=== PATIENT | female | born 1945 | race Caucasian/White ===

== ENCOUNTER 2020-03-09 11:36 | Outpatient (REF) | payer MEDICARE, OTHER, SELFPAY | END 2020-03-09 11:37 | disposition home or self-care (01) | LOC: HO.WFDLDS 11:36 | PROVIDERS: Visit Provider Internal Medicine | DX: Z20.828 Contact with and (suspected) exposure to other viral communicable diseases (principal) | CPT/HCPCS: C9803; U0003 ==

== ENCOUNTER 2020-03-23 11:11 | Outpatient (REF) | payer MEDICARE, OTHER, SELFPAY ==
--- NOTE | 2020-03-23 11:19 | MM_ITS ---
EXAMINATION: MM DIAGNOSTIC DIGITAL BREAST TOMOSYNTHESIS, BILATERAL CLINICAL INFORMATION: Due for yearly exam. Also follow-up small circumscribed nodule mid medial right breast. The lifetime risk of breast cancer based on the Tyrer-Cuzick Model is 5%. COMPARISON: Mammography: 09/19/2019, 08/30/2018, 01/25/2019 (BI-RADS 0), 12/29/2017, 10/13/2016; targeted right breast ultrasound 01/30/2019. TECHNIQUE: Digital breast tomosynthesis is performed in both the craniocaudal and mediolateral oblique views along with computer-aided detection (CAD). Synthesized 2D images are generated from the tomosynthesis. Additional right MLO view is provided. FINDINGS: There are scattered areas of fibroglandular density (ACR BI-RADS breast composition Category b). Parenchymal pattern is similar to prior studies. The left breast shows no interval mass or architectural abnormality. Neither breast shows abnormal calcifications. The bilateral axilla and skin contours are unremarkable. The right AC tomography shows small circumscribed nodular asymmetry mid medial breast similar to prior diagnostic exams. Finding not seen with certainty on MLO view. There is no developing density or interval architectural abnormality. Right breast will be reassessed again at next bilateral annual mammography, due in 12 months. Results are provided to the patient at time of visit by the technologist. MM/MM tomosynthesis diagnostic BI IMPRESSION: There are no significant changes from prior study. Small probable benign nodular asymmetry mid medial right breast, stable. ASSESSMENT: BI-RADS 3: Probably Benign RECOMMENDATION: Diagnostic mammography at time of next annual exam, due in 12 months. This patient's information was entered into a reminder system with a target due date for their next mammogram.
== END 2020-03-23 11:12 | disposition home or self-care (01) ==
LOC: HO.MAMMO 11:11
PROVIDERS: Visit Provider Family Medicine
DX: N63.10 Unspecified lump in the right breast, unspecified quadrant (principal)
CPT/HCPCS: 77062; 77066

== ENCOUNTER 2020-09-14 18:24 | Outpatient (REF) | payer MEDICARE, OTHER, SELFPAY ==
[2020-09-14 18:37] LABS: Glucose Urine UA NEG (NEG); Leukocyte Esterase Urine TRACE (NEG); Nitrite Urine POS (NEG); Specific Gravity - Urine 1.025 (1.005-1.025); Urine Blood NEG (NEG); Urine Ketones NEG (NEG); Urine Protein NEG (NEG-TRACE)
[2020-09-14 18:45] LABS: Appearance Urine HAZY; Color Urine YELLOW
[2020-09-14 18:52] LABS: Bacteria Urine 3+ /LPF; Mucus Urine TRACE /LPF; RBC Urine 0-2 /HPF (0); Squamous Epithelial Cell Urine 1+ /LPF
== END 2020-09-14 18:25 | disposition home or self-care (01) ==
LOC: HO.LNP 18:24
PROVIDERS: Visit Provider Family Medicine
DX: Z00.00 Encounter for general adult medical examination without abnormal findings (principal); R82.90 Unspecified abnormal findings in urine; R25.2 Cramp and spasm; M81.0 Age-related osteoporosis without current pathological fracture; M48.50XA Collapsed vertebra, not elsewhere classified, site unspecified, initial encounter for fracture
CPT/HCPCS: 81001; 87086; 87088; 87186

== ENCOUNTER 2020-09-22 12:54 | Outpatient (REF) | payer MEDICARE, OTHER, SELFPAY ==
[2020-09-22 14:03] LABS: Glucose Urine UA NEG (NEG); Leukocyte Esterase Urine 3+ (NEG); Nitrite Urine POS (NEG); PH 6.5 (5.0-8.0); Urine Blood NEG (NEG); Urine Ketones NEG (NEG); Urine Protein NEG (NEG-TRACE)
[2020-09-22 14:04] LABS: Appearance Urine HAZY; Color Urine YELLOW
[2020-09-22 14:15] LABS: Alanine Aminotransferase 21 U/L (0-31); Albumin Level 4.3 g/dL (3.5-5.0); Alkaline Phosphatase 76 U/L (39-117); Anion Gap 12 (12-20); Aspartate Amino Transferase 32 U/L (5-31); Bilirubin Total 0.5 mg/dL (0.0-1.0); Blood Urea Nitrogen 16 mg/dL (9-16); Calcium 9.6 mg/dL (8.4-10.2); Carbon Dioxide 28 mmol/L (22-29); Chloride 106 mmol/L (96-108); Estimated Glomerular Filt Rate > 60; Glucose Random 131 mg/dL (60-115); Magnesium 1.8 mg/dL (1.6-2.6); Potassium 3.6 mmol/L (3.3-5.1); Sodium 142 mmol/L (135-145); Total Protein 7.9 g/dL (6.5-8.0)
[2020-09-22 14:30] LABS: Bacteria Urine 3+ /LPF; RBC Urine 0-2 /HPF (0); Squamous Epithelial Cell Urine TRACE /LPF
== END 2020-09-22 12:55 | disposition home or self-care (01) ==
LOC: HO.WFDLDS 12:54
PROVIDERS: Visit Provider Family Medicine
DX: Z00.00 Encounter for general adult medical examination without abnormal findings (principal); R25.2 Cramp and spasm; R82.90 Unspecified abnormal findings in urine
CPT/HCPCS: 36415; 80053; 81001; 81003; 83735

== ENCOUNTER 2021-09-15 14:21 | Outpatient (REF) | payer MEDICARE, OTHER, SELFPAY ==
--- NOTE | ~2021-09-15 | XR_ITS ---
EXAMINATION: XR KNEE, LEFT CLINICAL INFORMATION: Knee pain. COMPARISON: None TECHNIQUE: Four views of the left knee. FINDINGS: There is mild patellofemoral spurring. There is a small bordering moderate effusion present. The patella is fairly well seated on the sunrise image. Medial joint space loss with marginal osteophyte present. Irregularity in the tibial spine regions may well be degenerative. Some possible loose bodies on the lateral film seen posterior. XR/XR knee LT 3V IMPRESSION: Moderate degenerative changes with effusion. Possible loose body formation.
== END 2021-09-15 14:22 | disposition home or self-care (01) ==
LOC: HO.XRAY 14:21
PROVIDERS: PCP Family Medicine; Visit Provider Family Medicine
DX: M25.562 Pain in left knee (principal)
CPT/HCPCS: 73562

== ENCOUNTER 2021-09-29 14:04 | Outpatient (REF) | payer MEDICARE, OTHER, SELFPAY ==
[2021-09-29 14:23] LABS: MANUAL DIFF FLAG NO
[2021-09-29 15:08] LABS: Basophils Percent Auto 0.4 % (0-2); Eosinophils Absolute Auto 0.2 X10*3/uL (0.0-0.4); Eosinophils Percent Auto 2.4 % (0-4); Hematocrit 30.9 % (37.0-47.0); Hemoglobin 10.1 g/dl (12.0-16.0); Imm Gran Abs Auto 0.02 X10*3/uL (0.00-0.03); Imm Gran Pct Auto 0.3 % (0.0-0.4); Lymphocytes Absolute Auto 1.8 X10*3/uL (1.2-4.9); Lymphocytes Percent Auto 26.5 % (20-40); Mean Corpuscular HGB Conc 32.7 g/dl (31.0-35.0); Mean Corpuscular Hemoglobin 32.9 pg (27.0-33.0); Mean Corpuscular Volume 100.7 fL (80.0-98.0); Mean Platelet Volume 11.3 fL (9.4-12.3); Monocytes Absolute Auto 0.5 X10*3/uL (0.1-1.2); Monocytes Percent Auto 7.2 % (2-11); Neutrophils Absolute Auto 4.4 x10*3/uL (2.0-8.3); Neutrophils Percent Auto 63.2 % (45-73); Platelet Count 176 X10*3/uL (160-400); Red Blood Count 3.07 X10*6/uL (4.20-5.50); Red Cell Distribution Width 13.5 % (11.0-16.0)
[2021-09-29 15:30] LABS: Alanine Aminotransferase 21 U/L (0-31); Albumin Level 4.3 g/dL (3.5-5.0); Alkaline Phosphatase 68 U/L (39-117); Anion Gap 13 (12-20); Aspartate Amino Transferase 33 U/L (5-31); Bilirubin Total 0.2 mg/dL (0.0-1.0); Blood Urea Nitrogen 14 mg/dL (9-16); Carbon Dioxide 26 mmol/L (22-29); Chloride 107 mmol/L (96-108); Cholesterol 175 mg/dL; Estimated Glomerular Filt Rate > 60; Glucose Fasting 92 mg/dL (60-99); HDL Cholesterol 43 mg/dL; LDL Cholesterol Calculated 92 mg/dl; Potassium 3.7 mmol/L (3.3-5.1); Sodium 142 mmol/L (135-145); Total Protein 7.9 g/dL (6.5-8.0); Triglycerides 204 mg/dL
[2021-09-29 15:35] LABS: Microalbum/Creatinine Ratio Ur 34.2 ug/mg cr
[2021-09-29 15:51] LABS: TSH reflex Free T4 4.24 uIU/mL (0.32-4.0); Vitamin D 25-OH Total 27.6 ng/mL (>30)
[2021-09-29 15:52] LABS: Ferritin 27 ng/mL (10-250)
[2021-09-29 16:01] LABS: Folate 16.8 ng/mL (> or = 4.0); Vitamin B12 995 pg/mL (200-900)
[2021-09-29 16:25] LABS: Free T4 (Free Thyroxine) 1.25 ng/dL (0.71-1.85)
== END 2021-09-29 14:05 | disposition home or self-care (01) ==
LOC: HO.LAB 14:04
PROVIDERS: PCP Family Medicine; Visit Provider Internal Medicine
DX: Z00.00 Encounter for general adult medical examination without abnormal findings (principal); R06.00 Dyspnea, unspecified; D64.9 Anemia, unspecified; I10 Essential (primary) hypertension; E55.9 Vitamin D deficiency, unspecified
CPT/HCPCS: 36415; 80053; 80061; 82043; 82306; 82607; 82728; 82746; 84439; 84443; 85025; 85027; 99212

== ENCOUNTER 2021-10-07 07:11 | Outpatient (REF) | payer MEDICARE, OTHER, SELFPAY ==
--- NOTE | ~2021-10-07 | XR_ITS ---
EXAMINATION: XR KNEE AP STANDING CLINICAL INFORMATION: Pain right knee COMPARISON: None TECHNIQUE: AP bilateral standing view of the knees was obtained. FINDINGS: AP bilateral knee standing reveal severe loss of medial compartment joint space with periarticular spurring bilaterally. No loose bodies or bony erosive changes seen. There is no soft tissue swelling or fracture seen. XR/XR knee standing BI IMPRESSION: Severe degenerative changes medial compartment both knees. No visible acute fracture or dislocation seen.
== END 2021-10-07 07:12 | disposition home or self-care (01) ==
LOC: HO.HOSX 07:11
PROVIDERS: Visit Provider Physician Assistant
DX: M17.12 Unilateral primary osteoarthritis, left knee (principal); M25.562 Pain in left knee; M25.561 Pain in right knee; I10 Essential (primary) hypertension; E78.00 Pure hypercholesterolemia, unspecified
CPT/HCPCS: 20610; 73565; 99202; J1040

== ENCOUNTER 2021-10-28 11:00 | Outpatient (RCR) | payer MEDICARE, OTHER, SELFPAY ==
--- NOTE | 2021-09-30 15:34 | MHC.PT.EP ---
[facility] [place] Office [place] Office [place] Office [address] [phone] F: [phone] F: [phone] F: [phone] F: [phone] Physical Therapy Plan of Care Date of Evaluation: Date of Surgery: Diagnosis: Pain of L knee. Assessment: Pt is a 76 y/o female referred to PT for eval and treat of L knee pain who presents with signs and Sx consistent with L knee dysfunction resulting in decreased tolerance and ability to perform ambulatory and standing tasks for duration as well as negotiating stairs, performing squatting activities and heavy HH chores secondary to decreased B hip and L knee strength, decreased L knee ROM as well as mild genuvarus LE posture, increased posterior L leg tissue tension, and pain. Pt is deemed an appropriate candidate to receive skilled PT in order to address her physical limitations to improve her functional ability. Frequency and Duration: The patient will be seen 2x / wk x 4 wks. Short Term Goals: initiate HEP with evidence of compliance. Full L knee extension achieved; initial 5 degrees flexion (R 5 deg hyper extension). Research And Development Scientist Goals: I with HEP. Pt will be able to negotiate 1fl of stairs with at most a little bit of difficulty; initial: quite a bit of difficulty (LEFI). improve L knee extension MMT by at least 1 MMT grade: initial 4/5 and painful. Pt will be able to walk 2 blocks without difficulty; initial: moderate difficulty (LEFI). Treatment Plan: Modalities to reduce pain, spasms and effusion. Manual therapy to restore motion and function. Therapeutic exercise to improve strength and flexibility. Neuromuscular re-education for posture and balance. Therapeutic activities to return to functional activities of daily living. Electronically signed by: Garett Ng PT. Please sign and return to therapist. Thank you for your referral.
== END 2021-11-11 15:19 | disposition home or self-care (01) ==
LOC: HO.PTWFD 11:00
PROVIDERS: PCP Family Medicine; Visit Provider Family Medicine
DX: M25.562 Pain in left knee (principal)
CPT/HCPCS: 97110; 97140; 97161; 97530

== ENCOUNTER 2021-11-09 13:06 | Outpatient (REF) | payer MEDICARE, OTHER, SELFPAY ==
--- NOTE | 2021-11-09 14:10 | PFT_ITS ---
INDICATION: Dyspnea. SPIROMETRY: The FEV1 to FVC of 92% with an FEV1 of 2.28 L with 112% predicted, an FVC of 2.49 L with 91% predicted. No significant response to bronchodilators noted. Maximum voluntary ventilation 91% predicted. LUNG VOLUMES: Total lung capacity 77% predicted. DIFFUSION CAPACITY: DLCO 47% predicted. COMPARISONS: None. INTERPRETATION: No obstructive ventilatory defect. No significant response to bronchodilators noted. Normal maximum voluntary ventilation. The patient does have a restrictive ventilatory defect consistent with mild restrictive lung disease. The expiratory reserve volume is within normal limits. The patient also has a moderate to severe diffusion impairment, out of proportion to the above findings. Needs to consider underlying interstitial lung conditions and/or pulmonary vascular conditions. Also need to correct for hemoglobin. Clinical correlation warranted. Messi Gilbert MD MR/MODL / [id number]
== END 2021-11-09 13:07 | disposition home or self-care (01) ==
LOC: HO.RESP 13:06
PROVIDERS: PCP Family Medicine; Visit Provider Internal Medicine
DX: R06.00 Dyspnea, unspecified (principal); D64.9 Anemia, unspecified
CPT/HCPCS: 94060; 94727; 94729; 99212

== ENCOUNTER 2021-12-16 12:44 | Outpatient (REF) | payer MEDICARE, OTHER, SELFPAY ==
[2021-12-16 13:35] LABS: MANUAL DIFF FLAG NO
[2021-12-16 13:46] LABS: Basophils Percent Auto 0.6 % (0-2); Eosinophils Absolute Auto 0.2 X10*3/uL (0.0-0.4); Eosinophils Percent Auto 2.6 % (0-4); Hematocrit 31.1 % (37.0-47.0); Hemoglobin 10.2 g/dl (12.0-16.0); Imm Gran Abs Auto 0.01 X10*3/uL (0.00-0.03); Imm Gran Pct Auto 0.1 % (0.0-0.4); Immature Retic Fraction 9.9 % (3.0-15.9); Lymphocytes Absolute Auto 1.7 X10*3/uL (1.2-4.9); Lymphocytes Percent Auto 24.6 % (20-40); Mean Corpuscular HGB Conc 32.8 g/dl (31.0-35.0); Mean Corpuscular Hemoglobin 32.5 pg (27.0-33.0); Mean Platelet Volume 11.7 fL (9.4-12.3); Monocytes Absolute Auto 0.6 X10*3/uL (0.1-1.2); Monocytes Percent Auto 8.7 % (2-11); Neutrophils Absolute Auto 4.4 x10*3/uL (2.0-8.3); Neutrophils Percent Auto 63.4 % (45-73); Platelet Count 175 X10*3/uL (160-400); Red Blood Count 3.14 X10*6/uL (4.20-5.50); Red Cell Distribution Width 14.4 % (11.0-16.0); Retic HGB Equivalent 35.5 pg (30.0-35.0); Reticulocyte Percent 1.6 % (0.5-1.8); Reticulocytes Absolute 0.051 X10*6/uL (0.026-0.095); White Blood Count 6.9 X10*3/uL (4.8-10.8)
[2021-12-16 14:16] LABS: Anion Gap 14 (12-20); Blood Urea Nitrogen 16 mg/dL (9-16); Calcium 9.7 mg/dL (8.4-10.2); Carbon Dioxide 25 mmol/L (22-29); Chloride 105 mmol/L (96-108); Estimated Glomerular Filt Rate > 60; Glucose Random 79 mg/dL (60-115); Iron 103 mcg/dL (30-160); Percent Iron Saturation 20 % (15-50); Sodium 140 mmol/L (135-145); Total Iron Binding Capacity 510 mcg/dL (228-428); Unsaturated Iron Binding 407 ug/dL
[2021-12-16 14:40] LABS: Ferritin 28 ng/mL (10-250); Free T4 (Free Thyroxine) 1.17 ng/dL (0.71-1.85); Thyroid Stimulating Hormone 2.78 uIU/mL (0.32-4.0)
[2021-12-16 14:57] LABS: Folate 9.3 ng/mL (> or = 4.0); Vitamin B12 900 pg/mL (200-900)
[2021-12-17 18:02] LABS: Triiodothyronine T3 Total 85 ng/dL (76-181)
== END 2021-12-16 12:45 | disposition home or self-care (01) ==
LOC: HO.WFDLDS 12:44
PROVIDERS: Visit Provider Family Medicine
DX: Z00.00 Encounter for general adult medical examination without abnormal findings (principal); D64.9 Anemia, unspecified; E03.9 Hypothyroidism, unspecified; E53.8 Deficiency of other specified B group vitamins
CPT/HCPCS: 36415; 80048; 82607; 82728; 82746; 83540; 84439; 84443; 84480; 85025; 85045

== ENCOUNTER 2021-12-28 11:34 | Outpatient (REF) | payer MEDICARE, OTHER, SELFPAY | END 2021-12-28 11:35 | disposition home or self-care (01) | LOC: HO.MAMMO 11:34 | PROVIDERS: PCP Family Medicine; Visit Provider Family Medicine | DX: Z13.89 Encounter for screening for other disorder (principal) ==

== ENCOUNTER → 2021-12-30 11:16 | Outpatient (BNV) | payer MEDICARE, OTHER, SELFPAY | PROVIDERS: PCP Family Medicine; Referring Provider Family Medicine; Visit Provider Internal Medicine Medical Oncology | DX: D64.9 Anemia, unspecified (principal); M81.0 Age-related osteoporosis without current pathological fracture | CPT/HCPCS: 99204; 99212; 99213; 99214 ==

== ENCOUNTER 2022-02-10 08:24 | Day surgery (SDC) | payer MEDICARE, OTHER, SELFPAY ==
--- NOTE | 2022-02-09 09:28 | HO.ANESPROP2 ---
Documented by User: Kia Pretty NP 02/09/22 09:31 HPI - Anesthesia Eval Consult details Narrative: 76yo F for Bone Marrow Biopsy PMFSH Active Problems Active Problems: All Active Problems (Updated 12/30/21 @ 12:25 by Edu Vila MD) Essential hypertension (Acute) Hypothyroidism (Acute) Hyperlipidemia (Acute) ALS (amyotrophic lateral sclerosis) (Acute) Osteoporosis (Acute) Compression fracture of spine (Acute) Foul smelling urine (Acute) Calf cramp (Acute) Encounter for general adult medical examination without abnormal findings (Acute) Difficulty with speech (Acute) Regularly irregular pulse rhythym (Acute) Dysarthria (Acute) Screening for colon cancer (Acute) Screening for osteoporosis (Acute) Breast cancer screening by mammogram (Acute) Shortness of breath (Acute) Left knee pain (Acute) Osteoarthritis of left knee (Acute) Adult general medical examination (Acute) Paresthesia (Acute) Anemia (Acute) Dyspnea on exertion (Acute) Past Medical History Medical History Anemia Aphagia Aphasia Dyspnea on exertion GERD (gastroesophageal reflux disease) High blood pressure High cholesterol Hypothyroidism Osteoporosis T11 vertebral fracture Family History Family History Father Esophageal cancer Mother Breast cancer Paternal Aunt Breast cancer Surgical History Surgical History History of cholecystectomy History of excision of mass History of kyphoplasty History of tonsillectomy History of vertebroplasty Social History Social History Household Members: Spouse Housing: Condominium Are you a primary direct care professional to a significant other at home: No Do you presently have visiting nurse or other home services: No Alcohol intake: current Alcohol intake frequency: holidays/special occasions only Patient Tobacco Use Status: Never used Tobacco e-Cigarette/Vaping Use: Never Used Use of substances other than those prescribed or required for medical reasons: No Are you DNR?: Yes Advance Directives: No Advance Directives Information Provided: Yes service: No Current occupational status: 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 Cognitive needs: Yes Hearing needs: No Vision needs: No Meds Allergies Allergy/AdvReac Type Severity Reaction Status Date / Time Cephalosporins Allergy Mild JAUNDICE Verified 02/10/22 09:08 KETOLIDES Allergy Unknown ITCHING Uncoded 02/03/22 14:00 MACORLIDES Allergy Unknown ITCHING Uncoded 02/03/22 14:00 Home Medications Medication Instructions Recorded Confirmed Last Taken Type aspirin 81 mg tablet,delayed 81 mg PO DAILY 03/09/20 02/10/22 02/08/22 History release (Adult Aspirin Regimen) cholecalciferol (vitamin D3) 50 50 mcg PO DAILY 09/13/21 02/10/22 Unknown History mcg (2,000 unit) capsule denosumab 60 mg/mL subcutaneous 60 mg subcut [id number] 09/13/21 02/10/22 Unknown History syringe (Prolia) mecobalamin (vitamin B12) 1,000 1,000 mcg PO DAILY 09/13/21 02/10/22 Unknown History mcg chewable tablet Exam Exam Date and Time: February 09, 2022 0928 Pertinent Lab Results Pertinent Lab Results: Laboratory Tests 02/03/22 02/03/22 13:50 13:50 WBC 7.7 Hgb 10.2 L Hct 31.4 L Plt Count 190 Sodium 141 Potassium 4.3 Chloride 106 Carbon Dioxide 25 BUN 14 Creatinine 0.89 Narrative Narrative: PFT 10/2021 INTERPRETATION:? No obstructive ventilatory defect.? No significant response to bronchodilators noted.? Normal maximum voluntary ventilation.? The patient does have a restrictive ventilatory defect consistent with mild restrictive lung disease. The expiratory reserve volume is within normal limits.? The patient also has a moderate to severe diffusion impairment, out of proportion to the above findings.? Needs to consider underlying interstitial lung conditions and/or pulmonary vascular conditions.? Also need to correct for hemoglobin.? Clinical correlation warranted. Assessment and Plan Assessment Anesthesia Assessment: Chart Reviewed Documented by User: Ney Nash MD 02/10/22 09:57 PMFSH Past Medical History Medical History Anemia Aphagia Aphasia Dyspnea on exertion GERD (gastroesophageal reflux disease) High blood pressure High cholesterol Hypothyroidism Osteoporosis T11 vertebral fracture Family History Family History Father Esophageal cancer Mother Breast cancer Paternal Aunt Breast cancer Family history of problems with anesthesia: No Surgical History Surgical History History of cholecystectomy History of excision of mass History of kyphoplasty History of tonsillectomy History of vertebroplasty History of Problems with Anesthesia: No Social History Social History Household Members: Spouse Housing: [facility] Are you a primary direct care professional to a significant other at home: No Do you presently have visiting nurse or other home services: No Alcohol intake: current Alcohol intake frequency: holidays/special occasions only Patient Tobacco Use Status: Never used Tobacco e-Cigarette/Vaping Use: Never Used Use of substances other than those prescribed or required for medical reasons: No Are you DNR?: Yes Advance Directives: No Advance Directives Information Provided: Yes service: No Current occupational status: 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 Cognitive needs: Yes Hearing needs: No Vision needs: No Meds Allergies Allergy/AdvReac Type Severity Reaction Status Date / Time Cephalosporins Allergy Mild JAUNDICE Verified 02/10/22 09:08 KETOLIDES Allergy Unknown ITCHING Uncoded 02/03/22 14:00 MACORLIDES Allergy Unknown ITCHING Uncoded 02/03/22 14:00 Home Medications Medication Instructions Recorded Confirmed Last Taken Type aspirin 81 mg tablet,delayed 81 mg PO DAILY 03/09/20 02/10/22 02/08/22 History release (Adult Aspirin Regimen) cholecalciferol (vitamin D3) 50 50 mcg PO DAILY 09/13/21 02/10/22 Unknown History mcg (2,000 unit) capsule denosumab 60 mg/mL subcutaneous 60 mg subcut [id number] 09/13/21 02/10/22 Unknown History syringe (Prolia) mecobalamin (vitamin B12) 1,000 1,000 mcg PO DAILY 09/13/21 02/10/22 Unknown History mcg chewable tablet Exam Airway Mallampati Class: II TM Dist: >3cm Neck ROM: Full Loose/Missing/Broken Teeth: Yes Assessment and Plan Final Anesthetic Review Family History of Problems with Anesthesia: No History of Problems with Anesthesia: No NPO: Yes ASA Class: III Final Preanesthetic Review: No Changes in Pt Med Stat, Meds/Allgs Chart Reviewed, Consent Obtained/Reviewed and Anes Risks/Benef Reviewed Patient Risk: Intermediate Procedure Risk: Low Anesthetic Plan Anesthetic Plan: MAC: Disposition: Standard PACU
[2022-02-10 08:47] VITALS: BMI 26.0
[2022-02-10 08:54] VITALS: BP 141/62; PULSE 60; RESP 16; TEMP 36.8; O2SAT 97
[2022-02-10] MEDS: Lactated Ringers 1,000 ML 100 ML IVCONT (09:12)
[2022-02-10 10:56] VITALS: BP 118/55; PULSE 64; RESP 16; TEMP 36.1; O2SAT 95
[2022-02-10 11:10] VITALS: BP 126/58; PULSE 65; RESP 16; O2SAT 96
[2022-02-10 11:25] VITALS: BP 125/53; RESP 16; TEMP 36.7; O2SAT 95
--- NOTE | 2022-02-10 11:28 | PM.HEMONCBM ---
Bone Marrow Aspiration - Bone Marrow Aspiration Procedure:: *Service Date: [02/10/22] Pre Op Diagnosis:: Anemia. Post Op Diagnosis:: Same. Surgeon:: Edu Vila. Anesthesia:: MAC. Consent:: Informed consent obtained from the patient for the procedure. Pros and cons of biopsy explained. The patient was willing to proceed with the procedure under local anesthesia. Procedure in Detail:: *Service Date: 02/10/22. *Procedure: Bone marrow aspirate and biopsy. *Pre Op Dx: Anemia. *Post Op Dx: Same. *Surgeon: Edu Vila. CBC: WBC 7.7, HGB 10.2,HCT 31.4, PLT 190. The patient was positioned prone. The left posterior superior iliac spine prepped and draped. Patient was anesthetized under MAC. Under aseptic precautions, 4 ml of 1% lidocaine used for local anesthesia. Bone marrow aspirate was taken. With the Jamshidi needle, a core biopsy was obtained without any complications. Specimens were sent for Lincoln stain, flow cytometry and cytogenetics. The patient tolerated the procedure well. Bandage was applied and patient was positioned on her back for 10 to 15 minutes after the procedure. The patient was advised to call us if she develops any pain or swelling at the surgical site. Follow up in 2 weeks.
[2022-02-10 11:31] LABS: Bone Marrow SEE SEPARATE REPORT
== END 2022-02-10 11:58 | disposition home or self-care (01) ==
PROVIDERS: Pathology Anatomic Pathology & Clinical Pathology; PCP Family Medicine; Visit Provider Internal Medicine Medical Oncology
PROC: (CPT 38221; principal; 2022-02-10 10:00)
DX: D53.9 Nutritional anemia, unspecified (principal); R53.83 Other fatigue; R47.01 Aphasia; R13.0 Aphagia; I10 Essential (primary) hypertension; E78.00 Pure hypercholesterolemia, unspecified; R06.09 Other forms of dyspnea; Z79.82 Long term (current) use of aspirin; Z79.899 Other long term (current) drug therapy; Z88.8 Allergy status to other drugs, medicaments and biological substances; Z66 Do not resuscitate; Z90.49 Acquired absence of other specified parts of digestive tract
CPT/HCPCS: 38222; 36415; 88184; 88185; 88237; 88264; 88305; 88311; 88313; 88374; J1642; J3010

== ENCOUNTER 2022-02-18 12:21 | Outpatient (REF) | payer MEDICARE, OTHER, SELFPAY | END 2022-02-18 12:22 | disposition home or self-care (01) | LOC: HO.WFDLDS 12:21 | PROVIDERS: Visit Provider Nurse Practitioner Family | DX: E03.9 Hypothyroidism, unspecified (principal) | CPT/HCPCS: 36415; 84443 ==

== ENCOUNTER → 2022-09-02 12:58 | Outpatient (BNVA) | payer MEDICARE, OTHER, SELFPAY | PROVIDERS: PCP Family Medicine; Visit Provider Physician Assistant | DX: M17.12 Unilateral primary osteoarthritis, left knee (principal) | CPT/HCPCS: 20610; 99212; J1040 ==

== ENCOUNTER 2022-12-15 10:30 | Outpatient (REF) | payer MEDICARE, OTHER, SELFPAY ==
[2022-12-15 14:35] LABS: MANUAL DIFF FLAG NO
[2022-12-15 14:41] LABS: Basophils Percent Auto 0.5 % (0-2); Eosinophils Absolute Auto 0.1 X10*3/uL (0.0-0.4); Eosinophils Percent Auto 2.3 % (0-4); Hematocrit 32.9 % (37.0-47.0); Imm Gran Abs Auto 0.01 X10*3/uL (0.00-0.03); Imm Gran Pct Auto 0.2 % (0.0-0.4); Lymphocytes Absolute Auto 1.5 X10*3/uL (1.2-4.9); Lymphocytes Percent Auto 24.4 % (20-40); Mean Corpuscular HGB Conc 33.4 g/dl (31.0-35.0); Mean Corpuscular Hemoglobin 34.4 pg (27.0-33.0); Mean Corpuscular Volume 102.8 fL (80.0-98.0); Mean Platelet Volume 11.5 fL (9.4-12.3); Monocytes Absolute Auto 0.4 X10*3/uL (0.1-1.2); Monocytes Percent Auto 6.9 % (2-11); Neutrophils Absolute Auto 3.9 x10*3/uL (2.0-8.3); Neutrophils Percent Auto 65.7 % (45-73); Platelet Count 128 X10*3/uL (160-400); Red Cell Distribution Width 13.2 % (11.0-16.0)
[2022-12-15 14:57] LABS: Appearance Urine Hazy; Color Urine Yellow; Glucose Urine UA Negative (Negative); Leukocyte Esterase Urine Large (3+) (Negative); Nitrite Urine Positive (Negative); PH 6.5 (5.0-9.0); UMIC TRIGGER UA YES; Urine Blood Trace (Negative); Urine Ketones Negative (Negative); Urine Protein Trace mg/dL (Neg-Trace)
[2022-12-15 15:27] LABS: Bacteria Urine 4+ (None Seen); Calcium Oxalate Crystals Urine Present; Hyaline Casts Urine 0-2 /LPF (0-2); RBC Urine >20 /HPF (0-2); WBC Urine >50 /HPF (0-5)
[2022-12-15 15:34] LABS: Alanine Aminotransferase 17 U/L (0-31); Albumin Level 4.1 g/dL (3.5-5.0); Alkaline Phosphatase 56 U/L (39-117); Anion Gap 11 (12-20); Aspartate Amino Transferase 27 U/L (5-31); Bilirubin Total 0.3 mg/dL (0.0-1.0); Blood Urea Nitrogen 17 mg/dL (9-16); Calcium 9.7 mg/dL (8.4-10.2); Carbon Dioxide 26 mmol/L (22-29); Chloride 107 mmol/L (96-108); Cholesterol 176 mg/dL (<200); Estimated Glomerular Filt Rate > 60; Glucose Fasting 127 mg/dL (60-99); Glucose Random 126 mg/dL (60-115); HDL Cholesterol 40 mg/dL (>40); Iron 72 mcg/dL (30-160); LDL Cholesterol Calculated 96 mg/dL (<100); Percent Iron Saturation 23 % (15-50); Sodium 140 mmol/L (135-145); Total Iron Binding Capacity 318 mcg/dL (228-428); Total Protein 7.8 g/dL (6.5-8.0); Triglycerides 201 mg/dL (<150); Unsaturated Iron Binding 246 ug/dL
[2022-12-15 16:00] LABS: TSH reflex Free T4 3.67 uIU/mL (0.32-4.0)
[2022-12-15 16:20] LABS: Creatinine Urine 217.82 mg/dL; Microalbum/Creatinine Ratio Ur 16.9 ug/mg cr (<30)
[2022-12-15 17:22] LABS: Ferritin 280 ng/mL (10-250)
[2022-12-15 17:23] LABS: Vitamin B12 1297 pg/mL (200-900)
== END 2022-12-15 10:31 | disposition home or self-care (01) ==
LOC: HO.WFDLDS 10:30
PROVIDERS: Internal Medicine Medical Oncology; Visit Provider Family Medicine
DX: Z00.00 Encounter for general adult medical examination without abnormal findings (principal); D64.9 Anemia, unspecified; E53.8 Deficiency of other specified B group vitamins; I10 Essential (primary) hypertension
CPT/HCPCS: 36415; 80053; 80061; 81001; 82043; 82607; 82728; 82746; 83540; 84443; 85025

== ENCOUNTER 2022-12-28 11:04 | Outpatient (AMB) | payer MEDICARE, OTHER, SELFPAY ==
--- NOTE | 2022-12-28 11:10 | MHC.PC.OV ---
Vital Signs 12/28/22 11:11 Height 5 ft 3 in Weight 151 lb BMI 26.7 BP 132/76 Blood Pressure Location Lt brachial Position Sitting Pulse 62 Pulse Source Pulse Oximeter Pulse Oximetry (%) 96 Oxygen Delivery Method Room Air Intake Visit Reasons: Extended exam with f/u labs and health maintenance Intake Note: Patient is here for extended exam and lab results. Patient is complaining of neck pain for 2 weeks. Allergies Cephalosporins Allergy (Mild, Verified 12/28/22 11:14) JAUNDICE KETOLIDES Allergy (Unknown, Uncoded 12/28/22 11:14) ITCHING MACORLIDES Allergy (Unknown, Uncoded 12/28/22 11:14) ITCHING Tobacco use date assessed: 12/28/22 Fall risk assessment: No Falls in past year Last assessed Fall Risk: 12/28/22 Dental Screening Dental Screen Date: 12/28/22 Did you have a dental visit in the last 12 months?: Yes Did you have a dental problem in the last 6 months where you did not have access to dental care?: No Was dental information given to patient?: Patient has dentist HPI Extended exam with f/u labs and health maintenance HPI Details 77 y/o female presents for an extended exam with f/u labs and health maintenance. Labs were drawn 12/15/22. Reviewed labs with pt. Ongoing, stable anemia. Elevated fasting glucose of 127. A1c today 12/28/22 is Triglycerides 201. TC 176. LDL 96. HDL 40. Urine in bacteria She denies any urinary symptoms. She reports she had a mammogram this year and everything was okay per pt. [facility] Medical History Anemia Aphagia Aphasia Dyspnea on exertion GERD (gastroesophageal reflux disease) High blood pressure High cholesterol Hypothyroidism Osteoporosis T11 vertebral fracture Surgical History History of bone marrow biopsy History of cholecystectomy History of excision of mass History of kyphoplasty History of tonsillectomy History of vertebroplasty Family History Father Esophageal cancer Mother Breast cancer Paternal Aunt Breast cancer Social History Household Members: Spouse Housing: Condominium Are you a primary veterinarian laboratory animal care to a significant other at home: No Do you presently have visiting nurse or other home services: No Alcohol intake: current Alcohol intake frequency: holidays/special occasions only Patient Tobacco Use Status: Never used Tobacco e-Cigarette/Vaping Use: Never Used Second Hand Smoke Exposure: No service: No Current occupational status: 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 Zach Mccarthy, Chayito Barnhart, Bal Díaz and colleagues, with an educational anne from [employer] Review of Systems Const Denies chills, Denies fatigue, Denies fever(s), Denies headache(s) and Denies weakness Eyes Denies change in vision ENT Denies dizziness, Denies headache(s), Denies hearing loss, Denies nasal congestion, Denies sinus pain, Denies sinus pressure and Denies sore throat Card Denies chest pain, Denies lightheadedness, Denies dyspnea and Denies other (palpitations) Resp Denies cough, Denies dyspnea and Denies wheezing GI Denies abdominal pain, Denies melena, Denies hematochezia, Denies change in bowel habits, Denies dyspepsia and Denies nausea Denies hematuria and Denies dysuria Musc Denies abnormal gait, Denies myalgias, Denies arthralgias, Denies numbness and Denies tingling Skin/Breast Denies rash, Denies unusual bruising and Denies wounds Neuro Denies abnormal gait, Denies dizziness, Denies headache(s), Denies memory loss, Denies numbness, Denies Sensory deficit (Neuro), Denies tingling and Denies weakness Psych Denies anxiety, Denies depression and Denies memory loss Endo Denies cold intolerance, Denies fatigue, Denies heat intolerance, Denies polydipsia and Denies polyuria Duane/Lymph Denies easy bleeding and Denies easy bruising Aller/Immun Denies wheezing Physical exam (Primary Care) Vital Signs: Last Vital Signs Pulse 62 12/28/22 11:11 BP 132/76 12/28/22 11:11 Pulse Ox 96 12/28/22 11:11 Oxygen Delivery Method Room Air 12/28/22 11:11 BMI result Body Mass Index 26.7 Tobacco/Smoking Status: Tobacco use Status Tobacco use date assessed 12/28/22 12/28/22 11:19 Patient Tobacco Use Status Never used Tobacco 12/28/22 11:19 e-Cigarette/Vaping Use Never Used 12/28/22 11:19 Thrive Assessment: Date of Thrive Assessment Date Thrive assessed 12/16/21 12/28/22 11:19 Const General: no acute distress, well developed, alert and awake Nutritional Appearance: well nourished Orientation/consciousness: patient oriented x3 HENMT Head: Yes normocephalic and Yes atraumatic Ears: hearing grossly normal bilaterally and TM's normal bilaterally General nose exam: Normal external nose present and Normal nares present Mouth: Normal oral and palatal mucosa present and moist mucous membranes Teeth and gingiva: dentition normal Throat: Yes posterior oropharynx normal Eyes General: appearance normal, both eyes and all related structures Pupils: Equal, round and reactive pupils present and Pupil accommodation reflex normal EOM: EOMs intact bilaterally Neck Neck: Yes normal visual inspection, Yes no lymphadenopathy and Yes trachea midline Thyroid: Thyroid normal Carotids: no bruits Lymphatic: no lymphadenopathy noted Chest Chest palpation & inspection: normal inspection of the chest Resp Effort & Inspection: normal respiratory effort Auscultation: clear to auscultation bilaterally Cardio Rate: regular rate Rhythm: regular rhythm Heart sounds: S1 normal heart sound present, S2 normal heart sound present, no gallops, no murmurs and no rubs Bruits: no abdominal aortic bruits and no carotid bruits GI Palpation (GI): No Abdominal aortic bruit present, Soft to palpation, nontender, No hepatosplenomegaly present and No Rebound tenderness present Auscultation: normal bowel sounds General: Yes no CVA tenderness Back/Spine/Pelvis Back: no CVA tenderness Cervical Spine: cervical ROM normal and No Cervical spine tenderness Thoracic/Lumbar Spine: thoraco-lumbar ROM normal, No pain with thoraco-lumbar ROM, No thoracic spinal tenderness and No lumbar spinal tenderness Skin Lesions: no lesions Rashes: no rashes Trauma: no lacerations or abrasions Wounds: no wounds Nails: normal Neuro General: patient oriented x3 Cranial nerves: Yes Equal, round and reactive pupils present Cognition (Neuro): normal cognition Gait exam (Neuro): Normal gait present Motor exam (neuro): 5/5 motor strength present throughout Sensory Exam: No Sensory deficit (Neuro) Deep tendon reflexes (DTR's): Right patellar reflex intensity grade: 2+ and Left patellar reflex intensity grade: 2+ Extrem General: Yes normal to inspection and No edema Psych Appearance: grossly normal Affect: normal affect Attitude: cooperative Thought process: Normal thought process present Results AMB Hemoglobin A1c AMB Hemoglobin A1c 5.8 % Last Edit by Portia Hanna CMA on 12/28/22 11:49 Results Reviewed Results Reviewed: Laboratory Last Values Hgb A1c (Clinic) 5.8 % (4.0-6.0) 12/28/22 11:46 Assessment and Plan Assessment & Plan (1) Dysphagia: Code(s): R13.10 - Dysphagia, unspecified Plan: History of progressive dysarthria. She now notes some worsening dysphagia Will have speech language pathologist evaluate; referred back to [facility] speech and hearing (2) Essential hypertension: Code(s): I10 - Essential (primary) hypertension Plan: Blood pressure is controlled. Goal is less than 140/90 Continue current medication regimen (3) Hyperlipidemia: Code(s): E78.5 - Hyperlipidemia, unspecified Plan: Triglycerides are elevated Encouraged diet lower in saturated fats and cholesterol Encouraged improved blood sugar control - see pre diabetes below (4) Anemia: Code(s): D64.9 - Anemia, unspecified Plan: Stable and managed by Hematology-Oncology (5) Pre-diabetes: Code(s): R73.03 - Prediabetes Plan: Encouraged a diet lower in sugars and starches Encouraged weight control and exercise (6) Screening for colon cancer: Code(s): Z12.11 - Encounter for screening for malignant neoplasm of colon Plan: She has an appointment with Dr. Hewitt (7) Screening for osteoporosis: Code(s): Z13.820 - Encounter for screening for osteoporosis Plan: She is on Prolia for osteoporosis (8) Breast cancer screening by mammogram: Code(s): Z12.31 - Encounter for screening mammogram for malignant neoplasm of breast Plan: She gets her mammograms in [place] as she is there half of the year Stable (9) Bacteria in urine: Code(s): R82.71 - Bacteriuria Plan: Check urine dip and urinalysis (10) Immunization counseling: Code(s): Z71.85 - Encounter for immunization safety counseling Plan: Recommended new COVID shot this month She is up-to-date with pneumonia shots. She is up-to-date with flu shot (11) Adult general medical examination: Code(s): Z00.00 - Encounter for general adult medical examination without abnormal findings Plan: 77-year-old woman presents for extended exam Orders: Orders AMB Hemoglobin A1c Today Z13.9 - Encounter for screening, unspecified Urine Dipstick Today R82.71 - Bacteriuria Referrals Speech and Hearing Referral R13.10 - Dysphagia, unspecified, R47.1 - Dysarthria and anarthria Coding Level of Care Code Est Pt Level 4 (04817) Diagnoses Dysphagia R13.10 Essential hypertension I10 Hyperlipidemia E78.5 Anemia D64.9 Pre-diabetes R73.03 Screening for colon cancer Z12.11 Screening for osteoporosis Z13.820 Breast cancer screening by mammogram Z12.31 Bacteria in urine R82.71 Immunization counseling Z71.85 Adult general medical examination Z00.00
[2022-12-28 11:11] VITALS: BP 132/76; PULSE 62; O2SAT 96; BMI 26.7
== END 2022-12-28 12:10 | disposition home or self-care (01) ==
PROVIDERS: PCP Family Medicine; Visit Provider Family Medicine
DX: R13.10 Dysphagia, unspecified (principal); I10 Essential (primary) hypertension; E78.5 Hyperlipidemia, unspecified; R73.03 Prediabetes; D64.9 Anemia, unspecified; R82.71 Bacteriuria; Z71.85 Encounter for immunization safety counseling
CPT/HCPCS: 81002; 83036; 99214

== ENCOUNTER 2023-01-23 12:55 | Day surgery (SDC) | payer MEDICARE, OTHER, SELFPAY ==
--- NOTE | 2023-01-20 09:24 | HO.ANESPROP2 ---
Documented by User: Kia Pretty NP 01/20/23 09:25 HPI - Anesthesia Eval Consult details Narrative: 77yo F for Colonoscopy Procrit for anemia. Last dose 08/2022 [facility] Active Problems Active Problems: All Active Problems (Updated 01/19/23 @ 08:25 by Edu Vila MD) Dysphagia (Acute) Pre-diabetes (Acute) Immunization counseling (Acute) Difficulty swallowing (Acute) Bacteria in urine (Acute) Elevated fasting glucose (Acute) Hypoxia (Acute) Cough (Acute) Myelodysplastic syndrome (Acute) Osteoporosis (Acute) Hypothyroidism (Acute) Essential hypertension (Acute) Hyperlipidemia (Acute) Osteoporosis (Acute) Compression fracture of spine (Acute) Foul smelling urine (Acute) Calf cramp (Acute) Encounter for general adult medical examination without abnormal findings (Acute) Difficulty with speech (Acute) Regularly irregular pulse rhythym (Acute) Dysarthria (Acute) Screening for colon cancer (Acute) Screening for osteoporosis (Acute) Breast cancer screening by mammogram (Acute) Shortness of breath (Acute) Left knee pain (Acute) Osteoarthritis of left knee (Acute) Adult general medical examination (Acute) Paresthesia (Acute) Anemia (Acute) Dyspnea on exertion (Acute) Past Medical History Medical History (Updated 01/23/23 @ 14:14 by Mary Morales MD) Osteoporosis GERD (gastroesophageal reflux disease) Aphasia High cholesterol High blood pressure Anemia Dyspnea on exertion T11 vertebral fracture Hypothyroidism Family History Family History Father Esophageal cancer Mother Breast cancer Paternal Aunt Breast cancer Family history of problems with anesthesia: No Surgical History Surgical History History of bone marrow biopsy History of excision of mass History of cholecystectomy History of tonsillectomy History of vertebroplasty History of kyphoplasty History of Problems with Anesthesia: No Social History Social History Household Members: Spouse Housing: Condominium Are you a primary health care marketing specialist to a significant other at home: No Do you presently have visiting nurse or other home services: No Alcohol intake: current Alcohol intake frequency: holidays/special occasions only Patient Tobacco Use Status: Never used Tobacco e-Cigarette/Vaping Use: Never Used Second Hand Smoke Exposure: No Use of substances other than those prescribed or required for medical reasons: No Are you DNR?: No Advance Directives: No Advance Directives Information Provided: Yes service: No Current occupational status: 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 Cognitive needs: Yes Hearing needs: No Vision needs: No Meds Allergies Allergy/AdvReac Type Severity Reaction Status Date / Time Cephalosporins Allergy Mild JAUNDICE Verified 01/19/23 08:24 KETOLIDES Allergy Unknown ITCHING Uncoded 01/19/23 08:24 MACORLIDES Allergy Unknown ITCHING Uncoded 01/19/23 08:24 Home Medications Medication Instructions Recorded Confirmed Last Taken Type aspirin 81 mg tablet,delayed 81 mg PO DAILY 03/09/20 01/19/23 02/08/22 History release (Adult Aspirin Regimen) cholecalciferol (vitamin D3) 50 50 mcg PO DAILY 09/13/21 01/19/23 Unknown History mcg (2,000 unit) capsule mecobalamin (vitamin B12) 1,000 1,000 mcg PO DAILY 09/13/21 01/19/23 Unknown History mcg chewable tablet furosemide 20 mg tablet 60 mg PO DAILY 01/23/23 01/23/23 Unknown History furosemide 40 mg tablet 40 mg PO BEDTIME 01/23/23 01/23/23 Unknown History Exam Exam Date and Time: January 20, [id number] Pertinent Lab Results Pertinent Lab Results: Laboratory Tests 01/19/23 08:21 WBC 6.7 Hgb 11.6 L Hct 35.1 L Plt Count 139 L Sodium 144 Potassium 3.9 Chloride 108 Carbon Dioxide 27 BUN 17 H Creatinine 0.89 Assessment and Plan Assessment Anesthesia Assessment: Chart Reviewed Final Anesthetic Review Family History of Problems with Anesthesia: No History of Problems with Anesthesia: No Documented by User: Mary Morales MD 01/23/23 14:17 PMFSH Active Problems Active Problems: All Active Problems (Updated 01/23/23 @ 14:00 by Mary Morales MD) Dysphagia (Acute)- patient denies swallowing difficulty Pre-diabetes (Acute) Immunization counseling (Acute) Difficulty swallowing (Acute) Bacteria in urine (Acute) Elevated fasting glucose (Acute) Hypoxia (Acute) Cough (Acute) Myelodysplastic syndrome (Acute) Osteoporosis (Acute) Hypothyroidism (Acute) Essential hypertension (Acute) Hyperlipidemia (Acute) Osteoporosis (Acute) Compression fracture of spine (Acute) Foul smelling urine (Acute) Calf cramp (Acute) Encounter for general adult medical examination without abnormal findings (Acute) Difficulty with speech (Acute) Regularly irregular pulse rhythm (Acute) Dysarthria (Acute) Screening for colon cancer (Acute) Screening for osteoporosis (Acute) Breast cancer screening by mammogram (Acute) Shortness of breath (Acute) Left knee pain (Acute) Osteoarthritis of left knee (Acute) Paresthesia (Acute) Anemia (Acute) H/H 01/19/23 11.6/35.1 Dyspnea on exertion (Acute) H/o MULU. Not using CPAP anymore Past Medical History Medical History (Updated 01/23/23 @ 14:14 by Mary Morales MD) Osteoporosis GERD (gastroesophageal reflux disease) Aphasia High cholesterol High blood pressure Anemia Dyspnea on exertion T11 vertebral fracture Hypothyroidism Family History Family History Father Esophageal cancer Mother Breast cancer Paternal Aunt Breast cancer Surgical History Surgical History History of bone marrow biopsy History of excision of mass History of cholecystectomy History of tonsillectomy History of vertebroplasty History of kyphoplasty Social History Social History Household Members: Sp[facility] Are you a primary health care marketing specialist to a significant other at home: No Do you presently have visiting nurse or other home services: No Alcohol intake: current Alcohol intake frequency: holidays/special occasions only Patient Tobacco Use Status: Never used Tobacco e-Cigarette/Vaping Use: Never Used Second Hand Smoke Exposure: No Use of substances other than those prescribed or required for medical reasons: No Are you DNR?: No Advance Directives: No Advance Directives Information Provided: Yes service: No Current occupational status: 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 Cognitive needs: Yes Hearing needs: No Vision needs: No Meds Allergies Allergy/AdvReac Type Severity Reaction Status Date / Time Cephalosporins Allergy Mild JAUNDICE Verified 01/19/23 08:24 KETOLIDES Allergy Unknown ITCHING Uncoded 01/19/23 08:24 MACORLIDES Allergy Unknown ITCHING Uncoded 01/19/23 08:24 Home Medications Medication Instructions Recorded Confirmed Last Taken Type aspirin 81 mg tablet,delayed 81 mg PO DAILY 03/09/20 01/19/23 02/08/22 History release (Adult Aspirin Regimen) cholecalciferol (vitamin D3) 50 50 mcg PO DAILY 09/13/21 01/19/23 Unknown History mcg (2,000 unit) capsule mecobalamin (vitamin B12) 1,000 1,000 mcg PO DAILY 09/13/21 01/19/23 Unknown History mcg chewable tablet furosemide 20 mg tablet 60 mg PO DAILY 01/23/23 01/23/23 Unknown History furosemide 40 mg tablet 40 mg PO BEDTIME 01/23/23 01/23/23 Unknown History Exam Height,Weight and Vital Signs: Height 5 ft 3 in Weight 68.039 kg Vital Signs Temp Pulse Resp BP Pulse Ox O2 Del Method 01/23/23 13:43 98.3 F 61 16 149/72 H 98 Room Air Airway Mallampati Class: II TM Dist: >3cm Neck ROM: Full Loose/Missing/Broken Teeth: No (Denies broken, loose, missing teeth) Heart: RRR ?extra beats Lungs: CTAB Assessment and Plan Assessment Anesthesia Assessment: Anesthesia Plan Discussed Final Anesthetic Review NPO: Yes ASA Class: III Final Preanesthetic Review: No Changes in Pt Med Stat, Meds/Allgs Chart Reviewed, Consent Obtained/Reviewed and Anes Risks/Benef Reviewed Patient Risk: Intermediate Procedure Risk: Low Assessment/Block/Sedation in SS: Assess/Block/Sedation-SS Anesthetic Plan Anesthetic Plan: MAC: Disposition: Standard PACU
[2023-01-23 13:35] VITALS: BMI 26.6
[2023-01-23 13:43] VITALS: BP 149/72; PULSE 61; RESP 16; TEMP 36.8; O2SAT 98
[2023-01-23] MEDS: Lactated Ringers 1,000 ML 100 ML IVCONT (14:18)
[2023-01-23 16:10] VITALS: BP 118/60; PULSE 67; RESP 23; TEMP 36.8; O2SAT 97
--- NOTE | 2023-01-23 16:10 | P.BOP_ITS ---
Brief Operative Note Date of Service: 01/23/23 Pre-op diagnosis: Screening, diarrhea Post-op diagnosis: other (Polyps, R/O microscopic colitis) Procedure: Colonoscopy to the cecum and TI with biopsies, and bx/removal of polyps Surgeon: Zach Hewitt Anesthesia: MAC Was an Manager Mining used for this Procedure?: No Estimated blood loss (mL): 2.0 Pathology: other (A. Terminal ileum B. Ascending colon C. Transverse colon polyp D. Descending colon E. Polyp at 30cm) Condition: stable Disposition: PACU
[2023-01-23 16:26] VITALS: BP 135/72; PULSE 60; RESP 20; TEMP 36.2; O2SAT 95
--- NOTE | 2023-01-23 21:38 | OP_ITS ---
DATE OF SERVICE: 01/23/2023 SURGEON: Zach Hewitt MD INDICATIONS: The patient presents for evaluation of personal history of tubular adenoma of the colon, colorectal cancer screening and intermittent diarrhea. Full consent has been obtained from her for this, including risks of bleeding and perforation. PREOPERATIVE DIAGNOSIS: POSTOPERATIVE DIAGNOSIS: PROCEDURE PERFORMED: Colonoscopy to cecum and terminal ileum with biopsy and removal of polyps, and biopsies. ESTIMATED BLOOD LOSS: COMPLICATIONS: ANESTHESIA: Monitored anesthesia care. ASSISTANTS: SPECIMENS: PREOPERATIVE DIAGNOSES: Colorectal cancer screening, personal history of tubular adenoma of the colon, change in bowel habits. POSTOPERATIVE DIAGNOSES: Colorectal cancer screening, personal history of tubular adenoma of the colon, change in bowel habits, colon polyps, rule out microscopic colitis, diverticulosis, and internal hemorrhoids. DESCRIPTION OF PROCEDURE: The patient was placed in the left lateral decubitus position. The digital rectal exam revealed no abnormalities. The Table8 video pediatric colonoscope was entered into the rectum and advanced easily to the cecum. Once in the cecum, I did identify normal-appearing cecal pouch with appendiceal orifice and a normal-appearing ileocecal valve. The terminal ileum was cannulated and appeared normal. Biopsies were obtained. The scope was withdrawn back in the colon. The entire cecum and ileocecal valve appeared normal. The scope was slowly withdrawn assessing all mucosal surfaces carefully. Preparation was excellent. I obtained random biopsies in the ascending and descending colon to rule out microscopic colitis. I did not visualize any sign of inflammatory bowel disease, nor angiodysplasia. I also visualized a less than 5 mm polyp in the transverse colon and at 30 cm. These were both biopsied and completely removed with a cold biopsy forceps. There was a mild amount of sigmoid diverticulosis. In the rectum, scope was retroflexed visualizing internal hemorrhoids, but no other pathology. The rectal mucosa appeared normal. The scope was straightened and withdrawn from the patient. She tolerated the procedure well and was returned to the recovery area in stable condition. IMPRESSION: 1. Colon polyps. 2. Rule out microscopic colitis. 3. Diverticulosis. 4. Internal hemorrhoids. PLAN: The results of the biopsies will be checked. Given her age and these minimal findings, I do not think she would need any further screening colonoscopies. If the colon biopsies were nonrevealing, then she will continue her current treatment with p.r.n. Imodium for intermittent loose stools. She was advised not to use any aspirin and NSAIDs for 1 week. She will otherwise see me on a p.r.n. basis. MD STEWART Iglesias/VIVI / [phone]
== END 2023-01-23 16:51 | disposition home or self-care (01) ==
PROVIDERS: PCP Family Medicine; Visit Provider Internal Medicine
PROC: 0DJD8ZZ Inspection of Lower Intestinal Tract, Via Natural or Artificial Opening Endoscopic (ICD-10-PCS; CPT 45378; principal; 2023-01-23 14:00)
DX: Z12.11 Encounter for screening for malignant neoplasm of colon (principal); Z86.010 Personal history of colon polyps; D12.3 Benign neoplasm of transverse colon; D12.5 Benign neoplasm of sigmoid colon; K57.30 Diverticulosis of large intestine without perforation or abscess without bleeding; K64.8 Other hemorrhoids; R15.2 Fecal urgency; R19.7 Diarrhea, unspecified; R47.01 Aphasia; K21.9 Gastro-esophageal reflux disease without esophagitis; I10 Essential (primary) hypertension; E78.5 Hyperlipidemia, unspecified; G47.33 Obstructive sleep apnea (adult) (pediatric); Z79.82 Long term (current) use of aspirin; Z79.899 Other long term (current) drug therapy; Z66 Do not resuscitate; Z99.89 Dependence on other enabling machines and devices
CPT/HCPCS: 45380; 88305

== ENCOUNTER 2023-02-03 11:08 | Outpatient (AMB) | payer MEDICARE, OTHER, SELFPAY ==
[2023-02-03 11:13] VITALS: BP 134/78; PULSE 76; RESP 13; TEMP 36.4; O2SAT 97; BMI 27.0
--- NOTE | 2023-02-03 11:13 | A.OFFPC_ITS ---
Vital Signs 02/03/23 11:13 Height 5 ft 3 in Weight 152 lb 4 oz BMI 27.0 BP 134/78 Blood Pressure Location Rt brachial Position Sitting Respiration 13 Pulse 76 Pulse Source Pulse Oximeter Temp 97.5 F Temp Source Temporal Artery Scan Pulse Oximetry (%) 97 Oxygen Delivery Method Room Air Intake Visit Reasons: f/u after colonoscopy Sap [employer] Architect Required: No Accompanied by: Self / Same As Patient Allergies Cephalosporins Allergy (Mild, Verified 02/03/23 11:42) JAUNDICE KETOLIDES Allergy (Unknown, Uncoded 02/03/23 11:42) ITCHING MACORLIDES Allergy (Unknown, Uncoded 02/03/23 11:42) ITCHING Medication List - Last Reconciled 02/03/23 by Reza Griffin CNP aspirin (Adult Aspirin Regimen) 81 mg PO DAILY atenolol 50 mg PO DAILY chlorthalidone 12.5 mg (1/2 x 25 mg) PO QAM cholecalciferol (vitamin D3) 50 mcg PO DAILY denosumab (Prolia) 60 mg subcut [id number] 1 day furosemide 60 mg PO DAILY furosemide 40 mg PO BEDTIME levothyroxine 150 mcg PO DAILY 90 days losartan 50 mg PO DAILY 90 days mecobalamin (vitamin B12) 1,000 mcg PO DAILY omeprazole 20 mg PO DAILY 90 days potassium chloride ER (Klor-Con) 10 mEq PO DAILY 90 days sertraline 100 mg PO DAILY simvastatin 20 mg PO DAILY Tobacco use date assessed: 12/28/22 Fall risk assessment: No Falls in past year Last assessed Fall Risk: 02/03/23 Dental Screening Dental Screen Date: 02/03/23 Did you have a dental visit in the last 12 months?: Yes Did you have a dental problem in the last 6 months where you did not have access to dental care?: No Was dental information given to patient?: Patient has dentist HPI HPI Comments History of Present Illness Details 77-year-old female presents for colonosc opy results. She had colonoscopy done on 01/23/2023 at [facility] [place]. She has personal history of tubular adenoma of the colon and intermittent diarrhea. She states she has had normal bowel movement for the past 1 week. She denies acute symptoms at this time. She notes that the GI doctor informed her that being on aspirin or NSAID for long-term will put her at risk for GI issues. She notes that furosemide was added to her med list when she had colonoscopy done. However, she has not been prescribed or taking furosemide. Review of [facility] notes: Colonoscopy to cecum and terminal ileum with biopsy and removal of polyps, and biopsies. PLAN: The results of the biopsies will be checked. Given her age and these minimal findings, I do not think she would need any further screening colonoscopies. If the colon biopsies were nonrevealing, then she will continue her current treatment with p.r.n. Imodium for intermittent loose stools. She was advised not to use any aspirin and NSAIDs for 1 week. She will otherwise see me on a p.r.n. basis. [facility] Medical History Osteoporosis GERD (gastroesophageal reflux disease) Aphasia High cholesterol High blood pressure Anemia Dyspnea on exertion T11 vertebral fracture Hypothyroidism Surgical History History of bone marrow biopsy History of excision of mass History of cholecystectomy History of tonsillectomy History of vertebroplasty History of kyphoplasty Family History Father Esophageal cancer Mother Breast cancer Paternal Aunt Breast cancer Social History Household Members: Spouse Housing: [facility] Are you a primary child caregiver private home to a significant other at home: No Do you presently have visiting nurse or other home services: No Alcohol intake: current Alcohol intake frequency: holidays/special occasions only Patient Tobacco Use Status: Never used Tobacco e-Cigarette/Vaping Use: Never Used Second Hand Smoke Exposure: No service: No Current occupational status: 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 Zach Mccarthy, Chayito Barnhart, Bal Díaz and colleagues, with an educational anne from [employer]. Review of Systems Const Details: Const Denies chills, Denies fatigue, Denies fever(s), Denies headache(s) and Denies weakness ENT Denies dizziness and Denies headache(s) Card Denies chest pain, Denies lightheadedness, Denies dyspnea and Denies other (Palpitations) Resp Denies cough, Denies dyspnea, Denies wheezing and Denies other ( shortness of breath) GI Denies abdominal pain, Denies melena, Denies hematochezia, Denies change in bowel habits, Denies dyspepsia and Denies nausea Denies hematuria and Denies dysuria Musc Denies abnormal gait, Denies myalgias, Denies arthralgias, Denies numbness and Denies tingling Skin/Breast Denies rash, Denies unusual bruising and Denies wounds Neuro Denies abnormal gait, Denies dizziness, Denies headache(s), Denies memory loss, Denies numbness, Denies Sensory deficit (Neuro), Denies tingling and Denies weakness Psych Denies anxiety, Denies depression, Denies memory loss Endo Denies cold intolerance, Denies fatigue, Denies heat intolerance, Denies polydipsia and Denies polyuria Aller/Immun Denies wheezing Physical exam (Primary Care) Vital Signs: Last Vital Signs Temp 97.5 F 02/03/23 11:13 Pulse 76 02/03/23 11:13 Resp 13 02/03/23 11:13 BP 134/78 02/03/23 11:13 Pulse Ox 97 02/03/23 11:13 Oxygen Delivery Method Room Air 02/03/23 11:13 BMI result Body Mass Index 27.0 Tobacco/Smoking Status: Tobacco use Status Tobacco use date assessed 12/28/22 02/03/23 11:22 Patient Tobacco Use Status Never used Tobacco 02/03/23 11:22 e-Cigarette/Vaping Use Never Used 02/03/23 11:22 Thrive Assessment: Date of Thrive Assessment Date Thrive assessed 12/16/21 02/03/23 11:22 Const Other: General: no acute distress and well developed Nutritional Appearance: well nourished Orientation/consciousness: patient oriented x3 HENMT Head: Yes normocephalic and Yes atraumatic Eyes General: appearance normal, both eyes and all related structures Pupils: Equal, round and reactive pupils present EOM: EOMs intact bilaterally Resp Effort & Inspection: normal respiratory effort Auscultation: clear to auscultation bilaterally Cardio Rate: regular rate Rhythm: regular rhythm Heart sounds: S1 normal heart sound present, S2 normal heart sound present, no gallops, no murmurs and no rubs GI Palpation (GI): No Abdominal aortic bruit present, Soft to palpation, nontender, No hepatosplenomegaly present and No Rebound tenderness present Auscultation: normal bowel sounds General: Yes no CVA tenderness Back/Spine/Pelvis Back: no CVA tenderness Cervical Spine: cervical ROM normal and No Cervical spine tenderness Thoracic/Lumbar Spine: thoraco-lumbar ROM normal, No pain with thoraco-lumbar ROM, No thoracic spinal tenderness and No lumbar spinal tenderness Extrem General: Yes normal to inspection, No edema and No calf tenderness Skin General: warm and dry. Normal skin color. Normal skin turgor Lesions: no lesions Rashes: no rashes Trauma: no lacerations or abrasions Wounds: no wounds Nails: normal Neuro General: patient oriented x3, gait normal and no focal neuro deficit Cranial nerves: Yes Equal, round and reactive pupils present Cognition (Neuro): normal cognition Gait exam (Neuro): Normal gait present Sensory Exam: No Sensory deficit (Neuro) Psych Appearance: grossly normal Affect: normal affect Attitude: cooperative Thought process: Normal thought process present Assessment and Plan Assessment & Plan (1) Abnormal colonoscopy: Code(s): R93.3 - Abnormal findings on diagnostic imaging of other parts of digestive tract Plan: Patient presents for colonoscopy results. She recently had a colonoscopy done with removal of polyps and biopsies. Colonoscopy results and plan reviewed with the patient. Patient's PCP, Dr. Hernandez, consulted regarding current aspirin prescription and GI recommendation to stop the medication. Patient's PCP advised to discontinue aspirin at this time. Aspirin discontinued. Patient advised to stop taking the medication. Advised to continue with current treatment regimen follow-up with PCP as planned. Return with symptoms or concerns. Verbalized understanding and agreed with treatment plan. Coding Level of Care Code Est Pt Level 4 (22940) Diagnoses Abnormal colonoscopy R93.3
== END 2023-02-03 12:37 | disposition home or self-care (01) ==
PROVIDERS: PCP Family Medicine; Visit Provider Nurse Practitioner Family
DX: R93.3 Abnormal findings on diagnostic imaging of other parts of digestive tract (principal)
CPT/HCPCS: 99213

== ENCOUNTER 2023-02-06 14:51 | Outpatient (REF) | payer MEDICARE, OTHER, SELFPAY ==
--- NOTE | ~2023-02-06 | FL_ITS ---
EXAMINATION: XR BARIUM SWALLOW CLINICAL INFORMATION: Dysphagia. COMPARISON: None available. TECHNIQUE: Fluoroscopy guidance was provided for modified barium swallow performed by the speech and hearing department. Patient was administered liquid barium in varying consistencies and various food media mixed with barium. FINDINGS: There is minimal laryngeal penetration seen with thin liquid barium. No aspiration is seen. There is mild retention seen with solid media mixed with barium. FLUOROSCOPY TIME: 1 minute 20 seconds. DOSE AREA PRODUCT: 764 uGy-m2 (microgray-meter squared), total dose 36 mGy. FL/FL barium swallow modified IMPRESSION: Minimal laryngeal penetration seen with liquid barium. Mild retention with solid media. No aspiration. See speech and hearing report for detailed findings.
--- NOTE | 2023-02-09 09:20 | MHC.SL.IMP ---
Date of Plan of Treatment: 02/06/23 Onset of Symptoms/Illness: 02/06/22 Date Treatment Started: 02/06/23 Admitting Diagnosis: Dysphagia Primary Speech & Language Diagnosis: R13.12 Oropharyngeal Phase Dysphagia Secondary Speech & Language Diagnosis: R47.1 Dysarthria Reason for Today's Visit: 29539 Modified Barium Swallow Study Pre-evaluation Dietary Consistencies: Regular Pre-evaluation Liquid Consistency: Thin Pre-evaluation Medication Administration: Whole with Liquid Medical History: Modified Barium Swallow Study Fluoroscopic Evaluation of Swallowing Function CPT Code 82612 Evaluation Year: 2022 Reason for Study: Pt reporting difficulty swallowing. Referring Physician: Beck Hernandez MD Evaluating Clinician: Tata Andrade MA, CCC-WIRE WHEELER Study Number: 1 Patient Name: Kinza Blair Status: Outpatient, Ambulatory Age: 77 Gender: Female Medical History Medical History Osteoporosis GERD (gastroesophageal reflux disease) Aphasia High cholesterol High blood pressure Anemia Dyspnea on exertion T11 vertebral fracture Hypothyroidism Surgical History History of bone marrow biopsy History of excision of mass History of cholecystectomy History of tonsillectomy History of vertebroplasty History of kyphoplasty Current (pre-evaluation) Intake/Diet: Route: PO Diet Grade: Regular Liquid Consistencies: Thin Pre-Study Functional Oral Intake Scale (FOIS): 7- Total oral intake with no restrictions Pain: None reported at time of study SUBJECTIVE: Pt is a 77 year old female referred for a modified barium swallow study by Beck Hernandez MD. Pt?s history includes osteoporosis, GERD, aphasia, anemia, dyspnea on exertion, among other diagnoses. Pt recently had colonoscopy with removal of polyps and biopsies. Pt?s colonoscopy on 01/23/23 showed mild amount of sigmoid diverticulosis and internal hemorrhoids. Pt reports change to her speech and swallow approximately 1 year ago. Pt complains of choking, especially in the morning and on foods such as cereal. She states she ?coughs all day long.? Pt denied odynophagia as well as globus sensation. She reports she was previously diagnosed with aphasia and that a physician had ?mentioned a possible diagnosis of ALS,? but that no testing had been done. Pt states she had participated in speech therapy in the past in [place] and then in [place] when she moved to [place]. Pt followed commands and appropriately answered open ended questions when interviewed by the speech pathologist. She did present with minimal word retrieval difficulty throughout our conversation. Also noted pt?s speech to be moderately dysarthric with a mildly weak voice. Oral Motor Exam Facial Symmetry: Symmetrical Mouth Occlusion: Normal Oral-Facial Teeth Characteristics: Intact/Normal Oral-Facial Lip Pucker Description: Normal Oral-Facial Smile (Lips) Description: Normal Oral-Facial Puff Cheeks Description: Normal Tongue Size: Normal Tongue Excursion Description: Normal Tongue Range of Movement Description: Normal Tongue Speed of Movement Description: Reduced Tongue Strength of Movement (against opposing pressure): Reduced Is patient able to manage secretions?: Yes Is patient able to produce volitional cough?: Yes Food and Liquid Trials: Oral Impairment: Lip Closure: 1=Interlabial escape; no progression to anterior tip Oral Impairment: Tongue Control During Bolus Hold: 1=Escape to lateral buccal cavity/floor of mouth (FOM) Oral Impairment: Bolus Preparation/Mastication: 2=Disorganized chewing/mashing with solid pieces of bolus Oral Impairment: Bolus Transport/Lingual Motion: 1= Delayed initiation of tongue motion Oral Impairment: Oral Residue: 2=Residue collection on oral structures Oral Impairment:Initiation of Pharyngeal Swallow: 1=Bolus head in valleculae Pharyngeal Impairment: Soft Palate Elevation: 0=No bolus between soft palate (SP)/pharyngeal wall (PW) Pharyngeal Impairment: Laryngeal Elevation: 1=Partial thyroid cartilage/arytenoids to epiglottic petiole movement Pharyngeal Impairment: Anterior Hyoid Excursion: 1=Partial anterior movement Pharyngeal Impairment: Epiglottic Movement: 1=Partial inversion Pharyngeal Impairment: Laryngeal Vestibular Closure:: 1=Incomplete: narrow column air/contrast in laryngeal vestibule Pharyngeal Impairment: Pharyngeal Stripping Wave: 0=Present: complete Pharyngeal Impairment: Pharyngeal Contraction: Did not test Pharyngeal Impairment: Pharyngoesophageal Segment Openin=Partial distention/partial duration: partial obstruction of flow Pharyngeal Impairment: Tongue Base (TB) Retraction: 2=Narrow column of contrast/air between TB and posterior PW Pharyngeal Impairment: Pharyngeal Residue: 2=Collection of residue within or on pharyngeal structures Pharyngeal Impairment: Esophageal Clearance Upright Position: Did not test Impressions and Recommendations Clinical Observations: OBJECTIVE: Time-out: performed at 15:30 Evaluation Start: 15:00; Stop: 15:05 Patient Positioning: Standing Viewing Planes: LATERAL ONLY Contrast: MBSImP? Standardized Protocol using commercially prepared, standardized Barium viscosities, including: Varibar? THIN LIQUID (40% w/v, <15 cps) , 1/2 Shortbread Cookie (1 x1 x.25 ) MBSImP ID: [id number] MBSImP Results: Lip closure for intraoral bolus containment resulted in interlabial escape, without progression to the anterior lip. Tongue control during bolus hold allowed bolus escape to the lateral buccal cavity/floor of mouth. Bolus preparation and mastication demonstrated disorganized chewing/mashing with solid pieces of the bolus unchewed. Bolus transport/lingual motion demonstrated delayed initiation of tongue motion. Oral residue was a collection on oral structures. Initiation of the pharyngeal swallow occurred when the bolus head was in the valleculae. Soft palate elevation resulted in no bolus between the soft palate and the pharyngeal wall. Laryngeal elevation was decreased, with partial superior movement of the thyroid cartilage/partial approximation of the arytenoids to the epiglottic petiole. Anterior hyoid excursion demonstrated partial anterior movement. Epiglottic movement resulted in partial inversion. Laryngeal vestibular closure was incomplete, with a narrow column of air/contrast noted within the laryngeal vestibule at the height of the swallow. Pharyngeal stripping wave was present and complete. Pharyngeal contraction could not be determined due to logistical reasons not related to physiologic impairment. Pharyngoesophageal segment opening demonstrated partial distension/partial duration, with partial obstruction of bolus flow. Tongue base retraction allowed a narrow column of contrast or air between the retracted tongue base and the posterior pharyngeal wall. Pharyngeal residue was a collection of residue within or on pharyngeal structures. Esophageal clearance in the upright position could not be assessed due to logistical reasons not related to physiologic impairment. Oral Impairment Score: 7 Pharyngeal Impairment Score: 9 (absence of score, component 13) Esophageal Impairment Score: --- (absence of score, component 17) Laryngeal Penetration and Aspiration: Penetration was observed in today's study. Thin Contrast entered the airway, remained above the vocal folds, and was ejected from the airway. ASSESSMENT: Clinician Assessment: This exam was conducted by a multidisciplinary team, which included a speech pathologist, radiologist, and auto body technician. Pt was standing for lateral view. Pt trialed the following liquid and solid consistencies: thin liquid barium (5 mL, individual cup sip with bolus hold, sequential cup sips), pureed solid (applesauce mixed with barium paste), regular solid (Mena Doone cookie coated with barium paste), whole barium pill tablet with sips of water. There was some interlabial escape, but no progression to the anterior lip. Posterior lingual motion was mildly delayed. Mastication was mildly prolonged and disorganized, with solid, unchewed pieces of bolus visualized. There was mild residue coating the tongue and palate, which was reduced with subsequent swallows. Pharyngeal swallow trigger initiated as the bolus head reached the valleculae. There was no nasopharyngeal reflux. Incomplete laryngeal elevation. Incomplete epiglottic inversion. Incomplete laryngeal vestibular closure. Note flash penetration with sips of thin liquid. Trace amount of contrast entered the airway above the vocal folds and immediately ejected from the airway spontaneously. No evidence of subsequent aspiration. No evidence of penetration or aspiration with trials of solid textures. There was mild retention on the tongue base, in the valleculae, and on the posterior pharyngeal wall. Pharyngeal residue was reduced with dry swallow followed by a sip of liquid. Barium pill tablet passed through the oral cavity and pharynx with no hang up. Liquid Intake Recommendation: Thin Liquid Intake Strategies: Small Sips, No Straws Dietary Recommendations: Chopped/Advanced (NDD3) Medication Administration: Whole with Liquid Please contact the pharmacy regarding appropriate crushable or liquid drug formulations that are available whenever modified delivery is recommended. Compensatory Strategies Recommended: Sitting Upright (90 deg) Double Swallow No Straw Small Bites and Sips Alternate Liquids/Solids Rate of Ingestion Change Avoid Specific Foods Supervision during eating and or drinking: None Needed Recommendation for Speech Therapy: NA:Typical Evaluation Text Comment: PLAN: Intake Recommendations: Route: PO Diet Grade: Soft and bite sized solids (IDDSI 6) or CHOPPED/ADVANCED (NDD3) Liquid Consistencies: Thin Post-Study Functional Oral Intake Scale (FOIS): 5- Total oral intake of multiple consistencies requiring special preparation This exam revealed flash penetration with thin liquid. No evidence of aspiration. Mild oral and pharyngeal residue cleared with dry swallows followed by liquid wash. Although pt did not evidence aspiration during this exam, presence of penetration does put pt at risk for subsequent aspiration. For that reason, pt is recommended the following aspiration precautions: -Cut food into small, bite size pieces -Ensure food is soft and easy to chew -Moisten food with sauces/gravies, which are thick and blended in well with food -Take small bites and chew food well -Clear oral cavity before taking more bites -Follow each bite with dry swallow and then a sip of liquid to promote pharyngeal clearance -Avoid mixed consistencies (i.e. cereal with milk, soup with solid ingredients) -Maintain upright 90 degree position while eating and drinking and for at least 30 minutes afterwards -Ensure daily oral care routine -Liquid by teaspoon or cup -Avoid the use of straws -Take small, individual sips of liquid -Avoid taking consecutive sips Recommend pt to continue monitoring her dysphagia. If there are any changes or worsening of symptoms, consult with pt?s primary care provider, at which point a re-evaluation may be indicated. Recommended Referrals: Neurology Other- see comment Comment: Pt presented with moderate dysarthria as well as some word finding difficulty. She may benefit from a speech-language evaluation to further investigate concerns related to her communication. Furthermore, pt is recommended a consultation with a neurologist to rule in/out any neurological conditions which may be underlying the changes pt reports in her speech, language, and swallowing. Clinician - Supplemental, Miscellaneous Communication: It is important to note MBSS objective studies are snapshots in time and Patient function might vary with factors such as time of day or concomitant medical conditions. For this reason, the final treatment plan for this patient should rest with their medical care team. Additional recommendations should be considered with the totality of the Patient in mind. Thank for the opportunity to participate in the care of this patient. If you have any questions about the content of this report, please contact the [facility] at [facility]. Education: Education regarding findings from today's study and plans for therapy were provided to Patient only through Verbal Instruction. Understanding was expressed by the Patient only. [employer] Clinician/Clinical Fellow: No Supervisory Statement: N/A Speech Language Pathologist: Tata Andrade M.A., CCC-WIRE WHEELER
== END 2023-02-06 14:52 | disposition home or self-care (01) ==
LOC: HO.XRAY 14:51
PROVIDERS: PCP Family Medicine; Visit Provider Family Medicine
DX: R13.10 Dysphagia, unspecified (principal)
CPT/HCPCS: 74230; 92611

== ENCOUNTER → 2023-02-06 15:14 | Outpatient (BNV) | payer MEDICARE, OTHER, SELFPAY | PROVIDERS: PCP Family Medicine; Visit Provider Radiology Diagnostic Radiology | DX: R13.10 Dysphagia, unspecified (principal) | CPT/HCPCS: 74230 ==

== ENCOUNTER 2023-08-29 11:26 | Outpatient (AMB) | payer MEDICARE, OTHER, SELFPAY ==
--- NOTE | 2023-08-29 11:35 | A.OFFPC_ITS ---
Vital Signs 08/29/23 11:38 Height 5 ft 3 in Weight 157 lb 8 oz BMI 27.9 BP 118/60 Blood Pressure Location Lt brachial Position Sitting Pulse 62 Pulse Source Pulse Oximeter Pulse Oximetry (%) 95 Oxygen Delivery Method Room Air Intake Visit Reasons: Follow-up hypertension and chronic conditions Intake Note: Patient is here to follow up on hypertension and chronic conditions. Patient would like to talk about Prolia shots. Allergies Cephalosporins Allergy (Mild, Verified 08/29/23 11:39) JAUNDICE KETOLIDES Allergy (Unknown, Uncoded 08/29/23 11:39) ITCHING MACORLIDES Allergy (Unknown, Uncoded 08/29/23 11:39) ITCHING Medication List - Last Reconciled 08/29/23 by Beck Hernandez MD atenolol 50 mg PO DAILY chlorthalidone 12.5 mg (1/2 x 25 mg) PO QAM cholecalciferol (vitamin D3) 50 mcg PO DAILY denosumab (Prolia) 60 mg subcut [id number] 1 day levothyroxine 150 mcg PO DAILY 90 days losartan 50 mg PO DAILY 90 days mecobalamin (vitamin B12) 1,000 mcg PO DAILY omeprazole 20 mg PO DAILY 90 days potassium chloride ER (Klor-Con) 10 mEq PO DAILY 90 days sertraline 100 mg PO DAILY simvastatin 20 mg PO DAILY Tobacco use date assessed: 08/29/23 Fall risk assessment: 2 + Falls in past year Last assessed Fall Risk: 08/29/23 Dental Screening Dental Screen Date: 08/29/23 Did you have a dental visit in the last 12 months?: No Did you have a dental problem in the last 6 months where you did not have access to dental care?: No Was dental information given to patient?: Patient has dentist HPI Follow-up hypertension and chronic conditions HPI Details 78 y/o female presents to f/u hypertensi on and chronic conditions. Blood pressure today 118/60. Pt reports difficulty hearing on the R side. Pt reports significant unsteadiness. Pt notes she does use a cane but did not bring it to the office today. Pt has complaints of a 4th metacarpal shaft fracture. She continues seeing orthopedics for this. Had prescribed prolia shots for her osteoporosis and pt states she has not picked this up. [facility] Medical History Osteoporosis GERD (gastroesophageal reflux disease) Aphasia High cholesterol High blood pressure Anemia Dyspnea on exertion T11 vertebral fracture Hypothyroidism Surgical History History of bone marrow biopsy History of excision of mass History of cholecystectomy History of tonsillectomy History of vertebroplasty History of kyphoplasty Family History Father Esophageal cancer Mother Breast cancer Paternal Aunt Breast cancer Social History Household Members: Sp[facility] Are you a primary childcare center administrator to a significant other at home: No Do you presently have visiting nurse or other home services: No Alcohol intake: current Alcohol intake frequency: holidays/special occasions only Patient Tobacco Use Status: Never used Tobacco e-Cigarette/Vaping Use: Never Used Second Hand Smoke Exposure: No service: No Current occupational status: 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 1. Little interest or pleasure in doing things: not at all 2. Feeling down, depressed, or hopeless: not at all 3. Trouble falling or staying asleep, or sleeping too much: not at all 4. Feeling tired or having little energy: not at all 5. Poor appetite or overeating: not at all 6. Feeling bad about yourself - or that you are a failure or have let yourself or your family down: not at all 7. Trouble concentrating on things, such as reading the newspaper or watching television: not at all 8. Moving or speaking so slowly that other people could have noticed. Or the opposite - being so fidgety or restless that you have been moving around a lot more than usual: not at all 9. Thoughts that you would be better off or of hurting yourself in some way: not at all Total score: 0 Depression Screening Interpretation: Negative Depression Screening Done: Yes Source: Developed by Drs. Zach Mccarthy, Chayito Barnhart, Bal Díaz and colleagues, with an educational anne from [employer]. Thrive Questionnaire Date Thrive assessed: 08/29/23 I am a: Patient What is your living situation today?: I have a steady place to live Within the past 12 months, did the food you bought not last and you didn't have the money to get more?: Never true Within the past 12 months, did you worry whether your food would run out before you got money to buy more?: Never true Do you have trouble paying for medicines?: No Do you have trouble getting transportation to medical appointments?: No Do you have trouble paying your heating and electricity bill?: No Do you have trouble taking care of your child, family member or friend?: No Do you have trouble with day-to-day activities such as bathing, preparing meals, shopping, managing finances, etc.?: No Are you currently unemployed and looking for a job?: No Are you interested in more education?: No THRIVE Score: 0 AUDIT C Alcohol Use Questionnaire (AUDIT-C) 1. How often do you have a drink containing alcohol?: Monthly or less 2. How many drinks containing alcohol do you have on a typical day when you are drinking?: 1 or 2 3. How often do you have six or more drinks on one occasion?: Never Total Score: 1 SUSAN-7 AMB Questionnaire SUSAN-7 Date SUSAN - 7 assessed: 08/29/23 Feeling nervous, anxious, or on edge: 0 = Not at all Not being able to stop or control worryin = Not at all Worrying too much about different things: 0 = Not at all Trouble relaxin = Not at all Being so restless that it is hard to sit still: 0 = Not at all Becoming easily annoyed or irritable: 0 = Not at all Feeling afraid as if something awful might happen: 0 = Not at all Total SUSAN-7 score (0-4 normal; 5-9 mild; 10-14 moderate; 15-21 severe): 0 Source: Developed by Drs. Zach Mccarthy, Chayito Barnhart, Bal Díaz and colleagues, with an educational anne from [employer]. Review of Systems Const Denies chills, Denies fatigue, Denies fever(s), Denies headache(s) and Denies weakness ENT Denies dizziness and Denies headache(s) Card Denies dyspnea Resp Denies cough, Denies dyspnea, Denies wheezing and Denies other (shortness of breath) Musc Denies numbness and Denies tingling Neuro Denies dizziness, Denies headache(s), Denies numbness, Denies tingling and Denies weakness Psych Denies anxiety and Denies depression Endo Denies fatigue Aller/Immun Denies wheezing Physical exam (Primary Care) Vital Signs: Last Vital Signs Pulse 62 08/29/23 11:38 BP 118/60 08/29/23 11:38 Pulse Ox 95 08/29/23 11:38 Oxygen Delivery Method Room Air 08/29/23 11:38 BMI result Body Mass Index 27.9 Tobacco/Smoking Status: Tobacco use Status Tobacco use date assessed 08/29/23 08/29/23 11:45 Patient Tobacco Use Status Never used Tobacco 08/29/23 11:37 e-Cigarette/Vaping Use Never Used 08/29/23 11:37 PHQ-9: PHQ-9 Score PHQ-9: Total score 0 08/29/23 11:47 Depression Screening Interpretation: Negative Thrive Assessment: Date of Thrive Assessment Date Thrive assessed 08/29/23 08/29/23 11:47 Const General: well developed; No acute distress Nutritional Appearance: well nourished Orientation/consciousness: patient oriented x3 HENMT Head: Yes normocephalic and Yes atraumatic Eyes General: appearance normal, both eyes and all related structures Pupils: Equal, round and reactive pupils present EOM: EOMs intact bilaterally Resp Effort & Inspection: normal respiratory effort Neuro General: patient oriented x3 and No gait normal Cranial nerves: Yes Equal, round and reactive pupils present Psych Affect: normal affect Assessment and Plan Assessment & Plan (1) Essential hypertension: Code(s): I10 - Essential (primary) hypertension Plan: Blood?pressure?is?controlled.??Goal?is?less?than?140/90 Continue?current?medication (2) Fracture of fourth metacarpal bone: Code(s): S62.308A - Unspecified fracture of other metacarpal bone, initial encounter for closed fracture Plan: Fracture?of?4th?metacarpal?shaft?of?left?hand Has?appointment?with?Ortho Continue?using?wrist?brace/hand?splint (3) Osteoporosis: Code(s): M81.0 - Age-related osteoporosis without current pathological fracture Plan: Had?prescribed?Prolia?shots.??Patient?has?not?picked?this?up She?gets?a?little?confused?between?Prolia?and?her?Procrit Will?recent?Prolia?and?she?can?pick?this?up.??We?can?administer?this?in?the?offi ce (4) Difficulty swallowing: Code(s): R13.10 - Dysphagia, unspecified Plan: Patient?had?modified?barium?swallow?and?recommendations?were?made-see?02/06/2023 ?report?from?speech?language?pathology?at?[facility] Will?print?out?recommendations?for?patient?to?follow?as?she?was?not?aware?of?the m (5) Screening for colon cancer: Code(s): Z12.11 - Encounter for screening for malignant neoplasm of colon Plan: Polyps?on?recent?colonoscopy. Will?request?report (6) Lower extremity weakness: Code(s): R29.898 - Other symptoms and signs involving the musculoskeletal system Plan: Pa tient?has?significant?lower?extremity?weakness?and?unsteady?gait.??Has?had?a?few ?small?falls?and?more?recently?fell?and?fractured?left?4th?metacarpal?shaft She?is?not?using?a?cane?though?she?has?1?at? home.??Strongly?encouraged?her?to?use?her?cane?when?walking. Start?physical?therapy If?worsens,?she?may?need?a?walker (7) Hearing loss, right: Code(s): H91.91 - Unspecified hearing loss, right ear Plan: Patient?notes?decreased?hearing?right?ear Referred?to?speech?and?hearing?for?audiology?testing (8) Unsteady gait: Code(s): R26.81 - Unsteadiness on feet Plan: As?above Orders: Orders PT Evaluation and Treatment Today R26.81 - Unsteadiness on feet, R29.898 - Other symptoms and signs involving the musculoskeletal system Referrals Audiology Referral H91.91 - Unspecified hearing loss, right ear Medications: Refilled losartan 50 mg PO DAILY 90 days 90 tabs 4RF levothyroxine 150 mcg PO DAILY 90 days 90 tabs 4RF denosumab (Prolia) 60 mg subcut [id number] 1 day 1 mL 0RF R26.81 - Unsteadiness on feet Coding Level of Care Code Est Pt Level 4 (56412) Diagnoses Essential hypertension I10 Fracture of fourth metacarpal bone S62.308A Osteoporosis M81.0 Difficulty swallowing R13.10 Screening for colon cancer Z12.11 Lower extremity weakness R29.898 Hearing loss, right H91.91 Unsteady gait R26.81
[2023-08-29 11:38] VITALS: BP 118/60; PULSE 62; O2SAT 95; BMI 27.9
== END 2023-08-29 12:27 | disposition home or self-care (01) ==
PROVIDERS: PCP Family Medicine; Visit Provider Family Medicine
DX: I10 Essential (primary) hypertension (principal); S62.308A Unspecified fracture of other metacarpal bone, initial encounter for closed fracture; M81.0 Age-related osteoporosis without current pathological fracture; R13.10 Dysphagia, unspecified; Z12.11 Encounter for screening for malignant neoplasm of colon; R29.898 Other symptoms and signs involving the musculoskeletal system; H91.91 Unspecified hearing loss, right ear; R26.81 Unsteadiness on feet
CPT/HCPCS: 99214

== ENCOUNTER 2023-08-31 09:24 | Outpatient (REF) | payer MEDICARE, OTHER, SELFPAY ==
--- NOTE | ~2023-08-31 | XR_ITS ---
EXAMINATION: XR KNEE, RIGHT CLINICAL INFORMATION: Unilateral primary osteoarthritis right knee. COMPARISON: October 07, 2021. TECHNIQUE: AP standing view of bilateral knees as well as lateral and sunrise views of the right knee. FINDINGS: LEFT KNEE: AP standing view of the left knee demonstrates diffuse demineralization. Severe narrowing of the medial compartment with moderate marginal osteophytes and subchondral sclerosis. Small lateral marginal osteophytes. RIGHT KNEE: The bones are diffusely demineralized. Small joint effusion. Severe loss of the medial joint space with marginal osteophytes. Moderate degenerative changes with small osteophytes in the patellofemoral compartment. XR/XR knee RT 3V IMPRESSION: Severe narrowing of bilateral medial compartments.
--- NOTE | ~2023-08-31 | XR_ITS ---
EXAMINATION: XR HAND, LEFT CLINICAL INFORMATION: Pain in left hand. COMPARISON: None available. TECHNIQUE: PA, lateral, and oblique views of the left hand. FINDINGS: The bones are diffusely demineralized. Advanced degenerative changes in the first carpometacarpal joint with joint space narrowing and hypertrophic change. Severe degenerative changes in scattered IP joints of the hand with joint space narrowing and hypertrophic change most notable in the IP joint of the thumb as well as in the second and fourth DIP joints, and fourth PIP joint. There is associated soft tissue swelling along the adjacent joints. XR/XR hand LT min 3V IMPRESSION: 1. Severe degenerative changes in the first carpometacarpal joint and scattered IP joints of the hand. 2. The bones are diffusely demineralized. Recommend follow-up imaging in 10-14 days if fracture is suspected.
== END 2023-08-31 09:25 | disposition home or self-care (01) ==
LOC: HO.HOSX 09:24
PROVIDERS: Visit Provider Physician Assistant
DX: M79.642 Pain in left hand (principal); M17.0 Bilateral primary osteoarthritis of knee
CPT/HCPCS: 20610; 73130; 73562; 99212; J1010

== ENCOUNTER 2023-08-31 14:41 | Outpatient (AMB) | payer MEDICARE, OTHER, SELFPAY ==
--- NOTE | 2023-08-31 14:59 | A.OFFVIS_ITS ---
Vital Signs 08/31/23 15:05 Height 5 ft 3 in Weight 157 lb BMI 27.8 Intake Visit Reasons: newprob- RT knee pain Intake Note: Kinza a 78 year old female who presents today for an evaluation of right knee pain. Patient reports bilateral knee pain, due to a recent fall in July her right knee has been causing her the most pain. Last left knee injection on 09/02/22. States that she was told by her PCP to use a cane. Allergies Cephalosporins Allergy (Mild, Verified 08/31/23 15:53) JAUNDICE KETOLIDES Allergy (Unknown, Uncoded 08/31/23 15:53) ITCHING MACORLIDES Allergy (Unknown, Uncoded 08/31/23 15:53) ITCHING Medication List - Last Reconciled 08/31/23 by Isac Park PA-C atenolol 50 mg PO DAILY chlorthalidone 12.5 mg (1/2 x 25 mg) PO QAM cholecalciferol (vitamin D3) 50 mcg PO DAILY denosumab (Prolia) 60 mg subcut [id number] 1 day levothyroxine 150 mcg PO DAILY 90 days losartan 50 mg PO DAILY 90 days mecobalamin (vitamin B12) 1,000 mcg PO DAILY omeprazole 20 mg PO DAILY 90 days potassium chloride ER (Klor-Con) 10 mEq PO DAILY 90 days sertraline 100 mg PO DAILY simvastatin 20 mg PO DAILY HPI HPI newprob- RT knee pain: Details: 78-year-old female who presents to the office today for evaluation of right knee pain after her knee gave out causing her to fall injuring her bilateral knees and left hand in July 2023. She was seen by her PCP who gave her a cane. She currently states she has pain in her bilateral knee which is worse on her right knee. She also c/o pain in her left ring finger. She does not have a history of diabetes. [facility] Medical History Osteoporosis GERD (gastroesophageal reflux disease) Aphasia High cholesterol High blood pressure Anemia Dyspnea on exertion T11 vertebral fracture Hypothyroidism Surgical History History of bone marrow biopsy History of excision of mass History of cholecystectomy History of tonsillectomy History of vertebroplasty History of kyphoplasty Family History Father Esophageal cancer Mother Breast cancer Paternal Aunt Breast cancer Social History Household Members: Spouse Housing: [facility] Are you a primary hospice care consultant to a significant other at home: No Do you presently have visiting nurse or other home services: No Alcohol intake: current Alcohol intake frequency: holidays/special occasions only Patient Tobacco Use Status: Never used Tobacco e-Cigarette/Vaping Use: Never Used Second Hand Smoke Exposure: No service: No Current occupational status: 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 Tenderness along the medial and lateral joint line. Full ROM with crepitus. Negative Efrem?s. No ligamentous laxity. NVI. Left hand: Normal to inspection. She does have mild tenderness along the base of ring finger. No scissoring or angulation of ring finger. NVI. Office Procedures Joint Injection/Drain Joint Injection/Drain Primary Site: right knee Secondary Site: left knee Prep: site was prepped using aseptic technique, ethochloride spray was applied and injection warnings given Injected: 40 mg of, DepoMedrol, with 8 mL of, 1% plain lidocaine and in the joint Approach Used: anterolateral Procedure: The patient tolerated the procedure well and there was some relief with the local anesthesia Coding 09363 - Glenohumeral/Tronchanteric Bursa/Intraarticular Procedure code (CPT) selection complete Results Reviewed Results Reviewed: Xrays were obtained in the office today and personally reviewed by me of the left knee show mild medial compartment oa Xrays were obtained in the office today and personally reviewed by me of the left hand show non displaced fracture at the base of the ring finger Assessment & Plan Assessment & Plan (1) Fracture of fourth metacarpal bone: Code(s): S62.308A - Unspecified fracture of other metacarpal bone, initial encounter for closed fracture Category: Medical (2) Osteoarthritis of knees, bilateral: Code(s): M17.0 - Bilateral primary osteoarthritis of knee Category: Medical Plan We discussed options today which include steroid injection. They did consent to move forward with the bilateral knee injection, which was tolerated well. I recommended rest, ice and elevation and OTC anti-inflammatories PRN for disc omfort. If symptoms persist or worsens over the next 6-8 weeks, patient will contact the office, otherwise follow-up as needed. For her left hand, she was placed in a comfort wrist splint which she will wear with any type of activities. She can remove the splint for hygiene and exercises. I would like to see her back in 3 weeks with new x-rays, sooner if needed. Orders: Orders XR hand LT min 3V Today M79.642 - Pain in left hand XR knee RT 3V Today M17.11 - Unilateral primary osteoarthritis, right knee Patient Instructions: Scribed for Isac Park PA-C, by Cuate Macario electromedical service engineer, on 08/31/2023 at 2:30 PM EST. Isac Dumont PA-C, have personally reviewed and agree with the information entered by the scribe. Coding Level of Care Code Est Pt Level 3 (96779) Diagnoses Fracture of fourth metacarpal bone S62.308A Osteoarthritis of knees, bilateral M17.0 CPT Codes Coding - Joint 7: 74087 - Glenohumeral/Tronchanteric Bursa/Intraarticular ([id number])
[2023-08-31 15:05] VITALS: BMI 27.8
== END 2023-08-31 16:16 | disposition home or self-care (01) ==
PROVIDERS: PCP Family Medicine; Visit Provider Physician Assistant
DX: S62.308A Unspecified fracture of other metacarpal bone, initial encounter for closed fracture (principal); M17.0 Bilateral primary osteoarthritis of knee
CPT/HCPCS: 20610; 99214

== ENCOUNTER 2023-09-25 12:36 | Outpatient (REF) | payer MEDICARE, OTHER, SELFPAY ==
--- NOTE | ~2023-09-25 | XR_ITS ---
EXAMINATION: XR HAND, LEFT CLINICAL INFORMATION: Pain in left hand COMPARISON: 08/31/2023 TECHNIQUE: PA, lateral, and oblique views of the left hand. FINDINGS: The bones are diffusely demineralized. Advanced degenerative changes in the first carpometacarpal joint with joint space narrowing and hypertrophic change. Severe degenerative changes and scattered IP joints of the fingers with joint space narrowing and hypertrophic change most notable in the IP joint of the thumb as well as the second and fourth DIP joints and fourth PIP joints of the fingers. There is associated soft tissue swelling along the adjacent joints. There is a fracture of the proximal fourth metacarpal with small butterfly fragment seen on the lateral view. XR/XR hand LT min 3V IMPRESSION: Fracture of the proximal fourth metacarpal with small butterfly fragment seen on the lateral view.
== END 2023-09-25 12:37 | disposition home or self-care (01) ==
LOC: HO.HOSX 12:36
PROVIDERS: Visit Provider Physician Assistant
DX: M18.12 Unilateral primary osteoarthritis of first carpometacarpal joint, left hand (principal)
CPT/HCPCS: 73130; 99212

== ENCOUNTER 2023-09-25 13:30 | Outpatient (AMB) | payer MEDICARE, OTHER, SELFPAY ==
--- NOTE | 2023-09-25 13:56 | A.OFFVIS_ITS ---
Vital Signs 09/25/23 14:03 Height 5 ft 3 in Weight 156 lb BMI 27.6 Intake Visit Reasons: OV-f/u left hand with xrays Intake Note: Kinza a 78 year old female who presents today for a follow up of left 4th digit MC fracture. Patient reports having soreness in her CMC, stating difficulty with pulling her pants up. She continues to do at home finger exercises as well as using wrist brace as instructed. Allergies Cephalosporins Allergy (Mild, Verified 09/25/23 14:03) JAUNDICE KETOLIDES Allergy (Unknown, Uncoded 09/25/23 14:03) ITCHING MACORLIDES Allergy (Unknown, Uncoded 09/25/23 14:03) ITCHING HPI HPI OV-f/u left hand with xrays: Details: 78-year-old female who returns to the office today for a follow-up of left 4th metacarpal fracture. She states she has difficulty with pulling her pants up. She continues to do finger exercises at home as well as using wrist brace as instructed. [facility] Medical History Osteoporosis GERD (gastroesophageal reflux disease) Aphasia High cholesterol High blood pressure Anemia Dyspnea on exertion T11 vertebral fracture Hypothyroidism Surgical History History of bone marrow biopsy History of excision of mass History of cholecystectomy History of tonsillectomy History of vertebroplasty History of kyphoplasty Family History Father Esophageal cancer Mother Breast cancer Paternal Aunt Breast cancer Social History Household Members: Spouse Housing: [facility] Are you a primary acute care nurse to a significant other at home: No Do you presently have visiting nurse or other home services: No Alcohol intake: current Alcohol intake frequency: holidays/special occasions only Patient Tobacco Use Status: Never used Tobacco e-Cigarette/Vaping Use: Never Used Second Hand Smoke Exposure: No service: No Current occupational status: 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 Pain with CMC grind, they are able to make a full fist and fully extend. NVI. Results Reviewed Results Reviewed: Xrays were obtained in the office today and personally reviewed by me of the left hand show cmc oa Assessment & Plan Assessment & Plan (1) Osteoarthritis of carpometacarpal joint of left thumb: Code(s): M18.12 - Unilateral primary osteoarthritis of first carpometacarpal joint, left hand Category: Medical Qualifiers: Osteoarthritis type: primary Qualified Code(s): M18.12 - Unilateral primary osteoarthritis of first carpometacarpal joint, left hand Plan She was given a comfort cool brace for her left thumb. A prescription of Celebrex was also sent to her pharmacy. I did offer her injection for the left thumb which she declined. If symptoms persist or worsens, patient will contact the office for an injection, otherwise follow-up as needed. Orders: Orders XR hand LT min 3V Today M79.642 - Pain in left hand Medications: New celecoxib (Celebrex) 200 mg PO BID 60 caps 3RF 30 days Patient Instructions: Scribed for Isac Park PA-C, by Cuate Macario medical record assistant, on 09/25/2023 at 1:30 PM EST.? I, Isac Park PA-C, have personally reviewed and agree with the information entered by the scribe. Coding Level of Care Code Est Pt Level 3 (19649) Diagnoses Primary osteoarthritis of first carpometacarpal joint of left hand M18.12 Osteoarthritis type: primary
[2023-09-25 14:03] VITALS: BMI 27.6
== END 2023-09-25 14:57 | disposition home or self-care (01) ==
PROVIDERS: PCP Family Medicine; Visit Provider Physician Assistant
DX: M18.12 Unilateral primary osteoarthritis of first carpometacarpal joint, left hand (principal)
CPT/HCPCS: 99214

== ENCOUNTER 2023-10-05 08:11 | Outpatient (REF) | payer MEDICARE, OTHER, SELFPAY | END 2023-10-05 08:12 | disposition home or self-care (01) | LOC: HO.SH 08:11 | PROVIDERS: Visit Provider Family Medicine | DX: Z01.118 Encounter for examination of ears and hearing with other abnormal findings (principal); H91.91 Unspecified hearing loss, right ear | CPT/HCPCS: 92557; 92567 ==

== ENCOUNTER 2023-10-12 12:54 | Outpatient (AMB) | payer MEDICARE, OTHER, SELFPAY ==
--- NOTE | 2023-10-12 13:01 | A.OFFVIS_ITS ---
Vital Signs 10/12/23 14:01 Height 5 ft 3 in Weight 156 lb BMI 27.6 Intake Visit Reasons: OV- f/u left hand Intake Note: Kinza a 78 year old female who presents today for a follow up of left 4th digit MC fracture. Patient reports she continues to do at home finger exercises as well as using a wrist brace at night. She continues to have soreness at her 4th MCP. Allergies Cephalosporins Allergy (Mild, Verified 10/12/23 14:01) JAUNDICE KETOLIDES Allergy (Unknown, Uncoded 10/12/23 14:01) ITCHING MACORLIDES Allergy (Unknown, Uncoded 10/12/23 14:01) ITCHING Medication List - Last Reconciled 10/12/23 by Isac Park PA-C atenolol 50 mg PO DAILY celecoxib (Celebrex) 200 mg PO BID 30 days chlorthalidone 12.5 mg (1/2 x 25 mg) PO QAM cholecalciferol (vitamin D3) 50 mcg PO DAILY denosumab (Prolia) 60 mg subcut [id number] 1 day levothyroxine 150 mcg PO DAILY 90 days losartan 50 mg PO DAILY 90 days mecobalamin (vitamin B12) 1,000 mcg PO DAILY omeprazole 20 mg PO DAILY 90 days potassium chloride ER (Klor-Con) 10 mEq PO DAILY 90 days sertraline 100 mg PO DAILY simvastatin 20 mg PO DAILY HPI HPI OV- f/u left hand: Details: 78-year-old female who returns to the office today for a follow-up of left 4th metacarpal fracture. She reports she has soreness in her CMC joint and at her 4 th MCP. She also experiences difficulty with pulling her pants up. She continues to do home finger exercises as well as uses a wrist brace at night with benefits. [facility] Medical History Osteoporosis GERD (gastroesophageal reflux disease) Aphasia High cholesterol High blood pressure Anemia Dyspnea on exertion T11 vertebral fracture Hypothyroidism Surgical History History of bone marrow biopsy History of excision of mass History of cholecystectomy History of tonsillectomy History of vertebroplasty History of kyphoplasty Family History Father Esophageal cancer Mother Breast cancer Paternal Aunt Breast cancer Social History Household Members: Spouse Housing: Condominium Are you a primary lead care manager to a significant other at home: No Do you presently have visiting nurse or other home services: No Alcohol intake: current Alcohol intake frequency: holidays/special occasions only Patient Tobacco Use Status: Never used Tobacco e-Cigarette/Vaping Use: Never Used Second Hand Smoke Exposure: No service: No Current occupational status: 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 Pain with CMC grind, they are able to make a full fist and fully extend. NVI. Left ring finger no tenderness to palpation. She can fully extend and flex. NVI. Assessment & Plan Assessment & Plan (1) Osteoarthritis of carpometacarpal joint of left thumb: Code(s): M18.12 - Unilateral primary osteoarthritis of first carpometacarpal joint, left hand Category: Medical Qualifiers: Osteoarthritis type: primary Qualified Code(s): M18.12 - Unilateral primary osteoarthritis of first carpometacarpal joint, left hand Plan She will continue with daily activities and work on ROM. As per her knee pain goes, she had an injection which provided her minimal relief. I did offer her a course of physical therapy declined that she declined. She will see me back as needed. Patient Instructions: Scribed for Isac Park PA-C, by Cuate Macario certified medical assistant, on 10/12/2023 at 12:45 PM EST.? I, Isac Park PA-C, have personally reviewed and agree with the information entered by the scribe. Coding Level of Care Code Global (20556) Diagnoses Primary osteoarthritis of first carpometacarpal joint of left hand M18.12 Osteoarthritis type: primary
[2023-10-12 14:01] VITALS: BMI 27.6
== END 2023-10-12 14:30 | disposition home or self-care (01) ==
PROVIDERS: PCP Family Medicine; Visit Provider Physician Assistant
DX: M18.12 Unilateral primary osteoarthritis of first carpometacarpal joint, left hand (principal)
CPT/HCPCS: 99212

== ENCOUNTER → 2023-10-12 12:54 | Outpatient (BNVA) | payer MEDICARE, OTHER, SELFPAY | PROVIDERS: PCP Family Medicine; Visit Provider Physician Assistant | DX: M18.12 Unilateral primary osteoarthritis of first carpometacarpal joint, left hand (principal) | CPT/HCPCS: 99212 ==

== ENCOUNTER 2023-11-10 11:34 | Outpatient (AMB) | payer MEDICARE, OTHER, SELFPAY ==
[2023-11-10 11:44] VITALS: BP 138/72; PULSE 72; RESP 15; TEMP 36.6; O2SAT 96; BMI 27.7
--- NOTE | 2023-11-10 11:44 | A.OFFPC_ITS ---
Vital Signs 11/10/23 11:44 Height 5 ft 3 in Weight 156 lb 6 oz BMI 27.7 BP 138/72 Blood Pressure Location Rt brachial Position Sitting Respiration 15 Pulse 72 Pulse Source Pulse Oximeter Temp 98 F Temp Source Temporal Artery Scan Pulse Oximetry (%) 96 Oxygen Delivery Method Room Air Intake Visit Reasons: f/u imbalance, chronic conditions Director Security Risk Management Required: No Accompanied by: Self / Same As Patient Allergies Cephalosporins Allergy (Mild, Verified 11/10/23 11:51) JAUNDICE KETOLIDES Allergy (Unknown, Uncoded 10/12/23 14:01) ITCHING MACORLIDES Allergy (Unknown, Uncoded 10/12/23 14:01) ITCHING Tobacco use date assessed: 08/29/23 Fall risk assessment: 2 + Falls in past year Last assessed Fall Risk: 11/10/23 Dental Screening Dental Screen Date: 08/29/23 HPI f/u imbalance, chronic conditions HPI Details 78 y/o female presents to f/u lower extr emity weakness, unsteady gait. Frequent falls and had started her on physical therapy. Pt reports physical therapy has not contacted her yet. She reports ongoing weakness. Last A1c climbed from 5.8 to 6.0%. A1c today 11/10/23 is 6.0% - stable. [facility] Medical History Osteoporosis GERD (gastroesophageal reflux disease) Aphasia High cholesterol High blood pressure Anemia Dyspnea on exertion T11 vertebral fracture Hypothyroidism Surgical History History of bone marrow biopsy History of excision of mass History of cholecystectomy History of tonsillectomy History of vertebroplasty History of kyphoplasty Family History Father Esophageal cancer Mother Breast cancer Paternal Aunt Breast cancer Social History (Reviewed 10/12/23 @ 14:01 by Renu Sands [facility]) Household Members: Spouse Housing: Condominium Are you a primary child care coordinator to a significant other at home: No Do you presently have visiting nurse or other home services: No Alcohol intake: current Alcohol intake frequency: holidays/special occasions only Patient Tobacco Use Status: Never used Tobacco e-Cigarette/Vaping Use: Never Used Second Hand Smoke Exposure: No service: No Current occupational status: 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 Zach Mccarthy, Chayito Barnhart, Bal Díaz and colleagues, with an educational anne from [employer]. Physical exam (Primary Care) Vital Signs: Last Vital Signs Temp 98 F 11/10/23 11:44 Pulse 72 11/10/23 11:44 Resp 15 11/10/23 11:44 BP 138/72 11/10/23 11:44 Pulse Ox 96 11/10/23 11:44 Oxygen Delivery Method Room Air 11/10/23 11:44 BMI result Body Mass Index 27.7 Tobacco/Smoking Status: Tobacco use Status Tobacco use date assessed 08/29/23 11/10/23 11:44 Patient Tobacco Use Status Never used Tobacco 11/10/23 11:44 e-Cigarette/Vaping Use Never Used 11/10/23 11:44 Thrive Assessment: Date of Thrive Assessment Date Thrive assessed 08/29/23 11/10/23 11:44 Assessment and Plan Assessment & Plan (1) Lower extremity weakness: Code(s): R29.898 - Other symptoms and signs involving the musculoskeletal system Plan: Lower?extremity?weakness?with?unsteady?gait?and?falls Had?referred?her?for?physical?therapy?at?last?visit?but?she?has?not?had?this?set ?up?yet Asking?the?office?to?help?get?her?scheduled?with?core?physical?therapy?at[facility]as?this?will?be?closer?to?home. (2) Unsteady gait: Code(s): R26.81 - Unsteadiness on feet Plan: As?above Also?advised?she?use?her?cane?which?she?has?in?the?car (3) Dysarthria: Code(s): R47.1 - Dysarthria and anarthria Plan: Had amyloid PET scan this week. Dr [facility] in [place] will review with her (4) Pre-diabetes: Code(s): R73.03 - Prediabetes Plan: A1c?stable?at?6.0%;?pre?diabetes. Continue?diet?low?in?sugars?and?starches Encouraged?weight?control?and?exercise. (5) Anemia: Code(s): D64.9 - Anemia, unspecified Plan: Patient?now?followed?by?Hematology- Oncology?and?receiving?Procrit?shots.??Last?hemoglobin?level?was?12 Patient?says?she?is?feeling?better Orders: Orders AMB Hemoglobin A1c Today R73.03 - Prediabetes Coding Level of Care Code Est Pt Level 3 (68142) Diagnoses Lower extremity weakness R29.898 Unsteady gait R26.81 Dysarthria R47.1 Pre-diabetes R73.03 Anemia D64.9
== END 2023-11-10 13:07 | disposition home or self-care (01) ==
PROVIDERS: PCP Family Medicine; Visit Provider Family Medicine
DX: R29.898 Other symptoms and signs involving the musculoskeletal system (principal); R26.81 Unsteadiness on feet; D64.9 Anemia, unspecified; R47.1 Dysarthria and anarthria; R73.03 Prediabetes
CPT/HCPCS: 83036; 99213

== ENCOUNTER 2023-12-14 13:00 | Outpatient (RCR) | payer MEDICARE, OTHER, SELFPAY ==
--- NOTE | 2023-11-29 12:56 | MHC.PT.EP ---
[facility] [place] Office [place] Office [place] Office [address] Lavelle Cuevas [address] [phone] F: [phone] F: [phone] F: [phone] F: [phone] Physical Therapy Plan of Care Date of Evaluation: 11/29/23 Date of Surgery: Diagnosis: LE WEAKNESS, UNSTEADY GAIT Assessment: 78 YO FEMALE REF TO PT FOR LEs WEAKNESS AND UNSTEADY GAIT, PROGRESSIVE x 4 YRS- SHE NOTES MOST RECENT FALL WAS ON [place] IN [facility] IN 07/2023. SHE STATED A BOUT OF Rt [employer] 4 YRS AGO WELL KNEE OA INFLUENCING HER OVERALL MOBILITY. SHE RECENTLY PURCHASED A CANE. THE Pt HAS DECR STRENGTH IN HER LEs AND LUMBOPELVIC REGION, DECR POSTURAL AWARENESS, SOME DECR HIP ROM/ FLEXIBILITY, AND ALTERED GAIT MECHANICS. SHE IS UNABLE TO TRANSFER SIT <-> STAND W/O INCREASED UEs COMPENSATION. THE Pt WOULD BENEFIT FROM PT AND AGREES WITH THE PT POC TO ADDRESS THE ABOVE FINDINGS, DEV A HEP, AND ULTIMATELY MORE EFFICIENT GAIT AND TRANSFERS. Frequency and Duration: The patient will be seen 2 x WK x 5 WKS Short Term Goals: *Pt INCR LE STRENGTH ->MORE EFFICIENT SIT <-> STAND TRANSFERS *IMPROVE LE PROPRIOCEPTION/ LUMBOPELVIC STABILITY *Pt'S Rt KNEE PAIN DECR TO 2-3/10 *INCR FLEXIB IN PSOAS/HIP IR/ CALF MM TO IMPROVE EFFICIENCY OF GAIT ON LEVEL AND STAIRS *IMPROVE FUNCTIONAL SQUAT MECH INCR ANKLE FLEXIB Assisted Goals: *Pt WILL IMPROVE LUMBOPELVIC/ LEs STRENGTH BY 1 GRADE *IMPROVED 30 SEC SIT <-> STAND TEST( 4R W UEs ASSIST AT EVAL) AND TUG (16 SEC AT EVAL) *Pt REPORT INCREASED ADL/ ACTIVITY SARAH EVIDENT W IMPROVED LEFI ( 28/80 AT EVAL) *Pt INDEP W PROGR HEP AND SELF-SX MGMT TECHN Treatment Plan: Modalities to reduce pain, spasms and effusion. Manual therapy to restore motion and function. Therapeutic exercise to improve strength and flexibility. Neuromuscular re-education for posture and balance. Therapeutic activities to return to functional activities of daily living. Electronically signed by: STEPHANIE JACINTO PT Please sign and return to therapist. Thank you for your referral.
--- NOTE | 2023-12-26 12:24 | MHC.PT.DC ---
[facility] [place] Office [place] Office [place] Office [address] Lavelle Cuevas [address] [phone] F: [phone] F: [phone] F: [phone] F: [phone] Physical Therapy Discharge Report Diagnosis: LE WEAKNESS, UNSTEADY GAIT Date of Surgery: Date of Evaluation: 11/29/23 Date of Discharge: 12/26/23 Treatments to Date: 3 Cancellations to Date: 4 No Shows to Date: 0 Discharge Status: Patient Elected to Stop Discharge Summary: THE Pt IS DISCHARGED FROM OUT-Pt PT ATNTHIS TIME DUE TO OTHER MEDICAL CONCERNS WARRANTING ATTENTION AT THIS TIME. SHE DID NOT MEET HER OUT-Pt PT GOALS; SHE PHONED OUR DEPT AND CANC APPTS DUE TO S/P FALL AND RESIDUAL LEs PAINS. Electronically signed by: STEPHANIE JACINTO,PT Please sign and return to therapist. Thank you for your referral.
== END 2023-12-26 12:29 | disposition home or self-care (01) ==
LOC: HO.PT 13:00
PROVIDERS: PCP Family Medicine; Visit Provider Family Medicine
DX: R29.898 Other symptoms and signs involving the musculoskeletal system (principal); R26.81 Unsteadiness on feet
CPT/HCPCS: 97110; 97162; 97530; 97535

== ENCOUNTER 2023-12-16 12:48 | Emergency (ER) | payer MEDICARE, OTHER, SELFPAY ==
--- NOTE | ~2023-12-16 | CT_ITS ---
EXAMINATION: CT HEAD WITHOUT CONTRAST CT CERVICAL SPINE WITHOUT CONTRAST CLINICAL INFORMATION: Head strike. COMPARISON: Brain MRI from 02/18/2019. TECHNIQUE: Contiguous axial imaging was performed from the skull base to vertex without intravenous administration of contrast. Contiguous axial imaging was performed from the upper chest through the skull base without intravenous administration of contrast. Coronal and sagittal reformats were obtained at the acquisition workstation. This CT examination was performed using dose optimization techniques as appropriate, variously including the following: *Automated exposure control. *Adjustment of mA and/or kV according to patient size (this includes techniques or standardized protocols for targeted exams where dose is matched to indication/reason for exam; i.e. extremities or head). *Use of iterative reconstruction technique. DLP: 944 mGy-cm FINDINGS: Head: There is no evidence of acute intracranial hemorrhage or edematous territorial infarction. Maldonado-white matter differentiation is preserved. A few foci of hypoattenuation in the periventricular and deep white matter are consistent with mild microangiopathy. Proportional prominence of the ventricles and sulcal spaces without evidence of obstructive hydrocephalus. No abnormal mass effect or midline shift. No extra-axial fluid collections. Calcific atherosclerotic disease of the intracranial internal carotid and vertebral arteries. No hyperdense vessel sign. No acute soft tissue or osseous abnormalities. Mild mucosal thickening of the paranasal sinuses. The mastoid air cells and middle ear cavities are clear. Bilateral lens extractions. Cervical Spine: The atlantooccipital and atlantoaxial articulations remain well aligned. Moderate degenerative arthropathy at the atlantodental articulation. Straightening of the normal cervical lordosis. Otherwise, there is anatomic alignment of the vertebral bodies and posterior elements. No evidence of acute fracture or subluxation. The vertebral body heights are maintained. Advanced degenerative disc disease from C3-T1. Facet and uncovertebral joint arthropathy leads to osseous encroachment on the neural foramina from C2-T2. There is no prevertebral soft tissue swelling. The thyroid gland and remaining cervical soft tissues are within normal limits. The lung apices demonstrate no abnormalities. CT/CT cervical spine wo IV con IMPRESSION: 1. No evidence of acute intracranial hemorrhage or edematous territorial infarction. Mild underlying microangiopathy and generalized cerebral volume loss. 2. No evidence of acute fracture or traumatic subluxation of the cervical spine. Moderate multilevel degenerative spondyloarthropathy of the cervical spine. Electronically signed by: Jason Richards DO 12/16/2023 03:19 PM EDT RP
--- NOTE | ~2023-12-16 | XR_ITS ---
EXAMINATION: XR HIP, RIGHT CLINICAL INFORMATION: Fall, pain. COMPARISON: None available. TECHNIQUE: Two views of the right hip. FINDINGS: No acute fracture or dislocation. Mild degenerative osteoarthritis in both hips with joint space narrowing and subcortical sclerosis. SI joints are symmetric. Pubic symphysis and pelvic ring are maintained. A few pelvic phleboliths are seen. No significant soft tissue abnormality. XR/XR hip RT w PEL1V IMPRESSION: No acute fracture or dislocation. Mild degenerative osteoarthritis. Electronically signed by: Brooklyn Mccartney MD 12/16/2023 02:54 PM EDT
--- NOTE | 2023-12-16 13:06 | ED.GENADULT ---
HPI - General Adult General Chief complaint: Extremity Injury, Lower Stated complaint: R Hip Pain S/P Fall 12/16/23 Time Seen by Provider: 12/16/23 13:26 Source: patient and family Mode of arrival: wheelchair Limitations: no limitations History of Present Illness ED Provider: Benedicto Eden PA-C HPI narrative: 78-year-old female with history of osteoporosis, compression fracture of the spine, HLD, HTN, myelodysplastic syndrome, hypothyroidism, frequent falls who presents to the ER after she fell while trying on a pair of pants today. She was at home when she slipped on the pant leg, trying to try it on and she fell onto her right side. She hit her right hip and hit her head. She did not lose consciousness and she is not on a blood thinner. She reports pain in the right lateral hip that is worse with ambulation and palpation. She is able to bend the leg and put weight on it but it is painful. She denies a headache or neck pain. No chest pain, shortness of breath, abdominal pain, nausea, vomiting, diarrhea. MD complaint: Right hip pain status post fall Onset (ago): minute(s) Location: head Radiation: non-radiation Severity: moderate Severity scale (1-10): 7 Quality: aching Pain Consistency: constant Relieving factors: rest Exacerbating factors: movement Associated symptoms: denies other symptoms Treatments prior to arrival: other (Tylenol) Related Data Home Medications ?Medication ?Instructions ?Recorded ?Confirmed cholecalciferol (vitamin D3) 50 50 mcg PO DAILY 09/13/21 10/12/23 mcg (2,000 unit) capsule mecobalamin (vitamin B12) 1,000 1,000 mcg PO DAILY 09/13/21 10/12/23 mcg chewable tablet Previous Rx's ?Medication ?Instructions ?Recorded potassium chloride 10 mEq 10 meq PO DAILY 90 days #90 tabs 09/26/22 tablet,extended release (Klor-Con) omeprazole 20 mg capsule,delayed 20 mg PO DAILY 90 days #90 caps 01/30/23 release simvastatin 20 mg tablet 20 mg PO DAILY #90 tabs 08/23/23 denosumab 60 mg/mL subcutaneous 60 mg subcut [id number] 1 day #1 mL 08/29/23 syringe (Prolia) levothyroxine 150 mcg tablet 150 mcg PO DAILY 90 days #90 tabs 08/29/23 sertraline 100 mg tablet 100 mg PO DAILY #90 tabs 09/13/23 celecoxib 200 mg capsule (Celebrex) 200 mg PO BID 30 days #60 caps 09/25/23 losartan 50 mg tablet 50 mg PO DAILY 90 days #90 tabs 11/02/23 atenolol 50 mg tablet 50 mg PO DAILY #80 tabs 11/21/23 oxybutynin chloride 10 mg 10 mg PO .3 times a week 30 days 12/06/23 tablet,extended release 24 hr #12 tabs chlorthalidone 25 mg tablet 12.5 mg (1/2 x 25 mg) PO QAM #45 12/15/23 tabs Allergies Allergy/AdvReac Type Severity Reaction Status Date / Time Cephalosporins Allergy Mild JAUNDICE Verified 12/16/23 13:09 KETOLIDES Allergy Unknown ITCHING Uncoded 12/16/23 13:09 MACORLIDES Allergy Unknown ITCHING Uncoded 12/16/23 13:09 PMFSH Past Medical History Medical History Osteoporosis GERD (gastroesophageal reflux disease) Aphasia High cholesterol High blood pressure Anemia Dyspnea on exertion T11 vertebral fracture Hypothyroidism Surgical History History of bone marrow biopsy History of excision of mass History of cholecystectomy History of tonsillectomy History of vertebroplasty History of kyphoplasty Family History Family History Father Esophageal cancer Mother Breast cancer Paternal Aunt Breast cancer Social History Social History Household Members: Sp[facility] Are you a primary grounds caretaker to a significant other at home: No Do you presently have visiting nurse or other home services: No Alcohol intake: current Alcohol intake frequency: holidays/special occasions only Patient Tobacco Use Status: Never used Tobacco e-Cigarette/Vaping Use: Never Used Second Hand Smoke Exposure: No Advance Directives: No Advance Directives Information Provided: No Do you have a plan to hurt others: No Plan service: No Current occupational status: 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 Oriented X3. No acute distress. Head: normocephalic, small approximately 2 cm area of swelling in the right parietal area without any overlying lacerations, skin changes, mildly tender Eyes: Pupils equal, round and reactive to light. ENT: Pharynx normal. No tonsillar swelling or exudate. Neck: Normal inspection. Neck supple. No midline tenderness. CVS: Normal heart rate and rhythm. Pulses normal. Respiratory: No respiratory distress. Breath sounds normal. Abdomen: Soft and nontender. +BS x4 Skin: Skin warm and dry. Normal skin color. Normal skin turgor. No rashes. Extremities: No lower extremity edema. Right lateral hip with diffuse tenderness, there is an approximately 3 cm area of early ecchymosis with associated tenderness. Normal flexion of the hip, pain with passive flexion. Neuro/psych: Oriented X 3. No motor deficit. No sensory deficit. CN II-XII intact. Slurred speech Course Course Course Narrative: This is a rapid medical exam. Deferred additional HPI, ROS, PE to primary provider. 78 yo female with history of OA, HTN, hypothyroidism, HLD here with complaints of a fall landing on her right hip and hitting her head. NO LOC. NO AC therapy use. Has some baseline aphasia-not new per patient will obtain x-rays, Ct head Arrives in wheelchair, normally ambulatory. Jneny Greenberg APRN Medical Decision Making Medical Decision Making [facility] Narrative: 78-year-old female with history of osteoporosis, compression fracture of the spine, HLD, HTN, myelodysplastic syndrome, hypothyroidism, frequent falls who presents to the ER after she fell at home while trying on a pair of pants, resulting in right hip pain. Pain with ambulation. On examination she has an ecchymotic area to the right lateral hip. No deformity of the lower extremity. She has some pain with passive range of motion. X-ray reviewed, no evidence of hip fracture. CT of her head was unremarkable. She was able to ambulate in the ER with a steady gait. Comfortable discharge home. Differential Diagnosis Differential Diagnoses: The differential diagnosis associated with the presentation includes Hip fracture, hip contusion, hip strain/sprain, closed head injury, concussion, head bleed Admission/Observation Consideration of admission/observation: Escalation of care including admission/observation considered Elderly female with recurrent falls, considered observation/admission Independent Interpretation I performed an independent interpretation of an: Plain X-Ray and CT Scan Interpretation: No evidence of fracture of the right hip CT head without acute edema or bleed Radiology Impression Discussion of test interpretation with radiology: I have reviewed the radiologist's reading. Radiologist Impression: EXAMINATION: XR HIP, RIGHT CLINICAL INFORMATION: Fall, pain. COMPARISON: None available. TECHNIQUE: Two views of the right hip. FINDINGS: No acute fracture or dislocation. Mild degenerative osteoarthritis in both hips with joint space narrowing and subcortical sclerosis. SI joints are symmetric. Pubic symphysis and pelvic ring are maintained. A few pelvic phleboliths are seen. No significant soft tissue abnormality. XR/XR hip RT w PEL1V IMPRESSION: No acute fracture or dislocation. Mild degenerative osteoarthritis. CT/CT head/brain wo IV con IMPRESSION: 1. No evidence of acute intracranial hemorrhage or edematous territorial infarction. Mild underlying microangiopathy and generalized cerebral volume loss. 2. No evidence of acute fracture or traumatic subluxation of the cervical spine. Moderate multilevel degenerative spondyloarthropathy of the cervical spine. Independent Historian Clinical information obtained from an independent historian. History obtained from or confirmed by: Spouse External Record Review External record reviewed: Office record, Outpatient record, Prior outpatient labs and Prior outpatient radiology Prescription Management I considered prescription management with: Pain Medication Chronic Conditions Patient?s care impacted by: Other (Osteoarthritis, unsteady gait, frequent falls) Critical Care Time Critical Care Time Critical Care Time: No Discharge Plan Discharge Clinical Impression: Contusion of hip, right Qualifiers: Encounter type: initial encounter Qualified Code(s): S70.01XA - Contusion of right hip, initial encounter Patient Disposition: Home, Self-Care Instructions: Hip Contusion (ED) Additional Instructions: Your x-ray today did not show any broken bones, there is mild osteoarthritis in your right hip. You have a bruise developing in the area. Recommend applying ice for 20 minutes at a time, multiple times per day. Do not put ice directly on the skin. Recommend Tylenol 1000 mg every 6-8 hours around the clock for pain. Follow up with your doctor as needed. If you develop new or worsening symptoms call 911 or come back to the ER for further evaluation. Prescriptions: No Action potassium chloride [Klor-Con 10] 10 mEq tablet extended release 10 meq PO DAILY 90 Days Qty: 90 3RF omeprazole 20 mg capsule,delayed release(DR/EC) 20 mg PO DAILY 90 Days Qty: 90 3RF simvastatin 20 mg tablet 20 mg PO DAILY Qty: 90 3RF sertraline 100 mg tablet 100 mg PO DAILY Qty: 90 3RF losartan 50 mg tablet 50 mg PO DAILY 90 Days Qty: 90 4RF atenolol 50 mg tablet 50 mg PO DAILY Qty: 80 1RF oxybutynin chloride 10 mg tablet extended release 24hr 10 mg PO .3 times a week 30 Days Qty: 12 2RF chlorthalidone 25 mg tablet 12.5 mg PO QAM Qty: 45 2RF levothyroxine 150 mcg tablet 150 mcg PO DAILY 90 Days Qty: 90 4RF Prolia 60 mg/mL syringe 60 mg subcut [id number] 1 Days Qty: 1 0RF cholecalciferol (vitamin D3) 50 mcg (2,000 unit) capsule 50 mcg PO DAILY mecobalamin (vitamin B12) 1,000 mcg tablet,chewable 1,000 mcg PO DAILY celecoxib [Celebrex] 200 mg capsule 200 mg PO BID 30 Days Qty: 60 3RF Print Language: Indonesian
[2023-12-16 13:08] VITALS: BP 121/63; PULSE 59; RESP 18; TEMP 36.4; O2SAT 96; BMI 27.1
[2023-12-16 16:06] VITALS: BP 121/63; PULSE 59; RESP 18; TEMP 36.4; O2SAT 96
== END 2023-12-16 16:06 | disposition home or self-care (01) ==
PROVIDERS: Emergency Provider Emergency Medicine; PCP Family Medicine
DX: S70.01XA Contusion of right hip, initial encounter (principal); W18.39XA Other fall on same level, initial encounter; Z91.81 History of falling; Y93.89 Activity, other specified; Y92.003 Bedroom of unspecified non-institutional (private) residence as the place of occurrence of the external cause; Y99.9 Unspecified external cause status; Z79.899 Other long term (current) drug therapy
CPT/HCPCS: 70450; 72125; 73502; 99283; 99284

== ENCOUNTER 2023-12-22 22:49 | Inpatient (IN) | payer MEDICARE, OTHER, SELFPAY ==
--- NOTE | ~2023-12-22 | FL_ITS ---
EXAMINATION: FLUOROSCOPY GUIDANCE FOR NEEDLE PLACEMENT CLINICAL INFORMATION: Fluoroscopy for intramedullary lauren COMPARISON: Right hip x-ray on 12/23/2023 TECHNIQUE: 4 images during right hip fluoroscopy FINDINGS: Fixation of the right proximal femoral fracture FLUOROSCOPY TIME: 0.6 minutes DOSE AREA PRODUCT: 0.263 mGy-m2 (milligray-meter squared) FL/FL guidance in OR IMPRESSION: Fluoroscopy performed orthopedics department. Please see the operative report for additional information. Electronically signed by: Adriane Zuñiga MD 12/24/2023 07:29 AM EDT
--- NOTE | ~2023-12-22 | XR_ITS ---
EXAMINATION: XR CHEST CLINICAL INFORMATION: Cough. COMPARISON: June 29, 2015. TECHNIQUE: Frontal view of the chest was obtained. FINDINGS: The cardiomediastinal silhouette is stable. There is mild pulmonary vascular congestion and mild diffuse increased interstitial markings. There is no focal lung consolidation or pleural effusion. The bony structures and soft tissues are unremarkable. XR/XR chest 1V IMPRESSION: Mild pulmonary vascular congestion and mild diffuse increased interstitial markings. Consider mild edema. No focal lung consolidation or evidence for significant pleural effusion. Electronically signed by: Sarmad Persaud MD 12/23/2023 03:11 AM EDT
--- NOTE | ~2023-12-22 | CT_ITS ---
EXAMINATION: CT HEAD WITHOUT CONTRAST CT CERVICAL SPINE WITHOUT CONTRAST CLINICAL INFORMATION: Fall. Injury. Pain. COMPARISON: None available. TECHNIQUE: Contiguous axial imaging was performed through the head and cervical spine without intravenous administration of contrast. Sagittal and coronal reformatted images also obtained. This CT examination was performed using dose optimization techniques as appropriate, variously including the following: *Automated exposure control *Adjustment of mA and/or kV according to patient size (this includes techniques or standardized protocols for targeted exams where dose is matched to indication/reason for exam; i.e. extremities or head) *Use of iterative reconstruction technique DLP: 921 mGy-cm FINDINGS: There is mild cerebral volume loss with prominence of the lateral and third ventricles. The cortical sulci widened appropriately. The fourth ventricle and basal cisterns are normally outlined. There is mild bilateral periventricular and central white matter diminished attenuation. There is no acute territorial defect, hemorrhage or midline shift. The extra-axial spaces are unremarkable. Calvarium/scalp: Intact. Maxillofacial sinuses and mastoids: Clear as visualized. Cervical spine: There is straightening of the cervical spine. There is moderate diffuse cervical disc degenerative change with loss of disc space, endplate change and posterior osteophytes associated with mild to moderate diffuse facet osteoarthritic hypertrophic change with multilevel mild to moderate spinal canal and neuroforaminal narrowing. No fractures seen. The soft tissues are unremarkable. The visualized upper lung monge are clear. CT/CT head/brain wo IV con IMPRESSION: 1. No acute intracranial process seen. 2. There is no acute fracture, dislocation or subluxation cervical spine. There is moderate diffuse cervical spondylosis with multilevel mild to moderate spinal canal and neuroforaminal narrowing. Electronically signed by: Sarmad Persaud MD 12/23/2023 01:57 AM EDT
--- NOTE | ~2023-12-22 | XR_ITS ---
EXAMINATION: XR KNEE RT 2V CLINICAL INFORMATION: Fall. Pain. COMPARISON: None available. TECHNIQUE: 2 views of the right knee obtained. FINDINGS: The bone mineralization is within normal limits. There is [id number] medial and mild lateral and patellofemoral degenerative changes with loss of joint space, subchondral sclerosis and osteophyte formation. There is no fracture. There is no significant joint effusion. The soft tissues are grossly unremarkable. XR/XR knee RT 2V IMPRESSION: Degenerative changes of the right knee without evidence of acute fracture or dislocation. Electronically signed by: Sarmad Persaud MD 12/23/2023 04:20 AM EDT
--- NOTE | ~2023-12-22 | CT_ITS ---
EXAMINATION: CT HEAD WITHOUT CONTRAST CT CERVICAL SPINE WITHOUT CONTRAST CLINICAL INFORMATION: Fall. Injury. Pain. COMPARISON: None available. TECHNIQUE: Contiguous axial imaging was performed through the head and cervical spine without intravenous administration of contrast. Sagittal and coronal reformatted images also obtained. This CT examination was performed using dose optimization techniques as appropriate, variously including the following: *Automated exposure control *Adjustment of mA and/or kV according to patient size (this includes techniques or standardized protocols for targeted exams where dose is matched to indication/reason for exam; i.e. extremities or head) *Use of iterative reconstruction technique DLP: 921 mGy-cm FINDINGS: There is mild cerebral volume loss with prominence of the lateral and third ventricles. The cortical sulci widened appropriately. The fourth ventricle and basal cisterns are normally outlined. There is mild bilateral periventricular and central white matter diminished attenuation. There is no acute territorial defect, hemorrhage or midline shift. The extra-axial spaces are unremarkable. Calvarium/scalp: Intact. Maxillofacial sinuses and mastoids: Clear as visualized. Cervical spine: There is straightening of the cervical spine. There is moderate diffuse cervical disc degenerative change with loss of disc space, endplate change and posterior osteophytes associated with mild to moderate diffuse facet osteoarthritic hypertrophic change with multilevel mild to moderate spinal canal and neuroforaminal narrowing. No fractures seen. The soft tissues are unremarkable. The visualized upper lung monge are clear. CT/CT cervical spine wo IV con IMPRESSION: 1. No acute intracranial process seen. 2. There is no acute fracture, dislocation or subluxation cervical spine. There is moderate diffuse cervical spondylosis with multilevel mild to moderate spinal canal and neuroforaminal narrowing. Electronically signed by: Sarmad Persaud MD 12/23/2023 01:57 AM EDT
--- NOTE | ~2023-12-22 | CT_ITS ---
EXAMINATION: CT HIP WITHOUT CONTRAST, RIGHT CLINICAL INFORMATION: Falls. Pain. COMPARISON: None available. TECHNIQUE: Multidetector volumetric imaging was obtained through the right hip without contrast material. Multiplanar reformatted images were submitted in coronal and sagittal planes. This CT examination was performed using dose optimization techniques as appropriate, variously including the following: *Automated exposure control *Adjustment of mA and/or kV according to patient size (this includes techniques or standardized protocols for targeted exams where dose is matched to indication/reason for exam; i.e. extremities or head) *Use of iterative reconstruction technique DLP: 206 mGy-cm FINDINGS: The bony structures are osteopenic. There is a mildly displaced comminuted fracture right basicervical hip extending into the intertrochanteric right hip. No other fracture is seen. The soft tissues are grossly unremarkable. The visualized intrapelvic structures are unremarkable. CT/CT hip RT wo IV con IMPRESSION: Mildly displaced comminuted fracture right basicervical hip extending into the intertrochanteric right hip. Electronically signed by: Sarmad Persaud MD 12/23/2023 01:39 AM EDT
--- NOTE | ~2023-12-22 | XR_ITS ---
EXAMINATION: XR HIP, RIGHT CLINICAL INFORMATION: Trauma/pain. COMPARISON: December 16, 2023 TECHNIQUE: Two views of the right hip. FINDINGS: This the bone mineralization is within normal limits. Right-sided joint space is maintained. There is a mildly displaced right basicervical hip fracture which appears to extend into the intertrochanteric region. Soft tissues are unremarkable. XR/XR hip RT min 2V IMPRESSION: Mildly displaced right basicervical hip fracture which appears to extend into the intertrochanteric region. Electronically signed by: Sarmad Persaud MD 12/23/2023 03:09 AM EDT
[2023-12-22 23:00] VITALS: BP 156/79; BP 171/89; PULSE 70; PULSE 80; RESP 16; TEMP 36.6; O2SAT 95; O2SAT 96; BMI 29.5
[2023-12-22 23:01] VITALS: BP 156/79; PULSE 68; RESP 18; TEMP 36.6; O2SAT 95
--- NOTE | 2023-12-22 23:22 | ED.FALL ---
HPI - Fall General Chief Complaint: Fall Stated Complaint: fall Time Seen by Provider: 12/22/23 23:05 Source: patient and EMS Mode of arrival: EMS Limitations: no limitations History of Present Illness ED Provider: Dr. Lisa Ball HPI Narrative: Patient comes to the emergency room complaining of right-sided hip pain after a fall. Patient states she had a mechanical fall at home, landed on her right hip. Patient states that 1 week ago, she had another fall, landed on her right hip, no she has an ecchymosis in the right hip but this was from the 1st fall. Patient states that the last time x-rays were normal, she was discharged home, she was able to walk. However, patient states that the pain is very severe. EMS gave her 75 mcg of fentanyl. Patient states that she did hit her head, did not lose consciousness, denies being on blood thinners. Related Data Home Medications ?Medication ?Instructions ?Recorded ?Confirmed cholecalciferol (vitamin D3) 50 50 mcg PO DAILY 09/13/21 12/22/23 mcg (2,000 unit) capsule mecobalamin (vitamin B12) 1,000 1,000 mcg PO DAILY 09/13/21 12/22/23 mcg chewable tablet Previous Rx's ?Medication ?Instructions ?Recorded potassium chloride 10 mEq 10 meq PO DAILY 90 days #90 tabs 09/26/22 tablet,extended release (Klor-Con) omeprazole 20 mg capsule,delayed 20 mg PO DAILY 90 days #90 caps 01/30/23 release simvastatin 20 mg tablet 20 mg PO DAILY #90 tabs 08/23/23 denosumab 60 mg/mL subcutaneous 60 mg subcut [id number] 1 day #1 mL 08/29/23 syringe (Prolia) sertraline 100 mg tablet 100 mg PO DAILY #90 tabs 09/13/23 celecoxib 200 mg capsule (Celebrex) 200 mg PO BID 30 days #60 caps 09/25/23 losartan 50 mg tablet 50 mg PO DAILY 90 days #90 tabs 11/02/23 atenolol 50 mg tablet 50 mg PO DAILY #80 tabs 11/21/23 oxybutynin chloride 10 mg 10 mg PO .3 times a week 30 days 12/06/23 tablet,extended release 24 hr #12 tabs chlorthalidone 25 mg tablet 12.5 mg (1/2 x 25 mg) PO QAM #45 12/15/23 tabs levothyroxine 150 mcg tablet 150 mcg PO DAILY 90 days #90 tabs 12/18/23 tramadol 25 mg tablet 25 mg PO Q6H PRN Breakthrough 12/22/23 Pain, Moderate #30 tabs Allergies Allergy/AdvReac Type Severity Reaction Status Date / Time Cephalosporins Allergy Mild JAUNDICE Verified 12/22/23 23:03 KETOLIDES Allergy Unknown ITCHING Uncoded 12/22/23 09:12 MACORLIDES Allergy Unknown ITCHING Uncoded 12/22/23 09:12 Review of Systems Review of Systems: Constitutional : No Weight loss, No Fever, No Chills, No Night Sweats, No Fatigue, No Malaise ENT/Mouth : No Hearing loss, No Ear Pain, No Nasal Congestion, No Sinus Pain, No Hoarseness, No sore throat, No Rhinorrhea, No Swallowing Difficulty Eyes: No Eye Pain, No Swelling, No Redness, No Foreign Body, No Discharge, No Vision Changes Cardiovascular : No Chest Pain, No SOB, No Dyspnea on Exertion, No Orthopnea, No Edema, No Palpitations Respiratory : No Cough, No Sputum, No Wheezing, No Smoke Exposure, No Dyspnea Gastrointestinal : No Nausea, No Vomiting, No Diarrhea, No Constipation, No abdominal Pain, No Hematochezia, No Melena Genitourinary : no irregular bleeding, No Dysuria, No Urinary Frequency, No Hematuria, No Urinary Incontinence, No Urgency, No Flank Pain, No Urinary Flow Changes, No Hesitancy Musculoskeletal : Complaining of severe right-sided hip pain, No Myalgias, No Joint Swelling Skin : No Skin Lesions, No rash Neuro : No Weakness, No Numbness, No Paresthesias, No Loss of Consciousness, No Dizziness, No Headache Psych : No Anxiety/Panic, No Depression, No SI/HI/AH/VH, No Social Issues, Heme/Lymph: No Bruising, No Bleeding,No Lymphadenopathy Endocrine : No Polyuria, No Polydipsia, No Temperature Intolerance [facility] Past Medical History Medical History Osteoporosis GERD (gastroesophageal reflux disease) Aphasia High cholesterol High blood pressure Anemia Dyspnea on exertion T11 vertebral fracture Hypothyroidism Surgical History History of bone marrow biopsy History of excision of mass History of cholecystectomy History of tonsillectomy History of vertebroplasty History of kyphoplasty Family History Family History Father Esophageal cancer Mother Breast cancer Paternal Aunt Breast cancer Social History Social History Household Members: Spouse Housing: [facility] Are you a primary foster care therapist to a significant other at home: No Do you presently have visiting nurse or other home services: No Alcohol intake: current Alcohol intake frequency: holidays/special occasions only Patient Tobacco Use Status: Never used Tobacco Smoked in Last 30 Days: No e-Cigarette/Vaping Use: Never Used Second Hand Smoke Exposure: No Use of substances other than those prescribed or required for medical reasons: No Advance Directives: No Advance Directives Information Provided: Yes Do you have a plan to hurt others: No Plan service: No Current occupational status: 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 Oriented X3. Patient's seems very uncomfortable Eyes: Pupils equal, round and reactive to light. ENT: Pharynx normal. Neck: Normal inspection. Neck supple. No lymph nodes noted. No crepitus CVS: Normal heart rate and rhythm. Pulses normal. Normal S1 and S2 Respiratory: No respiratory distress. Breath sounds normal. No Wheezing. No rales Abdomen: Soft and nontender. No rigidity. No distention. Skin: Skin warm and dry. Normal skin color. Normal skin turgor. Extremities: No lower extremity edema. No Lacerations. No Rash. Patient unable to extend the right hip due to pain, keeps it bent. Patient unable to find a comfortable position Neuro: Oriented X 3. No motor deficit. No sensory deficit. Moving all extremities. No slurred speech. CN 2 through 12 grossly intact Psych: calm, cooperative, normal affect Course Course Course Narrative: -patient receiving IV morphine, all of patient's labs pending. -I suspect that the patient may have a hip fracture. -CT scan of the head, cervical spine and hip pending. Medications Administered Discontinued Medications Generic Name Dose Route Start Last Admin Trade Name Kelsea PRN Reason Stop Dose Admin Lidocaine 1 patch 12/23/23 01:15 12/23/23 01:21 Lidocaine 4 % Patch Adh..Patch TRANSDERMA 12/23/23 01:16 1 patch ONCE ONE Administration Protocol Morphine Sulfate 2 mg 12/22/23 23:20 12/22/23 23:26 Morphine Sulfate 4 Mg/Ml Cartridge IVPUSH 12/22/23 23:21 2 mg ONCE ONE Administration Protocol Morphine Sulfate 2 mg 12/23/23 01:15 12/23/23 01:21 Morphine Sulfate 2 Mg/Ml Cartridge IVPUSH 12/23/23 01:16 2 mg ONCE ONE Administration Protocol Medical Decision Making Medical Decision Making [facility] Narrative: -my interpretation of x-ray of the hip: Right hip fracture. My interpretation of head CT: No obvious intracranial bleed -I discussed the patient with orthopedics SUARAV [place], patient to be kept NPO, x-ray of the hip requested -I discussed the patient with Dr. Pryor from the Medicine team, patient being admitted Differential Diagnosis Differential Diagnoses: The differential diagnosis associated with the presentation includes (Hip fracture, contusion, dislocation) Admission/Observation Consideration of admission/observation: Escalation of care including admission/observation considered Consult Healthcare Provider Management of the patient was discussed with: Hospitalist and Manager Respiratory Care Lab Data [facility] Lab Attestation statement: I reviewed the patient's lab results. 12/22/23 23:46 12/22/23 23:46 Labs: Lab Results 12/22/23 Range/Units 23:46 WBC 7.9 (4.8-10.8) X10*3/uL RBC 3.13 L (4.20-5.50) X10*6/uL Hgb 10.9 L (12.0-16.0) g/dl Hct 32.4 L (37.0-47.0) % MCV 103.5 H (80.0-98.0) fL MCH 34.8 H (27.0-33.0) pg MCHC 33.6 (31.0-35.0) g/dl RDW 13.4 (11.0-16.0) % Plt Count 132 L (160-400) X10*3/uL MPV 10.6 (9.4-12.3) fL Immature Gran % (Auto) 0.4 (0.0-0.4) % Neut % (Auto) 71.7 (45-73) % Lymph % (Auto) 16.5 L (20-40) % Hancock % (Auto) 7.7 (2-11) % Eos % (Auto) 3.2 (0-4) % Baso % (Auto) 0.5 (0-2) % Lymph # (Auto) 1.3 (1.2-4.9) X10*3/uL Hancock # (Auto) 0.6 (0.1-1.2) X10*3/uL Eos # (Auto) 0.3 (0.0-0.4) X10*3/uL Baso # (Auto) 0.0 (0.0-0.2) X10*3/uL Abs Immat Gran (auto) 0.03 (0.00-0.03) X10*3/uL Absolute Neuts (auto) 5.7 (2.0-8.3) x10*3/uL Absolute Nucleated RBC 0.000 (0.0-0.012) X10*3/uL Nucleated RBC % (auto) 0.0 (0.0-0.2) /100WBC PT 13.3 (11.1-13.3) SEC INR 1.1 (0.9-1.1) Sodium 141 (135-145) mmol/L Potassium 4.0 (3.3-5.1) mmol/L Chloride 109 H (96-108) mmol/L Carbon Dioxide 24 (22-29) mmol/L Anion Gap 12 (12-20) BUN 14 (9-16) mg/dL Creatinine 0.97 (0.5-1.4) mg/dL Estim Creat Clear Calc 48.0 Estimated GFR 56 Random Glucose 131 H (60-115) mg/dL Calcium 9.4 (8.4-10.2) mg/dL Total Bilirubin 0.8 (0.0-1.0) mg/dL Direct Bilirubin 0.3 (0.0-0.5) mg/dL AST 39 H (5-31) U/L ALT 21 (0-31) U/L Alkaline Phosphatase 73 (39-117) U/L Total Protein 7.6 (6.5-8.0) g/dL Albumin 3.9 (3.5-5.0) g/dL Blood Type B Positive Antibody Screen NEGATIVE Independent Interpretation I performed an independent interpretation of an: Plain X-Ray and CT Scan Radiology Impression Discussion of test interpretation with radiology: I have reviewed the radiologist's reading. Radiologist Impression: IMPRESSION: 1. No acute intracranial process seen. 2. There is no acute fracture, dislocation or subluxation cervical spine. There is moderate diffuse cervical spondylosis with multilevel mild to moderate spinal canal and neuroforaminal narrowing. The bony structures are osteopenic. There is a mildly displaced comminuted fracture right basicervical hip extending into the intertrochanteric right hip. No other fracture is seen. The soft tissues are grossly unremarkable. The visualized intrapelvic structures are unremarkable. CT/CT hip RT wo IV con IMPRESSION: Mildly displaced comminuted fracture right basicervical hip extending into the intertrochanteric right hip. Critical Care Time Critical Care Time Critical Care Time: Yes Total Critical Care Time: 60 Attestation: I have personally provided critical care time. Time includes review of lab data, radiology results, discussion with consultants, and monitoring for potential decompensation. Intervention performed as documented. Discharge Plan Discharge Clinical Impression: Closed hip fracture Patient Disposition: Admitted As Inpatient Prescriptions: No Action potassium chloride [Klor-Con 10] 10 mEq tablet extended release 10 meq PO DAILY 90 Days Qty: 90 3RF omeprazole 20 mg capsule,delayed release(DR/EC) 20 mg PO DAILY 90 Days Qty: 90 3RF simvastatin 20 mg tablet 20 mg PO DAILY Qty: 90 3RF sertraline 100 mg tablet 100 mg PO DAILY Qty: 90 3RF losartan 50 mg tablet 50 mg PO DAILY 90 Days Qty: 90 4RF atenolol 50 mg tablet 50 mg PO DAILY Qty: 80 1RF oxybutynin chloride 10 mg tablet extended release 24hr 10 mg PO .3 times a week 30 Days Qty: 12 2RF chlorthalidone 25 mg tablet 12.5 mg PO QAM Qty: 45 2RF levothyroxine 150 mcg tablet 150 mcg PO DAILY 90 Days Qty: 90 4RF tramadol 25 mg Tablet 25 mg PO Q6H PRN (Reason: Breakthrough Pain, Moderate) Qty: 30 0RF Prolia 60 mg/mL syringe 60 mg subcut [id number] 1 Days Qty: 1 0RF cholecalciferol (vitamin D3) 50 mcg (2,000 unit) capsule 50 mcg PO DAILY mecobalamin (vitamin B12) 1,000 mcg tablet,chewable 1,000 mcg PO DAILY celecoxib [Celebrex] 200 mg capsule 200 mg PO BID 30 Days Qty: 60 3RF Print Language: Syrian
[2023-12-22] MEDS: Morphine Sulfate 4 MG/ML CARTRIDGE 2 MG IVPUSH (23:26)
--- NOTE | 2023-12-22 23:26 | ECG_ITS ---
Test Reason : fall Blood Pressure : / mmHG Vent. Rate : 066 BPM Atrial Rate : 066 BPM P-R Int : 156 ms QRS Dur : 090 ms QT Int : 486 ms P-R-T Axes : 072 -05 069 degrees QTc Int : 509 ms Poor data quality, interpretation may be adversely affected Normal sinus rhythm Inferior infarct (cited on or before 01-OCT-2007) Cannot rule out Anterior infarct , age undetermined Abnormal ECG When compared with ECG of 04-AUG-2009 09:39, Minimal criteria for Anterior infarct are now Present Questionable change in initial forces of Inferior leads T wave inversion now evident in Anterior leads QT has lengthened Referred By: iLsa Ball Electronically Signed By:JIM WALTERS
[2023-12-22 23:53] LABS: Basophils Percent Auto 0.5 % (0-2); Eosinophils Absolute Auto 0.3 X10*3/uL (0.0-0.4); Eosinophils Percent Auto 3.2 % (0-4); Hematocrit 32.4 % (37.0-47.0); Hemoglobin 10.9 g/dl (12.0-16.0); Imm Gran Abs Auto 0.03 X10*3/uL (0.00-0.03); Imm Gran Pct Auto 0.4 % (0.0-0.4); Lymphocytes Absolute Auto 1.3 X10*3/uL (1.2-4.9); Lymphocytes Percent Auto 16.5 % (20-40); MANUAL DIFF FLAG NO; Mean Corpuscular HGB Conc 33.6 g/dl (31.0-35.0); Mean Corpuscular Hemoglobin 34.8 pg (27.0-33.0); Mean Corpuscular Volume 103.5 fL (80.0-98.0); Mean Platelet Volume 10.6 fL (9.4-12.3); Monocytes Absolute Auto 0.6 X10*3/uL (0.1-1.2); Monocytes Percent Auto 7.7 % (2-11); Neutrophils Absolute Auto 5.7 x10*3/uL (2.0-8.3); Neutrophils Percent Auto 71.7 % (45-73); Platelet Count 132 X10*3/uL (160-400); Red Blood Count 3.13 X10*6/uL (4.20-5.50); Red Cell Distribution Width 13.4 % (11.0-16.0); White Blood Count 7.9 X10*3/uL (4.8-10.8)
[2023-12-22 23:59] LABS: INTERNATIONAL NORM RATIO 1.1 (0.9-1.1); Prothrombin Time 13.3 SEC (11.1-13.3)
[2023-12-23] VITALS (14 sets, daily range): BP systolic 108–172; BP diastolic 54–89; PULSE 65–98; RESP 16–20; TEMP 36–37; O2SAT 87–96; BMI 28.6
[2023-12-23 00:07] LABS: Alanine Aminotransferase 21 U/L (0-31); Albumin Level 3.9 g/dL (3.5-5.0); Alkaline Phosphatase 73 U/L (39-117); Anion Gap 12 (12-20); Aspartate Amino Transferase 39 U/L (5-31); Bilirubin Direct 0.3 mg/dL (0.0-0.5); Bilirubin Total 0.8 mg/dL (0.0-1.0); Blood Urea Nitrogen 14 mg/dL (9-16); Calcium 9.4 mg/dL (8.4-10.2); Carbon Dioxide 24 mmol/L (22-29); Chloride 109 mmol/L (96-108); Estimated Glomerular Filt Rate 56; Glucose Random 131 mg/dL (60-115); Sodium 141 mmol/L (135-145); Total Protein 7.6 g/dL (6.5-8.0)
[2023-12-23] MEDS: Lidocaine 4 % Patch ADH..PATCH 1 PATCH TRANSDERMA (01:21)
[2023-12-23] MEDS: Morphine Sulfate 2 MG/ML CARTRIDGE IVPUSH (01:21)
--- NOTE | 2023-12-23 02:13 | MHC.EDTECH ---
patient belongings list printed and in chart
--- NOTE | 2023-12-23 02:59 | PM.IMHP ---
History of Present Illness Date of Service: 12/23/23 Chief Complaint: Fall This is a 78-year-old female with pertinent history of myelodysplastic syndrome, hypothyroidism, hypertension, mixed hyperlipidemia, osteoporosis, compression fracture, mood disorder, expressive aphasia who presents to the emergency department for evaluation after a fall. Patient states she fell about a week ago when she was trying to change her pads. She landed on her right hip and also hit her head. Patient had been having right hip pain and difficulty with ambulation since the fall. X-ray of the hip was obtained on 12/15 which was without any fracture or dislocation. Patient states she had a 2nd fall on the day of presentation when she missed her step and fell. Did not lose consciousness. No chest pain or palpitations prior to the fall. No rhythmic jerking movement of extremities. She denies fever, chills, chest discomfort, palpitations, shortness of breath, abdominal pain, changes in urinary or bowel habits. In the emergency department, imaging with right hip fracture and Orthopedic surgery was consulted who requested admission Review of Systems Constitutional: Constitutional: Reports no additional constitutional complaints Cardiovascular: Cardiovascular: Reports no additional cardiovascular complaints Respiratory: Respiratory: Reports no additional respiratory complaints Gastrointestinal: Gastrointestinal: Reports no additional gastrointestinal complaints Genitourinary: Genitourinary: Reports no additional female genitourinary complaints Musculoskeletal: Musculoskeletal: Reports arthralgias and Reports joint swelling [facility] Medical History Osteoporosis GERD (gastroesophageal reflux disease) Aphasia High cholesterol High blood pressure Anemia Dyspnea on exertion T11 vertebral fracture Hypothyroidism Family History Father Esophageal cancer Mother Breast cancer Paternal Aunt Breast cancer Surgical History History of bone marrow biopsy History of excision of mass History of cholecystectomy History of tonsillectomy History of vertebroplasty History of kyphoplasty Social History Household Members: [facility] Are you a primary career law clerk to a significant other at home: No Do you presently have visiting nurse or other home services: No Alcohol intake: current Alcohol intake frequency: holidays/special occasions only Patient Tobacco Use Status: Never used Tobacco Smoked in Last 30 Days: No e-Cigarette/Vaping Use: Never Used Second Hand Smoke Exposure: No Use of substances other than those prescribed or required for medical reasons: No Advance Directives: No Advance Directives Information Provided: Yes Do you have a plan to hurt others: No Plan service: No Current occupational status: 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 Cognitive needs: Yes Hearing needs: No Vision needs: Yes Meds Allergies Allergy/AdvReac Type Severity Reaction Status Date / Time Cephalosporins Allergy Mild JAUNDICE Verified 12/22/23 23:03 KETOLIDES Allergy Unknown ITCHING Uncoded 12/22/23 09:12 MACORLIDES Allergy Unknown ITCHING Uncoded 12/22/23 09:12 Home Medications ?Medication ?Instructions ?Recorded ?Confirmed ?Last Taken ?Type cholecalciferol (vitamin D3) 50 50 mcg PO DAILY 09/13/21 12/22/23 Unknown History mcg (2,000 unit) capsule mecobalamin (vitamin B12) 1,000 1,000 mcg PO DAILY 09/13/21 12/22/23 Unknown History mcg chewable tablet Physical Exam Vital Signs and Narrative: Vital Signs: Last Vital Signs Temp 97.8 F 12/22/23 23:01 Pulse 72 12/23/23 02:01 Resp 18 12/23/23 02:01 BP 142/72 H 12/23/23 02:01 Pulse Ox 95 12/23/23 02:01 O2 Del Method Nasal Cannula 12/23/23 02:01 O2 Flow Rate 2 12/23/23 02:01 BMI result Body Mass Index 29.5 Middle-aged female lying in bed in no distress Neck supple, no JVD Regular rate and rhythm, S1-S2 heard Regular breath sounds bilaterally, no wheezing or crackles appreciated Abdomen soft nontender, no guarding, no rigidity Patient is awake, alert and oriented to self, place, time and person ; expressive aphasia present Psych: Normal mood Limited range of motion of right lower extremity due to pain Results Labs 12/22/23 23:46 12/22/23 23:46 Labs: Laboratory Results - last 24 hr 12/22/23 23:46 MCV 103.5 H MCH 34.8 H MCHC 33.6 RDW 13.4 Plt Count 132 L MPV 10.6 Immature Gran % (Auto) 0.4 Neut % (Auto) 71.7 Lymph % (Auto) 16.5 L [place] % (Auto) 7.7 Eos % (Auto) 3.2 Baso % (Auto) 0.5 Lymph # (Auto) 1.3 [place] # (Auto) 0.6 Eos # (Auto) 0.3 Baso # (Auto) 0.0 Abs Immat Gran (auto) 0.03 Absolute Neuts (auto) 5.7 Absolute Nucleated RBC 0.000 Nucleated RBC % (auto) 0.0 PT 13.3 INR 1.1 Anion Gap 12 Estim Creat Clear Calc 48.0 Estimated GFR 56 Random Glucose 131 H Calcium 9.4 Total Bilirubin 0.8 Direct Bilirubin 0.3 AST 39 H ALT 21 Alkaline Phosphatase 73 Total Protein 7.6 Albumin 3.9 Blood Type B Positive Antibody Screen NEGATIVE Imaging Radiologist's Impressions: Impressions Cervical Spine CT 12/23/23 00:00 IMPRESSION: 1. No acute intracranial process seen. 2. There is no acute fracture, dislocation or subluxation cervical spine. There is moderate diffuse cervical spondylosis with multilevel mild to moderate spinal canal and neuroforaminal narrowing. Electronically signed by: Sarmad Persaud MD 12/23/2023 01:57 AM EDT RP Head CT 12/23/23 00:00 IMPRESSION: 1. No acute intracranial process seen. 2. There is no acute fracture, dislocation or subluxation cervical spine. There is moderate diffuse cervical spondylosis with multilevel mild to moderate spinal canal and neuroforaminal narrowing. Electronically signed by: Sarmad Persaud MD 12/23/2023 01:57 AM EDT RP Hip CT 12/23/23 00:05 IMPRESSION: Mildly displaced comminuted fracture right basicervical hip extending into the intertrochanteric right hip. Electronically signed by: Sarmad Persaud MD 12/23/2023 01:39 AM EDT RP Assessment and Plan (1) Closed hip fracture: Status: Acute Plan This is a 78-year-old female with pertinent history of myelodysplastic syndrome, hypothyroidism, hypertension, mixed hyperlipidemia, osteoporosis, compression fracture, mood disorder, expressive aphasia who presents to the emergency department for evaluation after a fall. #. Closed right hip fracture due to mechanical fall: Will admit patient with IV opioids p.r.n. for analgesia. Will keep patient NPO. Consulted Orthopedic surgery, appreciate assistance #. Preoperative risk: RCRI score 0 #. Hypothyroidism: On Synthroid #. Hypertension: Hold losartan before surgery prevent postop hypotension #. Mixed hyperlipidemia: On statin #. Mood disorder: Continue home mood stabilizers #. Macrocytic anemia with thrombocytopenia: Does have myelodysplastic syndrome. Outpatient follow-up with Dr. Vila [facility] pending DVT prophylaxis: Mechanical Full code Admit as inpatient and will require two night minimum hospital stay for possible surgical management of hip fracture (as above), which is not possible in a lesser acute setting. Specialist consult pending Quality Stroke Does the patient have a stroke diagnosis?: No VTE Prior VTE?: No VTE Risk Level:: Medical - moderate - high VTE Device Contraindication: N/A - Device Ordered VTE Drug Contraindication: Treatment Not Indicated
[2023-12-23] MEDS: Morphine Sulfate 4 MG/ML CARTRIDGE IVPUSH ×3 (03:05→22:27)
[2023-12-23] MEDS: ondansetron HCL 4 MG/2 ML VIAL IVPUSH (03:05)
[2023-12-23 03:29] LABS: Appearance Urine Clear; Color Urine Yellow; Glucose Urine UA Negative (Negative); Leukocyte Esterase Urine Small (1+) (Negative); Nitrite Urine Negative (Negative); Specific Gravity - Urine 1.015 (1.005-1.025); UMIC TRIGGER UACC YES; Urine Blood Negative (Negative); Urine Ketones Negative (Negative); Urine Protein Negative (Neg-Trace)
[2023-12-23 03:31] LABS: Bacteria Urine 4+ (None Seen); Hyaline Casts Urine 0-2 /LPF (0-2); RBC Urine 0-2 /HPF (0-2); Squamous Epithelial Cell Urine 0-2 /HPF (0-2); UACC Culture Trigger YES
--- NOTE | 2023-12-23 03:37 | PC.NURSE ---
pt to be admitted to hospital for further evaluation/ orthopedic surgery consult for right hip fracture. pt being medicated with morphine per mar for pain. pt also reporting 9/10 pain to right knee, xray done. lidocaine patch placed to posterior knee. 16fr hagen catheter inserted, 400cc urine put out. pt tolerated well. linens removed from underneath pt, changed into hospital gown. #20g ems iv in LAC. call solano within reach,. plan of care ongoing.
[2023-12-23 04:59] LABS: Basophils Absolute Auto 0.1 X10*3/uL (0.0-0.2); Basophils Percent Auto 0.5 % (0-2); Eosinophils Absolute Auto 0.2 X10*3/uL (0.0-0.4); Eosinophils Percent Auto 1.6 % (0-4); Hematocrit 31.5 % (37.0-47.0); Hemoglobin 10.6 g/dl (12.0-16.0); Imm Gran Abs Auto 0.04 X10*3/uL (0.00-0.03); Imm Gran Pct Auto 0.4 % (0.0-0.4); Lymphocytes Absolute Auto 1.3 X10*3/uL (1.2-4.9); Lymphocytes Percent Auto 13.5 % (20-40); MANUAL DIFF FLAG NO; Mean Corpuscular HGB Conc 33.7 g/dl (31.0-35.0); Mean Corpuscular Hemoglobin 34.8 pg (27.0-33.0); Mean Corpuscular Volume 103.3 fL (80.0-98.0); Mean Platelet Volume 10.5 fL (9.4-12.3); Monocytes Absolute Auto 0.7 X10*3/uL (0.1-1.2); Monocytes Percent Auto 7.6 % (2-11); Neutrophils Absolute Auto 7.2 x10*3/uL (2.0-8.3); Neutrophils Percent Auto 76.4 % (45-73); Platelet Count 148 X10*3/uL (160-400); Red Blood Count 3.05 X10*6/uL (4.20-5.50); Red Cell Distribution Width 13.4 % (11.0-16.0); White Blood Count 9.4 X10*3/uL (4.8-10.8)
[2023-12-23 05:19] LABS: Anion Gap 10 (12-20); Blood Urea Nitrogen 14 mg/dL (9-16); Calcium 9.1 mg/dL (8.4-10.2); Carbon Dioxide 26 mmol/L (22-29); Chloride 109 mmol/L (96-108); Creatinine Clr Calc Pharmacy 52.4; Estimated Glomerular Filt Rate > 60; Glucose Random 130 mg/dL (60-115); Sodium 141 mmol/L (135-145)
--- NOTE | 2023-12-23 08:20 | PM.CNOR ---
History of Present Illness HPI Consult date: 12/23/23 Chief complaint: right hip pain Narrative: Ms. Blair is a 78-year-old female who presents with complaints of right hip pain. The patient states that proximally 1 week ago she fell directly onto her right hip. She states that since that time her pain has gotten worse. [facility] Past Medical History Medical History Osteoporosis GERD (gastroesophageal reflux disease) Aphasia High cholesterol High blood pressure Anemia Dyspnea on exertion T11 vertebral fracture Hypothyroidism Patient : No Family History Family History Father Esophageal cancer Mother Breast cancer Paternal Aunt Breast cancer Surgical History Surgical History History of bone marrow biopsy History of excision of mass History of cholecystectomy History of tonsillectomy History of vertebroplasty History of kyphoplasty Social History Social History Household Members: Spouse Housing: [facility] Are you a primary home child care provider to a significant other at home: No Do you presently have visiting nurse or other home services: No Alcohol intake: current Alcohol intake frequency: holidays/special occasions only Patient Tobacco Use Status: Never used Tobacco Smoked in Last 30 Days: No e-Cigarette/Vaping Use: Never Used Second Hand Smoke Exposure: No Use of substances other than those prescribed or required for medical reasons: No Advance Directives: No Advance Directives Information Provided: Yes Do you have a plan to hurt others: No Plan Nutrition Risks: No Nutritional Risk service: No Current occupational status: 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 Cognitive needs: Yes Hearing needs: No Vision needs: Yes Meds Allergies Allergy/AdvReac Type Severity Reaction Status Date / Time Cephalosporins Allergy Mild JAUNDICE Verified 12/22/23 23:03 KETOLIDES Allergy Unknown ITCHING Uncoded 12/22/23 09:12 MACORLIDES Allergy Unknown ITCHING Uncoded 12/22/23 09:12 Active Medications: Current Medications Acetaminophen (Acetaminophen 325 Mg Tablet) 650 mg PO Q6H PRN PRN Reason: Pain, Mild (Pain Scale 1-3), fever or headache Calcium Carbonate (Calcium Carbonate 750 Mg Tab.Chew) 750 mg PO Q4H PRN PRN Reason: Heartburn Magnesium Hydroxide (Milk Of Magnesia 30 Ml Oral.Susp) 30 ml PO DAILY PRN PRN Reason: Constipation Melatonin (Melatonin 3 Mg Tablet) 6 mg PO BEDTIME PRN PRN Reason: Insomnia Morphine Sulfate (Morphine Sulfate 4 Mg/Ml Cartridge) 4 mg IVPUSH Q4H PRN; Protocol PRN Reason: Pain, Severe (Pain Scale 7-10) Last Admin: 12/23/23 03:05 Dose: 4 mg Ondansetron HCl (Ondansetron Hcl 4 Mg/2 Ml Vial) 4 mg IVPUSH Q8H PRN PRN Reason: Nausea and Vomiting Last Admin: 12/23/23 03:05 Dose: 4 mg Sodium Chloride (0.9 % Sodium Chloride Flush 3 Ml Syringe) 3 ml IVFLUSH QSHIFT [facility] Last Admin: 12/23/23 07:06 Dose: Not Given Home Medications ?Medication ?Instructions ?Recorded ?Confirmed ?Last Taken ?Type cholecalciferol (vitamin D3) 50 50 mcg PO DAILY 09/13/21 12/23/23 Unknown History mcg (2,000 unit) capsule mecobalamin (vitamin B12) 1,000 1,000 mcg PO DAILY 09/13/21 12/23/23 Unknown History mcg chewable tablet Physical Exam Vital Signs: Vital Signs: Last Vital Signs Temp 97.6 F 12/23/23 08:07 Pulse 68 12/23/23 08:07 Resp 16 12/23/23 08:07 BP 128/67 12/23/23 08:07 Pulse Ox 96 12/23/23 08:07 O2 Del Method Nasal Cannula 12/23/23 08:07 O2 Flow Rate 2 12/23/23 08:07 BMI result Body Mass Index 29.5 Extrem: Other: Right hip examination shows pain with range of motion, tenderness over her proximal femur, no overlying skin lesions Results Labs 12/23/23 04:23 12/23/23 04:23 Labs: Abnormal lab results 12/22/23 12/23/23 12/23/23 Range/Units 23:46 03:20 04:23 RBC 3.13 L 3.05 L (4.20-5.50) X10*6/uL Hgb 10.9 L 10.6 L (12.0-16.0) g/dl Hct 32.4 L 31.5 L (37.0-47.0) % MCV 103.5 H 103.3 H (80.0-98.0) fL MCH 34.8 H 34.8 H (27.0-33.0) pg Plt Count 132 L 148 L (160-400) X10*3/uL Neut % (Auto) 76.4 H (45-73) % Lymph % (Auto) 16.5 L 13.5 L (20-40) % Abs Immat Gran (auto) 0.04 H (0.00-0.03) X10*3/uL Chloride 109 H 109 H (96-108) mmol/L Anion Gap 10 L (12-20) Random Glucose 131 H 130 H (60-115) mg/dL AST 39 H (5-31) U/L Ur Leukocyte Esterase Small (1+) H (Negative) Urine WBC 11-20 H (0-5) /HPF H & H 12/22/23 12/23/23 Range/Units 23:46 04:23 Hgb 10.9 L 10.6 L (12.0-16.0) g/dl Hct 32.4 L 31.5 L (37.0-47.0) % Coagulation 12/22/23 Range/Units 23:46 INR 1.1 (0.9-1.1) All other labs normal. Diagnostic results Hip x-ray: other (X-rays of the patient's right hip show an intertrochanteric fracture) Assessment and Plan (1) Intertrochanteric fracture of right hip: Status: Acute Plan Ms. Blair is a 78-year-old female who presents with right hip pain due to an intertrochanteric fracture. I had a lengthy discussion with the patient regarding the treatment options. The risks and benefits of right hip gamma nail placement surgery were discussed at length with the patient. The patient wishes to proceed with surgery. Surgery is scheduled for later this morning. The patient is stable at present. Thank you very much for asking me to see this very friendly patient. Procedures Date of Service Date of Service: 12/23/23
--- NOTE | 2023-12-23 08:34 | PM.EVENT ---
Event Note Date of Service: 12/23/23 Event Note: seen and examined this morning follow up for right hip fracture pain controlled if not moving. no sob, chest pain awake, alert, NAD lungs CTA b/l, no accessory muscle use CV: RRR expressive aphasia Right hip with overlying ecchymosis This is a 78-year-old female with pertinent history of myelodysplastic syndrome, hypothyroidism, hypertension, mixed hyperlipidemia, osteoporosis, compression fracture, mood disorder, expressive aphasia who presents to the emergency department for evaluation after a fall. #. Closed right hip fracture due to mechanical fall: NPO with plan for surgery today management as per orthopedic team Preoperative risk: RCRI score 0 cxr showing ?edema - does not appear to be in heart failure, denies history of underlying heart disease monitor fluid status closely #. aphasia pt currently undergoing outpatient workup with Dr. 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 Hypothyroidism: Continue Synthroid #. Hypertension: Hold losartan, HCTZ before surgery prevent postop hypotension continue atenolol #. Mixed hyperlipidemia: Continue statin #. Mood disorder: Continue sertraline #. Macrocytic anemia with thrombocytopenia: h/o myelodysplastic syndrome continue b12 supplementation Outpatient follow-up with Dr. Vila DVT prophylaxis: Mechanical due to planned surgical procedure Full code Time Spent With Patient Time: Total time managing care of this patient today ____ minutes.
--- NOTE | 2023-12-23 08:37 | PHA.MEDREC ---
Pharmacy Consult ? Medication Reconciliation Pharmacy has completed the medication reconciliation. Reviewed med rec done by nursing. Also went to room to talk to patient. She was very drowsy, was only able to get info that she takes oxybutynin on monday, monday and monday, and that she hasn't started taking the tramadol yet.
--- NOTE | 2023-12-23 10:24 | HO.ANESPROP2 ---
HPI - Anesthesia Eval Consult details Narrative: Right femur fracture PMFSH Active Problems Active Problems: All Active Problems Intertrochanteric fracture of right hip (Acute) Closed hip fracture (Acute) Osteoarthritis of carpometacarpal joint of left thumb (Acute) Osteoarthritis of knees, bilateral (Acute) Other bilateral secondary osteoarthritis of knee (Acute) Lower extremity weakness (Acute) Unsteady gait (Acute) Hearing loss, right (Acute) Fracture of fourth metacarpal bone (Acute) Abnormal colonoscopy (Acute) Dysphagia (Acute) Pre-diabetes (Acute) Immunization counseling (Acute) Difficulty swallowing (Acute) Bacteria in urine (Acute) Elevated fasting glucose (Acute) Hypoxia (Acute) Cough (Acute) Myelodysplastic syndrome (Acute) Osteoporosis (Acute) Hypothyroidism (Acute) Essential hypertension (Acute) Hyperlipidemia (Acute) Osteoporosis (Acute) Compression fracture of spine (Acute) Foul smelling urine (Acute) Calf cramp (Acute) Encounter for general adult medical examination without abnormal findings (Acute) Difficulty with speech (Acute) Regularly irregular pulse rhythym (Acute) Dysarthria (Acute) Screening for colon cancer (Acute) Screening for osteoporosis (Acute) Breast cancer screening by mammogram (Acute) Shortness of breath (Acute) Left knee pain (Acute) Osteoarthritis of left knee (Acute) Adult general medical examination (Acute) Paresthesia (Acute) Anemia (Acute) Dyspnea on exertion (Acute) Past Medical History Medical History Osteoporosis GERD (gastroesophageal reflux disease) Aphasia High cholesterol High blood pressure Anemia Dyspnea on exertion T11 vertebral fracture Hypothyroidism Family History Family History Father Esophageal cancer Mother Breast cancer Paternal Aunt Breast cancer Family history of problems with anesthesia: No Surgical History Surgical History History of bone marrow biopsy History of excision of mass History of cholecystectomy History of tonsillectomy History of vertebroplasty History of kyphoplasty History of Problems with Anesthesia: No Social History Social History Household Members: Spouse Housing: Condominium Are you a primary healthcare account manager to a significant other at home: No Do you presently have visiting nurse or other home services: No Alcohol intake: current Alcohol intake frequency: holidays/special occasions only Patient Tobacco Use Status: Never used Tobacco e-Cigarette/Vaping Use: Never Used Second Hand Smoke Exposure: No service: No Current occupational status: 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 Cognitive needs: Yes Hearing needs: No Vision needs: Yes Meds Allergies Allergy/AdvReac Type Severity Reaction Status Date / Time Cephalosporins Allergy Mild JAUNDICE Verified 12/22/23 23:03 KETOLIDES Allergy Unknown ITCHING Uncoded 12/22/23 09:12 MACORLIDES Allergy Unknown ITCHING Uncoded 12/22/23 09:12 Active Medications: Current Medications Acetaminophen (Acetaminophen 325 Mg Tablet) 650 mg PO Q6H PRN PRN Reason: Pain, Mild (Pain Scale 1-3), fever or headache Atenolol (Atenolol 50 Mg Tablet) 50 mg PO DAILY [facility]; Protocol Atorvastatin Calcium (Atorvastatin Calcium 10 Mg Tablet) 10 mg PO DAILY [facility] Calcium Carbonate (Calcium Carbonate 750 Mg Tab.Chew) 750 mg PO Q4H PRN PRN Reason: Heartburn Cyanocobalamin (Cyanocobalamin (Vitamin B-12) 1,000 Mcg Tablet) 1,000 mcg PO DAILY [facility] Levothyroxine Sodium (Levothyroxine Sodium 150 Mcg Tablet) 150 mcg PO DAILY@0600 [facility] Magnesium Hydroxide (Milk Of Magnesia 30 Ml Oral.Susp) 30 ml PO DAILY PRN PRN Reason: Constipation Melatonin (Melatonin 3 Mg Tablet) 6 mg PO BEDTIME PRN PRN Reason: Insomnia Morphine Sulfate (Morphine Sulfate 4 Mg/Ml Cartridge) 4 mg IVPUSH Q4H PRN; Protocol PRN Reason: Pain, Severe (Pain Scale 7-10) Last Admin: 12/23/23 10:07 Dose: 4 mg Omeprazole (Omeprazole 20 Mg Capsule.Dr) 20 mg PO DAILY@0630 [facility] Ondansetron HCl (Ondansetron Hcl 4 Mg/2 Ml Vial) 4 mg IVPUSH Q8H PRN PRN Reason: Nausea and Vomiting Last Admin: 12/23/23 03:05 Dose: 4 mg Oxybutynin Chloride (Oxybutynin Chloride Er 5 Mg Tab.Er.24) 10 mg PO MOWEFR [facility] Sertraline HCl (Sertraline Hcl 100 Mg Tablet) 100 mg PO DAILY [facility] Sodium Chloride (0.9 % Sodium Chloride Flush 3 Ml Syringe) 3 ml IVFLUSH QSHIFT [facility] Last Admin: 12/23/23 07:06 Dose: Not Given Home Medications ?Medication ?Instructions ?Recorded ?Confirmed ?Last Taken ?Type cholecalciferol (vitamin D3) 50 50 mcg PO DAILY 09/13/21 12/23/23 Unknown History mcg (2,000 unit) capsule mecobalamin (vitamin B12) 1,000 1,000 mcg PO DAILY 09/13/21 12/23/23 Unknown History mcg chewable tablet oxybutynin chloride 10 mg 10 mg PO MOWEFR 12/23/23 12/23/23 Unknown History tablet,extended release 24 hr Exam Height,Weight and Vital Signs: Height 5 ft 3 in Weight 75.6 kg Last Vital Signs Temp 98 F 12/23/23 08:45 Pulse 68 12/23/23 08:45 Resp 17 12/23/23 08:45 BP 158/72 H 12/23/23 08:45 Pulse Ox 96 12/23/23 08:45 O2 Del Method Room Air 12/23/23 08:45 O2 Flow Rate 2 12/23/23 08:07 Pertinent Lab Results Pertinent Lab Results: Laboratory Tests 12/22/23 12/23/23 12/23/23 23:46 03:20 04:23 WBC 7.9 9.4 RBC 3.13 L 3.05 L Hgb 10.9 L 10.6 L Hct 32.4 L 31.5 L MCV 103.5 H 103.3 H MCH 34.8 H 34.8 H MCHC 33.6 33.7 RDW 13.4 13.4 Plt Count 132 L 148 L MPV 10.6 10.5 Immature Gran % (Auto) 0.4 0.4 Neut % (Auto) 71.7 76.4 H Lymph % (Auto) 16.5 L 13.5 L Davis % (Auto) 7.7 7.6 Eos % (Auto) 3.2 1.6 Baso % (Auto) 0.5 0.5 Lymph # (Auto) 1.3 1.3 Davis # (Auto) 0.6 0.7 Eos # (Auto) 0.3 0.2 Baso # (Auto) 0.0 0.1 Abs Immat Gran (auto) 0.03 0.04 H Absolute Neuts (auto) 5.7 7.2 Absolute Nucleated RBC 0.000 0.000 Nucleated RBC % (auto) 0.0 0.0 PT 13.3 INR 1.1 Sodium 141 141 Potassium 4.0 4.0 Chloride 109 H 109 H Carbon Dioxide 24 26 Anion Gap 12 10 L BUN 14 14 Creatinine 0.97 0.89 Estim Creat Clear Calc 48.0 52.4 Estimated GFR 56 > 60 Random Glucose 131 H 130 H Calcium 9.4 9.1 Total Bilirubin 0.8 Direct Bilirubin 0.3 AST 39 H ALT 21 Alkaline Phosphatase 73 Total Protein 7.6 Albumin 3.9 Urine Color Yellow Urine Appearance Clear Urine pH 6.0 Ur Specific [place] 1.015 Urine Protein Negative Urine Glucose (UA) Negative Urine Ketones Negative Urine Blood Negative Urine Nitrite Negative Ur Leukocyte Esterase Small (1+) H Urine RBC 0-2 Urine WBC 11-20 H Ur Squamous Epith Cells 0-2 Urine Bacteria 4+ Hyaline Casts 0-2 Blood Type B Positive Antibody Screen NEGATIVE Airway Mallampati Class: II TM Dist: >3cm Neck ROM: Full Loose/Missing/Broken Teeth: No Heart: RRR Lungs: CTA Assessment and Plan Assessment Anesthesia Assessment: Anesthesia Plan Discussed and Chart Reviewed Final Anesthetic Review Family History of Problems with Anesthesia: No History of Problems with Anesthesia: No NPO: Yes ASA Class: III Final Preanesthetic Review: No Changes in Pt Med Stat, Meds/Allgs Chart Reviewed, Consent Obtained/Reviewed and Anes Risks/Benef Reviewed Patient Risk: High Procedure Risk: Intermediate Anesthetic Plan Anesthetic Plan: GA Disposition: Standard PACU
[2023-12-23] MEDS: vancomycin HCL 1,000 MG in 0.9 % Sodium Chloride 250 ML 270 MG IV ×2 (11:26→23:41)
--- NOTE | 2023-12-23 11:32 | PC.NURSE ---
per surgeon held po meds prior to surgery.
--- NOTE | 2023-12-23 13:54 | PM.OP ---
Brief Operative Note Date of Service: 12/23/23 Pre-op diagnosis: Right hip intertrochanteric fracture Post-op diagnosis: same Procedure: Open reduction and internal fixation of right hip intertrochanteric fracture with placement of a short gamma nail Implants: [place] short gamma nail measuring 11 mm in diameter by 180 mm in length with a 125 degree neck-shaft angle, a 90 mm lag screw, a standard set screw, distal locking bolt measuring 32.5 mm in length Surgeon: Bryce Garvin MD Anesthesia: GLMA Was an Director Of Consumer Affairs used for this Procedure?: No Estimated blood loss (mL): 75 Pathology: none sent Condition: stable Disposition: PACU
--- NOTE | 2023-12-23 13:55 | W.PM.OPN ---
Operative Note Operative Note Date of Service: 12/23/23 Narrative: After the patient was identified as Kinza Blair and her right hip was initialed by myself they were brought to the operating room where general anesthesia was induced by the anesthesiologist in routine fashion. The patient was given IV vancomycin for infection prophylaxis. The patient was then gently transferred from the hospital bed onto the fracture table. The patient's left lower extremity was placed into the well leg stewart. The patient's right lower extremity was placed in gentle in-line traction with their patella parallel to the floor. All bony prominences were well padded. C-arm AP and lateral radiographs were taken to confirm good fracture reduction. The patient's right hip region was prepped and draped in sterile fashion. A formal time-out was completed. A #10 scalpel blade was used to make a 5 cm incision just proximal to the tip of the greater trochanter. A curved cannulated awl was introduced into the proximal femur in routine fashion. A ball-tipped guidewire was then placed through the cannula and into the femoral canal. The awl was removed. Reaming was begun with a 9 mm reamer. Reaming was increased incrementally up to a size 13 reamer distally. The proximal canal was reamed with a 15.5 mm reamer. The gamma nail measuring 11 mm in diameter by 180 mm in length was passed over the guidewire. Good fracture reduction and nail positioning were confirmed using C-arm AP and lateral radiographs. A 2 cm incision was then made where the lag screw trocar met the patient's lateral thigh. The subcutaneous tissues and fascia macie were split down to the lateral cortex of the femur using a hemostat. The lag screw trocar was passed down to the lateral cortex of the femur. A threaded guidewire was then placed into the inferior aspect of the femoral head on the AP x-ray and the center of the femoral head on the lateral x-ray. The guidewire measured 90 mm in length. Reaming was then performed over the guidewire to a depth of 90 mm. The lag screw measuring 90 mm in length was then placed over the guidewire. The guidewire was removed. The set screw was then placed into the nail and tightened fully. It was then turned 1/4 of a turn counter-clockwise to allow for fracture compression. A 2 cm incision was then made where the distal locking bolt trocar met the lateral aspect of the patient's thigh. The subcutaneous tissues and the fascia macie were split down to the lateral cortex of the femur. The locking bolt hole was drilled in routine fashion. The drill bit measured 32.5 mm in length. The distal locking bolt measuring 32.5 mm in length was put into place without difficulty. Final AP and lateral radiographs showed good fracture reduction and hardware positioning. All 3 wounds were irrigated with copious amounts of normal saline solution. The distal 2 wounds were closed with 2-0 Vicryl and skin anayeli. The proximal wound was once again irrigated. The fascia macie was closed with 0 Vicryl [id number] interrupted suture. The wound was once again irrigated. The subcutaneous tissues were closed with 2-0 Vicryl interrupted suture. The skin was closed with skin anayeli. Dry sterile dressing was placed over all incisions. The patient was gently transferred from the fracture table onto their hospital bed. The patient was awoken and extubated in the operating room. The patient was transferred to the recovery room in stable condition.
[2023-12-23] MEDS: Acetaminophen 1,000 MG/100 ML PIGGYBACK 400 MG IV (14:04)
--- NOTE | 2023-12-23 16:23 | MHC.CM.PN ---
CM MET WITH PT AND AT BEDSIDE PT WAS LETHARGIC, PROVIDED MOST INFORMATION PT IS INDEPENDENT WITH CARE, SHE HAS A CANE SHE USES PRN HCP ON FILE SHE DOES NOT HAVE A PCP AT THIS TIME, SHE HAS A NEW PT APPT WITH LEI VALENZUELA IN JANUARY, BUT HOPES SHE CAN BE SEEN SOONER IMM DELIVERED DCP: TBD PENDING PT EVAL HOME WITH SERVICES VS STR TRANSPORT TBD
[2023-12-23] MEDS: hydroCHLOROthiazide 12.5 MG TABLET PO (17:15)
[2023-12-23] MEDS: 0.9 % Sodium Chloride Flush 3 ML SYRINGE IVFLUSH (17:16)
--- NOTE | 2023-12-23 20:08 | PC.NURSE ---
upon return from surgery attempted to give meds to pt. meds no longer available due to time lapse from OR. discussed with MD then with patient, plan to restart with regular schedule tomorrow morning.
[2023-12-24] MEDS: Acetaminophen 325 MG TABLET 650 MG PO (01:00)
[2023-12-24] MEDS: 0.9 % Sodium Chloride Flush 3 ML SYRINGE IVFLUSH ×4 (01:01→20:09)
[2023-12-24 04:00] VITALS: BP 129/61; PULSE 73; RESP 18; TEMP 36.3; O2SAT 93
[2023-12-24] MEDS: Levothyroxine Sodium 150 MCG TABLET PO (06:08)
[2023-12-24] MEDS: Omeprazole 20 MG CAPSULE.DR PO (06:09)
--- NOTE | 2023-12-24 07:15 | HO.PM.IMPN ---
Subjective Subjective Date of Service: 12/24/23 Interval History: Seen in follow up for R Hip Fx s/p ORIF Interval history: Reports pain in R hip. Has hagen in place and remains on O2 though satting 99%. Reporting throat irritation with intermittent dry cough. No sob at rest. Reports chronic barclay. No cp, dizziness Review of Systems Review of Systems: Yes all other systems are reviewed and are negative Physical Exam Vital Signs: Vital Signs: Last Vital Signs Temp 97.4 F 12/24/23 04:00 Pulse 73 12/24/23 04:00 Resp 18 12/24/23 04:00 BP 129/61 12/24/23 04:00 Pulse Ox 93 12/24/23 04:00 O2 Del Method Nasal Cannula 12/24/23 04:00 O2 Flow Rate 2 12/24/23 04:00 BMI result Body Mass Index 28.6 Constitutional - Awake and Alert, No apparent distress Eyes - PERRLA, EOMI Cardiovascular - S1S2, RRR, No edema Respiratory - Normal lung expansion, Normal respiratory effort, No respiratory distress, CTA bilaterally Gastrointestinal - NT / ND; +BS; No rebound or guarding Extremities - no calf tenderness bilaterally, no swelling Skin - Warm/Dry Neurological - Alert & oriented x3, sensation in tact Psychological - Appropriate affect Objective Data Active Medications Acetaminophen (Acetaminophen 325 Mg Tablet) 650 mg PO Q6H PRN PRN Reason: Pain, Mild (Pain Scale 1-3), fever or headache Last Admin: 12/24/23 01:00 Dose: 650 mg Documented By: JACKELINE Aspirin (Aspirin Enteric Coated 325 Mg Tablet.) 325 mg PO BID [facility] Last Admin: 12/23/23 21:06 Dose: Not Given Documented By: ADRIÁN Non-Admin Reason: Patient Refused Atenolol (Atenolol 50 Mg Tablet) 50 mg PO DAILY [facility]; Protocol Last Admin: 12/23/23 16:17 Dose: Not Given Documented By: ELSY Non-Admin Reason: per pt and MD ok to start tomorrow. Atorvastatin Calcium (Atorvastatin Calcium 10 Mg Tablet) 10 mg PO DAILY [facility] Last Admin: 12/23/23 16:17 Dose: Not Given Documented By: ELSY Non-Admin Reason: per pt and ok to start tomorrow. Calcium Carbonate (Calcium Carbonate 750 Mg Tab.Chew) 750 mg PO Q4H PRN PRN Reason: Heartburn Cyanocobalamin (Cyanocobalamin (Vitamin B-12) 1,000 Mcg Tablet) 1,000 mcg PO DAILY [facility] Last Admin: 12/23/23 16:17 Dose: Not Given Documented By: ELSY Non-Admin Reason: per pt and MD ok to start tomorrow. Hydrochlorothiazide (Hydrochlorothiazide 12.5 Mg Tablet) 12.5 mg PO DAILY [facility] Last Admin: 12/23/23 17:15 Dose: 12.5 mg Documented By: ELSY Levothyroxine Sodium (Levothyroxine Sodium 150 Mcg Tablet) 150 mcg PO DAILY@0600 [facility] Last Admin: 12/24/23 06:08 Dose: 150 mcg Documented By: BROHolly Losartan Potassium (Losartan Potassium 50 Mg Tablet) 50 mg PO DAILY [facility]; Protocol Magnesium Hydroxide (Milk Of Magnesia 30 Ml Oral.Susp) 30 ml PO DAILY PRN PRN Reason: Constipation Melatonin (Melatonin 3 Mg Tablet) 6 mg PO BEDTIME PRN PRN Reason: Insomnia Morphine Sulfate (Morphine Sulfate 4 Mg/Ml Cartridge) 4 mg IVPUSH Q4H PRN; Protocol PRN Reason: Pain, Severe (Pain Scale 7-10) Last Admin: 12/23/23 22:27 Dose: 4 mg Documented By: ADRIÁN Omeprazole (Omeprazole 20 Mg Capsule.Dr) 20 mg PO DAILY@0630 [facility] Last Admin: 12/24/23 06:09 Dose: 20 mg Documented By: ADRIÁN Ondansetron HCl (Ondansetron Hcl 4 Mg/2 Ml Vial) 4 mg IVPUSH Q8H PRN PRN Reason: Nausea and Vomiting Last Admin: 12/23/23 03:05 Dose: 4 mg Documented By: CHAVEZ-CARLOS Oxybutynin Chloride (Oxybutynin Chloride Er 5 Mg Tab.Er.24) 10 mg PO MOWEFR [facility] Sertraline HCl (Sertraline Hcl 100 Mg Tablet) 100 mg PO DAILY [facility] Last Admin: 12/23/23 16:18 Dose: Not Given Documented By: ELSY Non-Admin Reason: per pt and MD ok to start tomorrow. Sodium Chloride (0.9 % Sodium Chloride Flush 3 Ml Syringe) 3 [facility] Last Admin: 12/24/23 01:01 Dose: 3 ml Documented By: JACKELINE Vitamin D (Cholecalciferol (Vitamin D3) 25 Mcg Tablet) 50 mcg PO DAILY [facility] Labs 12/24/23 11:24 12/24/23 11:24 Assessment and Plan (1) Intertrochanteric fracture of right hip: Status: Acute Plan 78-year-old female with pertinent history of myelodysplastic syndrome, hypothyroidism, hypertension, mixed hyperlipidemia, osteoporosis, compression fracture, mood disorder, expressive aphasia who presents to the emergency department for evaluation after a fall. Closed right hip fracture due to mechanical fall: s/p ORIF 12/22 POD 1 management as per orthopedic team CXR showed possible edema, but lungs cta and no known h/o chf but reports chronic BARCLAY. Outpt echo advised DC O2, DC hagen monitor fluid status closely Chronic BARCLAY as above aphasia pt currently undergoing outpatient workup with Dr. 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 Vila DVT prophylaxis: Mechanical due to planned surgical procedure Full code Pt requires ongoing inpt stay due to hip fracture requiring surgical intervention, PT/OT for disposition and ongoing expert consultation Quality Stroke Does the patient have a stroke diagnosis?: No VTE Prior VTE?: No VTE Risk Level:: Medical - moderate - high VTE Device Contraindication: N/A - Device Ordered VTE Drug Contraindication: Treatment Not Indicated
[2023-12-24 07:37] VITALS: BP 127/60; PULSE 81; RESP 17; TEMP 37.7; O2SAT 95
[2023-12-24] MEDS: Losartan Potassium 50 MG TABLET PO (08:41)
[2023-12-24] MEDS: hydroCHLOROthiazide 12.5 MG TABLET PO (08:41)
[2023-12-24] MEDS: Cholecalciferol (Vitamin D3) 25 MCG TABLET 50 MCG PO (08:42)
[2023-12-24] MEDS: Aspirin Enteric Coated 325 MG TABLET.DR PO ×2 (08:42→20:09)
[2023-12-24] MEDS: Atorvastatin Calcium 10 MG TABLET PO (08:42)
[2023-12-24] MEDS: atenoloL 50 MG TABLET PO (08:42)
[2023-12-24] MEDS: Cyanocobalamin (Vitamin B-12) 1,000 MCG TABLET 1000 MCG PO (08:42)
[2023-12-24] MEDS: Sertraline HCL 100 MG TABLET PO (08:42)
[2023-12-24] MEDS: Morphine Sulfate 4 MG/ML CARTRIDGE IVPUSH (08:52)
[2023-12-24 11:28] LABS: MANUAL DIFF FLAG NO
[2023-12-24 11:30] LABS: Basophils Percent Auto 0.5 % (0-2); Eosinophils Absolute Auto 0.3 X10*3/uL (0.0-0.4); Eosinophils Percent Auto 3.9 % (0-4); Hematocrit 28.1 % (37.0-47.0); Hemoglobin 9.3 g/dl (12.0-16.0); Imm Gran Abs Auto 0.03 X10*3/uL (0.00-0.03); Imm Gran Pct Auto 0.4 % (0.0-0.4); Lymphocytes Percent Auto 12.8 % (20-40); Mean Corpuscular HGB Conc 33.1 g/dl (31.0-35.0); Mean Corpuscular Hemoglobin 35.2 pg (27.0-33.0); Mean Corpuscular Volume 106.4 fL (80.0-98.0); Mean Platelet Volume 10.6 fL (9.4-12.3); Monocytes Absolute Auto 0.7 X10*3/uL (0.1-1.2); Monocytes Percent Auto 8.2 % (2-11); Neutrophils Percent Auto 74.2 % (45-73); Platelet Count 111 X10*3/uL (160-400); Red Blood Count 2.64 X10*6/uL (4.20-5.50); Red Cell Distribution Width 13.6 % (11.0-16.0)
[2023-12-24 11:44] LABS: Anion Gap 9 (12-20); Blood Urea Nitrogen 13 mg/dL (9-16); Calcium 8.8 mg/dL (8.4-10.2); Carbon Dioxide 26 mmol/L (22-29); Chloride 106 mmol/L (96-108); Creatinine Clr Calc Pharmacy 49.3; Estimated Glomerular Filt Rate 59; Glucose Random 130 mg/dL (60-115); Potassium 3.4 mmol/L (3.3-5.1); Sodium 138 mmol/L (135-145)
--- NOTE | 2023-12-24 13:13 | P.PNOP_ITS ---
Subjective Subjective Date of Service: 12/24/23 Interval history: POD 1 s/p Rt hip IMN 12/23/23 no overnight events pain is more tolerable denies cp, sob, palpitations Physical Exam Vital Signs: Vital Signs: Last Vital Signs Temp 99.8 F 12/24/23 07:37 Pulse 81 12/24/23 07:37 Resp 17 12/24/23 07:37 BP 127/60 12/24/23 07:37 Pulse Ox 95 12/24/23 07:37 O2 Del Method Nasal Cannula 12/24/23 07:37 O2 Flow Rate 2.0 12/24/23 07:37 BMI result Body Mass Index 28.6 Const: General: cooperative, healthy appearing and no acute distress Resp: Effort & Inspection: normal respiratory effort and able to speak in complete sentences Cardio: Rate: regular rate Peripheral pulses: Peripheral pulses 2+ throughout GI: Palpation (GI): Soft to palpation Skin: General skin exam: no rashes or lesions noted Extrem: Other: bandage clean dry and intact. Theron intact. No erythema or effusion. Calf supple nontender. Neurovascularly intact. Procedures Date of Service Date of Service: 12/24/23 Progress Note: A&P Assessment and plan (1) Intertrochanteric fracture of right hip: Status: Acute Assessment and Plan: * Continue pain mgmnt * Aspirin for dvt ppx * begin PT /Ot Rt hip IMN wbat * Dispo planning-Pending PT eval, pain mgmnt Time Spent With Patient Time: Total time managing care of this patient today ____ minutes. Quality Stroke Does the patient have a stroke diagnosis?: No VTE Prior VTE?: No VTE Risk Level:: Medical - moderate - high VTE Device Contraindication: N/A - Device Ordered VTE Drug Contraindication: Treatment Not Indicated
[2023-12-24] MEDS: cefTRIAXone sodium 1 GM in 0.9 % Sodium Chloride 50 ML IV (15:07)
[2023-12-24] MEDS: oxyCODONE HCl Immed Release 5 MG TABLET PO (15:08)
[2023-12-24 15:18] VITALS: BP 118/58; PULSE 94; RESP 18; TEMP 37.1; O2SAT 91
--- NOTE | 2023-12-24 17:52 | HO.POSTANES ---
Post Anesthesia Evaluation Post Anesthesia Evaluation Date of Service: 12/24/23 Vital Signs: Vital Signs Temp Pulse Resp BP Pulse Ox O2 Del Method O2 Flow Rate 12/24/23 15:18 98.8 F 94 18 118/58 L 91 L Nasal Cannula 1 12/24/23 07:37 99.8 F 81 17 127/60 95 Nasal Cannula 2.0 Anesthesia: General LMA Mental Status: Awake Pain Control: Satisfactory Nausea/Vomiting: None Hydration: Adequate Anesthesia-Related Issues: No Anes. Related Issues
[2023-12-24 20:00] VITALS: BP 104/51; PULSE 91; RESP 19; TEMP 37.2; O2SAT 93
[2023-12-24] MEDS: Milk of Magnesia 30 ML ORAL.SUSP PO (20:30)
[2023-12-24 23:21] VITALS: RESP 17
[2023-12-25] VITALS (7 sets, daily range): BP systolic 96–121; BP diastolic 52–58; PULSE 76–94; RESP 17–18; TEMP 36.6–36.9; O2SAT 92–97
[2023-12-25] MEDS: Omeprazole 20 MG CAPSULE.DR PO (06:07)
[2023-12-25] MEDS: Levothyroxine Sodium 150 MCG TABLET PO (06:07)
--- NOTE | 2023-12-25 08:19 | PM.PNORT ---
Subjective Subjective Date of Service: 12/25/23 Principal diagnosis: right hip pain Interval history: Ms. Blair he is seen resting comfortably in bed this morning after undergoing right hip gamma nail placement on 12/23/2023. She reports mild intermittent discomfort along the lateral aspect of her right hip. She denies any fevers or chills. She has been weight-bearing as tolerated on her right lower extremity. Physical Exam Vital Signs: Vital Signs: Last Vital Signs Temp 98.5 F 12/25/23 03:53 Pulse 94 12/25/23 03:53 Resp 17 12/25/23 03:53 BP 115/57 L 12/25/23 03:53 Pulse Ox 94 12/25/23 03:53 O2 Del Method Nasal Cannula 12/25/23 03:53 O2 Flow Rate 1 12/25/23 03:53 BMI result Body Mass Index 28.6 Extrem: Other: Right hip examination shows that the surgical dressing is clean, dry and intact, mild discomfort with gentle internal and external rotation, normal sensation to light touch, good capillary refill Procedures Date of Service Date of Service: 12/25/23 Progress Note: A&P Assessment and plan (1) Intertrochanteric fracture of right hip: Status: Acute Assessment and Plan: Ms. Blair continues to do well after undergoing right hip gamma nail placement on 12/23/2023. She can continue weight-bearing as tolerated using a walker and assistance. Continue aspirin for deep vein thrombosis prophylaxis. visitor services specialist for possible inpatient rehabilitation versus home physical therapy and nursing. The patient is stable at present. Time Spent With Patient Time: Total time managing care of this patient today 10 minutes. Quality Stroke Does the patient have a stroke diagnosis?: No VTE Prior VTE?: No VTE Risk Level:: Medical - moderate - high VTE Device Contraindication: N/A - Device Ordered VTE Drug Contraindication: Treatment Not Indicated
[2023-12-25] MEDS: Cholecalciferol (Vitamin D3) 25 MCG TABLET 50 MCG PO (09:43)
[2023-12-25] MEDS: Sertraline HCL 100 MG TABLET PO (09:43)
[2023-12-25] MEDS: Cyanocobalamin (Vitamin B-12) 1,000 MCG TABLET 1000 MCG PO (09:43)
[2023-12-25] MEDS: Aspirin Enteric Coated 325 MG TABLET.DR PO ×2 (09:45→20:42)
[2023-12-25] MEDS: 0.9 % Sodium Chloride Flush 3 ML SYRINGE IVFLUSH ×3 (09:45→20:43)
[2023-12-25] MEDS: Atorvastatin Calcium 10 MG TABLET PO (09:50)
--- NOTE | 2023-12-25 09:53 | P.PNIM_ITS ---
Subjective Subjective Date of Service: 12/25/23 Interval History: No acute issues overnight. Pain control adequate Review of Systems Denies chest pain Denies shortness of breath Denies nausea vomiting diarrhea Denies fever chills Physical Exam 2 Vital Signs: Vital Signs: Last Vital Signs Temp 97.8 F 12/25/23 08:00 Pulse 76 12/25/23 08:00 Resp 18 12/25/23 08:00 BP 121/58 L 12/25/23 08:00 Pulse Ox 94 12/25/23 08:00 O2 Del Method Nasal Cannula 12/25/23 08:00 O2 Flow Rate 1.0 12/25/23 08:00 BMI result Body Mass Index 28.6 Const: Other: Awake alert no acute distress Resp: Other: Clear to auscultation bilaterally no rales rhonchi or wheezes Cardio: Other: No S4; positive S1-S2; no S3 murmurs rubs or gallops GI: Other: Soft nontender nondistended normoactive bowel sounds Neuro: Other: Cranial nerves 2-12 grossly intact as tested save some minor left facial asymmetry. Mildly aphasic. Left-sided weakness noted. Extrem: Other: No edema bilaterally Objective Data Active Medications Acetaminophen (Acetaminophen 325 Mg Tablet) 650 mg PO Q6H PRN PRN Reason: Pain, Mild (Pain Scale 1-3), fever or headache Last Admin: 12/24/23 01:00 Dose: 650 mg Documented By: JACKELINE Aspirin (Aspirin Enteric Coated 325 Mg Tablet.) 325 mg PO BID [facility] Last Admin: 12/24/23 20:09 Dose: 325 mg Documented By: ONOFRE Atenolol (Atenolol 50 Mg Tablet) 50 mg PO DAILY [facility]; Protocol Last Admin: 12/24/23 08:42 Dose: 50 mg Documented By: ANTHONY Atorvastatin Calcium (Atorvastatin Calcium 10 Mg Tablet) 10 mg PO DAILY [facility] Last Admin: 12/24/23 08:42 Dose: 10 mg Documented By: ANTHONY Calcium Carbonate (Calcium Carbonate 750 Mg Tab.Chew) 750 mg PO Q4H PRN PRN Reason: Heartburn Cyanocobalamin (Cyanocobalamin (Vitamin B-12) 1,000 Mcg Tablet) 1,000 mcg PO DAILY [facility] Last Admin: 12/24/23 08:42 Dose: 1,000 mcg Documented By: ANTHONY Hydrochlorothiazide (Hydrochlorothiazide 12.5 Mg Tablet) 12.5 mg PO DAILY [facility] Last Admin: 12/24/23 08:41 Dose: 12.5 mg Documented By: ANTHONY Ceftriaxone Sodium 1 gm/ (Sodium Chloride) 50 mls @ 100 mls/hr IV Q24H [facility] Last Infusion: 12/24/23 15:56 Dose: Infused Documented By: ANTHONY Levothyroxine Sodium (Levothyroxine Sodium 150 Mcg Tablet) 150 mcg PO DAILY@0600 [facility] Last Admin: 12/25/23 06:07 Dose: 150 mcg Documented By: ONOFRE Losartan Potassium (Losartan Potassium 50 Mg Tablet) 50 mg PO DAILY [facility]; Protocol Last Admin: 12/24/23 08:41 Dose: 50 mg Documented By: ANTHONY Magnesium Hydroxide (Milk Of Magnesia 30 Ml Oral.Susp) 30 ml PO DAILY PRN PRN Reason: Constipation Last Admin: 12/24/23 20:30 Dose: 30 ml Documented By: ONOFRE Melatonin (Melatonin 3 Mg Tablet) 6 mg PO BEDTIME PRN PRN Reason: Insomnia Morphine Sulfate (Morphine Sulfate 4 Mg/Ml Cartridge) 4 mg IVPUSH Q4H PRN; Protocol PRN Reason: Pain, Severe (Pain Scale 7-10) Last Admin: 12/24/23 08:52 Dose: 4 mg Documented By: ANTHONY Omeprazole (Omeprazole 20 Mg Capsule.Dr) 20 mg PO DAILY@0630 [facility] Last Admin: 12/25/23 06:07 Dose: 20 mg Documented By: ONOFRE Ondansetron HCl (Ondansetron Hcl 4 Mg/2 Ml Vial) 4 mg IVPUSH Q8H PRN PRN Reason: Nausea and Vomiting Last Admin: 12/23/23 03:05 Dose: 4 mg Documented By: CHAVEZ-CARLOS Oxybutynin Chloride (Oxybutynin Chloride Er 5 Mg Tab.Er.24) [facility] Oxycodone HCl (Oxycodone Hcl Immed Release 5 Mg Tablet) 5 mg PO Q4H PRN PRN Reason: Pain, Moderate(Pain Scale 4-6) Last Admin: 12/24/23 15:08 Dose: 5 mg Documented By: ANTHONY Sertraline HCl (Sertraline Hcl 100 Mg Tablet) 100 mg PO DAILY [facility] Last Admin: 12/24/23 08:42 Dose: 100 mg Documented By: ANTHONY Sodium Chloride (0.9 % Sodium Chloride Flush 3 Ml Syringe) 3 ml IVFLUSH QSHIFT [facility] Last Admin: 12/24/23 20:09 Dose: 3 ml Documented By: ONOFRE Vitamin D (Cholecalciferol (Vitamin D3) 25 Mcg Tablet) 50 mcg PO DAILY [facility] Last Admin: 12/24/23 08:42 Dose: 50 mcg Documented By: ANTHONY Labs 12/24/23 11:24 12/24/23 11:24 Labs: Laboratory Results - last 24 hr 12/24/23 11:24 MCV 106.4 H MCH 35.2 H MCHC 33.1 RDW 13.6 Plt Count 111 L MPV 10.6 Immature Gran % (Auto) 0.4 Neut % (Auto) 74.2 H Lymph % (Auto) 12.8 L [place] % (Auto) 8.2 Eos % (Auto) 3.9 Baso % (Auto) 0.5 Lymph # (Auto) 1.0 L [place] # (Auto) 0.7 Eos # (Auto) 0.3 Baso # (Auto) 0.0 Abs Immat Gran (auto) 0.03 Absolute Neuts (auto) 6.0 Absolute Nucleated RBC 0.000 Nucleated RBC % (auto) 0.0 Anion Gap 9 L Estim Creat Clear Calc 49.3 Estimated GFR 59 Random Glucose 130 H Calcium 8.8 Microbiology Microbiology Results: Microbiology 12/23/23 Unknown Urine Culture - Final Urine clean catch - Clean Catch Midstream Klebsiella pneumoniae Assessment and Plan (1) Intertrochanteric fracture of right hip: Status: Acute (2) Essential hypertension: Status: Acute Plan 78-year-old female with pertinent history of myelodysplastic syndrome, hypothyroidism, hypertension, mixed hyperlipidemia, osteoporosis, compression fracture, mood disorder, expressive aphasia who presents to the emergency department for evaluation after a fall. 1.Closed right hip fracture due to mechanical fall: -s/p ORIF 12/22 POD 2 -management as per orthopedic team 2.Aphasia -outpatient workup in progress 3.Hypertension (mild hypotension today) -antihypertensives held today -patient is symptomatic; restart when clinically appropriate 4.Macrocytic anemia with thrombocytopenia: -h/o myelodysplastic syndrome -continue b12 supplementation -outpatient follow-up with Dr. Vila ASA Full code Pt requires ongoing inpt stay due to hip fracture requiring surgical intervention, PT/OT for disposition and ongoing expert consultation Quality Stroke Does the patient have a stroke diagnosis?: No VTE Prior VTE?: No VTE Risk Level:: Medical - moderate - high VTE Device Contraindication: N/A - Device Ordered VTE Drug Contraindication: Treatment Not Indicated
[2023-12-25] MEDS: oxyBUTYnin chloride ER 5 MG TAB.ER.24 10 MG PO (09:54)
[2023-12-25] MEDS: cefTRIAXone sodium 1 GM in 0.9 % Sodium Chloride 50 ML IV (13:19)
[2023-12-25] MEDS: oxyCODONE HCl Immed Release 5 MG TABLET PO (15:27)
[2023-12-25] MEDS: Acetaminophen 325 MG TABLET 650 MG PO (15:27)
[2023-12-26] VITALS (7 sets, daily range): BP systolic 103–146; BP diastolic 56–66; PULSE 67–86; RESP 16–18; TEMP 36.2–37.2; O2SAT 89–97
[2023-12-26] MEDS: Levothyroxine Sodium 150 MCG TABLET PO (05:36)
[2023-12-26] MEDS: Omeprazole 20 MG CAPSULE.DR PO (05:36)
[2023-12-26] MEDS: Atorvastatin Calcium 10 MG TABLET PO (08:28)
[2023-12-26] MEDS: Cyanocobalamin (Vitamin B-12) 1,000 MCG TABLET 1000 MCG PO (08:28)
[2023-12-26] MEDS: Aspirin Enteric Coated 325 MG TABLET.DR PO ×2 (08:28→21:08)
[2023-12-26] MEDS: Sertraline HCL 100 MG TABLET PO (08:28)
[2023-12-26] MEDS: Cholecalciferol (Vitamin D3) 25 MCG TABLET 50 MCG PO (08:28)
[2023-12-26] MEDS: atenoloL 50 MG TABLET PO (08:28)
[2023-12-26] MEDS: hydroCHLOROthiazide 12.5 MG TABLET PO (08:28)
[2023-12-26] MEDS: Losartan Potassium 50 MG TABLET PO (08:28)
[2023-12-26] MEDS: 0.9 % Sodium Chloride Flush 3 ML SYRINGE IVFLUSH ×2 (08:31→21:08)
--- NOTE | 2023-12-26 10:34 | HO.PM.IMPN ---
Subjective Subjective Date of Service: 12/26/23 Interval History: No acute issues overnight. Pain control adequate Review of Systems Denies chest pain Denies shortness of breath Denies nausea vomiting diarrhea Denies fever chills Physical Exam Vital Signs: Vital Signs: Last Vital Signs Temp 97.5 F 12/26/23 07:25 Pulse 77 12/26/23 07:25 Resp 16 12/26/23 07:25 BP 121/60 12/26/23 07:25 Pulse Ox 97 12/26/23 07:25 O2 Del Method Nasal Cannula 12/26/23 07:25 O2 Flow Rate 1 12/26/23 07:25 BMI result Body Mass Index 28.6 Const: Other: Awake alert no acute distress Resp: Other: Clear to auscultation bilaterally no rales rhonchi or wheezes Cardio: Other: No S4; positive S1-S2; no S3 murmurs rubs or gallops GI: Other: Soft nontender nondistended normoactive bowel sounds Neuro: Other: Cranial nerves 2-12 grossly intact as tested save some minor left facial asymmetry. Mildly aphasic. Left-sided weakness noted. Extrem: Other: No edema bilaterally Objective Data Active Medications Acetaminophen (Acetaminophen 325 Mg Tablet) 650 mg PO Q6H PRN PRN Reason: Pain, Mild (Pain Scale 1-3), fever or headache Last Admin: 12/25/23 15:27 Dose: 650 mg Documented By: BERTHA Aspirin (Aspirin Enteric Coated 325 Mg Tablet.) 325 mg PO BID [facility] Last Admin: 12/26/23 08:28 Dose: 325 mg Documented By: KT Atenolol (Atenolol 50 Mg Tablet) 50 mg PO DAILY [facility]; Protocol Last Admin: 12/26/23 08:28 Dose: 50 mg Documented By: KT Atorvastatin Calcium (Atorvastatin Calcium 10 Mg Tablet) 10 mg PO DAILY [facility] Last Admin: 12/26/23 08:28 Dose: 10 mg Documented By: KT Calcium Carbonate (Calcium Carbonate 750 Mg Tab.Chew) 750 mg PO Q4H PRN PRN Reason: Heartburn Cyanocobalamin (Cyanocobalamin (Vitamin B-12) 1,000 Mcg Tablet) 1,000 mcg PO DAILY [facility] Last Admin: 12/26/23 08:28 Dose: 1,000 mcg Documented By: KT Hydrochlorothiazide (Hydrochlorothiazide 12.5 Mg Tablet) 12.5 mg PO DAILY [facility] Last Admin: 12/26/23 08:28 Dose: 12.5 mg Documented By: KT Ceftriaxone Sodium 1 gm/ (Sodium Chloride) 50 mls @ 100 mls/hr IV Q24H [facility] Last Infusion: 12/25/23 14:17 Dose: Infused Documented By: TOMMY Levothyroxine Sodium (Levothyroxine Sodium 150 Mcg Tablet) 150 mcg PO DAILY@0600 [facility] Last Admin: 12/26/23 05:36 Dose: 150 mcg Documented By: LESLEY Losartan Potassium (Losartan Potassium 50 Mg Tablet) 50 mg PO DAILY [facility]; Protocol Last Admin: 12/26/23 08:28 Dose: 50 mg Documented By: KT Magnesium Hydroxide (Milk Of Magnesia 30 Ml Oral.Susp) 30 ml PO DAILY PRN PRN Reason: Constipation Last Admin: 12/24/23 20:30 Dose: 30 ml Documented By: ONOFRE Melatonin (Melatonin 3 Mg Tablet) 6 mg PO BEDTIME PRN PRN Reason: Insomnia Morphine Sulfate (Morphine Sulfate 4 Mg/Ml Cartridge) 4 mg IVPUSH Q4H PRN; Protocol PRN Reason: Pain, Severe (Pain Scale 7-10) Last Admin: 12/24/23 08:52 Dose: 4 mg Documented By: ANTHONY Omeprazole (Omeprazole 20 Mg Capsule.Dr) 20 mg PO DAILY@0630 [facility] Last Admin: 12/26/23 05:36 Dose: 20 mg Documented By: LESLEY Ondansetron HCl (Ondansetron Hcl 4 Mg/2 Ml Vial) 4 mg IVPUSH Q8H PRN PRN Reason: Nausea and Vomiting Last Admin: 12/23/23 03:05 Dose: 4 mg Documented By: CHAVEZ-CARLOS Oxybutynin Chloride (Oxybutynin Chloride Er 5 Mg Tab.Er.24) 10 mg PO MOWEFR [facility] Last Admin: 12/25/23 09:54 Dose: 10 mg Documented By: TOMMY Oxycodone HCl (Oxycodone Hcl Immed Release 5 Mg Tablet) 5 mg PO Q4H PRN PRN Reason: Pain, Moderate(Pain Scale 4-6) Last Admin: 12/25/23 15:27 Dose: 5 mg Documented By: BERTHA Sertraline HCl (Sertraline Hcl 100 Mg Tablet) 100 mg PO DAILY [facility] Last Admin: 12/26/23 08:28 Dose: 100 mg Documented By: KT Sodium Chloride (0.9 % Sodium Chloride Flush 3 Ml Syringe) 3 ml IVFLUSH QSHIFT [facility] Last Admin: 12/26/23 08:31 Dose: 3 ml Documented By: KT Vitamin D (Cholecalciferol (Vitamin D3) 25 Mcg Tablet) 50 mcg PO DAILY [facility] Last Admin: 12/26/23 08:28 Dose: 50 mcg Documented By: KT Labs 12/24/23 11:24 12/24/23 11:24 Microbiology Microbiology Results: Microbiology 12/23/23 Unknown Urine Culture - Final Urine clean catch - Clean Catch Midstream Klebsiella pneumoniae Assessment and Plan (1) Intertrochanteric fracture of right hip: Status: Acute (2) Dysphagia: Status: Acute Plan 78-year-old female with pertinent history of myelodysplastic syndrome, hypothyroidism, hypertension, mixed hyperlipidemia, osteoporosis, compression fracture, mood disorder, expressive aphasia who presents to the emergency department for evaluation after a fall. 1.Closed right hip fracture due to mechanical fall: -s/p ORIF 12/22 POD 3 -management as per orthopedic team -awaiting placement 2.Aphasia -outpatient workup in progress 3.Hypertension (mild hypotension today) -antihypertensives held today -patient is symptomatic; restart when clinically appropriate 4.Macrocytic anemia with thrombocytopenia: -h/o myelodysplastic syndrome -continue b12 supplementation -outpatient follow-up with Dr. Vila ASA Full code Pt requires ongoing inpt stay due to hip fracture requiring surgical intervention, PT/OT for disposition and ongoing expert consultation Quality Stroke Does the patient have a stroke diagnosis?: No VTE Prior VTE?: No VTE Risk Level:: Medical - moderate - high VTE Device Contraindication: N/A - Device Ordered VTE Drug Contraindication: Treatment Not Indicated
[2023-12-26] MEDS: cefTRIAXone sodium 1 GM in 0.9 % Sodium Chloride 50 ML IV (12:52)
[2023-12-27 03:11] VITALS: BP 118/58; PULSE 71; RESP 17; TEMP 36.1; O2SAT 94
[2023-12-27] MEDS: Levothyroxine Sodium 150 MCG TABLET PO (05:49)
[2023-12-27 06:03] LABS: MANUAL DIFF FLAG NO
[2023-12-27 06:21] LABS: Alanine Aminotransferase 29 U/L (0-31); Albumin Level 3.5 g/dL (3.5-5.0); Alkaline Phosphatase 93 U/L (39-117); Anion Gap 13 (12-20); Aspartate Amino Transferase 50 U/L (5-31); Bilirubin Total 1.1 mg/dL (0.0-1.0); Blood Urea Nitrogen 18 mg/dL (9-16); Calcium 9.4 mg/dL (8.4-10.2); Carbon Dioxide 26 mmol/L (22-29); Chloride 105 mmol/L (96-108); Estimated Glomerular Filt Rate > 60; Glucose Fasting 109 mg/dL (60-99); Potassium 3.7 mmol/L (3.3-5.1); Sodium 140 mmol/L (135-145); Total Protein 7.2 g/dL (6.5-8.0)
[2023-12-27 06:23] LABS: Basophils Absolute Auto 0.1 X10*3/uL (0.0-0.2); Basophils Percent Auto 0.8 % (0-2); Eosinophils Absolute Auto 0.8 X10*3/uL (0.0-0.4); Eosinophils Percent Auto 9.4 % (0-4); Hematocrit 29.9 % (37.0-47.0); Imm Gran Abs Auto 0.04 X10*3/uL (0.00-0.03); Imm Gran Pct Auto 0.5 % (0.0-0.4); Lymphocytes Absolute Auto 1.8 X10*3/uL (1.2-4.9); Lymphocytes Percent Auto 20.4 % (20-40); Mean Corpuscular HGB Conc 33.4 g/dl (31.0-35.0); Mean Corpuscular Hemoglobin 34.8 pg (27.0-33.0); Mean Corpuscular Volume 104.2 fL (80.0-98.0); Mean Platelet Volume 11.2 fL (9.4-12.3); Monocytes Absolute Auto 0.7 X10*3/uL (0.1-1.2); Neutrophils Absolute Auto 5.2 x10*3/uL (2.0-8.3); Neutrophils Percent Auto 60.9 % (45-73); Platelet Count 160 X10*3/uL (160-400); Red Blood Count 2.87 X10*6/uL (4.20-5.50); Red Cell Distribution Width 13.4 % (11.0-16.0); White Blood Count 8.6 X10*3/uL (4.8-10.8)
[2023-12-27] MEDS: Omeprazole 20 MG CAPSULE.DR PO (06:35)
[2023-12-27 08:00] VITALS: BP 111/55; PULSE 72; RESP 16; TEMP 36; O2SAT 96
[2023-12-27] MEDS: Aspirin Enteric Coated 325 MG TABLET.DR PO (08:17)
[2023-12-27] MEDS: hydroCHLOROthiazide 12.5 MG TABLET PO (08:17)
[2023-12-27] MEDS: Cyanocobalamin (Vitamin B-12) 1,000 MCG TABLET 1000 MCG PO (08:17)
[2023-12-27] MEDS: Losartan Potassium 50 MG TABLET PO (08:17)
[2023-12-27] MEDS: Cholecalciferol (Vitamin D3) 25 MCG TABLET 50 MCG PO (08:17)
[2023-12-27] MEDS: Sertraline HCL 100 MG TABLET PO (08:18)
[2023-12-27] MEDS: Atorvastatin Calcium 10 MG TABLET PO (08:18)
[2023-12-27] MEDS: atenoloL 50 MG TABLET PO (08:18)
[2023-12-27] MEDS: 0.9 % Sodium Chloride Flush 3 ML SYRINGE IVFLUSH (08:20)
[2023-12-27] MEDS: oxyBUTYnin chloride ER 5 MG TAB.ER.24 10 MG PO (08:36)
--- NOTE | 2023-12-27 11:10 | HO.PM.IMPN ---
Subjective Subjective Date of Service: 12/27/23 Interval History: Doing well overall. No acute medical issues at this time Review of Systems Denies chest pain Denies shortness of breath Denies nausea vomiting diarrhea Denies fever chills Physical Exam Vital Signs: Vital Signs: Last Vital Signs Temp 96.8 F 12/27/23 08:00 Pulse 72 12/27/23 08:00 Resp 16 12/27/23 08:00 BP 111/55 L 12/27/23 08:00 Pulse Ox 96 12/27/23 08:00 O2 Del Method Room Air 12/27/23 08:00 O2 Flow Rate 1 12/26/23 07:25 BMI result Body Mass Index 28.6 Const: Other: Awake alert no acute distress Resp: Other: Clear to auscultation bilaterally no rales rhonchi or wheezes Cardio: Other: No S4; positive S1-S2; no S3 murmurs rubs or gallops GI: Other: Soft nontender nondistended normoactive bowel sounds Neuro: Other: Cranial nerves 2-12 grossly intact as tested save some minor left facial asymmetry. Mildly aphasic. Left-sided weakness noted. Extrem: Other: No edema bilaterally Objective Data Active Medications Acetaminophen (Acetaminophen 325 Mg Tablet) 650 mg PO Q6H PRN PRN Reason: Pain, Mild (Pain Scale 1-3), fever or headache Last Admin: 12/25/23 15:27 Dose: 650 mg Documented By: BERTHA Aspirin (Aspirin Enteric Coated 325 Mg Tablet.) 325 mg PO BID [facility] Last Admin: 12/27/23 08:17 Dose: 325 mg Documented By: KT Atenolol (Atenolol 50 Mg Tablet) 50 mg PO DAILY [facility]; Protocol Last Admin: 12/27/23 08:18 Dose: 50 mg Documented By: KT Atorvastatin Calcium (Atorvastatin Calcium 10 Mg Tablet) 10 mg PO DAILY [facility] Last Admin: 12/27/23 08:18 Dose: 10 mg Documented By: KT Calcium Carbonate (Calcium Carbonate 750 Mg Tab.Chew) 750 mg PO Q4H PRN PRN Reason: Heartburn Cyanocobalamin (Cyanocobalamin (Vitamin B-12) 1,000 Mcg Tablet) 1,000 mcg PO DAILY [facility] Last Admin: 12/27/23 08:17 Dose: 1,000 mcg Documented By: KT Hydrochlorothiazide (Hydrochlorothiazide 12.5 Mg Tablet) 12.5 mg PO DAILY [facility] Last Admin: 12/27/23 08:17 Dose: 12.5 mg Documented By: KT Ceftriaxone Sodium 1 gm/ (Sodium Chloride) 50 mls @ 100 mls/hr IV Q24H [facility] Last Infusion: 12/26/23 13:30 Dose: Infused Documented By: KT Levothyroxine Sodium (Levothyroxine Sodium 150 Mcg Tablet) 150 mcg PO DAILY@0600 [facility] Last Admin: 12/27/23 05:49 Dose: 150 mcg Documented By: CJ Losartan Potassium (Losartan Potassium 50 Mg Tablet) 50 mg PO DAILY [facility]; Protocol Last Admin: 12/27/23 08:17 Dose: 50 mg Documented By: KT Magnesium Hydroxide (Milk Of Magnesia 30 Ml Oral.Susp) 30 ml PO DAILY PRN PRN Reason: Constipation Last Admin: 12/24/23 20:30 Dose: 30 ml Documented By: ONOFRE Melatonin (Melatonin 3 Mg Tablet) 6 mg PO BEDTIME PRN PRN Reason: Insomnia Morphine Sulfate (Morphine Sulfate 4 Mg/Ml Cartridge) 4 mg IVPUSH Q4H PRN; Protocol PRN Reason: Pain, Severe (Pain Scale 7-10) Last Admin: 12/24/23 08:52 Dose: 4 mg Documented By: ANTHONY Omeprazole (Omeprazole 20 Mg Capsule.Dr) 20 mg PO DAILY@0630 [facility] Last Admin: 12/27/23 06:35 Dose: 20 mg Documented By: CJ Ondansetron HCl (Ondansetron Hcl 4 Mg/2 Ml Vial) 4 mg IVPUSH Q8H PRN PRN Reason: Nausea and Vomiting Last Admin: 12/23/23 03:05 Dose: 4 mg Documented By: CHAVEZ-CARLOS Oxybutynin Chloride (Oxybutynin Chloride Er 5 Mg Tab.Er.24) 10 mg PO MOWEFR [facility] Last Admin: 12/27/23 08:36 Dose: 10 mg Documented By: KT Oxycodone HCl (Oxycodone Hcl Immed Release 5 Mg Tablet) 5 mg PO Q4H PRN PRN Reason: Pain, Moderate(Pain Scale 4-6) Last Admin: 12/25/23 15:27 Dose: 5 mg Documented By: BERTHA Sertraline HCl (Sertraline Hcl 100 Mg Tablet) 100 mg PO DAILY [facility] Last Admin: 12/27/23 08:18 Dose: 100 mg Documented By: KT Sodium Chloride (0.9 % Sodium Chloride Flush 3 Ml Syringe) 3 ml IVFLUSH QSHIFT [facility] Last Admin: 12/27/23 08:20 Dose: 3 ml Documented By: KT Vitamin D (Cholecalciferol (Vitamin D3) 25 Mcg Tablet) 50 mcg PO DAILY [facility] Last Admin: 12/27/23 08:17 Dose: 50 mcg Documented By: KT Labs 12/27/23 05:08 12/27/23 05:08 Labs: Laboratory Results - last 24 hr 12/27/23 05:08 MCV 104.2 H MCH 34.8 H MCHC 33.4 RDW 13.4 Plt Count 160 D MPV 11.2 Immature Gran % (Auto) 0.5 H Neut % (Auto) 60.9 Lymph % (Auto) 20.4 Mathews % (Auto) 8.0 Eos % (Auto) 9.4 H Baso % (Auto) 0.8 Lymph # (Auto) 1.8 Mathews # (Auto) 0.7 Eos # (Auto) 0.8 H Baso # (Auto) 0.1 Abs Immat Gran (auto) 0.04 H Absolute Neuts (auto) 5.2 Absolute Nucleated RBC 0.000 Nucleated RBC % (auto) 0.0 Anion Gap 13 Estim Creat Clear Calc 54.0 Estimated GFR > 60 Fasting Glucose 109 H Calcium 9.4 D Total Bilirubin 1.1 H AST 50 H ALT 29 Alkaline Phosphatase 93 Total Protein 7.2 Albumin 3.5 Assessment and Plan (1) Intertrochanteric fracture of right hip: Status: Acute Plan 78-year-old female with pertinent history of myelodysplastic syndrome, hypothyroidism, hypertension, mixed hyperlipidemia, osteoporosis, compression fracture, mood disorder, expressive aphasia who presents to the emergency department for evaluation after a fall. 1.Closed right hip fracture due to mechanical fall: -s/p ORIF 12/22 POD 4 -acceptable for transfer to rehab at this time per Orthopedics -awaiting placement 2.Aphasia -outpatient workup in progress 3.Hypertension (mild hypotension today) -antihypertensives held today -patient is symptomatic; restart when clinically appropriate 4.Macrocytic anemia with thrombocytopenia: -h/o myelodysplastic syndrome -continue b12 supplementation -outpatient follow-up with Dr. Julito MONTIEL Full code Pt requires ongoing inpt stay due to hip fracture requiring surgical intervention, PT/OT for disposition and ongoing expert consultation Quality Stroke Does the patient have a stroke diagnosis?: No VTE Prior VTE?: No VTE Risk Level:: Medical - moderate - high VTE Device Contraindication: N/A - Device Ordered VTE Drug Contraindication: Treatment Not Indicated
--- NOTE | 2023-12-27 11:41 | P.DS_ITS ---
DS: Providers Provider Date of Service: 12/27/23 Date of admission: 12/23/23 02:58 Date of discharge: 12/27/23 Primary care physician: Mary Henderson MD Consults: 12/23/23 02:58 Consult to Orthopedics Routine Consulting Provider: [facility] Orthopedic Surgeons Reason for consultation: right hip fracture DS: Diagnosis Discharge Diagnosis (1) Intertrochanteric fracture of right hip: Status: Acute DS: Summary Hospital Course Hospital Course: 78-year-old female with pertinent history of myelodysplastic syndrome, hypothyroidism, hypertension, mixed hyperlipidemia, osteoporosis, compression fracture, mood disorder, expressive aphasia who presents to the emergency department for evaluation after a fall. Patient states she fell about a week ago when she was trying to change her pads. She landed on her right hip and also hit her head. Patient had been having right hip pain and difficulty with ambulation since the fall. X-ray of the hip was obtained on 12/15 which was without any fracture or dislocation. Patient states she had a 2nd fall on the day of presentation when she missed her step and fell. Did not lose consciousness. No chest pain or palpitations prior to the fall. No rhythmic jerking movement of extremities. She denies fever, chills, chest discomfort, palpitations, shortness of breath, abdominal pain, changes in urinary or bowel habits. In the emergency department, imaging with right hip fracture and Orthopedic surgery was consulted who requested admission [facility] Admitted to general medical floor. Seen in consultation by Orthopedics and on 12/23/2023 underwent open reduction and internal fixation of right hip intertrochanteric fracture with placement of a short gamma nail. Her postop course was unremarkable. Her urine did grow Klebsiella which is sensitive to Ceftin she will be discharged on same. At this time she is medically acceptable for transfer to rehab Time Attestation Discharge Coordination Time (in mins): 35 Quality: Safe Use of Opioids Does Pt have an Active Cancer Diagnosis on the Problem List?: No Quality: Stroke Does the patient have a stroke diagnosis?: No Physical Exam Vital Signs: Vital Signs: Last Vital Signs Temp 96.8 F 12/27/23 08:00 Pulse 72 12/27/23 08:00 Resp 16 12/27/23 08:00 BP 111/55 L 12/27/23 08:00 Pulse Ox 96 12/27/23 08:00 O2 Del Method Room Air 12/27/23 08:00 O2 Flow Rate 1 12/26/23 07:25 BMI result Body Mass Index 28.6 Const: Other: Awake alert no acute distress Resp: Other: Clear to auscultation bilaterally no rales rhonchi or wheezes Cardio: Other: No S4; positive S1-S2; no S3 murmurs rubs or gallops GI: Other: Soft nontender nondistended normoactive bowel sounds Neuro: Other: Cranial nerves 2-12 grossly intact as tested save some minor left facial asymmetry. Mildly aphasic. Left-sided weakness noted. Extrem: Other: No edema bilaterally DS: Data Data Completed and Pending Labs on day of discharge: Laboratory Results - last 24 hr 12/27/23 05:08 WBC 8.6 RBC 2.87 L Hgb 10.0 L Hct 29.9 L MCV 104.2 H MCH 34.8 H MCHC 33.4 RDW 13.4 Plt Count 160 D MPV 11.2 Immature Gran % (Auto) 0.5 H Neut % (Auto) 60.9 Lymph % (Auto) 20.4 Eagle % (Auto) 8.0 Eos % (Auto) 9.4 H Baso % (Auto) 0.8 Lymph # (Auto) 1.8 Eagle # (Auto) 0.7 Eos # (Auto) 0.8 H Baso # (Auto) 0.1 Abs Immat Gran (auto) 0.04 H Absolute Neuts (auto) 5.2 Absolute Nucleated RBC 0.000 Nucleated RBC % (auto) 0.0 Sodium 140 Potassium 3.7 Chloride 105 Carbon Dioxide 26 Anion Gap 13 BUN 18 H Creatinine 0.85 Estim Creat Clear Calc 54.0 Estimated GFR > 60 Fasting Glucose 109 H Calcium 9.4 D Total Bilirubin 1.1 H AST 50 H ALT 29 Alkaline Phosphatase 93 Total Protein 7.2 Albumin 3.5 Discharge Plan Discharge Anticipated Discharge Date/Time: 12/27/23 11:25 Patient Disposition: Xfer SNF Discharge Diagnosis: Right hip fracture Referrals: [facility] [Outside] - 1 Week [place] PA-C [Physician Elevator Erector] - 2 Weeks (01/05/24 08:00 [facility] Orthopedic Surgeons [place] PA-C) Physician,Unknown J [Physician] - 1 Week Discharge Medications: New aspirin 325 mg Tablet,Delayed Release (Dr/Ec) 325 mg PO BID Qty: 30 0RF oxycodone 5 mg Tablet 5 mg PO Q4H PRN (Reason: Pain, Moderate(Pain Scale 4-6)) Qty: 40 0RF Rx Instructions: Partial Fill upon patient request. cefuroxime axetil 500 mg tablet 500 mg PO BID 7 Days Qty: 14 0RF Continued potassium chloride [Klor-Con 10] 10 mEq tablet extended release 10 meq PO DAILY 90 Days Qty: 90 3RF omeprazole 20 mg capsule,delayed release(DR/EC) 20 mg PO DAILY 90 Days Qty: 90 3RF simvastatin 20 mg tablet 20 mg PO DAILY Qty: 90 3RF sertraline 100 mg tablet 100 mg PO DAILY Qty: 90 3RF losartan 50 mg tablet 50 mg PO DAILY 90 Days Qty: 90 4RF atenolol 50 mg tablet 50 mg PO DAILY Qty: 80 1RF chlorthalidone 25 mg tablet 12.5 mg PO QAM Qty: 45 2RF levothyroxine 150 mcg tablet 150 mcg PO DAILY 90 Days Qty: 90 4RF tramadol 50 mg Tablet 50 mg PO Q8H PRN (Reason: Pain, Moderate) Qty: 30 0RF oxybutynin chloride 10 mg tablet extended release 24hr 10 mg PO MOWEFR Prolia 60 mg/mL syringe 60 mg subcut [id number] 1 Days Qty: 1 0RF cholecalciferol (vitamin D3) 50 mcg (2,000 unit) capsule 50 mcg PO DAILY mecobalamin (vitamin B12) 1,000 mcg tablet,chewable 1,000 mcg PO DAILY Discontinued celecoxib [Celebrex] 200 mg capsule 200 mg PO BID 30 Days Qty: 60 3RF Discharge Orders: Discharge Order (Routine); Ordered 12/27/23 Ordered By: Eugene Witt Diet: Advance to usual diet Activity on Discharge: As tolerated Stand Alone Forms: Patient Portal Discharge page Print Language: Nepalese Care Plan Goals: All medicine as outlined and transfer sheet Health Concerns: Further plans as per receiving facility Plan of Treatment: Gait training, strengthening, ADLs dvt ppx x6 weeks (ASA) Keep dressing clean,dry and intact-no showering or tub baths Follow up with Orthopedics in 2 weeks Assessment: See discharge summary
--- NOTE | 2023-12-27 11:53 | MHC.CM.PN ---
IMM 12/27/23 Patient is discharged today. Bed offers were presented to the pt and spouse. The choice is [facility]. The Patient will transport via BLS. 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
[2023-12-27 12:00] VITALS: BP 129/63; PULSE 75; RESP 14; TEMP 36.6; O2SAT 96
[2023-12-27] MEDS: cefTRIAXone sodium 1 GM in 0.9 % Sodium Chloride 50 ML IV (13:02)
== END 2023-12-27 15:31 | disposition skilled nursing facility (03) | DRG 481 ==
LOC: HO.ED 12-23 02:12 → HO.EDOVER 12-23 03:03 → HO.S3 12-23 07:16
PROVIDERS: Orthopaedic Surgery; Physician Assistant; Admitting Provider Student in an Organized Health Care Education/Training Program; Emergency Provider Emergency Medicine; PCP Internal Medicine; Visit Provider Hospitalist
PROC: 0QS606Z Reposition Right Upper Femur with Intramedullary Internal Fixation Device, Open Approach (ICD-10-PCS; principal; 2023-12-23 10:30)
DX: S72.141A Displaced intertrochanteric fracture of right femur, initial encounter for closed fracture (principal); N39.0 Urinary tract infection, site not specified; I10 Essential (primary) hypertension; E78.2 Mixed hyperlipidemia; I95.9 Hypotension, unspecified; B96.1 Klebsiella pneumoniae [K. pneumoniae] as the cause of diseases classified elsewhere; G31.01 Pick's disease; F02.80 Dementia in other diseases classified elsewhere, unspecified severity, without behavioral disturbance, psychotic disturbance, mood disturbance, and anxiety; E03.9 Hypothyroidism, unspecified; M81.0 Age-related osteoporosis without current pathological fracture; D69.6 Thrombocytopenia, unspecified; F39 Unspecified mood [affective] disorder; D53.9 Nutritional anemia, unspecified; W19.XXXA Unspecified fall, initial encounter; Z91.81 History of falling; R29.6 Repeated falls; Z79.890 Hormone replacement therapy; Z79.899 Other long term (current) drug therapy
CPT/HCPCS: 36415; 70450; 71045; 72125; 73502; 73560; 73700; 80048; 80053; 80076; 81001; 85025; 85610; 86850; 86900; 86901; 87086; 87088; 87186; 93005; 97110; 97116; 97162; 97166; 97530; 97535; 99285; C1713; C1758; J0131; J0696; J2270; J2371; J2405; J2704; J3010; J3370

== ENCOUNTER → 2023-12-23 02:58 | Outpatient (BNV) | payer MEDICARE, OTHER, SELFPAY | PROVIDERS: Admitting Provider Student in an Organized Health Care Education/Training Program; Emergency Provider Emergency Medicine; Visit Provider Orthopaedic Surgery | DX: S72.141A Displaced intertrochanteric fracture of right femur, initial encounter for closed fracture (principal) | CPT/HCPCS: 27245; 99024; 99222 ==

== ENCOUNTER → 2023-12-23 02:58 | Outpatient (BNV) | payer MEDICARE, OTHER, SELFPAY | PROVIDERS: Admitting Provider Student in an Organized Health Care Education/Training Program; Emergency Provider Emergency Medicine; Visit Provider Student in an Organized Health Care Education/Training Program | DX: S72.141A Displaced intertrochanteric fracture of right femur, initial encounter for closed fracture (principal) | CPT/HCPCS: 99222; 99232; 99239; 99499 ==

== ENCOUNTER 2024-01-04 15:38 | Outpatient (REF) | payer MEDICARE, OTHER, SELFPAY | END 2024-01-04 15:39 | disposition home or self-care (01) | LOC: HO.HOSX 15:38 | PROVIDERS: Visit Provider Physician Assistant | DX: Z13.89 Encounter for screening for other disorder (principal) ==

== ENCOUNTER 2024-01-05 09:21 | Outpatient (REF) | payer MEDICARE, OTHER, SELFPAY ==
--- NOTE | ~2024-01-05 | XR_ITS ---
EXAMINATION: XR PELVIS XR FEMUR, RIGHT CLINICAL INFORMATION: Pain. Fracture. ORIF. COMPARISON: Right hip radiographs dated 12/23/2023. TECHNIQUE: AP view of the pelvis as well as AP and crosstable lateral views of the right femur. FINDINGS: Interval placement of a right femoral intramedullary lauren with a dynamic hip screw and distal stabilization screw. No hardware complication. The intertrochanteric fracture is redemonstrated and unchanged in anatomic alignment. No new osseous fracture. No concerning lytic or blastic osseous lesion. No joint space narrowing or marginal osteophytes. No osseous erosion. No abnormal soft tissue calcification or radiopaque foreign body. XR/XR femur RT 2V IMPRESSION: 1. Right femoral ORIF without evidence of hardware complication. Intertrochanteric fracture in unchanged anatomic alignment. 2. No new fracture or radiopaque foreign body. Electronically signed by: Jas Daigle MD 01/05/2024 11:41 AM EDT
--- NOTE | ~2024-01-05 | XR_ITS ---
EXAMINATION: XR PELVIS XR FEMUR, RIGHT CLINICAL INFORMATION: Pain. Fracture. ORIF. COMPARISON: Right hip radiographs dated 12/23/2023. TECHNIQUE: AP view of the pelvis as well as AP and crosstable lateral views of the right femur. FINDINGS: Interval placement of a right femoral intramedullary lauren with a dynamic hip screw and distal stabilization screw. No hardware complication. The intertrochanteric fracture is redemonstrated and unchanged in anatomic alignment. No new osseous fracture. No concerning lytic or blastic osseous lesion. No joint space narrowing or marginal osteophytes. No osseous erosion. No abnormal soft tissue calcification or radiopaque foreign body. XR/XR pelvis 1-2V IMPRESSION: 1. Right femoral ORIF without evidence of hardware complication. Intertrochanteric fracture in unchanged anatomic alignment. 2. No new fracture or radiopaque foreign body. Electronically signed by: Jas Daigle MD 01/05/2024 11:41 AM EDT
== END 2024-01-05 09:22 | disposition home or self-care (01) ==
LOC: HO.XRAY 09:21
PROVIDERS: Absent Provider Physician Assistant; PCP Internal Medicine; Visit Provider Physician Assistant
DX: S72.141D Displaced intertrochanteric fracture of right femur, subsequent encounter for closed fracture with routine healing (principal)
CPT/HCPCS: 72170; 73552; 99212

== ENCOUNTER 2024-01-05 10:20 | Outpatient (AMB) | payer MEDICARE, OTHER, SELFPAY ==
--- NOTE | 2024-01-05 10:36 | A.OFFVIS_ITS ---
Intake Visit Reasons: PO - Rt Hip IMN 12/23/23 wDR Intake Note: Kinza is a 78 year old female who presents today for a post op appointment s/p Rt Hip IMN 12/23/23 Patient reports she is doing well, however she tends to have some groin pain. Allergies Cephalosporins Allergy (Mild, Verified 01/05/24 10:48) JAUNDICE KETOLIDES Allergy (Unknown, Uncoded 12/22/23 09:12) ITCHING MACORLIDES Allergy (Unknown, Uncoded 12/22/23 09:12) ITCHING HPI HPI PO - Rt Hip IMN 12/23/23 wDR: Details: 78-year-old female who presents in the office today 13 days status post open reduction and internal fixation of right hip intertrochanteric fracture with placement of a short gamma nail, which was performed on 12/23/[address] Garvin. ? ? [facility] Medical History (Updated 01/05/24 @ 10:38 by Lynnette Beth) Intertrochanteric fracture of right hip Closed hip fracture Dysphagia Essential hypertension Osteoporosis GERD (gastroesophageal reflux disease) Aphasia High cholesterol High blood pressure Anemia Dyspnea on exertion T11 vertebral fracture Hypothyroidism Surgical History History of bone marrow biopsy History of excision of mass History of cholecystectomy History of tonsillectomy History of vertebroplasty History of kyphoplasty Family History Father Esophageal cancer Mother Breast cancer Paternal Aunt Breast cancer Social History Household Members: Spouse Housing: [facility] Are you a primary lawn care technician to a significant other at home: No Do you presently have visiting nurse or other home services: No Alcohol intake: current Alcohol intake frequency: holidays/special occasions only Patient Tobacco Use Status: Never used Tobacco e-Cigarette/Vaping Use: Never Used Second Hand Smoke Exposure: No service: No Current occupational status: 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 Theron are intact. No surrounding erythema or drainage. No signs of infection. Good ROM of the right hip. NVI.? Assessment & Plan Assessment & Plan (1) Intertrochanteric fracture of right hip: Code(s): S72.141A - Displaced intertrochanteric fracture of right femur, initial encounter for closed fracture Category: Medical Plan Ms. Blair is a 78-year-old female who presents in the office today 13 days status post open reduction and internal fixation of right hip intertrochanteric fracture with placement of a short gamma nail, which was performed on 12/23/[address] Garvin. ? ? Theron were removed and steri-stripes were applied. She will be referred to physical therapy to work on glute, core, and quad strengthening as well as gait training. Follow-up will be in four weeks with repeat x-rays, or sooner if needed. ? X-rays of the right hip which were obtained while in the office today and were reviewed by me, Bridget Herrera PA-C, revealed intact orthopedic hardware with routine healing. Patient Instructions: Scribed by Lynnette Beth bilingual medical assistant, for Bridget Herrera PA-C on 01/05/2024 at 10:24 am, EST.? Coding Level of Care Code Global (42069) Diagnoses Intertrochanteric fracture of right hip S72.141A
--- NOTE | 2024-01-05 10:48 | MHC.OFFVIS ---
Intake Visit Reasons: PO - Rt Hip IMN 12/23/23 wDR Intake Note: Kinza is a 78 year old female who presents today for a post op appointment s/p Rt Hip IMN 12/23/23 Patient reports she is doing well, however she tends to have some groin pain. Allergies Cephalosporins Allergy (Mild, Verified 01/05/24 10:48) JAUNDICE KETOLIDES Allergy (Unknown, Uncoded 12/22/23 09:12) ITCHING MACORLIDES Allergy (Unknown, Uncoded 12/22/23 09:12) ITCHING PFSH Medical History (Updated 01/05/24 @ 10:38 by Lynnette Beth) Intertrochanteric fracture of right hip Closed hip fracture Dysphagia Essential hypertension Osteoporosis GERD (gastroesophageal reflux disease) Aphasia High cholesterol High blood pressure Anemia Dyspnea on exertion T11 vertebral fracture Hypothyroidism Surgical History History of bone marrow biopsy History of excision of mass History of cholecystectomy History of tonsillectomy History of vertebroplasty History of kyphoplasty Family History Father Esophageal cancer Mother Breast cancer Paternal Aunt Breast cancer Social History Household Members: Spouse Housing: [facility] Are you a primary primary care provider to a significant other at home: No Do you presently have visiting nurse or other home services: No Alcohol intake: current Alcohol intake frequency: holidays/special occasions only Patient Tobacco Use Status: Never used Tobacco e-Cigarette/Vaping Use: Never Used Second Hand Smoke Exposure: No service: No Current occupational status: 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
== END 2024-01-05 11:02 | disposition home or self-care (01) ==
PROVIDERS: PCP Family Medicine; Visit Provider Physician Assistant
DX: S72.141A Displaced intertrochanteric fracture of right femur, initial encounter for closed fracture (principal)
CPT/HCPCS: 99024

== ENCOUNTER 2024-02-02 10:20 | Outpatient (AMB) | payer MEDICARE, OTHER, SELFPAY ==
--- NOTE | 2024-02-02 10:29 | A.OFFVIS_ITS ---
Intake Visit Reasons: PO - 4 wk Rt Hip IMN 12/23/23 wDR Intake Note: Kinza is a 78 year old female who presents today for a post op appointment s/p Rt Hip IMN 12/23/23 DR. Patient reports she is doing well, however she is having knee pain which is making it difficult to apply full weight on her right hip. She mentions that she has been working with PT for her hip and also her knee. Allergies Cephalosporins Allergy (Mild, Verified 02/02/24 10:36) JAUNDICE KETOLIDES Allergy (Unknown, Uncoded 12/22/23 09:12) ITCHING MACORLIDES Allergy (Unknown, Uncoded 12/22/23 09:12) ITCHING HPI HPI PO - 4 wk Rt Hip IMN 12/23/23 wDR: Details: 78-year-old female who presents in the office today 4 weeks status post open reduction and internal fixation of right hip intertrochanteric fracture with placement of a short gamma nail which was performed on 12/23/[address] Garvin. I last saw the patient in the office on 01/05/24 when she was referred to physical therapy. While in the office today, the patient reports she is doing well with respect to her right hip. She complains of right knee pain. She mentions difficulty applying full weight on her right hip due to her right knee pain. She states that she has been working with physical therapy for her right hip and also for her right knee. The patient has a medical history of pre-diabetes. [facility] Medical History (Updated 02/02/24 @ 11:13 by Sudha Marin) Intertrochanteric fracture of right hip Closed hip fracture Dysphagia Essential hypertension Osteoporosis GERD (gastroesophageal reflux disease) Aphasia High cholesterol High blood pressure Anemia Dyspnea on exertion T11 vertebral fracture Hypothyroidism Surgical History History of bone marrow biopsy History of excision of mass History of cholecystectomy History of tonsillectomy History of vertebroplasty History of kyphoplasty Family History Father Esophageal cancer Mother Breast cancer Paternal Aunt Breast cancer Social History Household Members: Spouse Housing: Condominium Are you a primary physician primary care sports medicine to a significant other at home: No Do you presently have visiting nurse or other home services: No Alcohol intake: current Alcohol intake frequency: holidays/special occasions only Patient Tobacco Use Status: Never used Tobacco e-Cigarette/Vaping Use: Never Used Second Hand Smoke Exposure: No service: No Current occupational status: 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 No signs of infection. Good ROM of the right hip. NVI.? Right knee. Able to flex and extend. Crepitus noted with ROM. NVI. Office Procedures Joint Injection/Aspiration Joint Injection/Aspiration Primary Site: right knee Prep: site was prepped using aseptic technique, ethochloride spray was applied and injection warnings given Injected: 80 mg of, DepoMedrol, with 8 mL of (2% plain lido ) and in the joint Approach Used: anterolateral Procedure: The patient tolerated the procedure well, but had some pain with the injection and there was some relief with the local anesthesia Coding 09257 - Large joint Procedure code (CPT) selection complete Assessment & Plan Assessment & Plan (1) Intertrochanteric fracture of right hip: Code(s): S72.141A - Displaced intertrochanteric fracture of right femur, initial encounter for closed fracture Category: Medical (2) Osteoarthritis of right knee: Code(s): M17.11 - Unilateral primary osteoarthritis, right knee Category: Medical (3) Pre-diabetes: Code(s): R73.03 - Prediabetes Category: Medical Plan Ms. Blair is a 78-year-old female who presents in the office today 4 weeks status post open reduction and internal fixation of right hip intertrochanteric fracture with placement of a short gamma nail which was performed on 12/23/[address] Garvin. I last saw the patient in the office on 01/05/24 when she was referred to physical therapy. While in the office today, the patient reports she is doing well with respect to her right hip. She complains of right knee pain. She mentions difficulty applying full weight on her right hip due to her right knee pain. She states that she has been working with physical therapy for her right hip and also for her right knee. The patient has a medical history of pre-diabetes. The patient will continue with physical therapy to work on glute, core and quad strengthening as well as gait training with the walker. The patient was offered a cortisone injection in the right knee with 80 mg of Depo-Medrol. The patient was explained the risks, benefits, and alternatives to receiving this injection. After receiving consent for the injection, the patient had the procedure done while in the office today. The patient tolerated the procedure well with no complication. Due to the patient?s history of pre-diabetes, they were instructed to monitor her blood glucose level. The patient was informed that they could see a rise in their numbers and if the numbers became too high, they were instructed to call their PCP. The patient was also informed that they could have facial flushing as a side effect of the injection, but this will pass. Follow-up will be in 6 weeks for the right hip, or sooner if needed. X-rays of the right knee which were obtained while in the office today and were reviewed by me, Bridget Herrera PA-C, revealed: Significant osteoarthritis. X-rays of the right hip which were obtained while in the office today and were reviewed by me, Bridget Herrera PA-C, revealed: Intact orthopedic hardware with routine healing. Orders: Orders XR femur RT 2V Today S72.141A - Displaced intertrochanteric fracture of right femur, initial encounter for closed fracture Patient Instructions: Scribed by Sudha Marin medical professionals, for Bridget Herrera PA-C on 02/02/24 at 10:43 am EST. Coding Level of Care Code Global (81551) Diagnoses Intertrochanteric fracture of right hip S72.141A Osteoarthritis of right knee M17.11 Pre-diabetes R73.03 CPT Codes Coding - 39679 Large joint: 95135 - Large joint ([id number])
== END 2024-02-02 10:59 | disposition home or self-care (01) ==
PROVIDERS: PCP Internal Medicine; Visit Provider Physician Assistant
DX: S72.141A Displaced intertrochanteric fracture of right femur, initial encounter for closed fracture (principal); M17.11 Unilateral primary osteoarthritis, right knee; R73.03 Prediabetes
CPT/HCPCS: 20610; 99024

== ENCOUNTER 2024-02-02 12:23 | Outpatient (REF) | payer MEDICARE, OTHER, SELFPAY | END 2024-02-02 12:24 | disposition home or self-care (01) | LOC: HO.HOSX 12:23 | PROVIDERS: Visit Provider Physician Assistant | DX: M17.11 Unilateral primary osteoarthritis, right knee (principal); R73.03 Prediabetes; S72.141A Displaced intertrochanteric fracture of right femur, initial encounter for closed fracture | CPT/HCPCS: 20610; 73552; 99212; J1010; J2003 ==

== ENCOUNTER 2024-02-06 11:34 | Outpatient (AMB) | payer MEDICARE, OTHER, SELFPAY ==
--- NOTE | 2024-02-06 12:35 | MHC.PC.OV ---
Vital Signs 02/06/24 12:37 Height 5 ft 3 in Weight 147 lb BMI 26.0 BP 144/82 H Blood Pressure Location Lt brachial Position Sitting Pulse 52 Pulse Source Pulse Oximeter Pulse Oximetry (%) 95 Oxygen Delivery Method Room Air Intake Visit Reasons: Transfer from [facility]/3 mo followup Intake Note: Pt is here today as a transfer patient from Dr. Hernandez Allergies cortisone Allergy (Intermediate, Verified 02/12/24 02:48) Rash Cephalosporins Allergy (Mild, Verified 02/12/24 02:48) JAUNDICE KETOLIDES Allergy (Unknown, Uncoded 02/12/24 02:48) ITCHING MACORLIDES Allergy (Unknown, Uncoded 02/12/24 02:48) ITCHING Medication List - Last Reconciled 02/06/24 by Mary Henderson MD atenolol 50 mg PO DAILY chlorthalidone 12.5 mg (1/2 x 25 mg) PO QAM cholecalciferol (vitamin D3) 50 mcg PO DAILY commode As directed, 999 days denosumab (Prolia) 60 mg subcut [id number] 1 day diaper,brief,adult,disposable (Depend Easy Fit Undergarments misc) 4 times a day, As directed, 30 days levothyroxine 150 mcg PO DAILY 90 days losartan 50 mg PO DAILY 90 days mecobalamin (vitamin B12) 1,000 mcg PO DAILY miscellaneous medical supply Panty Liners, Twice a day As directed, 90 days omeprazole 20 mg PO DAILY 90 days oxybutynin chloride ER 10 mg PO MOWEFR potassium chloride ER (Klor-Con) 10 mEq PO DAILY 90 days sertraline 100 mg PO DAILY simvastatin 20 mg PO DAILY Tobacco use date assessed: 02/06/24 Fall risk assessment: 2 + Falls in past year Last assessed Fall Risk: 02/06/24 Dental Screening Dental Screen Date: 02/06/24 Did you have a dental visit in the last 12 months?: Yes Did you have a dental problem in the last 6 months where you did not have access to dental care?: Yes Was dental information given to patient?: Patient has dentist HPI Transfer from [facility]/3 mo followup HPI Details 78-year-old lady new to me, here to establish with new PCP. She has hypertension, hypothyroidism, hyperlipidemia, osteoarthritis, prediabetes, history of myelodysplastic syndrome, osteoporosis, with history of compression fracture of spine status post open reduction and internal fixation of right hip intertrochanteric fracture with placement of a short gamma nail which was performed on 12/23/[address] Garvin. She had sudden onset of difficulty with talking, speech comes out garbled sometimes butable express herself without any difficulty. States that she had a negative MRI of her brain, now being seen by Dr. Givens at [facility] urology department in [place] who ordered a PET scan with results still pending. [facility] Medical History (Updated 02/12/24 @ 03:10 by Mary Henderson MD) History of adenomatous polyp of colon Expressive aphasia Essential hypertension Dyslipidemia Acquired hypothyroidism Intertrochanteric fracture of right hip Closed hip fracture Dysphagia Essential hypertension Osteoporosis GERD (gastroesophageal reflux disease) Aphasia High cholesterol High blood pressure Anemia Dyspnea on exertion T11 vertebral fracture Hypothyroidism Surgical History History of bone marrow biopsy History of excision of mass History of cholecystectomy History of tonsillectomy History of vertebroplasty History of kyphoplasty Family History (Updated 02/06/24 @ 12:39 by Sravanthi Mcgregor CMA) Father Esophageal cancer Substance use disorder Mother Breast cancer Paternal Aunt Breast cancer Social History Household Members: [facility] Are you a primary specialist wound care to a significant other at home: No Do you presently have visiting nurse or other home services: No Alcohol intake: current Alcohol intake frequency: holidays/special occasions only Patient Tobacco Use Status: Never used Tobacco e-Cigarette/Vaping Use: Never Used Second Hand Smoke Exposure: No service: No Current occupational status: 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 1. Little interest or pleasure in doing things: not at all 2. Feeling down, depressed, or hopeless: not at all 3. Trouble falling or staying asleep, or sleeping too much: not at all 4. Feeling tired or having little energy: not at all 5. Poor appetite or overeating: not at all 6. Feeling bad about yourself - or that you are a failure or have let yourself or your family down: not at all 7. Trouble concentrating on things, such as reading the newspaper or watching television: not at all 8. Moving or speaking so slowly that other people could have noticed. Or the opposite - being so fidgety or restless that you have been moving around a lot more than usual: not at all 9. Thoughts that you would be better off or of hurting yourself in some way: not at all Total score: 0 Depression Screening Interpretation: Negative Depression Screening Done: Yes 79992 - PHQ-9 Billing: Yes Source: Developed by Drs. Zach Mccarthy, Bal Prakash and colleagues, with an educational anne from [employer]. Thrive Questionnaire Date Thrive assessed: 12/23/23 SUSAN-7 AMB Questionnaire SUSAN-7 Date SUSAN - 7 assessed: 02/06/24 Feeling nervous, anxious, or on edge: 0 = Not at all Not being able to stop or control worryin = Not at all Worrying too much about different things: 0 = Not at all Trouble relaxin = Not at all Being so restless that it is hard to sit still: 0 = Not at all Becoming easily annoyed or irritable: 0 = Not at all Feeling afraid as if something awful might happen: 0 = Not at all Total SUSAN-7 score (0-4 normal; 5-9 mild; 10-14 moderate; 15-21 severe): 0 Source: Developed by Drs. Zach Mccarthy, Chayito Barnhart, Bal Díaz and colleagues, with an educational anne from [employer]. SUSAN-7 Assessment Billing SUSAN-7 Assessment Tool: SUSAN-7 Assessment 56450 Review of Systems Const Denies chills, Denies fatigue, Denies fever(s), Denies frequent falls, Denies headache(s) and Denies weakness Eyes Reports no additional complaints ENT Denies dizziness and Denies headache(s) Card Denies chest pain, Denies rapid heart rate, Denies edema, Denies irregular heart rhythm and Denies dyspnea Resp Denies cough, Denies dyspnea, Denies wheezing and Denies other (shortness of breath) GI Reports no additional complaints Reports no additional complaints Musc Denies numbness and Denies tingling Neuro Reports as per HPI, Denies Neuro-related abnormal movements, Denies behavioral changes, Denies confusion, Denies dizziness, Denies frequent falls, Denies headache(s), Denies numbness, Denies seizure-like activity, Denies tingling, Denies tremor(s) and Denies weakness Psych Denies anxiety, Denies behavioral changes, Denies confusion and Denies depression Endo Denies fatigue Duane/Lymph Denies easy bleeding and Denies easy bruising Aller/Immun Denies wheezing Physical exam (Primary Care) Vital Signs: Last Vital Signs Pulse 52 02/06/24 12:37 BP 144/82 H 02/06/24 12:37 Pulse Ox 95 02/06/24 12:37 Oxygen Delivery Method Room Air 02/06/24 12:37 BMI result Body Mass Index 26.0 Tobacco/Smoking Status: Tobacco use Status Tobacco use date assessed 02/06/24 02/06/24 12:39 Patient Tobacco Use Status Never used Tobacco 02/06/24 12:37 e-Cigarette/Vaping Use Never Used 02/06/24 12:37 Depression Screening Interpretation: Negative Thrive Assessment: Date of Thrive Assessment Date Thrive assessed 12/23/23 02/06/24 12:37 Const General: healthy appearing, comfortable and no acute distress; No confusion Orientation/consciousness: patient oriented x3 and No confusion HENMT Head: Yes normocephalic Ears: external ears normal, TM's normal bilaterally and EAC's normal Face and sinus: Yes face symmetric Mouth: Normal oral and palatal mucosa present, lip normal, tongue normal, oropharynx normal and moist mucous membranes Eyes General: appearance normal, both eyes and all related structures Eyelids: Yes eyelids normal Conjunctivae: conjunctivae normal Pupils: Equal, round and reactive pupils present EOM: EOMs intact bilaterally Neck Neck: Yes full ROM, Yes no lymphadenopathy and Yes supple Resp Effort & Inspection: normal respiratory effort Auscultation: clear to auscultation bilaterally Cardio Rate: regular rate Rhythm: regular rhythm Heart sounds: S1 normal heart sound present GI Palpation (GI): Soft to palpation, nontender, no guarding and no masses General: Yes no CVA tenderness Back/Spine/Pelvis Back: no CVA tenderness and No back tenderness Skin General skin exam: no rashes or lesions noted Neuro Other: Has difficulty forming words, but comprehension and memory intact General: patient oriented x3 and No confusion Cranial nerves: Yes Equal, round and reactive pupils present Cognition (Neuro): normal cognition Motor exam (neuro): 5/5 motor strength present throughout Romberg Test: Negative Extrem General: Yes full ROM, Yes no joint enlargement and Yes no clubbing, cyanosis or edema Psych Appearance: grossly normal and well kempt Mental Status: mental status grossly normal Speech and movement: Slurred speech present Affect: normal affect Attitude: cooperative Thought content: Normal thought content present Results Reviewed Results Reviewed: Name: Kinza Blair Age/Sex: 78/F : 1945 Unit#: [id number] Attend Dr: Eugene iWtt DO Re12/23/23 Status: DIS IN Location: [place] [address] Disch: 12/27/23 SPEC : [id number] FANY: 12/27/23 STATUS: COMP REQ : [id number] RECD: 12/27/[address]: Eugene Witt DO COMP: 12/27/23 ENTERED: 12/27/[address]: Mary Henderson MD ORDERED: CBC Auto Diff Test Result Flag Reference WBC 8.6 4.8-10.8 X10*3/uL RBC 2.87 L 4.20-5.50 X10*6/uL HGB 10.0 L 12.0-16.0 g/dl HCT 29.9 L 37.0-47.0 % MCV 104.2 H 80.0-98.0 fL MCH 34.8 H 27.0-33.0 pg MCHC 33.4 31.0-35.0 g/dl RDW 13.4 11.0-16.0 % PLT 160 # 160-400 X10*3/uL MPV 11.2 9.4-12.3 fL Neut Pct Auto 60.9 45-73 % ImGran Pct Auto 0.5 H 0.0-0.4 % Lymp Pct Auto 20.4 20-40 % [place] Pct Auto 8.0 2-11 % Eos Pct Auto 9.4 H 0-4 % Baso Pct Auto 0.8 0-2 % NRBC Pct Auto 0.0 0.0-0.2 /100WBC ANC Neut Abs # 5.2 2.0-8.3 x10*3/uL ImGran Abs Auto 0.04 H 0.00-0.03 X10*3/uL Lymph Abs Auto 1.8 1.2-4.9 X10*3/uL [place] Abs Auto 0.7 0.1-1.2 X10*3/uL Eos Abs Auto 0.8 H 0.0-0.4 X10*3/uL Baso Abs Auto 0.1 0.0-0.2 X10*3/uL NRBC Abs Auto 0.000 0.0-0.012 X10*3/uL Name: Kinza Blair Age/Sex: 78/F : 1945 Unit#: [id number] Attend Dr: Eugene Witt DO Re12/23/23 Status: DIS IN Location: [place] [address] Disch: 12/27/23 SPEC : [id number] FANY: 12/27/23 STATUS: COMP REQ : [id number] RECD: 12/27/[address]: Eugene Witt DO COMP: 12/27/23 ENTERED: 12/27/[address]: Mary Henderson MD ORDERED: CMP Fast Test Result Flag Reference Sodium 140 135-145 mmol/L Potassium 3.7 3.3-5.1 mmol/L CL 105 96-108 mmol/L CO2 26 22-29 mmol/L Gap 13 12-20 BUN 18 H 9-16 mg/dL Creat 0.85 0.5-1.4 mg/dL Estimated CrCl 54.0 Provided height and weight: 160.02 cm, 73.3 kg. eGFR (calculated from the MDRD study equation) and eCrCl (calculated from the Cockcroft-Gault equation) are based on different parameters and may not yield comparable results. If eCrCl result is absurd, please check patient's height/weight. EGFR > 60 NOTE: For -Citizen Of [place] individuals, multiply the result by 1.210. Chronic Kidney Disease: Estimated GFR < 60 mL/min/1.73m2 Severe Kidney Disease: Estimated GFR < 15 mL/min/1.73m2 FBS 109 H 60-99 mg/dL A fasting glucose from 100-125 mg/dl is considered impaired (pre-diabetes). CA 9.4 # 8.4-10.2 mg/dL Total Bili 1.1 H 0.0-1.0 mg/dL AST (GOT) 50 H 5-31 U/L ALT (GPT) 29 0-31 U/L Protein, Total 7.2 6.5-8.0 g/dL Alb 3.5 3.5-5.0 g/dL Alk Phos 93 39-117 U/L Coding Level of Care Code Est Pt Level 4 (32703) Complex EM visit Add On G2211 Diagnoses Age-related osteoporosis without current pathological fracture M81.0 Osteoporosis type: age-related Presence of current pathological fracture: without current pathological fracture Pre-diabetes R73.03 Acquired hypothyroidism E03.9 Dyslipidemia E78.5 Essential hypertension I10 Expressive aphasia R47.01 Myelodysplastic syndrome D46.9 Additional Codes SUSAN-7 Assessment Billing - SUSAN-7 Assessment Tool: SUSAN-7 Assessment 35028 ([id number]) Assessment & Plan Assessment & Plan (1) Osteoporosis: Code(s): M81.0 - Age-related osteoporosis without current pathological fracture Category: Medical Qualifiers: Osteoporosis type: age-related Presence of current pathological fracture: without current pathological fracture Qualified Code(s): M81.0 - Age-related osteoporosis without current pathological fracture Plan: Patient states that she has been started on Prolia by her previous PCP but she has never picked the prescription., hesitant to take a Prolia. Will refer to endocrine clinic for further evaluation and management (2) Pre-diabetes: Code(s): R73.03 - Prediabetes Category: Medical Plan: Your previous fasting blood sugars were elevated above 100 mg/dL. Impaired glucose metabolism increases the risk for developing diabetes mellitus type 2, as well as heart attack and stroke later on. Lifestyle changes that promotes weight loss, healthy eating habits, and regular exercise are important, and can prevent the progression to diabetes (3) Acquired hypothyroidism: Code(s): E03.9 - Hypothyroidism, unspecified Category: Medical Plan: Ordered a repeat TSH and free T4. Patient currently on levothyroxine 150 mcg once a day in a.m. (4) Dyslipidemia: Code(s): E78.5 - Hyperlipidemia, unspecified Category: Medical Plan: Fasting lipid panel ordered together with liver enzymes, currently on simvastatin 20 mg daily (5) Essential hypertension: Code(s): I10 - Essential (primary) hypertension Category: Medical Plan: Blood pressure today slightly elevated. stopped atenolol, and switched to metoprolol succinate 50 mg taken once a day reinforced importance of following low-salt diet and getting regular exercise. Ordered basic metabolic panel, and fasting lipid panel. Will see her back for follow-up in 2 months (6) Expressive aphasia: Code(s): R47.01 - Aphasia Category: Medical Plan: Currently being seen at [facility] Neurology Department, PET scan ordered still pending (7) Myelodysplastic syndrome: Comment: Dr okeefe Code(s): D46.9 - Myelodysplastic syndrome, unspecified Category: Medical Plan: Currently being followed by [facility] O[facility] Orders: Orders Thyroid Stimulating Hormone 02/06/24 E03.9 - Hypothyroidism, unspecified, E78.5 - Hyperlipidemia, unspecified, I10 - Essential (primary) hypertension, M48.50XA - Collapsed vertebra, not elsewhere classified, site unspecified, initial encounter for fracture, M81.0 - Age-related osteoporosis without current pathological fracture, R73.03 - Prediabetes Free T4 (Free Thyroxine) 02/06/24 E03.9 - Hypothyroidism, unspecified, E78.5 - Hyperlipidemia, unspecified, I10 - Essential (primary) hypertension, M48.50XA - Collapsed vertebra, not elsewhere classified, site unspecified, initial encounter for fracture, M81.0 - Age-related osteoporosis without current pathological fracture, R73.03 - Prediabetes Basic Metabolic Panel Fasting 02/06/24 E03.9 - Hypothyroidism, unspecified, E78.5 - Hyperlipidemia, unspecified, I10 - Essential (primary) hypertension, M48.50XA - Collapsed vertebra, not elsewhere classified, site unspecified, initial encounter for fracture, M81.0 - Age-related osteoporosis without current pathological fracture, R73.03 - Prediabetes Aspartate Amino Transferase 02/06/24 E03.9 - Hypothyroidism, unspecified, E78.5 - Hyperlipidemia, unspecified, I10 - Essential (primary) hypertension, M48.50XA - Collapsed vertebra, not elsewhere classified, site unspecified, initial encounter for fracture, M81.0 - Age-related osteoporosis without current pathological fracture, R73.03 - Prediabetes Alanine Aminotransferase 02/06/24 E03.9 - Hypothyroidism, unspecified, E78.5 - Hyperlipidemia, unspecified, I10 - Essential (primary) hypertension, M48.50XA - Collapsed vertebra, not elsewhere classified, site unspecified, initial encounter for fracture, M81.0 - Age-related osteoporosis without current pathological fracture, R73.03 - Prediabetes Lipid Panel 02/06/24 E03.9 - Hypothyroidism, unspecified, E78.5 - Hyperlipidemia, unspecified, I10 - Essential (primary) hypertension, M48.50XA - Collapsed vertebra, not elsewhere classified, site unspecified, initial encounter for fracture, M81.0 - Age-related osteoporosis without current pathological fracture, R73.03 - Prediabetes Vitamin D 25-OH Total 02/06/24 E03.9 - Hypothyroidism, unspecified, E78.5 - Hyperlipidemia, unspecified, I10 - Essential (primary) hypertension, M48.50XA - Collapsed vertebra, not elsewhere classified, site unspecified, initial encounter for fracture, M81.0 - Age-related osteoporosis without current pathological fracture, R73.03 - Prediabetes Vitamin B12 and Folate 02/06/24 E03.9 - Hypothyroidism, unspecified, E78.5 - Hyperlipidemia, unspecified, I10 - Essential (primary) hypertension, M48.50XA - Collapsed vertebra, not elsewhere classified, site unspecified, initial encounter for fracture, M81.0 - Age-related osteoporosis without current pathological fracture, R73.03 - Prediabetes Referrals Endocrinology Referral M81.0 - Age-related osteoporosis without current pathological fracture Medications: New metoprolol succinate ER 50 mg PO DAILY 90 tabs 0RF Discontinued atenolol Discontinued Reason: Doctor's Order 50 mg PO DAILY 80 tabs 1RF
[2024-02-06 12:37] VITALS: BP 144/82; PULSE 52; O2SAT 95; BMI 26.0
== END 2024-02-06 13:50 | disposition home or self-care (01) ==
PROVIDERS: PCP Internal Medicine; Visit Provider Internal Medicine
DX: M81.0 Age-related osteoporosis without current pathological fracture (principal); D46.9 Myelodysplastic syndrome, unspecified; R73.03 Prediabetes; E03.9 Hypothyroidism, unspecified; E78.5 Hyperlipidemia, unspecified; I10 Essential (primary) hypertension; R47.01 Aphasia

== ENCOUNTER → 2024-02-06 11:34 | Outpatient (BNVA) | payer MEDICARE, OTHER, SELFPAY | PROVIDERS: PCP Internal Medicine; Visit Provider Internal Medicine | DX: M81.0 Age-related osteoporosis without current pathological fracture (principal); R73.03 Prediabetes; E03.9 Hypothyroidism, unspecified; E78.5 Hyperlipidemia, unspecified; I10 Essential (primary) hypertension; R74.01 Elevation of levels of liver transaminase levels; D46.9 Myelodysplastic syndrome, unspecified | CPT/HCPCS: 96127; 99212 ==

== ENCOUNTER 2024-02-13 10:48 | Outpatient (REF) | payer MEDICARE, OTHER, SELFPAY ==
[2024-02-13 13:41] LABS: Alanine Aminotransferase 30 U/L (0-31); Anion Gap 12 (12-20); Aspartate Amino Transferase 46 U/L (5-31); Blood Urea Nitrogen 16 mg/dL (9-16); Carbon Dioxide 27 mmol/L (22-29); Chloride 109 mmol/L (96-108); Cholesterol 174 mg/dL (<200); Estimated Glomerular Filt Rate > 60; Glucose Fasting 119 mg/dL (60-99); HDL Cholesterol 52 mg/dL (>40); LDL Cholesterol Calculated 100 mg/dL (<100); Potassium 3.9 mmol/L (3.3-5.1); Sodium 144 mmol/L (135-145); Triglycerides 112 mg/dL (<150)
[2024-02-13 14:07] LABS: Free T4 (Free Thyroxine) 0.91 ng/dL (0.71-1.85); Thyroid Stimulating Hormone 1.83 uIU/mL (0.32-4.0)
[2024-02-13 20:03] LABS: Folate 7.8 ng/mL (> or = 4.0); Vitamin B12 1314 pg/mL (200-900)
== END 2024-02-13 10:49 | disposition home or self-care (01) ==
LOC: HO.HMGCLDS 10:48
PROVIDERS: PCP Internal Medicine; Visit Provider Internal Medicine
DX: R73.03 Prediabetes (principal); M81.0 Age-related osteoporosis without current pathological fracture; M48.50XA Collapsed vertebra, not elsewhere classified, site unspecified, initial encounter for fracture; E03.9 Hypothyroidism, unspecified; E78.5 Hyperlipidemia, unspecified; I10 Essential (primary) hypertension
CPT/HCPCS: 36415; 80048; 80061; 82306; 82607; 82746; 84439; 84443; 84450; 84460

== ENCOUNTER 2024-02-27 10:25 | Outpatient (AMB) | payer MEDICARE, OTHER, SELFPAY ==
--- NOTE | 2024-02-27 10:27 | A.OFFVIS_ITS ---
Vital Signs 02/27/24 10:31 Height 5 ft 3.46 in Weight 147 lb 7.828 oz BMI 25.7 BP 142/66 H Blood Pressure Location Rt brachial Position Sitting Pulse 62 Pulse Source Pulse Oximeter Intake Visit Reasons: osteoporosis-conf Intake Note: New patient internally referred by PCP for Osteoporosis. Therapy Technician Required: No Accompanied by: Self / Same As Patient Allergies cortisone Allergy (Intermediate, Verified 02/27/24 10:32) Rash Cephalosporins Allergy (Mild, Verified 02/27/24 10:32) JAUNDICE KETOLIDES Allergy (Unknown, Uncoded 02/27/24 10:32) ITCHING MACORLIDES Allergy (Unknown, Uncoded 02/27/24 10:32) ITCHING HPI Comments Details: 78 YO Female with PMHx myelodysplastic syndrome is seen in consultation at the request of PCP for Osteoporosis. According to primary care note, patient was seen in [place] for osteoporosis and was treated with Prolia but did not show up consistently for injections. Pt is poor historian First diagnosed in couple of yrs . Saw endo in [place] Received treatment in the past with Prolia , ? from to . last dose in 05/2023 ? Tolerated treatment well without complication. history of pathologic fracture in hip 12/23/2023 fell from standing and fx T-11 vertebra ? 3 yrs ago but no ONJ. Has several servings of dietary calcium per day in the form of broccoli, symilk . Not Takes Calcium supplement . Takes 95481 IU of Vitamin D daily. Uses PPI, - anticoagulant,- antiepileptic or -glucocorticoid medication. Not Does weight bearing exercise Fracture history: as above Height loss: Yes [employer] history: menarche at age 15 - menopause at age 42 - normal Denies history of Kidney stones: Denies family history of Osteoporosis or hip fracture. UTD on dental cleanings and sees dentist every 6 months. No planned upcoming dental work or extractions. DXA dated []: Labs: [facility] Medical History (Updated 02/12/24 @ 03:10 by Mary Henderson MD) History of adenomatous polyp of colon Expressive aphasia Essential hypertension Dyslipidemia Acquired hypothyroidism Intertrochanteric fracture of right hip Closed hip fracture Dysphagia Essential hypertension Osteoporosis GERD (gastroesophageal reflux disease) Aphasia High cholesterol High blood pressure Anemia Dyspnea on exertion T11 vertebral fracture Hypothyroidism Surgical History History of bone marrow biopsy History of excision of mass History of cholecystectomy History of tonsillectomy History of vertebroplasty History of kyphoplasty Family History (Updated 02/06/24 @ 12:39 by Sravanthi Mcgregor CMA) Father Esophageal cancer Substance use disorder Mother Breast cancer Paternal Aunt Breast cancer Social History Household Members: [facility] Are you a primary animal care service worker to a significant other at home: No Do you presently have visiting nurse or other home services: No Alcohol intake: current Alcohol intake frequency: holidays/special occasions only Patient Tobacco Use Status: Never used Tobacco e-Cigarette/Vaping Use: Never Used Second Hand Smoke Exposure: No service: No Current occupational status: 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 Absence of blue sclera. Absence of kyphosis. Thyroid gland is of nl size and weighs 15 gms. There are no thyroid nodules palpated. Lungs CTA. Heart S1 S2 Reg R/R Abdominal exam benign. Muscle strength 5/5 . Examination of spine reveals absence of tenderness on palpation Assessment & Plan Assessment & Plan (1) Osteoporosis: Code(s): M81.0 - Age-related osteoporosis without current pathological fracture Category: Medical Plan: 78-year-old white female with a history of osteoporosis and recent left hip fracture. Had previous negative secondary workup. Was on Prolia but unclear duration of Prolia treatment as well as consistency of getting the treatment. Will try to obtain previous DEXA obtain more information from either Dr. Vila her oncologist or her primary care provider. My concern is not to interrupt the Prolia therapy. If she is due for another Prolia injection, we will try to arrange as soon as possible. At this point in time, assuming patient has gotten a course of Prolia, would not be prudent to switch should anabolic therapy we will continue with the Prolia. Coding Level of Care Code New Pt Level 4 (79103) Diagnoses Osteoporosis M81.0
[2024-02-27 10:31] VITALS: BP 142/66; PULSE 62; BMI 25.7
== END 2024-02-27 11:11 | disposition home or self-care (01) ==
LOC: HO.ENCR 10:26
PROVIDERS: PCP Internal Medicine; Visit Provider Internal Medicine Endocrinology, Diabetes & Metabolism
DX: M81.0 Age-related osteoporosis without current pathological fracture (principal)
CPT/HCPCS: 99204

== ENCOUNTER → 2024-02-27 10:25 | Outpatient (BNVA) | payer MEDICARE, OTHER, SELFPAY | PROVIDERS: PCP Internal Medicine; Visit Provider Internal Medicine Endocrinology, Diabetes & Metabolism | DX: M81.0 Age-related osteoporosis without current pathological fracture (principal); Z79.620 Long term (current) use of immunosuppressive biologic; Z91.148 Patient's other noncompliance with medication regimen for other reason | CPT/HCPCS: 99202 ==

== ENCOUNTER → 2024-03-04 09:21 | Outpatient (BNVA) | payer MEDICARE, OTHER, SELFPAY | PROVIDERS: PCP Internal Medicine; Visit Provider Internal Medicine | DX: M81.0 Age-related osteoporosis without current pathological fracture (principal) | CPT/HCPCS: 96372; 99212; J0897 ==

== ENCOUNTER 2024-03-04 14:20 | Outpatient (AMB) | payer MEDICARE, OTHER, SELFPAY ==
--- NOTE | 2024-03-04 14:28 | A.OFFVIS_ITS ---
Vital Signs 03/04/24 14:29 Height 5 ft 3.46 in Weight 148 lb 2.41 oz BMI 25.9 BP 148/64 H Blood Pressure Location Rt brachial Position Sitting Pulse 61 Pulse Source Pulse Oximeter Intake Visit Reasons: Osteoporosis/prolia injection Intake Note: Patient present today for Osteoporosis. Patient is present today to discuss more about Prolia Injection. Clerk Of Scales Required: No Accompanied by: Self / Same As Patient Allergies cortisone Allergy (Intermediate, Verified 03/04/24 14:31) Rash Cephalosporins Allergy (Mild, Verified 03/04/24 14:31) JAUNDICE KETOLIDES Allergy (Unknown, Uncoded 03/04/24 14:31) ITCHING MACORLIDES Allergy (Unknown, Uncoded 03/04/24 14:31) ITCHING HPI Comments Details: 78 YO Female with PMHx myelodysplastic syndrome is seen in consultation at the request of PCP for Osteoporosis. According to primary care note, patient was seen in [place] for osteoporosis and was treated with Prolia but did not show up consistently for injections. Pt is poor historian First diagnosed in couple of yrs . Saw endo in [place] Received treatment in the past with Prolia , ? from to . last dose in 05/2023 ? Tolerated treatment well without complication. history of pathologic fracture in hip 12/23/2023 fell from standing and fx T-11 vertebra ? 3 yrs ago but no ONJ. Has several servings of dietary calcium per day in the form of broccoli, symilk . Not Takes Calcium supplement . Takes 34510 IU of Vitamin D daily. Uses PPI, - anticoagulant,- antiepileptic or -glucocorticoid medication. 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 UTD on dental cleanings and sees dentist every 6 months. No planned upcoming dental work or extractions. DXA dated :05/26/2020 TScore of -2.3 L femoral neck Labs: [facility] Medical History (Updated 02/12/24 @ 03:10 by Mary Henderson MD) History of adenomatous polyp of colon Expressive aphasia Essential hypertension Dyslipidemia Acquired hypothyroidism Intertrochanteric fracture of right hip Closed hip fracture Dysphagia Essential hypertension Osteoporosis GERD (gastroesophageal reflux disease) Aphasia High cholesterol High blood pressure Anemia Dyspnea on exertion T11 vertebral fracture Hypothyroidism Surgical History History of bone marrow biopsy History of excision of mass History of cholecystectomy History of tonsillectomy History of vertebroplasty History of kyphoplasty Family History Father Esophageal cancer Substance use disorder Mother Breast cancer Paternal Aunt Breast cancer Social History Household Members: Spouse Housing: [facility] Are you a primary respiratory care assistant to a significant other at home: No Do you presently have visiting nurse or other home services: No Alcohol intake: current Alcohol intake frequency: holidays/special occasions only Patient Tobacco Use Status: Never used Tobacco e-Cigarette/Vaping Use: Never Used Second Hand Smoke Exposure: No service: No Current occupational status: 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 Had previous negative secondary workup. Was on Prolia but unclear duration of Prolia treatment as well as consistency of getting the treatment. Plan is to give a dose of Prolia today. Will continue the Prolia every 6 months. Will try to obtain records from Dr. Polanco in [place] regarding previous therapy for osteoporosis particularly regard to Prolia. Coding Level of Care Code Est Pt Level 3 (73336) Diagnoses Osteoporosis M81.0
[2024-03-04 14:29] VITALS: BP 148/64; PULSE 61; BMI 25.9
== END 2024-03-04 14:57 | disposition home or self-care (01) ==
PROVIDERS: PCP Internal Medicine; Visit Provider Internal Medicine Endocrinology, Diabetes & Metabolism
DX: M81.0 Age-related osteoporosis without current pathological fracture (principal)
CPT/HCPCS: 99213

== ENCOUNTER 2024-03-14 11:52 | Outpatient (AMB) | payer MEDICARE, OTHER, SELFPAY ==
--- NOTE | 2024-03-14 13:24 | MHC.OFFVIS ---
Intake Visit Reasons: PO: Rt Hip IMN 12/23/23 wDR Intake Note: Kinza is a 78 year old female who presents today for a post op appointment s/p Rt Hip IMN 12/23/23 Patient reports she had a fall 3 - 4 days ago she didn't land on her right side but her left hip. She is feeling a bit sore near the buttocks. Allergies cortisone Allergy (Intermediate, Verified 03/14/24 13:29) Rash Cephalosporins Allergy (Mild, Verified 03/14/24 13:29) JAUNDICE KETOLIDES Allergy (Unknown, Uncoded 03/11/24 14:43) ITCHING MACORLIDES Allergy (Unknown, Uncoded 03/11/24 14:43) ITCHING HPI HPI PO: Rt Hip IMN 12/23/23 wDR: Details: 78-year-old male who presents in the office today 11 weeks status post open reduction and internal fixation of right hip intertrochanteric fracture with placement of a short gamma nail which was performed on 12/23/[address] Garvin. I last saw the patient in the office on 02/02/24, when she was recommended to continue with physical therapy. She was given a cortisone injection in her right knee. While in the office today, the patient reports a fall on her left hip, 3-4 weeks ago. She denies landing on her right hip. She mentions experiencing mild soreness near the glutes. The patient complains of bilateral knee pain due to osteoarthritis. The patient has a medical history of pre-diabetes. [facility] Medical History Closed hip fracture History of adenomatous polyp of colon Expressive aphasia Essential hypertension Dyslipidemia Acquired hypothyroidism Intertrochanteric fracture of right hip Dysphagia Essential hypertension Osteoporosis GERD (gastroesophageal reflux disease) Aphasia High cholesterol High blood pressure Anemia Dyspnea on exertion T11 vertebral fracture Hypothyroidism Surgical History History of bone marrow biopsy History of excision of mass History of cholecystectomy History of tonsillectomy History of vertebroplasty History of kyphoplasty Family History Father Esophageal cancer Substance use disorder Mother Breast cancer Paternal Aunt Breast cancer Social History Household Members: Spouse Housing: [facility] Are you a primary multi care technician to a significant other at home: No Do you presently have visiting nurse or other home services: No Alcohol intake: current Alcohol intake frequency: holidays/special occasions only Patient Tobacco Use Status: Never used Tobacco e-Cigarette/Vaping Use: Never Used Second Hand Smoke Exposure: No service: No Current occupational status: 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 Good internal and external rotation. Able to perform straight leg raises. NVI. Assessment & Plan Assessment & Plan (1) Intertrochanteric fracture of right hip: Code(s): S72.141A - Displaced intertrochanteric fracture of right femur, initial encounter for closed fracture Category: Medical (2) Osteoarthritis of right knee: Code(s): M17.11 - Unilateral primary osteoarthritis, right knee Category: Medical (3) Pre-diabetes: Code(s): R73.03 - Prediabetes Category: Medical Plan Ms. Blair is a 78-year-old male who presents in the office today 11 weeks status post open reduction and internal fixation of right hip intertrochanteric fracture with placement of a short gamma nail which was performed on 12/23/[address] Garvin. I last saw the patient in the office on 02/02/24, when she was recommended to continue with physical therapy. She was given a cortisone injection in her right knee. While in the office today, the patient reports a fall on her left hip, 3-4 weeks ago. She denies landing on her right hip. She mentions experiencing mild soreness near the glutes. The patient complains of bilateral knee pain due to osteoarthritis. The patient has a medical history of pre-diabetes. The patient will continue working with physical therapy and ambulate with the use of a walker for safety. The patient complains of bilateral knee which is due to osteoarthritis. She received her cortisone injection in the right knee in her last appointment on 02/02/24. Therefore, it is too early to repeat cortisone injection in her knees. The patient and her are planning a trip to [place] for the winter. I would like to see them when they are back from vacation. Follow-up will be after the vacation, or sooner if needed. Orders: Orders XR femur RT 2V 03/14/24 S72.009A - Fracture of unspecified part of neck of unspecified femur, initial encounter for closed fracture Patient Instructions: Scribed by Sudha Marin, medical practice administrator, for Bridget Herrera PA-C on 03/14/24 at 1:49 pm EST. Coding Level of Care Code Global (97794) Diagnoses Intertrochanteric fracture of right hip S72.141A Osteoarthritis of right knee M17.11 Pre-diabetes R73.03
== END 2024-03-14 13:47 | disposition home or self-care (01) ==
PROVIDERS: PCP Internal Medicine; Visit Provider Physician Assistant
DX: S72.141A Displaced intertrochanteric fracture of right femur, initial encounter for closed fracture (principal); M17.11 Unilateral primary osteoarthritis, right knee; R73.03 Prediabetes
CPT/HCPCS: 99024

== ENCOUNTER 2024-03-14 15:07 | Outpatient (REF) | payer MEDICARE, OTHER, SELFPAY ==
--- NOTE | ~2024-03-14 | XR_ITS ---
EXAMINATION: XR FEMUR, RIGHT CLINICAL INFORMATION: S72.009A - Fracture of unspecified part of neck of unspecified femur, in... COMPARISON: Prior x-ray 02/02/2024 TECHNIQUE: AP and lateral views of the right femur were obtained. FINDINGS: Postoperative changes with lauren and screw fixation noted crossing the previously noted proximal femur fracture. The oval appearance and alignment is unchanged. The fracture remains visible. Possible partial osseous bridging Incidental note made of osteoarthritis of the right knee with joint space narrowing marginal osteophytes about the medial compartment. This is unchanged XR/XR femur RT 2V IMPRESSION: Postoperative changes with orthopedic fixation of previously noted femur fracture. The fracture line remains visible. Possible partial osseous bridging Electronically signed by: Monty Brown MD 03/20/2024 11:43 AM [facility]
== END 2024-03-14 15:08 | disposition home or self-care (01) ==
LOC: HO.HOSX 15:07
PROVIDERS: Visit Provider Physician Assistant
DX: S72.141D Displaced intertrochanteric fracture of right femur, subsequent encounter for closed fracture with routine healing (principal); M17.11 Unilateral primary osteoarthritis, right knee; R73.03 Prediabetes; Z98.890 Other specified postprocedural states
CPT/HCPCS: 73552; 99212

== ENCOUNTER 2024-04-04 11:02 | Outpatient (REF) | payer MEDICARE, OTHER, SELFPAY ==
--- NOTE | ~2024-04-04 | MM_ITS ---
EXAMINATION: BONE DENSITOMETRY CLINICAL INDICATION: Age-related osteoporosis without current pathological fracture. COMPARISON: Previous BD dated 03/02/2012 and baseline BD dated 01/25/2007. TECHNIQUE: Using a [employer] DXA System (software version: 13.1) manufactured by [employer], dual-energy x-ray absorptiometry was performed of the lumbar spine and left hip. The images are of good technical quality. Summary results are attached. FINDINGS: LEFT FEMUR, NECK: Current: BMD 0.806 g/cm2, Z-score 0.3, T-score -1.7, osteopenia. Prior: BMD 0.836 g/cm2. Baseline: BMD 0.838 g/cm2. LEFT FEMUR, TOTAL: Current: BMD 0.829 g/cm2, Z-score 0.4, T-score -1.4, osteopenia, 5.6% decrease from previous, 3.8% decrease from baseline (<5% change is not significant). Prior: BMD 0.878 g/cm2. Baseline: BMD 0.862 g/cm2. AP SPINE L1-L2 (excluding L3 and L4): The data of L1-L4 has been changed to exclude the L3 and L4 vertebral bodies, because significant degenerative change at these levels may cause overestimation of lumbar spine density. Current: BMD 0.921 g/cm2, Z-score -0.3, T-score -2.0, osteopenia, 5.8% decrease from previous, 0.4% decrease from baseline (<5% change is not significant). Prior: BMD 0.978 g/cm2. Baseline: BMD 0.925 g/cm2. IDENTIFIED RISK FACTORS: Menopause, osteoporosis, recurrent falls, low calcium intake, history of fracture (adult), secondary osteoporosis (hyperthyroidism). HISTORY OF FRACTURE: Hip, spine. MEDICATIONS: Calcium, vitamin D, Prolia. MM/XR DEXA axial skeleton IMPRESSION: 1. DIAGNOSIS: Osteopenia based on the lowest T-score value of -2.0 in the lumbar spine applying World Health Organization criteria. 2. 10-YEAR FRACTURE RISK PREDICTION, FRAX: Not performed in this patient on estrogen or bone building treatments. 3. Treatment Recommendations: NOF guidelines recommend consideration for treatment in postmenopausal women and men age 50 and older presenting with the following: -A hip or vertebral (clinical or morphometric) fracture. -T-score less than or equal to -2.5 at the femoral neck or spine after appropriate evaluation to exclude secondary causes. -Low bone mass at the hip or spine and a 10-year fracture probability by FRAX of greater than or equal to 3% for hip fracture or greater than or equal to 20% for major osteoporotic fracture based on the [place] adapted WHO algorithm. 4. Other Recommendations: All treatment decisions require clinical judgment and consideration of individual patient factors, including patient preferences, comorbidities, previous drug use, risk factors not captured in the FRAX model (e.g. frailty, falls, vitamin D deficiency, increased bone turnover, interval significant decline in bone density) and possible under or overestimation of fracture risk by FRAX. Additional medical evaluation for secondary cause of low bone mineral density may be appropriate. FUTURE SCAN RECOMMENDATION: People with diagnosed cases of osteoporosis or at high risk for fracture should have regular bone mineral density tests. For patients eligible for Medicare, routine testing is allowed once every 2 years. The testing frequency can be increased to one year for patients who have rapidly progressing disease, those who are receiving or discontinuing medical therapy to restore bone mass, or have additional risk factors. Electronically signed by: Hermila Wahl MD 04/04/2024 01:19 PM [facility]
--- OUTSIDE RECORDS SUMMARY | 2024-04-04 11:05 | XMS_ITS ---
Author Organization [facility] Address [address] [place] [address] Care Team Providers Care Sports Editor Name Role Phone Beck Hernandez Primary Care Provider Unavailab Zach Mayorga Unavailable [phone] Encounters Encounter Location Date Provider Diagnosis [facility] [address] [place] [address] 01/20/2023 Zach Hewitt PLAN OF TREATMENT No Information
--- OUTSIDE RECORDS SUMMARY | 2024-04-04 11:05 | XMS_ITS ---
Author Organization [facility] Address [address] [place] [address] Care Team Providers Care Insights Strategist Name Role Phone Beck Hernandez Primary Care Provider Unavailab Zach Mayorga Unavailable [phone] REASON FOR VISIT screening,hx polyps PROBLEMS Problem Type ICD Code Onset Dates Problem Status W/U Status Risk SNOMED Code Notes Problem Diverticulosis of large intestine without perforation or abscess without bleeding (K57.30) Active confirmed Diverticul ar disease of colon (293526568) Encounters Encounter Location Date Provider Diagnosis [facility] Outpatient [address] [place] [phone] 01/23/2023 Zach Hewitt Encounter for scre ening colonoscopy for zla-jilg-unct patient Z12.11 ; Colon polyp K63.5 ; Diverticulosis of large intestine without perforation or abscess without bleeding K57.30 and Other hemorrhoids K64.8 ASSESSMENTS Encounter Date Diagnosis Assessment Notes Treatment Notes Treatment Clinical Notes 01/23/2023 Encounter for screening colonoscopy for [id number]-fhpr patient (ICD-10 - Z12.11) 01/23/2023 Colon polyp (ICD-10 - K63.5) 01/23/2023 Diverticulosis of large intestine without perforation or abscess without bleeding (ICD-10 - K57.30) 01/23/2023 Other hemorrhoids (ICD-10 - K64.8) PLAN OF TREATMENT No Information
--- OUTSIDE RECORDS SUMMARY | 2024-04-04 11:06 | XMS_ITS ---
Author Organization [facility] Address [address] [place] [address] Care Team Providers Care Rn Lpn Cna Name Role Phone Beck Hernandez Primary Care Provider Zach Ho Unavailable [phone] ALLERGIES Allergen (clinical drug ingredient) Drug/Non Drug Allergy documented on EMR Reaction Allergy Type Onset Date Status Medicinal cephalosporin and acting as antibacterial agent (FN) cephalosporins (uncoded) Unknown Allergy Active REASON FOR VISIT Patient presents today for a recall colonoscopy MEDICATIONS Medication SIG (Take, Route, Frequency, Duration) Notes Start Date End Date Status oxyBUTYnin Chloride ER 10 MG 1 tablet Orally Once a day Active Chlorthalidone 25 MG 1 tablet in the mor chelle Orally Once a day Active Simvastatin 20 MG 1 tablet in the even ing Orally Once a day Active Sertraline HCl 100 MG 1 tablet Orally On ce a day Active Omeprazole 20 MG 1 tablet Orally Once a day Active Aspir-81 81 MG 1 tablet Orally Once a day Active Losartan Potassium-HCTZ 50-12.5 MG 1 tablet Orally Once a day for 30 day(s) Active Levothyroxine Sodium 150 MCG 1 tablet in the morning on an empty stomach Orally Once a day Active Atenolol 50 MG 1 tablet Orally Once a day Active Lisinopril 10 MG 1 tablet Orally Once a day Active Prolia 60 MG/ML as directed Subcutaneous Active Vitamin D-3 25 MCG (1000 UT) 1 capsule Orally Once a day for 30 day(s) Active Vitamin B 12 100 MCG as directed Orally Active PROBLEMS Problem Type ICD Code Onset Dates Problem Status W/U Status Risk SNOMED Code Notes Problem Change in bowel habits (R19.4) Active confirmed 34430712 Problem Loose bowel movements (R19.5) Active confirmed 885225948 Problem Rectal urgency (R15.2) Active confirmed 62594084 VITAL SIGNS BMI 26.15 kg/m2 01/17/2023 Blood pressure systolic 000 mm Hg 01/18/20 23 Blood pressure diastolic 00 mm Hg 023 Height 63.50 in 01/17/2023 Temperature 96.0 degrees Fahrenheit 01/18/20 23 Weight 150 lbs 01/17/2023 Encounters Encounter Location Date Provider Diagnosis [facility] [address] [place] [address] 01/17/2023 Zach Hewitt Gastroesophageal ref lux disease without esophagitis K21.9 ; Loose bowel movements R19.5 ; History of adenomatous polyp of colon Z86.010 ; Encounter for screening for malignant neoplasm of colon Z12.11 ; Long-term use of aspirin therapy Z79.82 ; Change in bowel habits R19.4 and Rectal urgency R15.2 ASSESSMENTS Encounter Date Diagnosis Assessment Notes Treatment Notes Treatment Clinical Notes 01/17/2023 Gastroesophageal reflux disease without esophagitis (ICD-10 - K21.9) 01/17/2023 Loose bowel movement s (ICD-10 - R19.5) 01/17/2023 History of adenomato us polyp of colon (ICD-10 - Z86.010) 01/17/2023 Encounter for screening for malignant neoplasm of colon (ICD-10 - Z12.11) Stop aspirin for 1 week before the colonoscopy Do not take the Chlorthalidone the day before nor on the day of the colonoscopy 01/17/2023 Long-term use of aspirin therapy (ICD-10 - Z79.82) 01/17/2023 Change in bowel habi ts (ICD-10 - R19.4) 01/17/2023 Rectal urgency (ICD- 10 - R15.2) 01/17/2023 Other You can try an over the counter Imodium as needed for loose BM's/diarrhea PLAN OF TREATMENT Treatment Notes Assessment Notes Encounter for screening for malignant neoplasm of colon Stop aspirin for 1 week before the colonoscopy Do not take the Chlorthalidone the day before nor on the day of the colonoscopy Other You can try an over the counter Imodium as needed for loose BM's/diarrhea Future Test Test Name Order Date COLONOSCOPY 01/17/2023 Next Appt Details Follow Up: prn, Reason: Progress Notes * Examination Category Sub-Category Detail Notes General Examination GENERAL APPEARANCE: pleasant , well nourished, well developed, in no acute distress HEAD: EYES: sclera non-icteric EARS: NOSE: THROAT: NECK/THYROID: no cervical lymphade nopathy, neck supple HEART: S1, S2 normal CHEST: LUNGS: clear to auscultatio n bilaterally ABDOMEN: normal bowel sounds, no guarding or rigidity, no guarding or rigidity, no masses palpable, soft, nontender, nondistended NEUROLOGIC: alert and oriented SKIN: nonjaundiced, no spi ysabel angiomata EXTREMITIES: no edema PERIPHERAL PULSES: BACK: BREASTS: MUSCULOSKELETAL: MALE GENITOURINARY: LYMPH NODES: RECTAL EXAM: FEMALE GENITOURINARY: ORAL CAVITY: mucosa moist
--- OUTSIDE RECORDS SUMMARY | 2024-04-04 11:06 | XMS_ITS | Patient Health Record ---
Author Organization [facility] Address [address] [place] [address] Care Team Providers Care Loss Prevention Coordinator Name Role Phone Beck Hernandez Primary Care Provider Zach Ho Unavailable [phone] ALLERGIES Allergen (clinical drug ingredient) Drug/Non Drug Allergy documented on EMR Reaction Allergy Type Onset Date Status Medicinal cephalosporin and acting as antibacterial agent (FN) cephalosporins (uncoded) Unknown Allergy Active REASON FOR REFERRAL No Information MEDICATIONS Medication SIG (Take, Route, Frequency, Duration) Notes Start Date End Date Status oxyBUTYnin Chloride ER 10 MG 1 tablet Orally Once a day Active Chlorthalidone 25 MG 1 tablet in the mor chelle Orally Once a day Active Aspir-81 81 MG 1 tablet Orally Once a day Active Simvastatin 20 [...] 12 100 MCG as directed Orally Active IMMUNIZATIONS Vaccine Route Administration Date Status Comme nts Flu vaccine no Preserv 3 and > Unknown 02/03/2015 Admin istered Influenza Unknown 01/11/2022 Administered SOCIAL HISTORY Sex Assigned At : Social History Observation Description Sex Assigned At Unknown PROBLEMS Problem Type ICD Code Onset Dates Problem Status W/U Status Risk SNOMED Code Notes Problem Encounter for screening for malignant neoplasm of colon (Z12.11) Active confirmed 608697423 Problem History of adenomatous polyp of colon (Z86.010) Active confirmed 032733366 Problem Change in bowel habits (R19.4) Active confirmed 48829121 Problem Hypertension (I10) Active confirmed 383 29377 Problem Diverticulosis of large intestine without perforation or abscess without bleeding (K57.30) Active confirmed Diverticul ar disease of colon (402303181) Problem Blood in stool (K92.1) Active confirmed 810978744 Problem Gastroesophageal reflux disease without esophagitis (K21.9) Active confirmed 910914685 Problem Rectal urgency (R15.2) Active confirmed 71673563 Problem Long-term use of aspirin therapy (Z79.82) Active confirmed 483533019 Problem Loose bowel movements (R19.5) Active confirmed 712633202 PLAN OF TREATMENT Future Test Test Name Order Date COLONOSCOPY 09/06/2011 COLONOSCOPY 01/19/2017 COLONOSCOPY 01/17/2023 Insurance Providers Payer Name Payer Address Payer Phone Subscriber Number Group Number Insured Name Patient Relationship to Insured Coverage Start Date Coverage End Date MEDICARE OF [place] [address] [place] [address] [phone] [id number] NEELIMA CLAU Self - patient is the insured [employer] CLAIMS [address] [place] [address] [id number] NEELIMA CLAU Self - patient is the insured [employer] [address] [place] [address] [id number] YANCLAU Solares Self - patient is the insured MEDICAL (GENERAL) HISTORY Medical History History ICD Code Tubular adenoma was removed in 2005 during colonoscopy--a colonoscopy in 2001 was negative Colonoscopy 09/22/2011--nega tive except for some diverticulosis and internal hemorrhoids GERD-upper endoscopy in 2001 was negative for any esophagitis or Pollock's esophagus Hypertension Depression Hyperlipidemia Denies CA,DM,CVA,Lung disease,renal dise ase Sleep apnea-uses a CPAP machine Urinary incontinence Osteoarthritis, wing. hands Aphasia since 2019, but not from a strok e. She has no cognitive deficits Screening colonoscopy in Dec with removal of 2 small tubular adenomas Surgical History Surgery Date(Month/Year) Cholecystectomy Lump on right side of neck removed by Dr Rolando Bolaños-benign Tonsils 1971 Tubal ligation 1974 Cataracts 2007 Hernia repair---at the [facility] incision [address] Mike--right 4th finger 09/2014
== END 2024-04-04 11:03 | disposition home or self-care (01) ==
LOC: HO.MAMMO 11:02
PROVIDERS: Visit Provider Internal Medicine Endocrinology, Diabetes & Metabolism
DX: M81.0 Age-related osteoporosis without current pathological fracture (principal)
CPT/HCPCS: 77080

== ENCOUNTER 2024-04-11 12:53 | Outpatient (AMB) | payer MEDICARE, OTHER, SELFPAY ==
--- OUTSIDE RECORDS SUMMARY | 2024-04-11 12:55 | XMS_ITS ---
Author Organization [facility] Address [address] [place] [address] Care Team Providers Care Resource Teacher Name Role Phone Beck Hernandez Primary Care Provider Unavailab Zach Mayorga Unavailable [phone] REASON FOR VISIT screening,hx polyps PROBLEMS Problem Type ICD Code Onset Dates Problem Status W/U Status Risk SNOMED Code Notes Problem Diverticulosis of large intestine without perforation or abscess without bleeding (K57.30) Active confirmed Diverticul ar disease of colon (782178504) Encounters Encounter Location Date Provider Diagnosis [facility] Outpatient [address] [place] [phone] 01/23/2023 Zach Hewitt Encounter for scre ening colonoscopy for [id number] patient Z12.11 ; Colon polyp K63.5 ; Diverticulosis of large intestine without perforation or abscess without bleeding K57.30 and Other hemorrhoids K64.8 ASSESSMENTS Encounter Date Diagnosis Assessment Notes Treatment Notes Treatment Clinical Notes 01/23/2023 Encounter for screening colonoscopy for [id number] patient (ICD-10 - Z12.11) 01/23/2023 Colon polyp (ICD-10 - K63.5) 01/23/2023 Diverticulosis of large intestine without perforation or abscess without bleeding (ICD-10 - K57.30) 01/23/2023 Other hemorrhoids (ICD-10 - K64.8) PLAN OF TREATMENT No Information
--- OUTSIDE RECORDS SUMMARY | 2024-04-11 12:56 | XMS_ITS ---
Author Organization [facility] Address [address] [place] [address] Care Team Providers Care Project Inspector Name Role Phone Beck Hernandez Primary Care Provider Unavailab Zach Mayorga Unavailable [phone] Encounters Encounter Location Date Provider Diagnosis [facility] [address] [place] [address] 01/20/2023 Zach Hewitt PLAN OF TREATMENT No Information
--- OUTSIDE RECORDS SUMMARY | 2024-04-11 12:56 | XMS_ITS ---
Author Organization [facility] Address [address] [place] [address] Care Team Providers Care Police Stenographer Name Role Phone Beck Hernandez Primary Care Provider Zach Ho Unavailable [phone] ALLERGIES Allergen (clinical drug ingredient) Drug/Non Drug [...] Change in bowel habits (R19.4) Active confirmed 03900455 Problem Loose bowel movements (R19.5) Active confirmed 526598056 Problem Rectal urgency (R15.2) Active confirmed 24583199 VITAL SIGNS BMI 26.15 kg/m2 01/17/2023 Blood pressure systolic 000 mm Hg 01/18/20 23 Blood pressure diastolic 00 mm Hg 023 Height 63.50 in 01/17/2023 Temperature 96.0 degrees Fahrenheit 01/18/20 23 Weight 150 lbs 01/17/2023 Encounters Encounter Location Date Provider Diagnosis [facility] [address] [place] [address] 01/17/2023 Zach Hewitt Gastroesophageal ref lux disease [...]
--- OUTSIDE RECORDS SUMMARY | 2024-04-11 12:56 | XMS_ITS | Patient Health Record ---
Author Organization [facility] Address [address] [place] [address] Care Team Providers Care Manager Technical Services Name Role Phone Beck Hernandez Primary Care Provider Zach Ho Unavailable [phone] ALLERGIES Allergen (clinical drug ingredient) Drug/Non Drug [...] malignant neoplasm of colon (Z12.11) Active confirmed 970462137 Problem History of adenomatous polyp of colon (Z86.010) Active confirmed 185234655 Problem Change in bowel habits (R19.4) Active confirmed 91222596 Problem Hypertension (I10) Active confirmed 383 30252 Problem Diverticulosis of large intestine without perforation or abscess without bleeding (K57.30) Active confirmed Diverticul ar disease of colon (525041589) Problem Blood in stool (K92.1) Active confirmed 443887267 Problem Gastroesophageal reflux disease without esophagitis (K21.9) Active confirmed 453997270 Problem Rectal urgency (R15.2) Active confirmed 66155774 Problem Long-term use of aspirin therapy (Z79.82) Active confirmed 189687535 Problem Loose bowel movements (R19.5) Active confirmed 773241314 PLAN OF TREATMENT Future Test Test Name Order Date COLONOSCOPY 09/06/2011 COLONOSCOPY 01/19/2017 COLONOSCOPY 01/17/2023 Insurance Providers Payer Name Payer Address Payer Phone Subscriber Number Group Number Insured Name Patient Relationship to Insured Coverage Start Date Coverage End Date MEDICARE OF [place] [address] [place] [address] [id number] NEELIMA CLAU Self - patient is the insured [employer] CLAIMS [address] [place] [address] [id number] NEELIMA CLAU Self - patient is the insured [employer] [address] [place] [address] [id number] YANCLAU Solares Self - patient is the insured MEDICAL (GENERAL) HISTORY Medical History History ICD Code Tubular adenoma was removed in 2005 during colonoscopy--a colonoscopy in 2001 was negative Colonoscopy 09/22/2011--nega tive except for some diverticulosis and internal hemorrhoids GERD-upper endoscopy in 2001 was negative for any esophagitis or Pollock's esophagus Hypertension Depression Hyperlipidemia Denies OH,DM,CVA,Lung disease,renal dise ase Sleep apnea-uses a CPAP [...]
--- NOTE | 2024-04-11 13:10 | A.OFFPC_ITS ---
Vital Signs 04/11/24 13:12 Height 5 ft 3 in Weight 148 lb BMI 26.2 BP 140/72 H Blood Pressure Location Rt brachial Position Sitting Pulse 70 Pulse Source Pulse Oximeter Pulse Oximetry (%) 97 Oxygen Delivery Method Room Air Intake Visit Reasons: 2m follow up Allergies cortisone Allergy (Intermediate, Verified 04/11/24 13:22) Rash Cephalosporins Allergy (Mild, Verified 04/11/24 13:22) JAUNDICE KETOLIDES Allergy (Unknown, Uncoded 04/11/24 13:22) ITCHING MACORLIDES Allergy (Unknown, Uncoded 04/11/24 13:22) ITCHING Medication List - Last Reconciled 04/11/24 by Mary Henderson MD celecoxib (Celebrex) 200 mg PO BID 30 days chlorthalidone 12.5 mg (1/2 x 25 mg) PO QAM cholecalciferol (vitamin D3) 1,250 mcg PO QWEEK 3 months commode As directed, 999 days denosumab (Prolia) 60 mg subcut [id number] 1 day diaper,brief,adult,disposable (Depend Easy Fit Undergarments misc) 4 times a day, As directed, 30 days levothyroxine 150 mcg PO DAILY 90 days losartan 50 mg PO DAILY 90 days mecobalamin (vitamin B12) 1,000 mcg PO DAILY metoprolol succinate ER 50 mg PO DAILY miscellaneous medical supply Panty Liners, Twice a day As directed, 90 days omeprazole 20 mg PO DAILY 90 days oxybutynin chloride ER 10 mg PO MOWEFR 3 months potassium chloride ER (Klor-Con) 10 mEq PO DAILY 90 days sertraline 100 mg PO DAILY simvastatin 20 mg PO DAILY Tobacco use date assessed: 04/11/24 Fall risk assessment: 2 + Falls in past year Last assessed Fall Risk: 04/11/24 Dental Screening Dental Screen Date: 04/11/24 Did you have a dental visit in the last 12 months?: No Did you have a dental problem in the last 6 months where you did not have access to dental care?: No Was dental information given to patient?: Patient has dentist HPI 2m follow up HPI Details The patient is a 78-year-old female presenting with speech difficulties of uncertain etiology. Symptoms have been present for several years and initially presented when she was at her daughter's house. The onset was gradual, with a progressive inability to articulate words properly. Despite various investigations, including MRI, no definitive stroke has been diagnosed. - Hypertension has been long-standing. M anages with medications, yet upper systolic blood pressure readings remain elevated periodically. - Recorded history of elevated cholester ol levels. Ccurrently on Simvastatin 20 mg nightly. - Vitamin D deficiency addressed with hi gh-dose supplementation; however, levels continue to be suboptimal. - Reports osteopenia; currently on Proli a infusion every six months and maintains a schedule for it. Had a recent bone density scan revealing bone thinning, more so in the left hip and spine. - Manages hypothyroidism with Levothyrox ine, current dose at 150 mcg. Thyroid levels are within normal ranges. - History of GERD persistently managed w ith Omeprazole, which controls symptoms effectively. - Up to date with Pneumonia and RSV vacc inations, Flu shot received February 21, Needs COVID booster and shingles vaccination [facility] Medical History (Updated 04/14/24 @ 16:50 by Mary Henderson MD) Closed hip fracture History of adenomatous polyp of colon Expressive aphasia Essential hypertension Dyslipidemia Acquired hypothyroidism Intertrochanteric fracture of right hip Dysphagia Essential hypertension Osteoporosis GERD (gastroesophageal reflux disease) Aphasia High cholesterol High blood pressure Anemia Dyspnea on exertion T11 vertebral fracture Hypothyroidism Surgical History History of bone marrow biopsy History of excision of mass History of cholecystectomy History of tonsillectomy History of vertebroplasty History of kyphoplasty Family History Father Esophageal cancer Substance use disorder Mother Breast cancer Paternal Aunt Breast cancer Social History Household Members: [facility] Are you a primary career development manager to a significant other at home: No Do you presently have visiting nurse or other home services: No Alcohol intake: current Alcohol intake frequency: holidays/special occasions only Patient Tobacco Use Status: Never used Tobacco e-Cigarette/Vaping Use: Never Used Second Hand Smoke Exposure: No service: No Current occupational status: 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 1. Little interest or pleasure in doing things: more than half the days 2. Feeling down, depressed, or hopeless: not at all 3. Trouble falling or staying asleep, or sleeping too much: not at all 4. Feeling tired or having little energy: more than half the days 5. Poor appetite or overeating: not at all 6. Feeling bad about yourself - or that you are a failure or have let yourself or your family down: not at all 7. Trouble concentrating on things, such as reading the newspaper or watching television: not at all 8. Moving or speaking so slowly that other people could have noticed. Or the opposite - being so fidgety or restless that you have been moving around a lot more than usual: more than half the days 9. Thoughts that you would be better off or of hurting yourself in some way: not at all Total score: 6 Depression Screening Interpretation: Negative Depression Screening Done: Yes Source: Developed by Drs. Zach Mccarthy, Chayito Barnhart, Bal Díaz and colleagues, with an educational anne from [employer]. Thrive Questionnaire Date Thrive assessed: 12/23/23 I am a: Patient What is your living situation today?: I have a steady place to live Within the past 12 months, did the food you bought not last and you didn't have the money to get more?: Never true Within the past 12 months, did you worry whether your food would run out before you got money to buy more?: Never true Do you have trouble paying for medicines?: No Do you have trouble getting transportation to medical appointments?: No Do you have trouble paying your heating and electricity bill?: No Do you have trouble taking care of your child, family member or friend?: No Do you have trouble with day-to-day activities such as bathing, preparing meals, shopping, managing finances, etc.?: No Are you currently unemployed and looking for a job?: No Are you interested in more education?: No Please select the resources that you would like help with: None Currently or been in a relationship where the following occur: I choose not to answer THRIVE Score: 0 AUDIT C Alcohol Use Questionnaire (AUDIT-C) 1. How often do you have a drink containing alcohol?: 2-4 times a month 2. How many drinks containing alcohol do you have on a typical day when you are drinking?: 1 or 2 3. How often do you have six or more drinks on one occasion?: Never Total Score: 2 SUSAN-7 AMB Questionnaire SUSAN-7 Date SUSAN - 7 assessed: 02/06/24 Feeling nervous, anxious, or on edge: 0 = Not at all Not being able to stop or control worryin = Not at all Worrying too much about different things: 0 = Not at all Trouble relaxin = Not at all Being so restless that it is hard to sit still: 0 = Not at all Becoming easily annoyed or irritable: 1 = Several days Feeling afraid as if something awful might happen: 0 = Not at all Total SUSAN-7 score (0-4 normal; 5-9 mild; 10-14 moderate; 15-21 severe): 1 Source: Developed by Drs. Zach Mccarthy, Chayito Barnhart, Bal Díaz and colleagues, with an educational anne from [employer]. Review of Systems Const Denies fever(s), Denies frequent falls and Denies headache(s) Eyes Reports no additional complaints ENT Denies dysphagia, Denies dizziness and Denies headache(s) Card Denies chest pain, Denies rapid heart rate, Denies edema, Denies irregular heart rhythm and Denies dyspnea Resp Denies cough, Denies dyspnea, Denies wheezing and Denies other (shortness of breath) GI Reports no additional complaints and Denies dysphagia Reports no additional complaints Musc Denies numbness and Denies tingling Skin/Breast Denies breast swelling and Denies breast pain Neuro Denies Neuro-related abnormal movements, Denies behavioral changes, Denies confusion, Denies dizziness, Denies frequent falls, Denies headache(s), Denies numbness, Denies seizure-like activity, Denies tingling and Denies tremor(s) Psych Denies anxiety, Denies behavioral changes, Denies confusion and Denies depression Endo Reports no additional complaints Duane/Lymph Denies easy bleeding and Denies easy bruising Aller/Immun Denies wheezing Physical exam (Primary Care) Vital Signs: Last Vital Signs Pulse 70 04/11/24 13:12 BP 140/72 H 04/11/24 13:12 Pulse Ox 97 12/19/24 13:12 Oxygen Delivery Method Room Air 04/11/24 13:12 BMI result Body Mass Index 26.2 Tobacco/Smoking Status: Tobacco use Status Tobacco use date assessed 04/11/24 04/11/24 13:16 Patient Tobacco Use Status Never used Tobacco 04/11/24 13:12 e-Cigarette/Vaping Use Never Used 04/11/24 13:12 PHQ-9: PHQ-9 Score PHQ-9: Total score 6 04/11/24 13:24 Depression Screening Interpretation: Negative Thrive Assessment: Date of Thrive Assessment Date Thrive assessed 12/23/23 04/11/24 13:12 Currently or been in a relationship where the following occur: I choose not to answer Const General: No confusion Orientation/consciousness: No confusion HENMT Head: Yes normocephalic Ears: external ears normal, TM's normal bilaterally and EAC's normal Face and sinus: Yes face symmetric Mouth: Normal oral and palatal mucosa present, lip normal, tongue normal, oropharynx normal and moist mucous membranes Eyes General: appearance normal, both eyes and all related structures Pupils: Equal, round and reactive pupils present Neck Neck: Yes full ROM, Yes no lymphadenopathy and Yes supple Resp Effort & Inspection: normal respiratory effort Auscultation: clear to auscultation bilaterally Cardio Rate: regular rate Rhythm: regular rhythm Heart sounds: S1 normal heart sound present GI Palpation (GI): Soft to palpation, nontender, no guarding and no masses General: Yes no CVA tenderness Back/Spine/Pelvis Back: no CVA tenderness and No back tenderness Skin General skin exam: no rashes or lesions noted Neuro Other: Has difficulty forming words, but comprehension and memory intact General: No confusion Cranial nerves: Yes Equal, round and reactive pupils present Cognition (Neuro): normal cognition Motor exam (neuro): 5/5 motor strength present throughout Romberg Test: Negative Extrem General: Yes full ROM, Yes no joint enlargement and Yes no clubbing, cyanosis or edema Psych Appearance: grossly normal and well kempt Mental Status: mental status grossly normal Speech and movement: Slurred speech present Affect: normal affect Attitude: cooperative Thought content: Normal thought content present Results Reviewed Results Reviewed: Name: Kinza Blair Age/Sex: 78/F : 1945 Unit#: [id number] Attend Dr: Edu Vila MD Re04/08/24 Status: REG RCR Location: HO.ONC Disch: SPEC : [id number] FANY: 04/08/24 STATUS: COMP REQ : [id number] RECD: 04/08/24-[address]: Edu Vila MD COMP: 04/08/24 ENTERED: 04/08/[address]: Mary Henderson MD ORDERED: CMP, Ferritin/R Test Result Flag Reference Sodium 140 135-145 mmol/L Potassium 3.6 3.3-5.1 mmol/L CL 107 96-108 mmol/L CO2 28 22-29 mmol/L Gap 9 L 12-20 BUN 13 9-16 mg/dL Creat 0.72 0.5-1.4 mg/dL Estimated CrCl 60.9 Provided height and weight: 160.02 cm, 66.6 kg. eGFR (calculated from the MDRD study equation) and eCrCl (calculated from the Cockcroft-Gault equation) are based on different parameters and may not yield comparable results. If eCrCl result is absurd, please check patient's height/weight. eGFR > 60 Chronic Kidney Disease: Estimated GFR < 60 mL/min/1.73m2 Severe Kidney Disease: Estimated GFR < 15 mL/min/1.7 3m2 Glucose, Random 94 60-115 mg/dL CA 9.2 8.4-10.2 mg/dL Ferritin 86 10-250 ng/mL Total Bili 1.0 0.0-1.0 mg/dL AST (GOT) 35 H 5-31 U/L ALT (GPT) 23 0-31 U/L Protein, Total 7.8 6.5-8.0 g/dL Alb 4.1 3.5-5.0 g/dL Alk Phos 80 39-117 U/L Name: Kinza Blair Age/Sex: 78/F : 1945 Unit#: [id number] Attend Dr: Mary Henderson MD Re02/13/24 Status: DEP REF Location: HO.HMGCLDS Disch: SPEC : [id number] FANY: 02/13/24 STATUS: COMP REQ : [id number] RECD: 02/13/[address]: Mary Henderson MD COMP: 02/13/24 ENTERED: 02/13/24 [facility] DR: ORDERED: Met Prof Fast, AST, ALT, Lipid Panel, Vitamin D 25-OH, Free T4, TSH Test Result Flag Reference Sodium 144 135-145 mmol/L Potassium 3.9 3.3-5.1 mmol/L CL 109 H 96-108 mmol/L CO2 27 22-29 mmol/L Gap 12 12-20 BUN 16 9-16 mg/dL Creat 0.80 0.5-1.4 mg/dL EGFR > 60 NOTE: For -[place] individuals, multiply the result by 1.210. Chronic Kidney Disease: Estimated GFR < 60 mL/min/1.73m2 Severe Kidney Disease: Estimated GFR < 15 mL/min/1.73m2 FBS 119 H 60-99 mg/dL A fasting glucose from 100-125 mg/dl is considered impaired (pre-diabetes). CA 10.0 # 8.4-10.2 mg/dL AST (GOT) 46 H 5-31 U/L ALT (GPT) 30 0-31 U/L Triglyceride 112 <150 mg/dL Desirable Triglyceride: less than 150 mg/dL Borderline High Triglyceride 150-199 mg/dL High Triglyceride: 200-499 mg/dL Very High Triglyceride: greater than or equal to 5OO mg/dL Cholesterol 174 <200 mg/dL Desirable Cholesterol: less than 200 mg/dL Borderline High Cholesterol: 200-239 mg/dL High Cholesterol: greater than 239 mg/dL LDL Calculated 100 H <100 mg/dL Desirable LDL: less than 100 mg/dL Near Optimal/Above Optimal LDL: 110-129 mg/dL Borderline High LDL: 130-159 mg/dL High LDL: 160-189 mg/dL Very High LDL: greater than or equal to 190 mg/dL HDL 52 >40 mg/dL Desirable HDL: greater than 40 mg/dL Note: This HDL assay may give artificially low results in patients with liver disease. Vit D 25-OH Tot 27.0 L >30 ng/mL Health Based Reference Values* < 20 ng/mL Deficient 20-30 ng/mL Insufficient > 30 ng/mL Sufficient *Janie GARDUNO. N Engl J Med. 2007;357:266-280 Care must be taken in interpreting Vitamin D results from different laboratories and methodologies. Published data demonstrated that results from patients undergoing hemodialysis may show a negative bias when tested with various automated 25-OH vitamin D assays when compared to LC-MS/MS. When testing samples from patients whose predominant form of Vitamin D is Vitamin D2, such as patients receiving Vitamin D2 supplementation, results that are subtherapeutic should be confirmed with another method such as LC-MS/MS. Free T4 0.91 0.71-1.85 ng/dL TSH 3rd Gen. 1.83 0.32-4.0 uIU/mL TSH 3rd Generation ([facility]) Coding Level of Care Code Est Pt Level 4 (16046) Complex EM visit Add On G2211 Diagnoses Essential hypertension I10 Dyslipidemia E78.5 Acquired hypothyroidism E03.9 Primary osteoarthritis of right knee M17.11 Osteoarthritis type: primary Stress incontinence N39.3 Unsteady gait R26.81 Assessment & Plan Assessment & Plan (1) Essential hypertension: Code(s): I10 - Essential (primary) hypertension Category: Medical (2) Dyslipidemia: Code(s): E78.5 - Hyperlipidemia, unspecified Category: Medical (3) Acquired hypothyroidism: Code(s): E03.9 - Hypothyroidism, unspecified Category: Medical (4) Osteoarthritis of right knee: Code(s): M17.11 - Unilateral primary osteoarthritis, right knee Category: Medical Qualifiers: Osteoarthritis type: primary Qualified Code(s): M17.11 - Unilateral primary osteoarthritis, right knee (5) Stress incontinence: Comment: On Oxybutynin Code(s): N39.3 - Stress incontinence (female) (male) Category: Medical (6) Unsteady gait: Code(s): R26.81 - Unsteadiness on feet Category: Medical Plan - Continue all current medications as prescribed. - Maintain your hydration, aiming to drink more water throughout the day. - Consider lozenges or lemon wedges to help with dry mouth. - Ensure to receive the COVID booster and shingles vaccinations. - Continue current Prolia infusions; ensure follow-ups for bone density. - Engage regularly in exercises recommended by your speech therapist. - Use topical patches like Salonpas for arthritis pain as needed. - Monitor blood pressure regularly and report any significant changes. - Follow up any new concerns or symptoms with your healthcare provider. - Ensure regular communication of outside medical visits and test results to me for continuity of care. Orders: Orders Lipid Panel 08/22/24 E03.9 - Hypothyroidism, unspecified, E78.5 - Hyperlipidemia, unspecified, I10 - Essential (primary) hypertension, M17.11 - Unilateral primary osteoarthritis, right knee, N39.3 - Stress incontinence (female) (male) Basic Metabolic Panel Fasting 08/22/24 E03.9 - Hypothyroidism, unspecified, E78.5 - Hyperlipidemia, unspecified, I10 - Essential (primary) hypertension, M17.11 - Unilateral primary osteoarthritis, right knee, N39.3 - Stress incontinence (female) (male) Aspartate Amino Transferase 08/22/24 E03.9 - Hypothyroidism, unspecified, E78.5 - Hyperlipidemia, unspecified, I10 - Essential (primary) hypertension, M17.11 - Unilateral primary osteoarthritis, right knee, N39.3 - Stress incontinence (female) (male) Thyroid Stimulating Hormone 08/22/24 E03.9 - Hypothyroidism, unspecified, E78.5 - Hyperlipidemia, unspecified, I10 - Essential (primary) hypertension, M17.11 - Unilateral primary osteoarthritis, right knee, N39.3 - Stress incontinence (female) (male) Free T4 (Free Thyroxine) 08/22/24 E03.9 - Hypothyroidism, unspecified, E78.5 - Hyperlipidemia, unspecified, I10 - Essential (primary) hypertension, M17.11 - Unilateral primary osteoarthritis, right knee, N39.3 - Stress incontinence (female) (male) Alanine Aminotransferase 08/22/24 E03.9 - Hypothyroidism, unspecified, E78.5 - Hyperlipidemia, unspecified, I10 - Essential (primary) hypertension, M17.11 - Unilateral primary osteoarthritis, right knee, N39.3 - Stress incontinence (female) (male)
[2024-04-11 13:12] VITALS: BP 140/72; PULSE 70; O2SAT 97; BMI 26.2
== END 2024-04-11 13:59 | disposition home or self-care (01) ==
PROVIDERS: PCP Internal Medicine; Visit Provider Internal Medicine
DX: I10 Essential (primary) hypertension (principal); E78.5 Hyperlipidemia, unspecified; E03.9 Hypothyroidism, unspecified; M17.11 Unilateral primary osteoarthritis, right knee; N39.3 Stress incontinence (female) (male); R26.81 Unsteadiness on feet

== ENCOUNTER → 2024-04-11 12:53 | Outpatient (BNVA) | payer MEDICARE, OTHER, SELFPAY | PROVIDERS: PCP Internal Medicine; Visit Provider Internal Medicine | DX: I10 Essential (primary) hypertension (principal); E78.5 Hyperlipidemia, unspecified; E03.9 Hypothyroidism, unspecified; M17.11 Unilateral primary osteoarthritis, right knee; N39.3 Stress incontinence (female) (male); R26.81 Unsteadiness on feet | CPT/HCPCS: 96127; 99212 ==

== ENCOUNTER 2024-05-21 08:51 | Outpatient (REF) | payer MEDICARE, OTHER, SELFPAY ==
--- NOTE | ~2024-05-21 | XR_ITS ---
CLINICAL HISTORY: S72.009A - Fracture of unspecified part of neck of unspecified femur, in... 1 view pelvis Comparison: None Findings: ORIF of the right hip. No acute fracture or dislocation. No significant arthritic changes. Soft tissues are unremarkable. IMPRESSION: 1. No acute findings. This document has been electronically signed by: Joyce Weir MD on 05/22/2024 16:47:01
--- NOTE | ~2024-05-21 | XR_ITS ---
CLINICAL HISTORY: S72.009A - Fracture of unspecified part of neck of unspecified femur, in... 2 view right femur Comparison: DX - XR PELVIS 1-2V - 05/21/24 13:19 EST Findings: No fractures or dislocations. ORIF of the right hip. No knee effusion. No significant arthritic change. No radiopaque foreign body. IMPRESSION: 1. Normal right femur This document has been electronically signed by: Joyce Weir MD on 05/22/2024 16:33:05
== END 2024-05-21 08:52 | disposition home or self-care (01) ==
LOC: HO.HOSX 08:51
PROVIDERS: Visit Provider Physician Assistant
DX: S72.001A Fracture of unspecified part of neck of right femur, initial encounter for closed fracture (principal)
CPT/HCPCS: 72170; 73552; 99212

== ENCOUNTER 2024-05-21 13:07 | Outpatient (AMB) | payer MEDICARE, OTHER, SELFPAY ==
--- NOTE | 2024-05-21 13:25 | MHC.OFFVIS ---
Vital Signs 05/21/24 13:33 Height 5 ft 3 in Weight 148 lb BMI 26.2 Intake Visit Reasons: OV - right hip pain, S/P Rt Hip IMN 12/23/23 Intake Note: Kinza is a 79 year old female who presents today for a follow up of her right hip pain, S/P Right Hip IMN 12/23/23 Patient reports she is unable to apply full weight on her right side. Patient is still going to PT at [facility] which is giving her mild relief. Allergies cortisone Allergy (Intermediate, Verified 05/21/24 13:26) Rash Cephalosporins Allergy (Mild, Verified 05/21/24 13:26) JAUNDICE KETOLIDES Allergy (Unknown, Uncoded 04/11/24 13:22) ITCHING MACORLIDES Allergy (Unknown, Uncoded 04/11/24 13:22) ITCHING HPI HPI OV - right hip pain, S/P Rt Hip IMN 12/23/23 DR: Details: Ms. Blair is a 79-year-old female who presents to the office today for routine follow-up status post right hip IM nail on 12/23/[address] Garvin. She reports she has continued working with [facility] physical therapy but continues to have pain on the lateral aspect of her right thigh. She continues to use a walker for ambulation. The pain mostly persists with standing for long periods of time. [facility] Medical History (Updated 04/14/24 @ 16:50 by Mary Henderson MD) Closed hip fracture History of adenomatous polyp of colon Expressive aphasia Essential hypertension Dyslipidemia Acquired hypothyroidism Intertrochanteric fracture of right hip Dysphagia Essential hypertension Osteoporosis GERD (gastroesophageal reflux disease) Aphasia High cholesterol High blood pressure Anemia Dyspnea on exertion T11 vertebral fracture Hypothyroidism Surgical History History of bone marrow biopsy History of excision of mass History of cholecystectomy History of tonsillectomy History of vertebroplasty History of kyphoplasty Family History Father Esophageal cancer Substance use disorder Mother Breast cancer Paternal Aunt Breast cancer Social History Household Members: Spouse [facility]: [facility] Are you a primary home care liaison to a significant other at home: No Do you presently have visiting nurse or other home services: No Alcohol intake: current Alcohol intake frequency: holidays/special occasions only Patient Tobacco Use Status: Never used Tobacco e-Cigarette/Vaping Use: Never Used Second Hand Smoke Exposure: No service: No Current occupational status: 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 Good internal and external rotation. Able to perform straight leg raise. NVI. Assessment & Plan Assessment & Plan (1) Closed hip fracture: Code(s): S72.009A - Fracture of unspecified part of neck of unspecified femur, initial encounter for closed fracture Category: Medical Plan Ms. Blair is a 79-year-old female who presents to the office today for routine follow-up status post right hip IM nail on 12/23/[address] Garvin. She reports she has continued working with [facility] but continues to have pain on the lateral aspect of her right thigh. She continues to use a walker for ambulation. The pain mostly persists with standing for long periods of time. While the office today, I encouraged the patient to continue with physical therapy to work on glute core and quad strengthening as well as gait training with use of a walker. Patient asked if she would be able to return to driving. However, at this time it does not appear as though she has good functional strength in the right lower extremity therefore I have recommended she continue to not drive at this time. I would like to see her back in 6-8 weeks with repeat x-rays, sooner if needed. X-rays obtained in the office today reveal intact orthopedic hardware with routine healing. Orders: Orders XR pelvis 1-2V Today S72.009A - Fracture of unspecified part of neck of unspecified femur, initial encounter for closed fracture XR femur RT 2V Today S72.009A - Fracture of unspecified part of neck of unspecified femur, initial encounter for closed fracture Coding Level of Care Code Est Pt Level 3 (79034) Diagnoses Closed hip fracture S72.009A
[2024-05-21 13:33] VITALS: BMI 26.2
--- OUTSIDE RECORDS SUMMARY | 2024-05-21 14:05 | XMS_ITS | Patient Health Record ---
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 Name Role Phone Beck Hernandez Primary Care Provider Zach Ho Unavailable [phone] ALLERGIES Allergen (clinical drug ingredient) Drug/Non Drug [...] malignant neoplasm of colon (Z12.11) Active confirmed 424032040 Problem History of adenomatous polyp of colon (Z86.010) Active confirmed 662428996 Problem Change in bowel habits (R19.4) Active confirmed 68228217 Problem Hypertension (I10) Active confirmed 383 94788 Problem Diverticulosis of large intestine without perforation or abscess without bleeding (K57.30) Active confirmed Diverticul ar disease of colon (460810561) Problem Blood in stool (K92.1) Active confirmed 648077862 Problem Gastroesophageal reflux disease without esophagitis (K21.9) Active confirmed 988314618 Problem Rectal urgency (R15.2) Active confirmed 81249407 Problem Long-term use of aspirin therapy (Z79.82) Active confirmed 873728845 Problem Loose bowel movements (R19.5) Active confirmed 870185366 PLAN OF TREATMENT Future Test Test Name Order Date COLONOSCOPY 09/06/2011 COLONOSCOPY 01/19/2017 COLONOSCOPY 01/17/2023 Insurance Providers Payer Name Payer Address Payer Phone Subscriber Number Group Number Insured Name Patient Relationship to Insured Coverage Start Date Coverage End Date MEDICARE OF [place] [address] [place] [address] [id number] NEELIMA CLAU Self - patient is the insured [employer] [address] [place] [phone] [id number] NEELIMA CLAU Self - patient is the insured [employer] [address] [place] [address] [id number] YANCLAU Solares Self - patient is the insured MEDICAL (GENERAL) HISTORY Medical History History ICD Code Tubular adenoma was removed in 2005 during colonoscopy--a colonoscopy in 2001 was negative Colonoscopy 09/22/2011--nega tive except for some diverticulosis and internal hemorrhoids GERD-upper endoscopy in 2001 was negative for any esophagitis or Pollock's esophagus Hypertension Depression Hyperlipidemia Denies [place],DM,CVA,Lung disease,renal dise ase Sleep apnea-uses a CPAP [...]
--- OUTSIDE RECORDS SUMMARY | 2024-05-21 14:05 | XMS_ITS ---
Author Organization [facility] Address [address] [place] [address] Care Team Providers Care Manager Terminal Name Role Phone Beck Hernandez Primary Care Provider Unavailab Zach Mayorga Unavailable [phone] REASON FOR VISIT screening,hx polyps PROBLEMS Problem Type ICD Code Onset Dates Problem Status W/U Status Risk SNOMED Code Notes Problem Diverticulosis of large intestine without perforation or abscess without bleeding (K57.30) Active confirmed Diverticul ar disease of colon (170471777) Encounters Encounter Location Date Provider Diagnosis [facility] [place] Outpatient [address] [place] [phone] 01/23/2023 Zach Hewitt Encounter for scre ening colonoscopy for [id number] patient Z12.11 ; Colon polyp K63.5 ; Diverticulosis of large intestine without perforation or abscess without bleeding K57.30 and Other hemorrhoids K64.8 ASSESSMENTS Encounter Date Diagnosis Assessment Notes Treatment Notes Treatment Clinical Notes 01/23/2023 Encounter for screening colonoscopy for [id number] patient (ICD-10 - Z12.11) 01/23/2023 Colon polyp (ICD-10 - K63.5) 01/23/2023 Diverticulosis of large intestine without perforation or abscess without bleeding (ICD-10 - K57.30) 01/23/2023 Other hemorrhoids (ICD-10 - K64.8) PLAN OF TREATMENT No Information
--- OUTSIDE RECORDS SUMMARY | 2024-05-21 14:05 | XMS_ITS ---
Author Organization [facility] Address [address] [place] [address] Care Team Providers Care Mothers Helper Name Role Phone Beck Hernandez Primary Care Provider Unavailab Zach Mayorga Unavailable [phone] Encounters Encounter Location Date Provider Diagnosis [facility] [address] [place] [address] 01/20/2023 Zach Hewitt PLAN OF TREATMENT No Information
--- OUTSIDE RECORDS SUMMARY | 2024-05-21 14:05 | XMS_ITS ---
Author Organization [facility] on Address Unknown Allergies, Adverse Reactions, Alerts Substance Reaction Status Noted Date Resolved Date Macorlides active 12/27/2023 ketolidis active 12/27/2023 Cephalosporins active 12/27/2023 Problems Problem Status Start Date End Date DISPLACED FRACTURE OF BASE O F NECK OF RIGHT FEMUR, SUBSEQUENT ENCOUNTER FOR CLOSED FRACTURE WITH ROUTINE HEALING (Primary) (S72.041D - ICD-10-CM) ACTIVE 12/27/2023 URINARY TRACT INFECTION, SIT E NOT SPECIFIED (N39.0 - ICD-10-CM) ACTIVE 12/27/2023 ACUTE PULMONARY EDEMA (J81.0 - ICD-10-CM) ACTIVE 12/27/2023 HYPOTHYROIDISM, UNSPECIFIED (E03.9 - ICD-10-CM) ACTIVE 12/27/2023 MYELODYSPLASTIC SYNDROME, 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 with home health services [facility] [place] 12/27/2023 04:20 pm EDT - 01/05/2024 12:28 pm EDT Immunizations Vaccine Date Pneumococcal Conjugate Vaccine (PCV13) 1 05/16/2014 12:00 am EST Pneumococcal Polysaccharide Vaccine (PPS V23) 01/11/2018 12:00 am EDT SARS-COV-2 (COVID-19) 11/14/2021 12:00 a m EDT SARS-COV-2 (COVID-19) 02/24/2021 12:00 a m EDT Prevnar 20 Pneumococcal conjugate (PCV20 ) SARS-COV-2 (COVID-19 BOOSTER) 02/07/2022 12:00 am EDT RSV, bivalent, protein subunit RSVpreF, diluent rec SARS-COV-2 (COVID-19) vaccine, UNSPECIFI ED Influenza, high dose seasonal Td (adult) 02/01/2019 12:00 am EDT Social History
--- OUTSIDE RECORDS SUMMARY | 2024-05-21 14:06 | XMS_ITS | Data Portability ---
Author Organization [place] [facility], [facility]_ Address [address] [facility] [address] [place] [address] Assessment Encounter Date Assessment Date Assessment LastModified by Organization Details LastModified Time 03/24/2023 03/24/2023 Moderate to severe arthritis of the right hand with ring finger PIP joint fractured Silastic implant. X-ray of the right hand shows moderate to severe arthritis of all DIP joints with ring finger PIP joint Silastic replacement with fracture stem and ulnar deviation of 40 degrees at the PIP joint. Small finger DIP joint shows evidence of autofusion. The MCP joint shows mild to moderate arthritis of all the MCP joint with moderate arthritis of the CMC joint with intact radiocarpal joint. Her main complaint today is the PIP joint of index long and ring finger with pain. She has good functional range of motion however with 0-80+ degrees in all the PIP joint. The index and long PIP joint is painful on motion. The ring finger is deformed and ulnarly deviated 30 to 40 degrees at the PIP joint however has good functional motion with some pain. The other joint despite the arthritis has very little symptoms at this point. I would recommend injection of the index and long PIP joint and she agreed. Under sterile prepping we injected those 2 joints without problems. Her ring finger PIP joint has a fractured implant that could be revised later especially if she wishes to proceed with replacement of the index and long PIP joint in the future. We will see her back in 2 to 3 months for possible repeat injection and 1 day may need replacement of the index and long PIP joint and revision of the ring finger PIP joint Silastic arthroplasty. Not available 03/24/2023 13:26:51 Plan of Treatment Reminders Order Date Submit Date Provider Last Modified By Organization Details Last Modified Time Details Appointments None record ed. Lab None record ed. Referral None record ed. Procedures None record ed. Surgeries None record ed. Imaging XR, hand, 3 or more view 023 03/24/20 23 [email or web address] [facility], [address] [facility], [place], [address], 13:47:20 Medication Orders None record ed. Patient TargetsNo targets recorded. Patient Instructions Encounter Date Encounter Id Patient Instructions Last Modified By Organization Details Last Modified Time 03/24/2023 [id number] hand arthritis: exercises Not available 03/24/2023 13:32:06 Moderate to delia re arthritis of the right hand with ring finger PIP joint fractured Silastic implant. Patient presents with right hand pain, onset 2 months ago. Patient states she had a knuckle replacement on her right ring finger in 2006. X-rays were obtained in the office today. Personal review of plain films shows moderate to severe arthritis of all DIP joints with ring finger PIP joint Silastic replacement with fracture stem and ulnar deviation of 40 degrees at the PIP joint. Small finger DIP joint shows evidence of autofusion. The MCP joint shows mild to moderate arthritis of all the MCP joint with moderate arthritis of the CMC joint with intact radiocarpal joint. On exam, her main complaint today is the PIP joint of index long and ring finger with pain. She has good functional range of motion however with 0-80+ degrees in all the PIP joint. The index and long PIP joint is painful on motion. The ring finger is deformed and ulnarly deviated 30 to 40 degrees at the PIP joint however has good functional motion with some pain. The other joint despite the arthritis has very little symptoms at this point. I would recommend injection of the index and long PIP joint and she agreed. Under sterile prepping we injected those 2 joints without problems. Her ring finger PIP joint has a fractured implant that could be revised later especially if she wishes to proceed with replacement of the index and long PIP joint in the future. We will see her back in 2 to 3 months for possible repeat injection and 1 day may need replacement of the index and long PIP joint and revision of the ring finger PIP joint Silastic arthroplasty. Not available 03/24/2023 13:27:10 06/13/2023 [id number] hand arthritis: exercises Not available 06/13/2023 11:58:35 Right hand moderate to severe arthritis with ring finger PIP joint fractured Silastic implant. Patient presents with right hand pain, onset 2 months ago. Patient states she had a knuckle replacement on her right ring finger in 2006. Previous xrays showed moderate to severe arthritis of all DIP joints with ring finger PIP joint Silastic replacement with fracture stem and ulnar deviation of 40 degrees at the PIP joint. Small finger DIP joint shows evidence of autofusion. The MCP joint shows mild to moderate arthritis of all the MCP joint with moderate arthritis of the CMC joint with intact radiocarpal joint. On exam, her main complaint today is the PIP joint of index long and ring finger with pain. She has good functional range of motion however with 0-80+ degrees in all the PIP joint. The index and long PIP joint is painful on motion. The ring finger is deformed and ulnarly deviated 30 to 40 degrees at the PIP joint however has good functional motion with some pain. The other joint despite the arthritis has very little symptoms at this point. She had CSI to index and long PIPJ on 03/24/23 and it helped but getting painful again. I would recommend repeat injection of the index and long PIP joint and she agreed. Under sterile prepping we injected those 2 joints without problems. Her ring finger PIP joint has a fractured implant that could be revised later especially if she wishes to proceed with replacement of the index and long PIP joint in the future. We will see her back as needed. [email or web address] Not available 06/13/2023 11:57:58 08/11/2023 [id number] learning about healthy weight Not available 08/11/2023 09:19:50 Patient presents with family member with left hand pain, DOI: 08/04/23. Patient states she went to urgent care for x-rays and a splint. Personal review of outside plain films show polyarticular destructive arthritis of the small joints and wrist. There is also an extraarticular non-displaced fracture 4th metacarpal base. This was discussed with the patient. On exam, she is tender along the base of the 4th metacarpal. At this time, I recommend she is placed in an ulnar gutter exos brace, she agrees and understands. We provided one for her in office today. She will be returning home up [place] and plans on scheduling her follow up appointments there. I advised her to receive repeat x-rays in 2 weeks, she understands. Not available 08/11/2023 09:19:40 08/16/2023 [id number] Patient placed EXOs brace in the microwave causing a defect in the brace. A new EXOs was reapplied. Discussed further EXOs and hand hygiene care. Follow-up PRN [email or web address] Not available 08/16/2023 13:19:23 Reason for Referral None Reported. Results Created Date Observation Date Name Description Value Unit Range Abnormal Flag Note LastModifiedBy Organization Detail LastModifiedTime Result Notes None recorded. Problems No Known Problems Procedures Surgical History Date Name Laterality Status Provider Name and Address Organization Details Recorded Time 08/11/19 24 Advance Care Planning - Advance Care Plan/Surrogate Documented - 1123F [place] [address],[place], [address], [facility] [employer] [facility] 08/11/2023 07:03:59 08/11/19 24 FOI DME L3984 EXOS FRACTURE [place]ACE [place] [address], [place], [address], [facility] [employer] [facility] 08/11/2023 09:17:27 06/13/19 24 FSOSM Hero small injection completed April Molina PA-C [address],[place], [address], [facility] [employer] [facility] 06/13/2023 11:55:42 06/13/19 24 Advance Care Planning - Advance Care Plan/Surrogate Documented - 1123F completed April Molina PA-C [address] [facility] [address], [place], [address], [facility] [employer] [facility] 06/13/2023 11:55:18 03/24/20 23 FSOSM Monahan [place] [address],[place], [address], [facility] [employer] [facility] 03/24/2023 13:28:51 03/24/20 23 Advance Care Planning - Advance Care Plan/Surrogate Documented - 1123F [place] [address] [facility] [address], [place], [address], [facility] - [facility] 03/24/2023 07:50:25 Cataract Surgery completed Not Available [facility] 03/24/2023 12:30:29 Hernia Repair completed Not Available [employer] 1 05/25/2022 12:30:29 Gallbladder Surgery completed Not Available [employer] 03/24/2023 12:30:29 Orthopedic Surgery completed Not Available [employer] 03/24/2023 12:30:29 Artificial Joint completed Not Available [employer] 03/24/2023 12:30:29 Tonsillectomy completed Not Available [employer] 0 08/11/2023 08:23:29 Imaging Results None recorded. Procedure Notes None recorded. Medical Equipment None Reported. Allergies Allergen ID Allergen Name Allergen Category Reaction Reaction Severity Criticality Documentation Date Start Date Code Code System Note Provider Name and Address Organization Details Recorded Time [id number] 2824e Product containin g cephalosp nadira (product) medicatio n Not available Not available Not available 03/24/2023 40100 9009 SNOMED Not Available Not Available Not Available Medications Name Sig Start Date Stop Date Status Note LastModified by Organization Details LastModified Time losartan 50 mg tablet active Not Available Not Available No t Available V-R Calcium-Mag nesium-Zinc 1000 mg-400 mg-15 mg tablet Take by oral route. active Not Available Not Available No t Available azithromyci n 250 mg tablet TAKE 2 TABLETS BY MOUTH TODAY, THEN TAKE 1 TABLET DAILY FOR 4 DAYS DIRECTED 06/13 completed Not Available Not Available Not Available sertraline 100 mg tablet active Not Available Not Available Not Available potassium chloride ER 10 mEq tablet,exte nded release TAKE 1 TABLET BY MOUTH DAILY active Not Available Not Available No t Available chlorthalid one 25 mg tablet active Not Available Not Available Not Available amoxicillin 500 mg tablet TAKE 1 TABLET BY MOUTH EVERY 12 HOURS FOR 5 DAYS 06/13 completed Not Available Not Available Not Available benzonatate 100 mg capsule TAKE 1 CAPSULE BY MOUTH 3 TIMES A DAY FOR 10 DAYS NEEDED FOR COUGH 06/13 completed Not Available Not Available Not Available simvastatin 20 mg tablet active Not Available Not Available Not Available levothyroxi ne 150 mcg tablet active Not Available Not Available Not Available omeprazole 20 mg capsule,del ayed release active Not Available Not Available Not Available atenolol 50 mg tablet active Not Available Not Available No t Available Vitamin D3 active Not Available Not Av ailable Not Available Prolia 60 mg/mL subcutaneou s syringe Inject 1 mL by subcutane ous route. active Not Available Not Available No t Available vitamin B12 1,000 mcg-folic acid [address] by sublingua l route. active Not Available Not Available No t Available Vitals Date Recorded Body weight Provider Name an d Address Organization Details Last Updated DateTime 03/24/2023 37633.26 g Yeyo Holden [place] [facility] 03/24/2023 12:39:07 Date Recorded Body mass index (BMI) Body height Provider Name and Address Organization Details Last Updated DateTime 03/24/2023 26.4 kg/m2 160.02 cm Yeyo Holden [place] [facility] 03/24/2023 12:39:12 Date Recorded Body height Provider Name an d Address Organization Details Last Updated DateTime 06/13/2023 160.02 cm SAURAV Painter [address],[place], [address], [place] [facility] 06/13/2023 11:49:40 Date Recorded Body mass index (BMI) Body weight Provider Name and Address Organization Details Last Updated DateTime 06/13/2023 26.4 kg/m2 91669.26 g April Molina PA-C [address],[place], [address], [place] [facility] 06/13/2023 11:49:44 Date Recorded Body height Provider Name an d Address Organization Details Last Updated DateTime 08/11/2023 160.02 cm Noni Pinzon [place] [facility] 08/11/2023 08:38:57 Date Recorded Body mass index (BMI) Body weight Provider Name and Address Organization Details Last Updated DateTime 08/11/2023 26.6 kg/m2 46971.86 g Noni Pinzon [place] [facility] 08/11/2023 08:39:02 Social History Question Answer Notes LastModified by Organizat ion Details LastModified Time Tobacco Smoking Status Never Smoker Not Available [employer] 03/24/2023 12:30:28 Do You Have An Advance Directive? Yes [email or web address] Information not available 03/24/2023 Are You Currently Taking Prescription Pain Medications? No [email or web address] Information not available 08/11/2023 Are You Currently Being Seen For Pain Management? No [email or web address] Information not available 03/24/2023 I Have Received Hospice Services This Year Or Am Currently Receiving Hospice Care No [email or web address] Information not available 03/24/2023 I Have Fallen 2 Or More Times In The Past Year. Yes [email or web address] Information not available 03/24/2023 I Had A Fall That Resulted In A Broken Bone In The Past Year. No [email or web address] Information not available 03/24/2023 Is This An Auto Related Injury? No [email or web address] Information not available 03/24/2023 Is This A Work Related Injury? No [email or web address] Information not available 03/24/2023 What Was The Date Of Your Most Recent Tobacco Screening? 08/11/2023 [email or web address] Information not available 08/11/2023 What Is Your Relationship Status? [email or web address] Information not available 03/24/2023 Do You Or Have You Ever Used Any Other Forms Of Tobacco Or Nicotine? No [email or web address] Information not available 03/24/2023 Sex: Unknown Functional Status None recorded. Mental Status None recorded. Family History Relationship Description Onset Age of this Age Resolved Age Notes LastModified by Organization Details LastModified Time Mother Heart disease [email or web address] Not available 2022 12:39:28 Medical History Condition Response Bowel Disease Y Anxiety/Depression Y Thyroid Disease Y High Blood Pressure Y Osteoarthritis Y Arthritis Y Head Trauma/Injury Y Acid Reflux (GERD) Y Cancer Y Artificial Joints Y Thyroid Problems Y Cataract Y Hypothyroidism Y GERD/Ulcers Y Anemia Y Back Pain Y High Cholesterol Y Neurologic Disorder Y Hypertension Y Have you ever had a reaction to ANESTHES IA Y Osteoporosis Y Gynecological HistoryNo gynecological history recorded. Obstetrics History GPAL:G 0 P 0 0 0 0 Immunizations Vaccine Type Date Status Note Provider Nam e and Address Organization Details Recorded Time SARS-COV-2 (COVID-19) vaccine, UNSPECIFIED 03/04/2021 completed Yeyo conteh, [place] - [facility] 03/24/2023 12:40:10 influenza, unspecified formulation 01/31/2023 completed Yeyo conteh, [place] - [facility] 03/24/2023 12:40:24 Past Encounters Encounter ID Performer Location Encounter Start Date Encounter Closed Date Diagnosis/Indication Diagnosis SNOMED-CT Code Diagnosis ICD10 Code Diagnosis Note [id number] Andrea Mnoahan MD [facility] [place] [address] 03/24/2023 11:57:48 03/24/2023 13:23:16 Pain in right hand 6038160816 46383 M79.641 Arthritis of hand 302057 005 M13.849 M13.742 [id number] Andrea Monahan MD [facility] [place] [address] 06/13/2023 11:30:40 06/13/2023 11:45:44 Arthritis of hand 981861829 M13.134 [id number] Jhony Guillory MD [facility]_PH [address] [address] 08/11/2023 08:23:26 08/11/2023 09:27:12 Obesity 200631104 E66.3 Closed fra cture of base of fourth metacarpal bone of left hand 0815721810 4043791 S62.315A [id number] Jhony Guillory MD [facility]_PH [address] [address] 08/16/2023 12:54:45 08/16/2023 13:12:11 Closed fracture of base of fourth metacarpal bone of left hand 9956029051 7437307 S62.315A Health Concerns Section Related Observation LastModified by Organization Detai ls LastModified Time None Recorded Concern Status LastModified by Organization Details LastModified Time None Recorded Advance Directives Directive Y: Payers Encounter Date Sequence Insurance Name Policy Number Policy Monroy Covered Member ID Monroy Member ID Guarantor Name 03/24/2023 1 [place] A Pare [id number] Kinza Pare 03/24/2023 2 [place] [id number] Kinza A Pare [id number] Kinza Pare 06/13/2023 1 [place] P[place] [id number] Kinza Pare 06/13/2023 2 [place] [id number] Kinza A Pare [id number] Kinza Pare 08/11/2023 1 [place] P[place] [id number] Kinza Pare 08/11/2023 2 [place] [id number] Kinza A Pare [id number] Kinza Pare 08/16/2023 2 [place] [id number] Kinza A Pare [id number] Kinza Pare Notes Date Note Type Note Provider Name and Address Organization Details Recorded Time 03/24/2023 text/html History of Prese nt Illness ?Chief Complaint ?Finger ?Pain Location Side ?Right ?Symptom Description ?Aching ?Throbbing ?Associated Symptoms ?Pain ?Weakness ?Pain Scale - Today ?6 ?Symptom Frequency ?Constantly ?Symptom Duration ?A few months ?Date Symptoms Started ?09/28/2007 ?Symptom Context ?Other ?Injections ?3 ?Past Treatments ?Injections ?Alleviating Factors ?Heat ?Aggravating Factors ?Cold/Ice ?Weather Imported from [facility] on 03/24/2023 [place] [address], [place], [address], [facility] - [facility] [facility] 03/24/2023 13:32:10 06/13/2023 text/html History of Prese nt Illness ?Chief Complaint ?Finger ?Pain Location Side ?Right ?Symptom Description ?Aching ?Throbbing ?Associated Symptoms ?Pain ?Weakness ?Pain Scale - Today ?6 ?Symptom Frequency ?Constantly ?Symptom Duration ?A few months ?Date Symptoms Started ?09/28/2007 ?Symptom Context ?Other ?Injections ?3 ?Past Treatments ?Injections ?Alleviating Factors ?Heat ?Aggravating Factors ?Cold/Ice ?Weather Imported from [employer] on 03/24/2023 April Molina [facility]-C [address] [facility] [facility] [facility], [place], [address], [place] - [facility] [employer] [facility] 06/13/2023 11:58:37 08/11/2023 text/html History of Prese nt Illness ?Chief Complaint ?Finger/hand ?Pain Location Side ?Left ?Symptom Description ?Throbbing ?Other / Not Listed ?Associated Symptoms ?Stiffness ?Pain Scale - Today ?6 ?Symptom Frequency ?Frequently ?Symptom Duration ?A few days ?Date Symptoms Started ?08/06/2023 ?Symptom Context ?Fall ?Past Treatments ?None ?Alleviating Factors ?Cold/Ice ?Compression (Brace, Jameson Bandage, Tape, etc.) ?Aggravating Factors ?Nothing Imported from [employer] on 08/11/2023 [place] [address] [facility], [place], [address], [facility] - [employer] [facility] 08/11/2023 09:20:01 08/16/2023 text/html History of Prese nt Illness ?Chief Complaint ?Finger/hand ?Pain Location Side ?Left ?Symptom Description ?Throbbing ?Other / Not Listed ?Associated Symptoms ?Stiffness ?Pain Scale - Today ?6 ?Symptom Frequency ?Frequently ?Symptom Duration ?A few days ?Date Symptoms Started ?08/06/2023 ?Symptom Context ?Fall ?Past Treatments ?None ?Alleviating Factors ?Cold/Ice ?Compression (Brace, Jameson Bandage, Tape, etc.) ?Aggravating Factors ?Nothing Imported from [employer] on 08/11/2023 LEANDER CANAS PA-C [address] [facility],[address] [facility], [place], [address], [facility] - [facility] [facility] 08/16/2023 13:19:44 OBGyn Episode No OBEpisode recorded.
--- OUTSIDE RECORDS SUMMARY | 2024-05-21 14:06 | XMS_ITS ---
Author Organization [facility] Address [address] [place] [address] Care Team Providers Care Computer Equipment Installer Name Role Phone Beck Hernandez Primary Care Provider Zach Ho Unavailable [phone] ALLERGIES Allergen (clinical drug ingredient) Drug/Non Drug [...] Change in bowel habits (R19.4) Active confirmed [id number] Problem Loose bowel movements (R19.5) Active confirmed 690783615 Problem Rectal urgency (R15.2) Active confirmed 40006401 VITAL SIGNS BMI 26.15 kg/m2 01/17/2023 Blood pressure systolic 000 mm Hg 01/18/20 23 Blood pressure diastolic 00 mm Hg 023 Height 63.50 in 01/17/2023 Temperature 96.0 degrees Fahrenheit 01/18/20 23 Weight 150 lbs 01/17/2023 Encounters Encounter Location Date Provider Diagnosis [facility] [address] [place] [address] 01/17/2023 Zach Hewitt Gastroesophageal ref lux disease [...]
== END 2024-05-21 13:54 | disposition home or self-care (01) ==
PROVIDERS: PCP Internal Medicine; Visit Provider Physician Assistant
DX: S72.001D Fracture of unspecified part of neck of right femur, subsequent encounter for closed fracture with routine healing (principal)
CPT/HCPCS: 99213

== ENCOUNTER → 2024-05-21 13:19 | Outpatient (BNV) | payer MEDICARE, OTHER, SELFPAY | PROVIDERS: Visit Provider Radiology Diagnostic Radiology | DX: S72.009A Fracture of unspecified part of neck of unspecified femur, initial encounter for closed fracture (principal) | CPT/HCPCS: 72170; 73552 ==

== ENCOUNTER 2024-06-14 09:13 | Outpatient (AMB) | payer MEDICARE, OTHER, SELFPAY ==
--- NOTE | 2024-06-14 09:05 | MHC.PC.OV ---
Intake Visit Reasons: Psychiatric symptoms Allergies cortisone Allergy (Intermediate, Verified 06/14/24 09:23) Rash Cephalosporins Allergy (Mild, Verified 06/14/24 09:23) JAUNDICE KETOLIDES Allergy (Unknown, Uncoded 06/14/24 09:23) ITCHING MACORLIDES Allergy (Unknown, Uncoded 06/14/24 09:23) ITCHING Medication List - Last Reconciled 06/14/24 by Mary Henderson MD celecoxib (Celebrex) 200 mg PO BID 30 days chlorthalidone 12.5 mg (1/2 x 25 mg) PO QAM cholecalciferol (vitamin D3) 50 mcg PO DAILY commode As directed, 999 days denosumab (Prolia) 60 mg subcut [id number] 1 day diaper,brief,adult,disposable (Depend Easy Fit Undergarments misc) 4 times a day, As directed, 30 days levothyroxine 150 mcg PO DAILY 90 days losartan 50 mg PO DAILY 90 days mecobalamin (vitamin B12) 1,000 mcg PO DAILY metoprolol succinate ER 50 mg PO DAILY miscellaneous medical supply Panty Liners, Twice a day As directed, 90 days omeprazole 20 mg PO DAILY 90 days oxybutynin chloride ER 10 mg PO DAILY 3 months potassium chloride ER (Klor-Con) 10 mEq PO DAILY 90 days sertraline 100 mg PO DAILY simvastatin 20 mg PO DAILY Tobacco use date assessed: 06/14/24 Fall risk assessment: No Falls in past year Last assessed Fall Risk: 06/14/24 Dental Screening Dental Screen Date: 06/14/24 Did you have a dental visit in the last 12 months?: Yes Did you have a dental problem in the last 6 months where you did not have access to dental care?: No Was dental information given to patient?: Patient has dentist HPI Psychiatric symptoms HPI Details 79-year-old lady here today via telehealth requesting referral to see a therapist. Patient has history of depression and anxiety currently on sertraline 100 mg once a day, but reports frequent low mood and anxiety attacks, which she attributes to her longstanding unresolved medical issues. Patient states that she just had a nervous breakdown while receiving physical therapy several days ago. She also is requesting referral to speech therapist. Has expressive aphasia, initially seen Dr. Dumont , and is currently being followed by a neurologist in [place]. Until now however they have not arrived at any diagnosis which explains her speech difficulty.. Patient is requesting a referral to a speech therapist at [facility]. [facility] Medical History (Updated 06/14/24 @ 09:44 by Mary Henderson MD) Depression with anxiety Closed hip fracture History of adenomatous polyp of colon Expressive aphasia Essential hypertension Dyslipidemia Acquired hypothyroidism Intertrochanteric fracture of right hip Dysphagia Essential hypertension Osteoporosis GERD (gastroesophageal reflux disease) Aphasia High cholesterol High blood pressure Anemia Dyspnea on exertion T11 vertebral fracture Hypothyroidism Surgical History History of bone marrow biopsy History of excision of mass History of cholecystectomy History of tonsillectomy History of vertebroplasty History of kyphoplasty Family History Father Esophageal cancer Substance use disorder Mother Breast cancer Paternal Aunt Breast cancer Social History Household Members: Spouse Housing: [facility] Are you a primary palliative care specialist to a significant other at home: No Do you presently have visiting nurse or other home services: No Alcohol intake: current Alcohol intake frequency: holidays/special occasions only Patient Tobacco Use Status: Never used Tobacco e-Cigarette/Vaping Use: Never Used Second Hand Smoke Exposure: No service: No Current occupational status: 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 1. Little interest or pleasure in doing things: several days 2. Feeling down, depressed, or hopeless: several days 3. Trouble falling or staying asleep, or sleeping too much: not at all 4. Feeling tired or having little energy: more than half the days 5. Poor appetite or overeating: not at all 6. Feeling bad about yourself - or that you are a failure or have let yourself or your family down: several days 7. Trouble concentrating on things, such as reading the newspaper or watching television: not at all 8. Moving or speaking so slowly that other people could have noticed. Or the opposite - being so fidgety or restless that you have been moving around a lot more than usual: more than half the days 9. Thoughts that you would be better off or of hurting yourself in some way: not at all Total score: 7 Depression Screening Interpretation: Positive (Referred to Eli Casas RN for further evaluation and management) Depression Screening Follow-up: Existing condition, In treatment, Community Mental Health Worker F/U and Follow-up Visit Requested Depression Screening Done: Yes 61538 - PHQ-9 Billing: Yes Source: Developed by Drs. Zach Mccarthy, Chayito Barnhart, Bal Díaz and colleagues, with an educational anne from [employer]. Thrive Questionnaire Date Thrive assessed: 06/14/24 I am a: Patient What is your living situation today?: I have a steady place to live Within the past 12 months, did the food you bought not last and you didn't have the money to get more?: Never true Within the past 12 months, did you worry whether your food would run out before you got money to buy more?: Never true Do you have trouble paying for medicines?: No Do you have trouble getting transportation to medical appointments?: No Do you have trouble paying your heating and electricity bill?: No Do you have trouble taking care of your child, family member or friend?: No Do you have trouble with day-to-day activities such as bathing, preparing meals, shopping, managing finances, etc.?: No Are you currently unemployed and looking for a job?: No Are you interested in more education?: No THRIVE Score: 0 AUDIT C Alcohol Use Questionnaire (AUDIT-C) 1. How often do you have a drink containing alcohol?: Never Total Score: 0 SUSAN-7 AMB Questionnaire SUSAN-7 Date SUSAN - 7 assessed: 06/14/24 Feeling nervous, anxious, or on edge: 1 = Several days Not being able to stop or control worryin = Several days Worrying too much about different things: 1 = Several days Trouble relaxin = Not at all Being so restless that it is hard to sit still: 1 = Several days Becoming easily annoyed or irritable: 0 = Not at all Feeling afraid as if something awful might happen: 1 = Several days Total SUSAN-7 score (0-4 normal; 5-9 mild; 10-14 moderate; 15-21 severe): 5 Source: Developed by Drs. Zach Mccarthy, Chayito Barnhart, Bal Díaz and colleagues, with an educational anne from [employer]. SUSAN-7 Assessment Billing SUSAN-7 Assessment Tool: SUSAN-7 Assessment 12507 Review of Systems Const Denies fever(s), Denies frequent falls and Denies headache(s) Eyes Reports no additional complaints ENT Denies dysphagia, Denies dizziness and Denies headache(s) Card Denies chest pain, Denies rapid heart rate, Denies edema, Denies irregular heart rhythm and Denies dyspnea Resp Denies cough, Denies dyspnea and Denies wheezing GI Reports no additional complaints and Denies dysphagia Reports no additional complaints Musc Denies numbness and Denies tingling Skin/Breast Denies breast swelling and Denies breast pain Neuro Reports as per HPI, Denies Neuro-related abnormal movements, Denies behavioral changes, Denies confusion, Denies dizziness, Denies frequent falls, Denies headache(s), Denies numbness, Denies seizure-like activity, Denies tingling and Denies tremor(s) Psych Denies anxiety, Denies behavioral changes, Denies confusion and Denies depression Endo Reports no additional complaints Duane/Lymph Denies easy bleeding and Denies easy bruising Aller/Immun Denies wheezing Physical exam (Primary Care) Tobacco/Smoking Status: Tobacco use Status Tobacco use date assessed 06/14/24 06/14/24 09:08 Patient Tobacco Use Status Never used Tobacco 06/14/24 09:08 e-Cigarette/Vaping Use Never Used 06/14/24 09:08 PHQ-9: PHQ-9 Score PHQ-9: Total score 7 06/14/24 09:48 Depression Screening Interpretation: Positive (Referred to Eli Casas RN for further evaluation and management) Depression Screening Follow-up: Existing condition, In treatment, Community Mental Health Worker F/U and Follow-up Visit Requested Thrive Assessment: Date of Thrive Assessment Date Thrive assessed 06/14/24 06/14/24 09:12 Const General: No confusion Orientation/consciousness: No confusion Neuro General: No confusion Telehealth Telehealth Telehealth Platform: [facility] Location of provider rendering services: practice address Location of patient: address on file Patient Identification confirmed using: Name, : Yes Telehealth method: video Patient verbally consented to treatment: Yes Patient verbally consented to billing insurance company: Yes Patient informed of any privacy concerns related to visit: Yes Minutes spent on Phone/Video with Pt.: 15 Coding Level of Care Code Tele Est Pt Level 4 (47902) Complex EM visit Add On G2211 Diagnoses Depression with anxiety F41.8 Expressive aphasia R47.01 Additional Codes SUSAN-7 Assessment Billing - SUSAN-7 Assessment Tool: SUSAN-7 Assessment 48588 ([id number]) PHQ-9 - 32352 - PHQ-9 Billing: Yes ([id number]) Assessment & Plan Assessment & Plan (1) Depression with anxiety: Code(s): F41.8 - Other specified anxiety disorders Category: Medical Plan: Psychiatric referral ordered will Karmen Casas RN at [facility]. Continue on sertraline 100 mg daily. (2) Expressive aphasia: Code(s): R47.01 - Aphasia Category: Medical Plan: Currently being followed at [facility] in [place] with no clear-cut diagnosis arrived at. Referral to speech therapy at [facility] was ordered, per patient request. Orders: Referrals Psychiatry Referral F41.8 - Other specified anxiety disorders Speech and Hearing Referral R47.01 - Aphasia
--- OUTSIDE RECORDS SUMMARY | 2024-06-14 09:41 | XMS_ITS ---
Author Organization [facility] Address [address] [place] [address] Care Team Providers Care Financial Compliance Officer Name Role Phone Beck Hernandez Primary Care Provider Unavailab Zach Mayorga Unavailable [phone] REASON FOR VISIT screening,hx polyps PROBLEMS Problem Type ICD Code Onset Dates Problem Status W/U Status Risk SNOMED Code Notes Problem Diverticulosis of large intestine without perforation or abscess without bleeding (K57.30) Active confirmed Diverticul ar disease of colon (610439562) Encounters Encounter Location Date Provider Diagnosis [facility] [address] [place] [phone] 01/23/2023 Zach Hewitt Encounter for scre ening colonoscopy for wzx-ggfk-eukg patient Z12.11 ; Colon polyp K63.5 ; Diverticulosis of large intestine without perforation or abscess without bleeding K57.30 and Other hemorrhoids K64.8 ASSESSMENTS Encounter Date Diagnosis Assessment Notes Treatment Notes Treatment Clinical Notes 01/23/2023 Encounter for screening colonoscopy for pzq-cazh-bwjm patient (ICD-10 - Z12.11) 01/23/2023 Colon polyp (ICD-10 - K63.5) 01/23/2023 Diverticulosis of large intestine without perforation or abscess without bleeding (ICD-10 - K57.30) 01/23/2023 Other hemorrhoids (ICD-10 - K64.8) PLAN OF TREATMENT No Information
--- OUTSIDE RECORDS SUMMARY | 2024-06-14 09:41 | XMS_ITS ---
Author Organization [facility] Address [address] [place] [address] Care Team Providers Care Tank Erector Name Role Phone Beck Hernandez Primary Care Provider Unavailab Zach Mayorga Unavailable [phone] Encounters Encounter Location Date Provider Diagnosis [facility] [address] [place] [address] 01/20/2023 Zach Hewitt PLAN OF TREATMENT No Information
--- OUTSIDE RECORDS SUMMARY | 2024-06-14 09:41 | XMS_ITS | Patient Health Record ---
Author Organization [facility] Address [address] [place] [address] Care Team Providers Care Switchboard Operator Supervisor Name Role Phone Beck Hernandez Primary Care Provider Zach Ho Unavailable [phone] ALLERGIES Allergen (clinical drug ingredient) Drug/Non Drug [...] malignant neoplasm of colon (Z12.11) Active confirmed 174186752 Problem History of adenomatous polyp of colon (Z86.010) Active confirmed 982020310 Problem Change in bowel habits (R19.4) Active confirmed 78828976 Problem Hypertension (I10) Active confirmed 383 23504 Problem Diverticulosis of large intestine without perforation or abscess without bleeding (K57.30) Active confirmed Diverticul ar disease of colon (294127886) Problem Blood in stool (K92.1) Active confirmed 611637664 Problem Gastroesophageal reflux disease without esophagitis (K21.9) Active confirmed 756013562 Problem Rectal urgency (R15.2) Active confirmed 89405474 Problem Long-term use of aspirin therapy (Z79.82) Active confirmed 961454352 Problem Loose bowel movements (R19.5) Active confirmed 146112090 PLAN OF TREATMENT Future Test Test Name Order Date COLONOSCOPY 09/06/2011 COLONOSCOPY 01/19/2017 COLONOSCOPY 01/17/2023 Insurance Providers Payer Name Payer Address Payer Phone Subscriber Number Group Number Insured Name Patient Relationship to Insured Coverage Start Date Coverage End Date MEDICARE OF [place] [address] [place] [address] [id number] NEELIMA CLAU Self - patient is the insured [employer] ATT[employer] CLAIMS [address] [place] [phone] [id number] NEELIMA CLAU Self - patient is the insured [employer] [address] [place] [address] [id number] YANCLAU Solares Self - patient is the insured MEDICAL (GENERAL) HISTORY Medical History History ICD Code Tubular adenoma was removed in 2005 during colonoscopy--a colonoscopy in 2001 was negative Colonoscopy 09/22/2011--nega tive except for some diverticulosis and internal hemorrhoids GERD-upper endoscopy in 2001 was negative for any esophagitis or Pollock's esophagus Hypertension Depression Hyperlipidemia Denies RI,DM,CVA,Lung disease,renal dise ase Sleep apnea-uses a CPAP [...]
--- OUTSIDE RECORDS SUMMARY | 2024-06-14 09:42 | XMS_ITS ---
Author Organization [facility] Address [address] [place] [address] Care Team Providers Care Commercial Airline Pilot Name Role Phone Beck Hernandez Primary Care Provider Zach Ho Unavailable [phone] ALLERGIES Allergen (clinical drug ingredient) Drug/Non Drug [...] Change in bowel habits (R19.4) Active confirmed 89515682 Problem Loose bowel movements (R19.5) Active confirmed 251460343 Problem Rectal urgency (R15.2) Active confirmed 28762743 VITAL SIGNS BMI 26.15 kg/m2 01/17/2023 Blood pressure systolic 000 mm Hg 01/18/20 23 Blood pressure diastolic 00 mm Hg 023 Height 63.50 in 01/17/2023 Temperature 96.0 degrees Fahrenheit 01/18/20 23 Weight 150 lbs 01/17/2023 Encounters Encounter Location Date Provider Diagnosis [facility] [address] [place] [address] 01/17/2023 Zach Hewitt Gastroesophageal ref lux disease [...]
--- OUTSIDE RECORDS SUMMARY | 2024-06-14 09:42 | XMS_ITS | Data Portability ---
Author Organization [place] [facility], [facility]_ Address [address] [facility] [address] [place] [address] Assessment Encounter Date Assessment Date Assessment LastModified [...] or more view 023 03/24/20 23 [email or web address] [facility], [address] [facility], [place], [address], 13:47:20 Medication Orders None record ed. Patient TargetsNo targets recorded. Patient Instructions Encounter Date Encounter Id Patient Instructions Last Modified By Organization Details Last Modified Time 03/24/2023 [id number] hand arthritis: exercises Not available 03/24/2023 13:32:06 [...] Silastic arthroplasty. Not available 03/24/2023 13:27:10 06/13/2023 [id number] hand arthritis: exercises [email or web address] Not available 06/13/2023 11:58:35 Right hand moderate [...] We will see her back as needed. Not available 06/13/2023 11:57:58 08/11/2023 [id number] learning about healthy weight Not available 08/11/2023 [...] today. She will be returning home up [place] and plans on scheduling her follow up appointments there. I advised her to receive repeat x-rays in 2 weeks, she understands. Not available 08/11/2023 09:19:40 08/16/2023 [id number] Patient placed EXOs brace in the microwave [...] Documented - 1123F [place] [address], [address], [facility] 08/11/2023 07:03:59 08/11/19 24 FOI DME L3984 EXOS FRACTURE [place] [address], [place], [address], [facility] 08/11/2023 09:17:27 06/13/19 24 FSOSM Hero small injection completed April Molina PA-C [address], [address], [facility] 06/13/2023 11:55:42 06/13/19 24 Advance Care Planning - Advance Care Plan/Surrogate Documented - 1123F completed April Molina PA-C [address], [place], [address], [facility] 06/13/2023 11:55:18 03/24/20 23 FSOSM Monahan [place] [address],[place], [address], [facility] 03/24/2023 13:28:51 03/24/20 23 Advance Care Planning - Advance Care Plan/Surrogate Documented - 1123F [place] [address], [place], [address], [facility] - [facility] 03/24/2023 07:50:25 Cataract [...] Name and Address Organization Details Recorded Time 025738 Product containin g cephalosp nadira (product) medicatio n Not available Not available Not available 03/24/2023 83107 9009 SNOMED Not Available Not Available Not [...] t Available Vitals Date Recorded Body weight Body mass index (BMI) Body height Provider Name and Address Organization Details Last Updated DateTime 03/24/2023 05822.26 g 26.4 kg/m2 160.02 cm Yeyo Holden [place] [facility] 03/24/2023 12:39:12 Date Recorded Body height Body mass index (BMI) Body weight Provider Name and Address Organization Details Last Updated DateTime 06/13/2023 160.02 cm 26.4 kg/m2 88674.26 g April Molina PA-C [address], [place], [address], [place] [facility] 06/13/2023 11:49:44 Date Recorded Body height Body mass index (BMI) Body weight Provider Name and Address Organization Details Last Updated DateTime 08/11/2023 160.02 cm 26.6 kg/m2 76291.86 g Noni Pinzon [place] [facility] 08/11/2023 08:39:02 Social History Question [...] Time SARS-COV-2 (COVID-19) vaccine, UNSPECIFIED 03/04/2021 completed NOMAN [place] - [facility] 03/24/2023 12:40:10 influenza, unspecified formulation 01/31/2023 completed NOMAN [place] - [facility] 03/24/2023 12:40:24 Past Encounters Encounter ID Performer Location Encounter Start Date Encounter Closed Date Diagnosis/Indication Diagnosis SNOMED-CT Code Diagnosis ICD10 Code Diagnosis Note [id number] Andrea Monahan MD [facility] [place] [address] 03/24/2023 11:57:48 03/24/2023 13:23:16 Pain in right hand 3547011517 00807 M79.641 Arthritis of hand 903937 005 M13.849 M13.173 [id number] Andrea Monahan MD [facility] [place] [address] 06/13/2023 11:30:40 06/13/2023 11:45:44 Arthritis of hand 593489780 M13.355 [id number] Jhony Guillory MD [facility] [address] [address] 08/11/2023 08:23:26 08/11/2023 09:27:12 Obesity 858735975 E66.3 Closed fra cture of base of fourth metacarpal bone of left hand 3051950705 5500107 S62.315A [id number] Jhony Guillory MD [facility] [address] [address] 08/16/2023 12:54:45 08/16/2023 13:12:11 Closed fracture of base of fourth metacarpal bone of left hand 4877483658 9241454 S62.315A Health Concerns Section Related Observation LastModified by Organization Detai ls LastModified Time None Recorded Concern Status LastModified by Organization Details LastModified Time None Recorded Advance Directives Directive Y: Payers Encounter Date Sequence Insurance Name Policy Number Policy Monroy Covered Member ID Monroy Member ID Guarantor Name 03/24/2023 1 [place] Kinza A Pare [id number] Kinza Pare 03/24/2023 2 [place] [id number] Kinza A Pare [id number] Kinza Pare 06/13/2023 1 [place] Pare [id number] Kinza Pare 06/13/2023 2 [place] [id number] Kinza A Pare [id number] Kinza Pare 08/11/2023 1 [place] A Pare [id number] Kinza Pare 08/11/2023 2 [place] [id number] Kinza A Pare [id number] Kinza Pare 08/16/2023 2 [place] [id number] Kinza Blair [id number] Kinza Blair Notes Date Note Type Note Provider Name [...] ?Cold/Ice ?Weather Imported from [employer] on 03/24/2023 [place] [address] [facility],[address], [place], [address], [facility] - [facility] 03/24/2023 13:32:10 06/13/2023 text/html History of Prese nt Illness ?Chief Complaint ?Finger ?Pain Location Side ?Right ?Symptom Description ?Aching ?Throbbing ?Associated Symptoms ?Pain ?Weakness ?Pain Scale - Today ?6 ?Symptom Frequency ?Constantly ?Symptom Duration ?A few months ?Date Symptoms Started ?09/28/2007 ?Symptom Context ?Other ?Injections ?3 ?Past Treatments ?Injections ?Alleviating Factors ?Heat ?Aggravating Factors ?Cold/Ice ?Weather Imported from [facility] on 03/24/2023 April Molina PA-C [address] [facility], [place], [address], [facility] - [facility] 06/13/2023 11:58:37 08/11/2023 text/html History of Prese nt Illness ?Chief Complaint ?Finger/hand ?Pain Location Side ?Left ?Symptom Description ?Throbbing ?Other / Not Listed ?Associated Symptoms ?Stiffness ?Pain Scale - Today ?6 ?Symptom Frequency ?Frequently ?Symptom Duration ?A few days ?Date Symptoms Started ?08/06/2023 ?Symptom Context ?Fall ?Past Treatments ?None ?Alleviating Factors ?Cold/Ice ?Compression (Brace, Jaemson Bandage, Tape, etc.) ?Aggravating Factors ?Nothing Imported from [facility] on 08/11/2023 [place] [address], [place], [address], [place] [facility] 08/11/2023 09:20:01 08/16/2023 [...] Tape, etc.) ?Aggravating Factors ?Nothing Imported from [facility] on 08/11/2023 LEANDER CANAS PA-C [address], [place], [address], [facility] - [facility] 08/16/2023 13:19:44 OBGyn Episode No OBEpisode recorded.
== END 2024-06-14 11:12 | disposition home or self-care (01) ==
LOC: HO.HMCC 09:13
PROVIDERS: PCP Internal Medicine; Visit Provider Internal Medicine
DX: F41.8 Other specified anxiety disorders (principal); R47.01 Aphasia

== ENCOUNTER → 2024-06-14 09:13 | Outpatient (BNVA) | payer MEDICARE, OTHER, SELFPAY | PROVIDERS: PCP Internal Medicine; Visit Provider Internal Medicine | DX: F41.8 Other specified anxiety disorders (principal); R74.01 Elevation of levels of liver transaminase levels | CPT/HCPCS: 96127 ==

== ENCOUNTER 2024-06-25 13:37 | Outpatient (AMB) | payer MEDICARE, OTHER, SELFPAY ==
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
--- OUTSIDE RECORDS SUMMARY | 2024-06-25 17:08 | XMS_ITS ---
Author Organization [facility] Address [address] [place] [address] Care Team Providers Care Consumer Product Advisor Name Role Phone Beck Hernandez Primary Care Provider Unavailab Zach Mayorga Unavailable [phone] REASON FOR VISIT screening,hx polyps PROBLEMS Problem Type ICD Code Onset Dates Problem Status W/U Status Risk SNOMED Code Notes Problem Diverticulosis of large intestine without perforation or abscess without bleeding (K57.30) Active confirmed Diverticul ar disease of colon (421535955) Encounters Encounter Location Date Provider Diagnosis [facility] [address] [place] [phone] 01/23/2023 Zach Hewitt Encounter for scre ening colonoscopy for uhx-yhje-oagm patient Z12.11 ; Colon polyp K63.5 ; Diverticulosis of large intestine without perforation or abscess without bleeding K57.30 and Other hemorrhoids K64.8 ASSESSMENTS Encounter Date Diagnosis Assessment Notes Treatment Notes Treatment Clinical Notes 01/23/2023 Encounter for screening colonoscopy for hec-nkfp-dgda patient (ICD-10 - Z12.11) 01/23/2023 Colon polyp (ICD-10 - K63.5) 01/23/2023 Diverticulosis of large intestine without perforation or abscess without bleeding (ICD-10 - K57.30) 01/23/2023 Other hemorrhoids (ICD-10 - K64.8) PLAN OF TREATMENT No Information
--- OUTSIDE RECORDS SUMMARY | 2024-06-25 17:08 | XMS_ITS ---
Author Organization [facility] Address [address] [place] [address] Care Team Providers Care Assistant Finance Manager Name Role Phone Beck Hernandez Primary Care Provider Unavailab Zach Mayorga Unavailable [phone] Encounters Encounter Location Date Provider Diagnosis [facility] [address] [place] [address] 01/20/2023 Zach Hewitt PLAN OF TREATMENT No Information
--- OUTSIDE RECORDS SUMMARY | 2024-06-25 17:08 | XMS_ITS | Patient Health Record ---
Author Organization [facility] Address [address] [place] [address] Care Team Providers Care It Quality Analyst Name Role Phone Beck Hernandez Primary Care Provider Zach Ho Unavailable [phone] ALLERGIES Allergen (clinical drug ingredient) Drug/Non Drug [...] malignant neoplasm of colon (Z12.11) Active confirmed 818408042 Problem History of adenomatous polyp of colon (Z86.010) Active confirmed 717083173 Problem Change in bowel habits (R19.4) Active confirmed 50045106 Problem Hypertension (I10) Active confirmed 383 95165 Problem Diverticulosis of large intestine without perforation or abscess without bleeding (K57.30) Active confirmed Diverticul ar disease of colon (946244387) Problem Blood in stool (K92.1) Active confirmed 280300207 Problem Gastroesophageal reflux disease without esophagitis (K21.9) Active confirmed 439927604 Problem Rectal urgency (R15.2) Active confirmed 93334152 Problem Long-term use of aspirin therapy (Z79.82) Active confirmed 621411157 Problem Loose bowel movements (R19.5) Active confirmed 140073653 PLAN OF TREATMENT Future Test Test Name Order Date COLONOSCOPY 09/06/2011 COLONOSCOPY 01/19/2017 COLONOSCOPY 01/17/2023 Insurance Providers Payer Name Payer Address Payer Phone Subscriber Number Group Number Insured Name Patient Relationship to Insured Coverage Start Date Coverage End Date MEDICARE OF [place] [address] [place] [address] [id number] NEELIMA CLAU Self - patient is the insured [employer] ATT[employer] CLAIMS [address] [place] [phone] [id number] NEELIMA CLAU Self - patient is the insured [employer] [address] [place] [address] [id number] YANCLAU Solares Self - patient is the insured MEDICAL (GENERAL) HISTORY Medical History History ICD Code Tubular adenoma was removed in 2005 during colonoscopy--a colonoscopy in 2001 was negative Colonoscopy 09/22/2011--nega tive except for some diverticulosis and internal hemorrhoids GERD-upper endoscopy in 2001 was negative for any esophagitis or Pollock's esophagus Hypertension Depression Hyperlipidemia Denies AK,DM,CVA,Lung disease,renal dise ase Sleep apnea-uses a CPAP [...]
--- OUTSIDE RECORDS SUMMARY | 2024-06-25 17:08 | XMS_ITS ---
Author Organization [facility] Address [address] [place] [address] Care Team Providers Care Park Activities Coordinator Name Role Phone Beck Hernandez Primary Care Provider Zach Ho Unavailable [phone] ALLERGIES Allergen (clinical drug ingredient) Drug/Non Drug [...] Change in bowel habits (R19.4) Active confirmed 37857301 Problem Loose bowel movements (R19.5) Active confirmed 019593934 Problem Rectal urgency (R15.2) Active confirmed 92085759 VITAL SIGNS Temperature 96.0 degrees Fahrenheit 01/18/20 23 Blood pressure systolic 000 mm Hg 01/18/20 23 Blood pressure diastolic 00 mm Hg 023 Height 63.50 in 01/17/2023 Weight 150 lbs 01/17/2023 BMI 26.15 kg/m2 01/17/2023 Encounters Encounter Location Date Provider Diagnosis [facility] [address] [place] [address] 01/17/2023 Zach Hewitt Gastroesophageal ref lux disease [...]
--- OUTSIDE RECORDS SUMMARY | 2024-06-25 17:08 | XMS_ITS | Data Portability ---
Author Organization [place] [facility], [facility]_ Address [address] [facility] [address] [place] [address] Assessment Encounter Date Assessment Date Assessment LastModified [...] or more view 023 03/24/20 23 [email or web address] [facility] [place] [facility], [address] [facility], [place], [address], 13:47:20 Medication Orders None record ed. Patient TargetsNo targets recorded. Patient Instructions Encounter Date Encounter Id Patient Instructions Last Modified By Organization Details Last Modified Time 03/24/2023 [id number] hand arthritis: exercises Not available 03/24/2023 13:32:06 [...] Silastic arthroplasty. Not available 03/24/2023 13:27:10 06/13/2023 [id number] hand arthritis: exercises Not available 06/13/2023 11:58:35 [...] We will see her back as needed. [email or web address] Not available 06/13/2023 11:57:58 08/11/2023 [id number] learning about healthy weight Not available 08/11/2023 [...] today. She will be returning home up [place] and plans on scheduling her follow up appointments there. I advised her to receive repeat x-rays in 2 weeks, she understands. Not available 08/11/2023 09:19:40 08/16/2023 [id number] Patient placed EXOs brace in the microwave [...] Documented - 1123F [place] [address],[place], [address], [facility] 08/11/2023 07:03:59 08/11/19 24 FOI DME L3984 EXOS F[place]URE [place] [address] [employer] [address], [place], [address], [facility] 08/11/2023 09:17:27 06/13/19 24 FSOSM Hero small injection completed April Molina PA-C [address],[place], [address], [facility] 06/13/2023 11:55:42 06/13/19 24 Advance Care Planning - Advance Care Plan/Surrogate Documented - 1123F completed April Molina PA-C [address] [employer] [address], [place], [address], [facility] 06/13/2023 11:55:18 03/24/20 23 FSOSM Mon[place] [address],[place], [address], [facility] 03/24/2023 13:28:51 03/24/20 23 Advance Care Planning - Advance Care Plan/Surrogate Documented - 1123F [place] [address] [employer] [address], [place], [address], [facility] - [facility] 03/24/2023 07:50:25 [...] Name and Address Organization Details Recorded Time 473157 Product containin g cephalosp nadira (product) medicatio n Not available Not available Not available 03/24/2023 12203 9009 SNOMED Not Available Not Available Not [...] Address Organization Details Last Updated DateTime 03/24/2023 06425.26 g 26.4 kg/m2 160.02 cm Yeyo Holden [place] [facility] 03/24/2023 12:39:12 Date Recorded Body height Body mass index (BMI) Body weight Provider Name and Address Organization Details Last Updated DateTime 06/13/2023 160.02 cm 26.4 kg/m2 20142.26 g April Molina PA-C [address] [employer] [address], [place], [address], [place] [facility] 06/13/2023 11:49:44 Date Recorded Body height Body mass index (BMI) Body weight Provider Name and Address Organization Details Last Updated DateTime 08/11/2023 160.02 cm 26.6 kg/m2 31080.86 g Noni Pinzon [place] [facility] [...] available 2022 12:39:28 Medical History Condition Response Anxiety/Depression Y Bowel Disease Y Osteoarthritis Y High Blood Pressure Y Thyroid Disease Y Arthritis Y Head Trauma/Injury Y Acid [...] SNOMED-CT Code Diagnosis ICD10 Code Diagnosis Note [id number] Andrea Monahan MD [facility] [place] [address] 03/24/2023 11:57:48 03/24/2023 13:23:16 Pain in right hand 5844846907 12631 M79.641 Arthritis of hand 265179 005 M13.849 M13.354 [id number] Andrea Monahan MD [facility] [place] [address] 06/13/2023 11:30:40 06/13/2023 11:45:44 Arthritis of hand 754310095 M13.903 [id number] Jhony Guillory MD [facility]_PH [address] [address] 08/11/2023 08:23:26 08/11/2023 09:27:12 Obesity 942723078 E66.3 Closed fra cture of base of fourth metacarpal bone of left hand 0406541598 1246847 S62.315A [id number] Jhony Guillory MD [facility]_PH [address] [address] 08/16/2023 12:54:45 08/16/2023 13:12:11 Closed fracture of base of fourth metacarpal bone of left hand 3717979269 9139271 S62.315A Health Concerns Section Related Observation LastModified by Organization Detai ls LastModified Time None Recorded Concern Status LastModified by Organization Details LastModified Time None Recorded Advance Directives Directive Y: Payers Encounter Date Sequence Insurance Name Policy Number Policy Monroy Covered Member ID Monroy Member ID Guarantor Name 03/24/2023 1 [place] Kin[place] A Pare [id number] Kinza Pare 03/24/2023 2 [place] [id number] Kinza A Pare [id number] Kinza Pare 06/13/2023 1 [place] Pare [id number] Kinza Pare 06/13/2023 2 [place] [id number] Kinza A Pare [id number] Kinza Pare 08/11/2023 1 [place] P[place] [id number] Kinza Pare 08/11/2023 2 [place] [id number] Kinza A Pare [id number] Kinza Pare 08/16/2023 2 [place] [id number] Kinza Blair [id number] Kinza Blair Notes Date Note Type [...] from [employer] on 03/24/2023 [place] [id number] [facility] [facility], [place], [address], [facility] - [facility] 03/24/2023 13:32:10 06/13/2023 text/html History of Prese nt Illness ?Chief Complaint ?Finger ?Pain Location Side ?Right ?Symptom Description ?Aching ?Throbbing ?Associated Symptoms ?Pain ?Weakness ?Pain Scale - Today ?6 ?Symptom Frequency ?Constantly ?Symptom Duration ?A few months ?Date Symptoms Started ?09/28/2007 ?Symptom Context ?Other ?Injections ?3 ?Past Treatments ?Injections ?Alleviating Factors ?Heat ?Aggravating Factors ?Cold/Ice ?Weather Imported from [facility] on 03/24/2023 April Molina PA-C [address] [facility], [place], [address], [facility] - [facility] 06/13/2023 11:58:37 [...] Tape, etc.) ?Aggravating Factors ?Nothing Imported from [facility] on 08/11/2023 [place] [address], [place], [address], [place] [facility] 08/11/2023 09:20:01 [...] Tape, etc.) ?Aggravating Factors ?Nothing Imported from [facility] on 08/11/2023 LEANDER CANAS PA-C [address] [place], [place], [address], [facility] - [facility] 08/16/2023 13:19:44 OBGyn Episode No OBEpisode recorded.
== END 2024-06-25 14:49 | disposition home or self-care (01) ==
LOC: HO.HOP 13:37
PROVIDERS: PCP Internal Medicine; Visit Provider Clinical Nurse Specialist Psychiatric/Mental Health
DX: F33.1 Major depressive disorder, recurrent, moderate (principal)
CPT/HCPCS: 90792

== ENCOUNTER → 2024-06-25 13:37 | Outpatient (BNVA) | payer MEDICARE, OTHER, SELFPAY | PROVIDERS: PCP Internal Medicine; Visit Provider Clinical Nurse Specialist Psychiatric/Mental Health | DX: F33.1 Major depressive disorder, recurrent, moderate (principal) | CPT/HCPCS: 90792 ==

== ENCOUNTER 2024-06-28 15:29 | Outpatient (REF) | payer MEDICARE, OTHER, SELFPAY ==
[2024-06-28 15:57] LABS: MANUAL DIFF FLAG NO
[2024-06-28 16:34] LABS: Basophils Percent Auto 0.6 % (0-2); Eosinophils Absolute Auto 0.1 X10*3/uL (0.0-0.4); Eosinophils Percent Auto 1.3 % (0-4); Hematocrit 32.1 % (37.0-47.0); Hemoglobin 11.1 g/dl (12.0-16.0); Imm Gran Abs Auto 0.01 X10*3/uL (0.00-0.03); Imm Gran Pct Auto 0.2 % (0.0-0.4); Lymphocytes Absolute Auto 1.3 X10*3/uL (1.2-4.9); Lymphocytes Percent Auto 19.8 % (20-40); Mean Corpuscular HGB Conc 34.6 g/dl (31.0-35.0); Mean Corpuscular Hemoglobin 36.2 pg (27.0-33.0); Mean Corpuscular Volume 104.6 fL (80.0-98.0); Mean Platelet Volume 11.2 fL (9.4-12.3); Monocytes Absolute Auto 0.4 X10*3/uL (0.1-1.2); Monocytes Percent Auto 6.8 % (2-11); Neutrophils Absolute Auto 4.5 x10*3/uL (2.0-8.3); Neutrophils Percent Auto 71.3 % (45-73); Platelet Count 129 X10*3/uL (160-400); Red Blood Count 3.07 X10*6/uL (4.20-5.50); Red Cell Distribution Width 12.8 % (11.0-16.0); White Blood Count 6.4 X10*3/uL (4.8-10.8)
--- OUTSIDE RECORDS SUMMARY | 2024-06-28 17:01 | XMS_ITS ---
Author Organization [facility] Address [address] [place] [id number] Care Team Providers Care Wireline Supervisor Name Role Phone Beck Hernandez Primary Care Provider Zach Ho Unavailable [phone] Allergies Allergen (clinical drug ingredient) Drug/Non Drug Allergy documented on EMR Reaction Allergy Type Onset Date Status Medicinal cephalosporin and acting as antibacterial agent (FN) cephalosporins (uncoded) Unknown Allergy Active REASON FOR VISIT Patient presents today for a recall colonoscopy Medications Medication SIG (Take, Route, Frequency, Duration) Notes [...] 12 100 MCG as directed Orally Active Problems Problem Type SNOMED Code ICD Code Onset Dates Problem Status W/U Status Risk Notes Problem 84815381 Change in bowel habits (R19.4) Active confirmed Problem 922319034 Loose bowel movements (R19.5) Active confirmed Problem 52488853 Rectal urgency (R15.2) Active confirmed Vital Signs Temperature 96.0 degrees Fahrenheit 01/18/20 23 Blood pressure systolic 000 mm Hg 01/18/20 23 Blood pressure diastolic 00 mm Hg 023 Height 63.50 in 01/17/2023 Weight 150 lbs 01/17/2023 BMI 26.15 kg/m2 01/17/2023 Encounters Encounter Location Date Provider Diagnosis [facility] [address] [place] [address] 01/17/2023 Zach Hewitt Gastroesophageal ref lux disease without esophagitis K21.9 ; Loose bowel movements R19.5 ; History of adenomatous polyp of colon Z86.010 ; Encounter for screening for malignant neoplasm of colon Z12.11 ; Long-term use of aspirin therapy Z79.82 ; Change in bowel habits R19.4 and Rectal urgency R15.2 Assessments Encounter Date Diagnosis (ICD Code) Assessment Notes Treatment Notes Treatment Clinical Notes Section Notes 01/17/2023 Gastroesophageal reflux disease without esophagitis (ICD-10 - K21.9) Overall, Kinza appears well. Given her previous history of tubular adenomas of the colon and her last colonoscopy being 5 years ago, I did recommend a followup colonoscopy for further screening purposes. We did review the rationale for this in regard to colon cancer prevention. I will plan to obtain colon biopsies to rule out any underlying microscopic colitis given her intermittent issues with diarrhea and urgency. We did review the rationale for this in regard to colon cancer prevention. Full consent was obtained from her for this, including risks of bleeding and perforation. The procedure will be done with monitored anesthesia care. She was given the below instructions regarding adjustment of her medication for the procedure. In regard to her intermittent episodes of urgency and diarrhea, I did recommend a trial of some jrzk-bjv-jflrm er Imodium. Given that these episodes seem to be few and far between, I don't think she needs to be on a chronic daily medication for this. Her reflux seems to be stable on her current regimen of omeprazole and I advised her to continue that. She does not seem to be having any true dysphagia and I suspect some of the issues with her swallowing are related to the same problem that caused her difficulty speaking. I suspect the muscles in the mouth area are causing some difficulty with forming a good food bolus and perhaps causing some swallowing issues on that basis. I did advise her to let me know the results of her upcoming speech and swallowing study. Kinza was comfortable with this plan. Thank you again for allowing me to participate in Kinza's care. I shall continue to keep you advised of her progress. 01/17/2023 Loose bowel movements (ICD-10 - R19.5) Overall, Kinza appears well. Given her previous history of tubular adenomas of the colon and her last colonoscopy being 5 years ago, I did recommend a followup colonoscopy for further screening purposes. We did review the rationale for this in regard to colon cancer prevention. I will plan to obtain colon biopsies to rule out any underlying microscopic colitis given her intermittent issues with diarrhea and urgency. We did review the rationale for this in regard to colon cancer prevention. Full consent was obtained from her for this, including risks of bleeding and perforation. The procedure will be done with monitored anesthesia care. She was given the below instructions regarding adjustment of her medication for the procedure. In regard to her intermittent episodes of urgency and diarrhea, I did recommend a trial of some qsce-hhw-cacrf er Imodium. Given that these episodes seem to be few and far between, I don't think she needs to be on a chronic daily medication for this. Her reflux seems to be stable on her current regimen of omeprazole and I advised her to continue that. She does not seem to be having any true dysphagia and I suspect some of the issues with her swallowing are related to the same problem that caused her difficulty speaking. I suspect the muscles in the mouth area are causing some difficulty with forming a good food bolus and perhaps causing some swallowing issues on that basis. I did advise her to let me know the results of her upcoming speech and swallowing study. Kinza was comfortable with this plan. Thank you again for allowing me to participate in Kinza's care. I shall continue to keep you advised of her progress. 01/17/2023 History of adenomatous polyp of colon (ICD-10 - Z86.010) Overall, Kinza appears well. Given her previous history of tubular adenomas of the colon and her last colonoscopy being 5 years ago, I did recommend a followup colonoscopy for further screening purposes. We did review the rationale for this in regard to colon cancer prevention. I will plan to obtain colon biopsies to rule out any underlying microscopic colitis given her intermittent issues with diarrhea and urgency. We did review the rationale for this in regard to colon cancer prevention. Full consent was obtained from her for this, including risks of bleeding and perforation. The procedure will be done with monitored anesthesia care. She was given the below instructions regarding adjustment of her medication for the procedure. In regard to her intermittent episodes of urgency and diarrhea, I did recommend a trial of some ehrc-hok-gpwlx er Imodium. Given that these episodes seem to be few and far between, I don't think she needs to be on a chronic daily medication for this. Her reflux seems to be stable on her current regimen of omeprazole and I advised her to continue that. She does not seem to be having any true dysphagia and I suspect some of the issues with her swallowing are related to the same problem that caused her difficulty speaking. I suspect the muscles in the mouth area are causing some difficulty with forming a good food bolus and perhaps causing some swallowing issues on that basis. I did advise her to let me know the results of her upcoming speech and swallowing study. Kinza was comfortable with this plan. Thank you again for allowing me to participate in Kinza's care. I shall continue to keep you advised of her progress. 01/17/2023 Encounter for screening for malignant neoplasm of colon (ICD-10 - Z12.11) Stop aspirin for 1 week before the colonoscopy Do not take the Chlorthalidone the day before nor on the day of the colonoscopy Overall, Kinza appears well. Given her previous history of tubular adenomas of the colon and her last colonoscopy being 5 years ago, I did recommend a followup colonoscopy for further screening purposes. We did review the rationale for this in regard to colon cancer prevention. I will plan to obtain colon biopsies to rule out any underlying microscopic colitis given her intermittent issues with diarrhea and urgency. We did review the rationale for this in regard to colon cancer prevention. Full consent was obtained from her for this, including risks of bleeding and perforation. The procedure will be done with monitored anesthesia care. She was given the below instructions regarding adjustment of her medication for the procedure. In regard to her intermittent episodes of urgency and diarrhea, I did recommend a trial of some gnbi-stu-yqtlt er Imodium. Given that these episodes seem to be few and far between, I don't think she needs to be on a chronic daily medication for this. Her reflux seems to be stable on her current regimen of omeprazole and I advised her to continue that. She does not seem to be having any true dysphagia and I suspect some of the issues with her swallowing are related to the same problem that caused her difficulty speaking. I suspect the muscles in the mouth area are causing some difficulty with forming a good food bolus and perhaps causing some swallowing issues on that basis. I did advise her to let me know the results of her upcoming speech and swallowing study. Kinza was comfortable with this plan. Thank you again for allowing me to participate in Kinza's care. I shall continue to keep you advised of her progress. 01/17/2023 Long-term use of aspirin therapy (ICD-10 - Z79.82) Overall, Kinza appears well. Given her previous history of tubular adenomas of the colon and her last colonoscopy being 5 years ago, I did recommend a followup colonoscopy for further screening purposes. We did review the rationale for this in regard to colon cancer prevention. I will plan to obtain colon biopsies to rule out any underlying microscopic colitis given her intermittent issues with diarrhea and urgency. We did review the rationale for this in regard to colon cancer prevention. Full consent was obtained from her for this, including risks of bleeding and perforation. The procedure will be done with monitored anesthesia care. She was given the below instructions regarding adjustment of her medication for the procedure. In regard to her intermittent episodes of urgency and diarrhea, I did recommend a trial of some adnb-uxj-mvcoz er Imodium. Given that these episodes seem to be few and far between, I don't think she needs to be on a chronic daily medication for this. Her reflux seems to be stable on her current regimen of omeprazole and I advised her to continue that. She does not seem to be having any true dysphagia and I suspect some of the issues with her swallowing are related to the same problem that caused her difficulty speaking. I suspect the muscles in the mouth area are causing some difficulty with forming a good food bolus and perhaps causing some swallowing issues on that basis. I did advise her to let me know the results of her upcoming speech and swallowing study. Kinza was comfortable with this plan. Thank you again for allowing me to participate in Kinza's care. I shall continue to keep you advised of her progress. 01/17/2023 Change in bowel habits (ICD-10 - R19.4) Overall, Kinza appears well. Given her previous history of tubular adenomas of the colon and her last colonoscopy being 5 years ago, I did recommend a followup colonoscopy for further screening purposes. We did review the rationale for this in regard to colon cancer prevention. I will plan to obtain colon biopsies to rule out any underlying microscopic colitis given her intermittent issues with diarrhea and urgency. We did review the rationale for this in regard to colon cancer prevention. Full consent was obtained from her for this, including risks of bleeding and perforation. The procedure will be done with monitored anesthesia care. She was given the below instructions regarding adjustment of her medication for the procedure. In regard to her intermittent episodes of urgency and diarrhea, I did recommend a trial of some deyp-pbr-bmpwe er Imodium. Given that these episodes seem to be few and far between, I don't think she needs to be on a chronic daily medication for this. Her reflux seems to be stable on her current regimen of omeprazole and I advised her to continue that. She does not seem to be having any true dysphagia and I suspect some of the issues with her swallowing are related to the same problem that caused her difficulty speaking. I suspect the muscles in the mouth area are causing some difficulty with forming a good food bolus and perhaps causing some swallowing issues on that basis. I did advise her to let me know the results of her upcoming speech and swallowing study. Kinza was comfortable with this plan. Thank you again for allowing me to participate in Kinza's care. I shall continue to keep you advised of her progress. 01/17/2023 Rectal urgency (ICD-10 - R15.2) Overall, Kinza appears well. Given her previous history of tubular adenomas of the colon and her last colonoscopy being 5 years ago, I did recommend a followup colonoscopy for further screening purposes. We did review the rationale for this in regard to colon cancer prevention. I will plan to obtain colon biopsies to rule out any underlying microscopic colitis given her intermittent issues with diarrhea and urgency. We did review the rationale for this in regard to colon cancer prevention. Full consent was obtained from her for this, including risks of bleeding and perforation. The procedure will be done with monitored anesthesia care. She was given the below instructions regarding adjustment of her medication for the procedure. In regard to her intermittent episodes of urgency and diarrhea, I did recommend a trial of some vuwt-myo-jcjny er Imodium. Given that these episodes seem to be few and far between, I don't think she needs to be on a chronic daily medication for this. Her reflux seems to be stable on her current regimen of omeprazole and I advised her to continue that. She does not seem to be having any true dysphagia and I suspect some of the issues with her swallowing are related to the same problem that caused her difficulty speaking. I suspect the muscles in the mouth area are causing some difficulty with forming a good food bolus and perhaps causing some swallowing issues on that basis. I did advise her to let me know the results of her upcoming speech and swallowing study. Kinza was comfortable with this plan. Thank you again for allowing me to participate in Kinza's care. I shall continue to keep you advised of her progress. 01/17/2023 Other You can try an over the counter Imodium as needed for loose BM's/diarrhea Overall, Kinza appears well. Given her previous history of tubular adenomas of the colon and her last colonoscopy being 5 years ago, I did recommend a followup colonoscopy for further screening purposes. We did review the rationale for this in regard to colon cancer prevention. I will plan to obtain colon biopsies to rule out any underlying microscopic colitis given her intermittent issues with diarrhea and urgency. We did review the rationale for this in regard to colon cancer prevention. Full consent was obtained from her for this, including risks of bleeding and perforation. The procedure will be done with monitored anesthesia care. She was given the below instructions regarding adjustment of her medication for the procedure. In regard to her intermittent episodes of urgency and diarrhea, I did recommend a trial of some ztkx-kdt-pdkna er Imodium. Given that these episodes seem to be few and far between, I don't think she needs to be on a chronic daily medication for this. Her reflux seems to be stable on her current regimen of omeprazole and I advised her to continue that. She does not seem to be having any true dysphagia and I suspect some of the issues with her swallowing are related to the same problem that caused her difficulty speaking. I suspect the muscles in the mouth area are causing some difficulty with forming a good food bolus and perhaps causing some swallowing issues on that basis. I did advise her to let me know the results of her upcoming speech and swallowing study. Kinza was comfortable with this plan. Thank you again for allowing me to participate in Kinza's care. I shall continue to keep you advised of her progress. Plan Of Treatment Treatment Notes Assessment Notes Encounter for screening [...] Follow Up: prn, Reason: Progress Notes * CITLALI ORTEZISDOB:1945 (77 yo F)Acc No.[id number]:01/17/2023 Progress Notes Patient:?KINZA ORTEZ Provider:?Zach Hewitt MD :1945???Age:77 Y???Sex:Female D ate:01/17/2023 [id number] Pcp:Beck Hernandez Subjective: * Chief Complaints: * ???Patient presents today fo r a recall colonoscopy * HPI: ???incontinence:? I saw Kinza in consultation today in regard to further evaluation of her intermittent diarrhea, personal history of tubular adenomas of the colon, and need for colorectal cancer screening. ?I last saw Kinza in December 2017, at which time she underwent a screening colonoscopy with removal of 2 small tubular adenomas. She presently feels well although does describe occasional episodes of urgency and loose bowel movements with occasional accidents . These episodes are infrequent and the great majority of the time her bowel movements are fairly regular and comfortable. She does have some gas. She denies any hematochezia nor melena. She denies any significant abdominal pain, unintentional weight loss, or jaundice. The episodes of urgency and loose bowel movements are unpredictable and not related to be any specific food. She does not use much in the way of dairy products nor caffeine. ?She enjoys a good appetite and denies any significant heartburn nor dysphagia on her daily omeprazole. However, as you know, she did develop an aphasia with difficulty speaking about 4 years ago. However, this is not related to a stroke by her description, and is not associated with any cognitive dysfunction. It seems to be strictly related to a motor deficit involving her speech and oral muscles. She does describe occasional drooling and some trouble initiating a swallow, but no actual dysphagia to food. She does describe that she has been seen at the speech clinic and is scheduled for a barium swallow with them on February 10. She does describe that the etiology of her aphasia is not clear although she [place] following up [place] * ROS:?General/Constitutional:?Change in appetite?denies.?Chills?denies.?Fatigue?denies.?Ophthalmologic:?Comments?all negative.?ENT:?Comments?all negative.?Respiratory:?hemoptysis?denies.?Cough?denies.?Cardiovascular:?Chest pain?denies.?Orthopnea?denies.?Gastrointestinal:?Comments?See HPI for details.?Genitourinary:?Hematuria?denies.?Dysuria?denies.?Musculoskeletal:?Painful joints?hands/fingers.?Weakness?denies.?Skin:?Itching?denies.?Rash?denies.?Neurologic:?Headache?denies.?Seizures?denies.?Psychiatric:?Comments?all negative.? * Medical History:? * Surgical History:?Cholecyste ctomy Lump on right side of neck removed by Dr. Bolaños-benign Tonsils 1971Tubal ligation 1974Cataracts 2007Hernia repair---at the [facility] incision [address] Mike--right 4th finger 09/2014 * Hospitalization/Major Diagno stic Procedure:? * Family History:?Father: dece ased, esophageal cancer.?Mother: , diagnosed with HTN (hypertension).? Denies family hx of Colon CA. * Social History:?Tobacco Use:?Tobacco Use/Smoking?Are you a: nonsmoker.?Drugs/Alcohol:?Alcohol Screen?Points: 2, Interpretation: Negative.?Miscellaneous:?Marital status: . Occupation: Retired from [employer] [place] [employer] [place]. ???Nonsmoker; rare alcohol use. * Medications:?TakingProlia 60 MG/ML Solution Prefilled Syringe as directed Subcutaneous Vitamin D-3 25 MCG (1000 UT) Capsule 1 capsule Orally Once a dayVitamin B 12 100 MCG Lozenge as directed Orally Losartan Potassium-HCTZ 50-12.5 MG Tablet 1 tablet Orally Once a dayLevothyroxine Sodium 150 MCG Tablet 1 tablet in the morning on an empty stomach Orally Once a dayAtenolol 50 MG Tablet 1 tablet Orally Once a dayLisinopril 10 MG Tablet 1 tablet Orally Once a dayAspir-81 81 MG Tablet Delayed Release 1 tablet Orally Once a daySimvastatin 20 MG Tablet 1 tablet in the evening Orally Once a daySertraline HCl 100 MG Tablet 1 tablet Orally Once a dayOmeprazole 20 MG Tablet Delayed Release 1 tablet Orally Once a dayoxyBUTYnin Chloride ER 10 MG Tablet Extended Release 24 Hour 1 tablet Orally Once a dayChlorthalidone 25 MG Tablet 1 tablet in the morning Orally Once a dayMedication List reviewed and reconciled with the patientTaking Prolia 60 MG/ML Solution Prefilled Syringe as directed Subcutaneous Taking Vitamin D-3 25 MCG (1000 UT) Capsule 1 capsule Orally Once a dayTaking Vitamin B 12 100 MCG Lozenge as directed Orally Taking Losartan Potassium-HCTZ 50-12.5 MG Tablet 1 tablet Orally Once a dayTaking Levothyroxine Sodium 150 MCG Tablet 1 tablet in the morning on an empty stomach Orally Once a dayTaking Atenolol 50 MG Tablet 1 tablet Orally Once a dayTaking Lisinopril 10 MG Tablet 1 tablet Orally Once a dayTaking Aspir-81 81 MG Tablet Delayed Release 1 tablet Orally Once a dayTaking Simvastatin 20 MG Tablet 1 tablet in the evening Orally Once a dayTaking Sertraline HCl 100 MG Tablet 1 tablet Orally Once a dayTaking Omeprazole 20 MG Tablet Delayed Release 1 tablet Orally Once a dayTaking oxyBUTYnin Chloride ER 10 MG Tablet Extended Release 24 Hour 1 tablet Orally Once a dayTaking Chlorthalidone 25 MG Tablet 1 tablet in the morning Orally Once a dayMedication List reviewed and reconciled with the patient * Allergies:?cephalosporinsyes [Allergies Verified] Objective: * Vitals:?Wt: 150 lbs, Ht: 63. 50 in, BMI:26.15 Index, BP: 000/00 mm Hg, Temp: 96.0. * Examination: ???General Examination: ?GENERAL APPEARANCE:?pleasant, well nourished, well developed, in no acute distress.?EYES:?sclera non-icteric.?ORAL CAVITY:?mucosa moist.?NECK/THYROID:?no cervical lymphadenopathy, neck supple.?SKIN:?nonjaundiced, no spider angiomata.?HEART:?S1, S2 normal.?LUNGS:?clear to auscultation bilaterally.?ABDOMEN:?normal bowel sounds, no guarding or rigidity, no guarding or rigidity, no masses palpable, soft, nontender, nondistended.?EXTREMITIES:?no edema.?NEUROLOGIC:?alert and oriented.? Assessment: * Assessment: 1.?Loose bowel movements - R 19.5 (Primary)?2.?Gastroesophageal reflux disease without esophagitis - K21.9?3.?History of adenomatous polyp of colon - Z86.010?4.?Encounter for screening for malignant neoplasm of colon - Z12.11?5.?Long-term use of aspirin therapy - Z79.82?6.?Change in bowel habits - R19.4?7.?Rectal urgency - R15.2? Overall, Kinza appears well. Given her previous history of tubular adenomas of the colon and her last colonoscopy being 5 years ago, I did recommend a followup colonoscopy for further screening purposes. We did review the rationale for this in regard to colon cancer prevention. I will plan to obtain colon biopsies to rule out any underlying microscopic colitis given her intermittent issues with diarrhea and urgency. We did review the rationale for this in regard to colon cancer prevention. Full consent was obtained from her for this, including risks of bleeding and perforation. The procedure will be done with monitored anesthesia care. She was given the below instructions regarding adjustment of her medication for the procedure. In regard to her intermittent episodes of urgency and diarrhea, I did recommend a trial of some balq-iay-gepnflw Imodium. Given that these episodes seem to be few and far between, I don't think she needs to be on a chronic daily medication for this. Her reflux seems to be stable on her current regimen of omeprazole and I advised her to continue that. She does not seem to be having any true dysphagia and I suspect some of the issues with her swallowing are related to the same problem that caused her difficulty speaking. I suspect the muscles in the mouth area are causing some difficulty with forming a good food bolus and perhaps causing some swallowing issues on that basis. I did advise her to let me know the results of her upcoming speech and swallowing study. Kinza was comfortable with this plan. Thank you again for allowing me to participate in Kinza's care. I shall continue to keep you advised of her progress. Plan: * Treatment: 2.?Encounter for screening for malignant neoplasm of colon?Procedure: COLONOSCOPY (Ordered for 01/17/2023)* with MACsched for 01/23/23 at 2:00 pmmiralax Notes: Stop aspirin for 1 week before the colonoscopy Do not take the Chlorthalidone the day before nor on the day of the colonoscopy.??3.?Others? Notes: You can try an over the counter Imodium as needed for loose BM's/diarrhea.?? * Procedure Codes:?3017F COLOR ECTAL CA SCREEN DOC SMM8180R TOBACCO NON-VINRS4587 BP SCR NOT PRFRM REC REASON NOS * Preventive Medicine:? ??Counseling:?Care goal follow-up plan:?Above Normal BMI Follow-up?Giving encouragement to exercise,?BMI management provided?Yes.? ??Urinary Incontinence:?Urinary Incontinence?Assessment:?Present,?Plan of care documented:?Yes,?Type of plan of care:?Lifestyle interventions.? * Follow Up:?prn * * Sign off status: Completed true * Provider:?Zach Hewitt MD Date:? 023 Generated for Igor valdovinos/Anirudh/Sera on:?06/28/2024 05:01 PM EST History and Physical Notes * HPI (History of Present Illness) Category Sub-Category Detail Notes Category Not es incontinence I saw Kinza in consultation today in regard to further evaluation of her intermittent diarrhea, personal history of tubular adenomas of the colon, and need for colorectal cancer screening. I last saw Kinza in December 2017, at which time she underwent a screening colonoscopy with removal of 2 small tubular adenomas. She presently feels well although does describe occasional episodes of urgency and loose bowel movements with occasional accidents . These episodes are infrequent and the great majority of the time her bowel movements are fairly regular and comfortable. She does have some gas. She denies any hematochezia nor melena. She denies any significant abdominal pain, unintentional weight loss, or jaundice. The episodes of urgency and loose bowel movements are unpredictable and not related to be any specific food. She does not use much in the way of dairy products nor caffeine. She enjoys a good appetite and denies any significant heartburn nor dysphagia on her daily omeprazole. However, as you know, she did develop an aphasia with difficulty speaking about 4 years ago. However, this is not related to a stroke by her description, and is not associated with any cognitive dysfunction. It seems to be strictly related to a motor deficit involving her speech and oral muscles. She does describe occasional drooling and some trouble initiating a swallow, but no actual dysphagia to food. She does describe that she has been seen at the speech clinic and is scheduled for a barium swallow with them on February 10. She does describe that the etiology of her aphasia is not clear although she [place] up [place] Examination Category Sub-Category Detail Notes Category Not es General Examination GENERAL APPEARANCE: pleasant , well [...]
--- OUTSIDE RECORDS SUMMARY | 2024-06-28 17:01 | XMS_ITS | Patient Health Record ---
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 Name Role Phone Beck Hernandez Primary Care Provider Zach Ho Unavailable [phone] Allergies Allergen (clinical drug ingredient) Drug/Non Drug Allergy documented on EMR Reaction Allergy Type Onset Date Status Medicinal cephalosporin and acting as antibacterial agent (FN) cephalosporins (uncoded) Unknown Allergy Active Reason For Referral No Information Medications Medication SIG (Take, Route, Frequency, Duration) [...] 12 100 MCG as directed Orally Active Immunizations Vaccine Route Administration Date Status Comme nts Flu vaccine no Preserv 3 and > Unknown 02/03/2015 Admin istered Influenza Unknown 01/11/2022 Administered Problems Problem Type SNOMED Code ICD Code Onset Dates Problem Status W/U Status Risk Notes Problem 222765598 Encounter for screening for malignant neoplasm of colon (Z12.11) Active confirmed Problem 453164922 History of adenomatous polyp of colon (Z86.010) Active confirmed Problem 70445277 Change in bowel habits (R19.4) Active confirmed Problem 61938178 Hypertension (I10) Active confirmed Problem Diverticular disease of colon (088124376) Diverticulosis of large intestine without perforation or abscess without bleeding (K57.30) Active confirmed Problem 567865711 Blood in stool (K92.1) Active confirmed Problem 502268161 Gastroesophageal reflux disease without esophagitis (K21.9) Active confirmed Problem 18195232 Rectal urgency (R15.2) Active confirmed Problem 825066999 Long-term use of aspirin therapy (Z79.82) Active confirmed Problem 217381903 Loose bowel movements (R19.5) Active confirmed Plan Of Treatment Future Test Test Name Order Date COLONOSCOPY 09/06/2011 COLONOSCOPY 01/19/2017 COLONOSCOPY 01/17/2023 Insurance Providers Payer Name Payer Address Payer Phone Subscriber Number Group Number Insured Name Patient Relationship to Insured Coverage Start Date Coverage End Date MEDICARE OF [place] [address] [place] [address] [phone] [id number] CLAU ORTEZ Self - patient is the insured [employer] CLAIMS [address] [place] [address] [phone] [id number] CLAU ORTEZ Self - patient is the insured [employer] [address] [place] [address] [id number] CLAU ORTEZ Self - patient is the insured Medical (General) History Medical History History ICD Code Tubular adenoma was removed in 2005 during colonoscopy--a colonoscopy in 2001 was negative Colonoscopy 09/22/2011--nega tive except for some diverticulosis and internal hemorrhoids GERD-upper endoscopy in 2001 was negative for any esophagitis or Pollock's esophagus Hypertension Depression Hyperlipidemia Denies DC,DM,CVA,Lung disease,renal dise ase Sleep apnea-uses a CPAP machine Urinary incontinence Osteoarthritis, wing. hands Aphasia since 2018, but not from a strok e. She has no cognitive deficits Screening colonoscopy in Dec with removal of 2 small tubular adenomas Surgical History Surgery Date(Month/Year) Cholecystectomy Lump on right side of neck removed by Dr Rolando Bolaños-benign Tonsils 1971 Tubal ligation 1974 Cataracts 2006 Hernia repair---at the [facility] incision [address] Mike--right 4th finger 09/2014
--- OUTSIDE RECORDS SUMMARY | 2024-06-28 17:01 | XMS_ITS | Data Portability ---
Author Organization [place] [facility], [facility]_ Address [address] [facility] [address] [place] [address] Assessment Encounter Date Assessment Date Assessment LastModified [...] or more view 023 03/24/20 23 [email or web address] [facility], [address] [facility], [place], [address], 13:47:20 Medication Orders None record ed. Patient TargetsNo targets recorded. Patient Instructions Encounter Date Encounter Id Patient Instructions Last Modified By Organization Details Last Modified Time 03/24/2023 [id number] hand arthritis: exercises Not available 03/24/2023 13:32:06 [...] Silastic arthroplasty. Not available 03/24/2023 13:27:10 06/13/2023 [id number] hand arthritis: exercises Not available 06/13/2023 11:58:35 [...] We will see her back as needed. [email or web address] Not available 06/13/2023 11:57:58 08/11/2023 [id number] learning about healthy weight Not available 08/11/2023 [...] today. She will be returning home up [place] and plans on scheduling her follow up appointments there. I advised her to receive repeat x-rays in 2 weeks, she understands. Not available 08/11/2023 09:19:40 08/16/2023 [id number] Patient placed EXOs brace in the microwave [...] Documented - 1123F [place] [address], [address], [facility] 08/11/2023 07:03:59 08/11/19 24 [employer] DME L3984 EXOS FRA[place]URE [place] [address] [employer] [address], [place], [address], [facility] 08/11/2023 09:17:27 06/13/19 24 FSOSM Hero small injection completed April Molina PA-C [address], [address], [facility] 06/13/2023 11:55:42 06/13/19 24 Advance Care Planning - Advance Care Plan/Surrogate Documented - 1123F completed April Molina PA-C [address], [place], [address], [facility] 06/13/2023 11:55:18 03/24/20 23 FSOSM Monahan [place] [address], [address], [facility] 03/24/2023 13:28:51 03/24/20 23 Advance Care Planning - Advance Care Plan/Surrogate Documented - 1123F [place] [address], [place], [address], [facility] - [facility] 03/24/2023 07:50:25 [...] Name and Address Organization Details Recorded Time 185160 Product containin g cephalosp nadira (product) medicatio n Not available Not available Not available 03/24/2023 47177 9009 SNOMED Not Available Not Available Not [...] Address Organization Details Last Updated DateTime 03/24/2023 34561.26 g 26.4 kg/m2 160.02 cm Yeyo Holden [place] [facility] 03/24/2023 12:39:12 Date Recorded Body height Body mass index (BMI) Body weight Provider Name and Address Organization Details Last Updated DateTime 06/13/2023 160.02 cm 26.4 kg/m2 58371.26 g April Molina PA-C [address], [place], [address], [place] [facility] 06/13/2023 11:49:44 Date Recorded Body height Body mass index (BMI) Body weight Provider Name and Address Organization Details Last Updated DateTime 08/11/2023 160.02 cm 26.6 kg/m2 45710.86 g Noni Pinzon [place] [facility] [...] 12:39:28 Medical History Condition Response Anxiety/Depression Y High Blood Pressure Y Thyroid Disease Y Head Trauma/Injury Y Hypothyroidism Y Arthritis Y Acid Reflux (GERD) Y Cancer Y High Cholesterol Y Neurologic Disorder Y Bowel Disease Y Osteoarthritis Y Artificial Joints Y Thyroid Problems Y GERD/Ulcers Y Anemia Y Back Pain Y Cataract Y Hypertension Y Have you ever had [...] SNOMED-CT Code Diagnosis ICD10 Code Diagnosis Note [id number] Andrea Monahan MD [facility]_[address] [place] [address] 03/24/2023 11:57:48 03/24/2023 13:23:16 Pain in right hand 0735247186 02261 M79.641 Arthritis of hand 668963 005 M13.849 M13.050 [id number] Andrea Monahan MD [facility]_[address] [place] [address] 06/13/2023 11:30:40 06/13/2023 11:45:44 Arthritis of hand 142670831 M13.846 [id number] Jhony Guillory MD [facility]_PH [address] [address] 08/11/2023 08:23:26 08/11/2023 09:27:12 Obesity 875824461 E66.3 Closed fra cture of base of fourth metacarpal bone of left hand 5215309140 9142296 S62.315A [id number] Jhony Guillory MD [facility]_PH [address] [address] 08/16/2023 12:54:45 08/16/2023 13:12:11 Closed fracture of base of fourth metacarpal bone of left hand 7501868712 4264409 S62.315A Health Concerns Section Related Observation LastModified by Organization Detai ls LastModified Time None Recorded Concern Status LastModified by Organization Details LastModified Time None Recorded Advance Directives Directive Y: Payers Encounter Date Sequence Insurance Name Policy Number Policy Monroy Covered Member ID Monroy Member ID Guarantor Name 03/24/2023 1 [place] Kinza A Pare [id number] Kinza Pare 03/24/2023 2 [place] [id number] Kinza A Pare [id number] Kinza Pare 06/13/2023 1 [place] Kin[place] A Pare [id number] Kinza Pare 06/13/2023 2 [place] [id number] Kinza A Pare [id number] Kinza Pare 08/11/2023 1 [place] Kin[place] A Pare [id number] Kinza Pare 08/11/2023 2 [place] [id number] Kinza A Pare [id number] Kinza Pare 08/16/2023 2 [place] [id number] Kinza Blair [id number] Kinza Blair Notes Date Note Type [...] from [employer] on 03/24/2023 [place] [address] [facility] [place] [facility] [address], [place], [address], [facility] - [facility] 03/24/2023 13:32:10 [...] ?Aggravating Factors ?Cold/Ice ?Weather Imported from [facility] on 03/24/2023 April Molina PA-C [address] [facility] [place], [place], [address], [facility] - [facility] 06/13/2023 11:58:37 [...] etc.) ?Aggravating Factors ?Nothing Imported from [facility] on 08/11/2023 [place] [address], [place], [address], [place] [facility] 08/11/2023 09:20:01 [...] etc.) ?Aggravating Factors ?Nothing Imported from [facility] on 08/11/2023 LEANDER CANAS PA-C [address], [place], [address], [facility] - [facility] 08/16/2023 13:19:44 OBGyn Episode No OBEpisode recorded.
--- OUTSIDE RECORDS SUMMARY | 2024-06-28 17:01 | XMS_ITS ---
Author Organization [facility] Address [address] [place] [address] Care Team Providers Care Statistical Assistant Name Role Phone Beck Hernandez Primary Care Provider Unavailab Zach Mayorga Unavailable [phone] REASON FOR VISIT screening,hx polyps Problems Problem Type SNOMED Code ICD Code Onset Dates Problem Status W/U Status Risk Notes Problem Diverticular disease of colon (499090812) Diverticulosis of large intestine without perforation or abscess without bleeding (K57.30) Active confirmed Encounters Encounter Location Date Provider Diagnosis [facility] [address] [place] [id number] 01/23/2023 Zach Hewitt Encounter for scre ening colonoscopy for stp-xepa-nxkq patient Z12.11 ; Colon polyp K63.5 ; Diverticulosis of large intestine without perforation or abscess without bleeding K57.30 and Other hemorrhoids K64.8 Assessments Encounter Date Diagnosis (ICD Code) Assessment Notes Treatment Notes Treatment Clinical Notes Section Notes 01/23/2023 Encounter for screening colonoscopy for oou-jego-rajg patient (ICD-10 - Z12.11) 01/23/2023 Colon polyp (ICD-10 - K63.5) 01/23/2023 Diverticulosis of large intestine without perforation or abscess without bleeding (ICD-10 - K57.30) 01/23/2023 Other hemorrhoids (ICD-10 - K64.8) Plan Of Treatment No Information Progress Notes * CITLALI ORTEZISDOB:1945 (79 yo F)Acc No.[id number]:01/23/2023 COLON WITH MAC Patient:?CLAU ORTEZ Provider:?Zach Hewitt MD :1945???Age:77 Y???Sex:Female D ate:01/23/2023 Address:[place], [place] Pcp:Beck Hernandez Subjective: * Chief Complaints: * ???1. Screening,hx polyps. * Medical History:? Objective: * Vitals:? Assessment: * Assessment: 1.?Encounter for screening c olonoscopy for rhg-oqpp-eaac patient - Z12.11 (Primary)???2.?Colon polyp - K63.5???3.?Diverticulosis of large intestine without perforation or abscess without bleeding - K57.30???4.?Other hemorrhoids - K64.8??? Plan: * Treatment: * Procedure Codes:?96896 COLON OSCOPY AND BIOPSY, Modifiers: PT , 0529F INTRVL 3+YRS PTS CLNSCP DOCD, 0528F RCMND FLW-UP 10 YRS DOCD, Modifiers: 1P * * The named appointment provid er may or may not be the originator of this progress note, and it is not deemed complete until electronically signed by the appointment provider. Sign off status: Pending * Provider:?Zach Hewitt MD Date:? 023 Generated for Igor valdovinos/Anirudh/Joriitting on:?06/28/2024 02:21 PM EST
--- OUTSIDE RECORDS SUMMARY | 2024-06-28 17:01 | XMS_ITS ---
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 Generated for Igor valdovinos/Anirudh/eTransmitting on:?06/28/2024 05:00 PM EST
[2024-06-28 17:17] LABS: Alanine Aminotransferase 29 U/L (0-31); Albumin Level 4.1 g/dL (3.5-5.0); Alkaline Phosphatase 71 U/L (39-117); Anion Gap 12 (12-20); Aspartate Amino Transferase 40 U/L (5-31); Bilirubin Total 0.7 mg/dL (0.0-1.0); Blood Urea Nitrogen 17 mg/dL (9-16); Calcium 9.5 mg/dL (8.4-10.2); Carbon Dioxide 28 mmol/L (22-29); Chloride 106 mmol/L (96-108); Estimated Glomerular Filt Rate > 60; Glucose Random 137 mg/dL (60-115); Potassium 3.8 mmol/L (3.3-5.1); Sodium 142 mmol/L (135-145); Total Protein 8.3 g/dL (6.5-8.0)
[2024-06-28 17:33] LABS: TSH reflex Free T4 1.18 uIU/mL (0.32-4.0); Vitamin D 25-OH Total 21.7 ng/mL (>30)
[2024-06-28 17:34] LABS: Folate 12.4 ng/mL (> or = 4.0); Vitamin B12 1833 pg/mL (200-900)
== END 2024-06-28 15:30 | disposition home or self-care (01) ==
LOC: HO.LAB 15:29
PROVIDERS: PCP Internal Medicine; Visit Provider Clinical Nurse Specialist Psychiatric/Mental Health
DX: F41.8 Other specified anxiety disorders (principal); R47.01 Aphasia
CPT/HCPCS: 36415; 80053; 82306; 82607; 82746; 84443; 85025

== ENCOUNTER 2024-07-12 08:35 | Outpatient (REF) | payer MEDICARE, OTHER, SELFPAY ==
--- NOTE | ~2024-07-12 | XR_ITS ---
EXAMINATION: XR FEMUR, RIGHT CLINICAL INFORMATION: S72.009A - Fracture of unspecified part of neck of unspecified femur, in... COMPARISON: 01/11/2025. TECHNIQUE: AP and lateral views of the right femur were obtained. FINDINGS: There is an intramedullary lauren within the proximal femur with associated compression screw extending into the right femoral head, fixating old intertrochanteric fracture which has healed. Hardware appears intact, well seated without periprosthetic lucency or complication. No periprosthetic fracture. The distal femur has a normal appearance. No knee joint effusion. Tricompartmental osteoarthritis within the right knee joint. There is mild over coverage of the right hip posterior acetabulum, which can be seen associated with CHARLIE. XR/XR femur RT 2V IMPRESSION: Proximal right femur ORIF without evidence of complication. Electronically signed by: Gabriel Durán MD 07/15/2024 09:26 AM EDT
== END 2024-07-12 08:36 | disposition home or self-care (01) ==
LOC: HO.HOSX 08:35
PROVIDERS: Visit Provider Physician Assistant
DX: S72.001A Fracture of unspecified part of neck of right femur, initial encounter for closed fracture (principal)
CPT/HCPCS: 73552; 99212

== ENCOUNTER 2024-07-12 12:45 | Outpatient (AMB) | payer MEDICARE, OTHER, SELFPAY ==
--- NOTE | 2024-07-12 12:49 | A.OFFVIS_ITS ---
Vital Signs 07/12/24 12:56 Height 5 ft 3 in Weight 148 lb BMI 26.2 Intake Visit Reasons: OV - Rt Hip IMN 12/23/23 DR Intake Note: Kinza is a 79 year old female who presents today for a follow up of her right hip pain, S/P Right Hip IMN 12/23/23 Patient reports a couple weeks ago she started to get a sharp pain in her groin area. Patient reports that she has been going to PT and she feels that it is helping but her next appointment on the . Allergies cortisone Allergy (Intermediate, Verified 07/12/24 12:49) Rash Cephalosporins Allergy (Mild, Verified 07/12/24 12:49) JAUNDICE KETOLIDES Allergy (Unknown, Uncoded 06/14/24 09:23) ITCHING MACORLIDES Allergy (Unknown, Uncoded 06/14/24 09:23) ITCHING HPI HPI OV - Rt Hip IMN 12/23/23 DR: Details: Ms. Blair is a 79-year-old female who presents to the office today for routine follow-up status post right hip IM nail performed on 12/23/[address] Garvin. Patient reports that her last physical therapy session is upcoming on Monday. She would like to extend her sessions to focus on gait training and balance. Overall she is doing very well. She does complain of some groin pain. [facility] Medical History (Updated 06/25/24 @ 17:11 by Eli Nunes APRN) Depression with anxiety Closed hip fracture History of adenomatous polyp of colon Expressive aphasia Essential hypertension Dyslipidemia Acquired hypothyroidism Intertrochanteric fracture of right hip Dysphagia Essential hypertension Osteoporosis GERD (gastroesophageal reflux disease) Aphasia High cholesterol High blood pressure Anemia Dyspnea on exertion T11 vertebral fracture Hypothyroidism Surgical History History of bone marrow biopsy History of excision of mass History of cholecystectomy History of tonsillectomy History of vertebroplasty History of kyphoplasty Family History Father Esophageal cancer Substance use disorder Mother Breast cancer Paternal Aunt Breast cancer Social History Household Members: Spouse [facility] Are you a primary senior resident care director to a significant other at home: No Do you presently have visiting nurse or other home services: No Alcohol intake: current Alcohol intake frequency: holidays/special occasions only Patient Tobacco Use Status: Never used Tobacco e-Cigarette/Vaping Use: Never Used Second Hand Smoke Exposure: No service: No Current occupational status: 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 Full hip ROM in all planes. 4/5 strength with resisted hip flexion, knee extension, abduction, and abduction. Able to perform straight leg raise. NVI. Assessment & Plan Assessment & Plan (1) Closed hip fracture: Code(s): S72.009A - Fracture of unspecified part of neck of unspecified femur, initial e ncounter for closed fracture Category: Medical Plan Ms. Blair is a 79-year-old female who presents to the office today for routine follow-up status post right hip IM nail performed on 12/23/[address] Garvin. Patient reports that her last physical therapy session is upcoming on Monday. She would like to extend her sessions to focus on gait training and balance. Overall she is doing very well. She does complain of some groin pain. While in the office today I did provide the patient with a new outpatient physical therapy prescription to extend her visits to work on balance, gait training and proprioception. The patient was able to demonstrate good strength while in the office today and therefore the patient is cleared to drive with the understanding that she needs to demonstrate good control. She understands and accepts this. In regards to the patient complaining of hip pain she does have significant osteoarthritis in that right hip which I believe is contributing to the groin pain she is experiencing. She may take anti-inflammatories and rest as needed. She will follow up p.r.n., sooner if needed. X-rays of the right femur which were obtained while in the office today and were reviewed by me, Bridget Herrera PA-C, revealed intact orthopedic hardware with routine healing. Orders: Orders PT Evaluation and Treatment Today S72.009A - Fracture of unspecified part of neck of unspecified femur, initial encounter for closed fracture XR femur RT 2V Today S72.009A - Fracture of unspecified part of neck of unspecified femur, initial encounter for closed fracture Coding Level of Care Code Est Pt Level 3 (83235) Diagnoses Closed hip fracture S72.009A
[2024-07-12 12:56] VITALS: BMI 26.2
== END 2024-07-12 13:57 | disposition home or self-care (01) ==
LOC: HO.HOS 12:46
PROVIDERS: PCP Internal Medicine; Visit Provider Physician Assistant
DX: S72.001D Fracture of unspecified part of neck of right femur, subsequent encounter for closed fracture with routine healing (principal)
CPT/HCPCS: 99213

== ENCOUNTER → 2024-07-12 12:50 | Outpatient (BNV) | payer MEDICARE, OTHER, SELFPAY | PROVIDERS: Visit Provider Radiology Diagnostic Radiology | DX: S72.001A Fracture of unspecified part of neck of right femur, initial encounter for closed fracture (principal) | CPT/HCPCS: 73552 ==

== ENCOUNTER 2024-07-23 13:54 | Outpatient (AMB) | payer MEDICARE, OTHER, SELFPAY ==
--- NOTE | 2024-07-23 13:13 | MHC.OFFVISPS ---
Intake Intake Visit Reasons: follow up Private Eye Required: No Allergies cortisone Allergy (Intermediate, Verified 07/12/24 12:49) Rash Cephalosporins Allergy (Mild, Verified 07/12/24 12:49) JAUNDICE KETOLIDES Allergy (Unknown, Uncoded 06/14/24 09:23) ITCHING MACORLIDES Allergy (Unknown, Uncoded 06/14/24 09:23) ITCHING Medication List - Last Reconciled 07/23/24 by Eli Nunes APRN celecoxib (Celebrex) 200 mg PO BID 30 days chlorthalidone 12.5 mg (1/2 x 25 mg) PO QAM cholecalciferol (vitamin D3) 50 mcg PO DAILY commode As directed, 999 days denosumab (Prolia) 60 mg subcut [id number] 1 day diaper,brief,adult,disposable (Depend Easy Fit Undergarments misc) 4 times a day, As directed, 30 days levothyroxine 150 mcg PO DAILY 90 days losartan 50 mg PO DAILY 90 days mecobalamin (vitamin B12) 1,000 mcg PO DAILY metoprolol succinate ER 50 mg PO DAILY miscellaneous medical supply Panty Liners, Twice a day As directed, 90 days omeprazole 20 mg PO DAILY 90 days oxybutynin chloride ER 10 mg PO DAILY 3 months potassium chloride ER (Klor-Con) 10 mEq PO DAILY 90 days sertraline 100 mg PO DAILY sertraline (Zoloft) 50 mg PO DAILY simvastatin 20 mg PO DAILY HPI- Psychiatric Chief Complaint: follow up HPI Narrative: Pt [facility]. Her PHQ9=15 and GAD7=7. She reports no change with the increased zoloft. She denies side effects from zoloft. Sheis easily tearful; she still feels depressed and sad often. She brought records from past treatments and neuropsychological testing from 2019 and 2021. 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 Please see scanned report for more information. She reports being able to manage ADLS at home with . Her daughter who lives in [facility] every Monday. Past Psychiatric History: outpt rx zoloft Subjective Subjective Subjective Medication Compliance: Yes Side effects from medications: No Review of Systems Medical Review of Systems: unchanged Mental Status Exam Mental Status Exam Patient Appearance: Well Grooomed and Appropriate Patient Orientation: Person, Place, Time and Situation Level of Consciousness: Awake, Appropriate and Alert Patient Behavior: Appropriate and Cooperative Mood Description: Sad Affect Description: Sad Patient Cognition Impaired: No Ability to Follow Directions: Good Speech Pattern: Appropriate and Poor Articulation Hallucinations: None Delusions: Not Present Thought Process: Intact and Distracted Thought Content: positive for Intact and positive for Loose Associations Judgement: Fair Results Reviewed Results Reviewed: reviewed neuropsych testing 2019 and 2021. Assessment and Plan Assessment & Plan (1) Major depressive disorder, recurrent episode, moderate with anxious distress: Status: Acute Code(s): F33.1 - Major depressive disorder, recurrent, moderate Plan increase zoloft to 100mg BID take one tablet with food breakfast and dinner return in 2 weeks Medications: Changed From sertraline 100 mg PO DAILY 90 tabs 3RF To sertraline Take with food; take one with breakfast and one with dinner 100 mg PO BID 180 tabs 2RF Discontinued sertraline (Zoloft) Discontinued Reason: Doctor's Order 50 mg PO DAILY 30 tabs 2RF Counseling and coordination of Care Pt. Self Management counseling: Nutrition education and improvement and General coping skills Medication management counseling: Effectiveness, Side effects, Dosing range, Duration, Drug interaction and Adherence Diagnosis and Prognosis Counseling: Accuracy of diagnosis, Prognosis over time, Impact of diagnosis on life functions, Problematic behaviors secondary to diagnosis and Adequacy of current interventions Details: I spent 45 minutes reviewing the record, seeing the patient and documenting in the medical record. Counseling provided to the patient/caregiver as outlined below. Addressed patient/caregiver concerns regarding current medication regime including effective adherence. Addressed patient/caregiver concerns regarding diagnosis and prognosis including accuracy of diagnosis, prognosis over time, impact of diagnosis. Addressed patient/caregiver concerns regarding impact of recent stressors. [facility] Medical History (Updated 06/25/24 @ 17:11 by Eli Nunes APRN) Depression with anxiety Closed hip fracture History of adenomatous polyp of colon Expressive aphasia Essential hypertension Dyslipidemia Acquired hypothyroidism Intertrochanteric fracture of right hip Dysphagia Essential hypertension Osteoporosis GERD (gastroesophageal reflux disease) Aphasia High cholesterol High blood pressure Anemia Dyspnea on exertion T11 vertebral fracture Hypothyroidism Surgical History History of bone marrow biopsy History of excision of mass History of cholecystectomy History of tonsillectomy History of vertebroplasty History of kyphoplasty Family History Father Esophageal cancer Substance use disorder Mother Breast cancer Paternal Aunt Breast cancer Social History Household Members: [facility] Are you a primary career development specialist to a significant other at home: No Do you presently have visiting nurse or other home services: No Alcohol intake: current Alcohol intake frequency: holidays/special occasions only Patient Tobacco Use Status: Never used Tobacco e-Cigarette/Vaping Use: Never Used Second Hand Smoke Exposure: No service: No Current occupational status: 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 she and were spending 6 months in [place] and six months here in [place] for years but this year after her leg fracture it feels like too much to do that anymore and the medical care she was getting felt fragmented to her. Substance History: one Trauma History: yes Coding Level of Care Code Est Pt Level 5 (31855) Diagnoses Major depressive disorder, recurrent episode, moderate with anxious distress F33.1
--- OUTSIDE RECORDS SUMMARY | 2024-07-23 16:33 | XMS_ITS | Patient Health Record ---
Author Organization [facility] Address [address] [place] [address] Care Team Providers Care Search Engine Marketing Manager Name Role Phone Beck Hernandez Primary Care Provider Zach Ho Unavailable [phone] Allergies Allergen (clinical drug ingredient) Drug/Non Drug [...] Problem Status W/U Status Risk Notes Problem 484467836 Encounter for screening for malignant neoplasm of colon (Z12.11) Active confirmed Problem 386905303 History of adenomatous polyp of colon (Z86.010) Active confirmed Problem 85625177 Change in bowel habits (R19.4) Active confirmed Problem 38887606 Hypertension (I10) Active confirmed Problem Diverticular disease of colon (350843981) Diverticulosis of large intestine without perforation or abscess without bleeding (K57.30) Active confirmed Problem 019877435 Blood in stool (K92.1) Active confirmed Problem 564619931 Gastroesophageal reflux disease without esophagitis (K21.9) Active confirmed Problem 90116703 Rectal urgency (R15.2) Active confirmed Problem 295142124 Long-term use of aspirin therapy (Z79.82) Active confirmed Problem 201930683 Loose bowel movements (R19.5) Active confirmed Plan Of Treatment Future Test Test Name Order Date COLONOSCOPY 09/06/2011 COLONOSCOPY 01/19/2017 COLONOSCOPY 01/17/2023 Insurance Providers Payer Name Payer Address Payer Phone Subscriber Number Group Number Insured Name Patient Relationship to Insured Coverage Start Date Coverage End Date MEDICARE OF [place] [address] [facility] [address] [id number] CLAU ORTEZ Self - patient is the insured [employer] CLAIMS [address] [place] [address] [id number] CLAU ORTEZ Self - patient is the insured [employer] [address] [place] [address] [phone] [id number] CLAU ORTEZ Self - patient is the [...]
--- OUTSIDE RECORDS SUMMARY | 2024-07-23 16:33 | XMS_ITS ---
Author Organization [facility] Address [address] [place] [address] Care Team Providers Care Cold Roll Operator Name Role Phone Beck Hernandez Primary Care Provider Unavailab Zach Mayorga Unavailable [phone] REASON FOR VISIT screening,hx polyps Problems Problem Type SNOMED Code ICD Code Onset Dates Problem Status W/U Status Risk Notes Problem Diverticular disease of colon (462179403) Diverticulosis of large intestine without perforation or abscess without bleeding (K57.30) Active confirmed Encounters Encounter Location Date Provider Diagnosis [facility] [address] [place] [id number] 01/23/2023 Zach Hewitt Encounter for scre ening colonoscopy for lls-vrke-vqab patient Z12.11 ; Colon polyp K63.5 ; Diverticulosis of large intestine without perforation or abscess without bleeding K57.30 and Other hemorrhoids K64.8 Assessments Encounter Date Diagnosis (ICD Code) Assessment Notes Treatment Notes Treatment Clinical Notes Section Notes 01/23/2023 Encounter for screening colonoscopy for fcq-rals-sgkc patient (ICD-10 - Z12.11) 01/23/2023 Colon polyp (ICD-10 - K63.5) 01/23/2023 Diverticulosis of large intestine without perforation or abscess without bleeding (ICD-10 - K57.30) 01/23/2023 Other hemorrhoids (ICD-10 - K64.8) Plan Of Treatment No Information Progress Notes * CITLALI ORTEZISDOB:1945 (79 yo F)Acc No.[id number]:01/23/2023 COLON WITH MAC Patient:?CLAU ORTEZ Provider:?Zach Hewitt MD :1945???Age:77 Y???Sex:Female D ate:01/23/2023 Address:[place], [place] Pcp:Beck Hernandez Subjective: * Chief Complaints: * ???1. Screening,hx polyps. * Medical History:? Objective: * Vitals:? Assessment: * Assessment: 1.?Encounter for screening c olonoscopy for rke-dqxc-tyvn patient - Z12.11 (Primary)???2.?Colon polyp - K63.5???3.?Diverticulosis of large intestine without perforation or abscess without bleeding - K57.30???4.?Other hemorrhoids - K64.8??? Plan: * Treatment: * Procedure Codes:?42200 COLON OSCOPY AND BIOPSY, Modifiers: PT , [...] MD Date:? 023 Generated for Igor valdovinos/Anirudh/Joriitting on:?07/23/2024 04:33 PM EDT
--- OUTSIDE RECORDS SUMMARY | 2024-07-23 16:33 | XMS_ITS | Data Portability ---
Author Organization [place] [facility], [facility]_ Address [address] [place] [address] Assessment Encounter Date Assessment Date Assessment LastModified [...] or more view 023 03/24/20 23 [email or web address] [facility] [place] [facility] [place], [address] [facility], [place], [address], 13:47:20 Medication Orders None record ed. Patient TargetsNo targets recorded. Patient Instructions Encounter Date Encounter Id Patient Instructions Last Modified By Organization Details Last Modified Time 03/24/2023 [id number] hand arthritis: exercises Not available 03/24/2023 13:32:06 [...] Silastic arthroplasty. Not available 03/24/2023 13:27:10 06/13/2023 [id number] hand arthritis: exercises [email or web address] Not available 06/13/2023 11:58:35 Right hand moderate [...] as needed. Not available 06/13/2023 11:57:58 08/11/2023 [id number] learning about healthy weight Not available 08/11/2023 [...] today. She will be returning home up [place] and plans on scheduling her follow up appointments there. I advised her to receive repeat x-rays in 2 weeks, she understands. Not available 08/11/2023 09:19:40 08/16/2023 [id number] Patient placed EXOs brace in the microwave [...] Documented - 1123F [place] [address],[place], [address], [facility] 08/11/2023 07:03:59 08/11/19 24 FOI DME L3984 EXOS FRA[place]URE [place] [address] [employer] [address], [place], [address], [facility] 08/11/2023 09:17:27 06/13/19 24 FSOSM Hero small injection completed April Molina PA-C [address],[place], [address], [facility] 06/13/2023 11:55:42 06/13/19 24 Advance Care Planning - Advance Care Plan/Surrogate Documented - 1123F completed April Molina PA-C [address] [employer] [address], [place], [address], [facility] 06/13/2023 11:55:18 03/24/20 23 FSOSM Monahan [place] [address],[place], [address], [facility] 03/24/2023 13:28:51 03/24/20 23 Advance Care Planning - Advance Care Plan/Surrogate Documented - 1123F [place] [address], [place], [address], [facility] - [facility] 03/24/2023 [...] Name and Address Organization Details Recorded Time 134418 Medicinal product containin g cephalosp nadira and acting as antibacte rial agent (product) medicatio n Not available Not available Not available 03/24/2023 90032 9009 SNOMED Not Available Not Available Not [...] Address Organization Details Last Updated DateTime 03/24/2023 24965.26 g 26.4 kg/m2 160.02 cm Yeyo Holden [place] [facility] 03/24/2023 12:39:12 Date Recorded Body height Body mass index (BMI) Body weight Provider Name and Address Organization Details Last Updated DateTime 06/13/2023 160.02 cm 26.4 kg/m2 42493.26 g April Molina PA-C [address], [place], [address], [place] [facility] 06/13/2023 11:49:44 Date Recorded Body height Body mass index (BMI) Body weight Provider Name and Address Organization Details Last Updated DateTime 08/11/2023 160.02 cm 26.6 kg/m2 58910.86 g Noni Pinzon [place] [facility] [...] Condition Response Anxiety/Depression Y Bowel Disease Y Thyroid Disease Y High Blood Pressure Y Osteoarthritis Y Head Trauma/Injury Y Artificial Joints Y Thyroid Problems Y Hypothyroidism Y GERD/Ulcers Y Anemia Y Back Pain Y Arthritis Y Acid Reflux (GERD) Y Cancer Y Cataract Y High Cholesterol Y Neurologic Disorder Y [...] SNOMED-CT Code Diagnosis ICD10 Code Diagnosis Note [id number] Andrea Monahan MD [facility] [place] [address] 03/24/2023 11:57:48 03/24/2023 13:23:16 Pain in right hand 2797744046 47403 M79.641 Arthritis of hand 723273 005 M13.849 M13.994 [id number] Andrea Monahan MD [facility]_[address] [place] [address] 06/13/2023 11:30:40 06/13/2023 11:45:44 Arthritis of hand 467936688 M13.956 [id number] Jhony Guillory MD [facility]_PH [address] [address] 08/11/2023 08:23:26 08/11/2023 09:27:12 Obesity 893558524 E66.3 Closed fra cture of base of fourth metacarpal bone of left hand 7384758148 0108735 S62.315A [id number] Jhony Guillory MD [facility]_PH [address] [address] 08/16/2023 12:54:45 08/16/2023 13:12:11 Closed fracture of base of fourth metacarpal bone of left hand 5273646242 0478833 S62.315A Health Concerns Section Related Observation LastModified by Organization Detai ls LastModified Time None Recorded Concern Status LastModified by Organization Details LastModified Time None Recorded Advance Directives Directive Y: Payers Encounter Date Sequence Insurance Name Policy Number Policy Monroy Covered Member ID Monroy Member ID Guarantor Name 03/24/2023 1 [place] Kin[place] A Pare [id number] Kinza Pare 03/24/2023 2 [place] [id number] Kinza A Pare [id number] Kinza Pare 06/13/2023 1 [place] Pare [id number] Kinza Pare 06/13/2023 2 [place] [id number] Kinza A Pare [id number] Kinza Pare 08/11/2023 1 [place] Pare [id number] Kinza Pare 08/11/2023 2 [place] [id number] Kinza A Pare [id number] Kinza Blair 08/16/2023 2 [place] [id number] Kinza Blair [id number] Kinza [place] Notes Date Note Type [...] ?Heat ?Aggravating Factors ?Cold/Ice ?We[facility] 03/24/2023 [place] [address],[facility], [place], [address], [facility] - [facility] 03/24/2023 [...] ?Heat ?Aggravating Factors ?Cold/Ice ?Weather Imported from [facility] 03/24/2023 April Molina PA-C [address] [facility], [place], [address], [place] [facility] 06/13/2023 11:58:37 [...] Tape, etc.) ?Aggravating Factors ?Nothing Imported from [facility] on 08/11/2023 [place] [address] [facility], [place], [address], [place] [facility] 08/11/2023 09:20:01 [...] Tape, etc.) ?Aggravating Factors ?Nothing Imported from [facility] on 08/11/2023 LEANDER CANAS PA-C [address] [facility],[address] [facility] [address], [place], [address], [facility] - [facility] 08/16/2023 13:19:44 OBGyn Episode No OBEpisode recorded.
== END 2024-07-23 13:58 | disposition home or self-care (01) ==
LOC: HO.HOP 13:54
PROVIDERS: PCP Internal Medicine; Visit Provider Clinical Nurse Specialist Psychiatric/Mental Health
DX: F33.1 Major depressive disorder, recurrent, moderate (principal)
CPT/HCPCS: 99215

== ENCOUNTER → 2024-07-23 13:54 | Outpatient (BNVA) | payer MEDICARE, OTHER, SELFPAY | PROVIDERS: PCP Internal Medicine; Visit Provider Clinical Nurse Specialist Psychiatric/Mental Health | DX: F33.1 Major depressive disorder, recurrent, moderate (principal) | CPT/HCPCS: 99212 ==

== ENCOUNTER 2024-08-08 11:25 | Outpatient (AMB) | payer MEDICARE, OTHER, SELFPAY ==
--- NOTE | 2024-08-08 12:29 | MHC.OFFVISPS ---
Intake Intake Visit Reasons: f/u consultation Allergies cortisone Allergy (Intermediate, Verified 07/12/24 12:49) Rash Cephalosporins Allergy (Mild, Verified 07/12/24 12:49) JAUNDICE KETOLIDES Allergy (Unknown, Uncoded 06/14/24 09:23) ITCHING MACORLIDES Allergy (Unknown, Uncoded 06/14/24 09:23) ITCHING Medication List - Last Reconciled 08/08/24 by Eli Nunes APRN celecoxib (Celebrex) 200 mg PO BID 30 days chlorthalidone 12.5 mg (1/2 x 25 mg) PO QAM cholecalciferol (vitamin D3) 50 mcg PO DAILY commode As directed, 999 days denosumab (Prolia) 60 mg subcut [id number] 1 day diaper,brief,adult,disposable (Depend Easy Fit Undergarments misc) 4 times a day, As directed, 30 days levothyroxine 150 mcg PO DAILY 90 days losartan 50 mg PO DAILY 90 days mecobalamin (vitamin B12) 1,000 mcg PO DAILY metoprolol succinate ER 50 mg PO DAILY miscellaneous medical supply Panty Liners, Twice a day As directed, 90 days omeprazole 20 mg PO DAILY 90 days oxybutynin chloride ER 10 mg PO DAILY 3 months potassium chloride ER (Klor-Con) 10 mEq PO DAILY 90 days sertraline 100 mg PO BID simvastatin 20 mg PO DAILY HPI- Psychiatric Chief Complaint: f/u consultation HPI Narrative: pt reports some improvement in mood. she is tolerating the zoloft 1100mg BID taken with food without reported side effects; she continues to have high stress. her was hospitalized at [facility] for pneumonia for 4 days and is out and recovering. her daughter was able to help her during this time. PHQ9= 9 and GAD7= 3. no SI or HI. Discussed the neuropsych testing and PET scan she had in [place] in 2019 and 2021. She is agreeable to a referral to [facility] for a workup for her memory and updated neuropsych testing and to clarify the diagnosis. Past Psychiatric History: outpt rx zoloft Subjective Subjective Subjective Medication Compliance: Yes Side effects from medications: No Review of Systems Medical Review of Systems: unchanged Mental Status Exam Mental Status Exam Patient Appearance: Well Grooomed and Appropriate Level of Consciousness: Awake, Appropriate and Alert Patient Behavior: Appropriate and Cooperative Mood Description: Sad Affect Description: Sad Patient Cognition Impaired: No Ability to Follow Directions: Good Speech Pattern: Poor Articulation Memory Description: Episodic Impaired Hallucinations: None Delusions: Not Present Thought Process: Intact and Goal Oriented Thought Content: positive for Intact Judgement: Fair Assessment and Plan Assessment & Plan (1) Major depressive disorder, recurrent episode, moderate with anxious distress: Status: Acute Code(s): F33.1 - Major depressive disorder, recurrent, moderate (2) Expressive aphasia: Status: Acute Code(s): R47.01 - Aphasia Plan rule out FT dementia referral to [facility] memory care clinic continue zoloft 100mg BID with food. Retrun in 8 weeks Medications: Refilled sertraline Take with food; take one with breakfast and one with dinner 100 mg PO BID 180 tabs 1RF Counseling and coordination of Care Pt. Self Management counseling: Maintenance-social rhythm, Med illness tx adherence, Mod caffeine/ETOH intake, General coping skills and Problem solving Medication management counseling: Effectiveness, Side effects, Dosing range, Duration, Drug interaction and Adherence Diagnosis and Prognosis Counseling: Accuracy of diagnosis, Prognosis over time, Impact of diagnosis on life functions, Impact of family relationship, Problematic behaviors secondary to diagnosis and Adequacy of current interventions Details: I spent 40 minutes reviewing the record, seeing the patient and documenting in the medical record. Counseling provided to the patient/caregiver as outlined below. Addressed patient/caregiver concerns regarding current medication regime including effective adherence. Addressed patient/caregiver concerns regarding diagnosis and prognosis including accuracy of diagnosis, prognosis over time, impact of diagnosis. Addressed patient/caregiver concerns regarding impact of recent stressors. [facility] Medical History (Updated 06/25/24 @ 17:11 by Eli Nunes APRN) Depression with anxiety Closed hip fracture History of adenomatous polyp of colon Expressive aphasia Essential hypertension Dyslipidemia Acquired hypothyroidism Intertrochanteric fracture of right hip Dysphagia Essential hypertension Osteoporosis GERD (gastroesophageal reflux disease) Aphasia High cholesterol High blood pressure Anemia Dyspnea on exertion T11 vertebral fracture Hypothyroidism Surgical History History of bone marrow biopsy History of excision of mass History of cholecystectomy History of tonsillectomy History of vertebroplasty History of kyphoplasty Family History Father Esophageal cancer Substance use disorder Mother Breast cancer Paternal Aunt Breast cancer Social History Household Members: Spouse Housing: Condominium Are you a primary acute care certified nursing assistant to a significant other at home: No Do you presently have visiting nurse or other home services: No Alcohol intake: current Alcohol intake frequency: holidays/special occasions only Patient Tobacco Use Status: Never used Tobacco e-Cigarette/Vaping Use: Never Used Second Hand Smoke Exposure: No service: No Current occupational status: 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 she and were spending 6 months in [place] and six months here in [place] for years but this year after her leg fracture it feels like too much to do that anymore and the medical care she was getting felt fragmented to her. Substance History: one Trauma History: yes Coding Level of Care Code Est Pt Level 4 (60670) Diagnoses Major depressive disorder, recurrent episode, moderate with anxious distress F33.1 Expressive aphasia R47.01
--- OUTSIDE RECORDS SUMMARY | 2024-08-08 14:14 | XMS_ITS | Data Portability ---
Author Organization [place] [facility], [facility]_ Address [address] [facility] [address] [place] [address] Assessment Encounter Date Assessment Date Assessment LastModified [...] or more view 023 03/24/20 23 [email or web address] [facility] [place] [facility] [place], [address] [facility], [place], [address], 13:47:20 Medication Orders None record ed. Patient TargetsNo targets recorded. Patient Instructions Encounter Date Encounter Id Patient Instructions Last Modified By Organization Details Last Modified Time 03/24/2023 [id number] hand arthritis: exercises Not available 03/24/2023 13:32:06 [...] Silastic arthroplasty. Not available 03/24/2023 13:27:10 06/13/2023 [id number] hand arthritis: exercises [email or web address] Not available 06/13/2023 11:58:35 Right hand moderate [...] We will see her back as needed. [email or web address] Not available 06/13/2023 11:57:58 08/11/2023 [id number] learning about healthy weight Not available 08/11/2023 [...] today. She will be returning home up [place] and plans on scheduling her follow up appointments there. I advised her to receive repeat x-rays in 2 weeks, she understands. Not available 08/11/2023 09:19:40 08/16/2023 [id number] Patient placed EXOs brace in the microwave [...] Documented - 1123F [place] [address], [address], [facility] 08/11/2023 07:03:59 08/11/19 24 [employer] DME L3984 EXOS FRACTURE [place] [address], [place], [address], [facility] 08/11/2023 09:17:27 06/13/19 24 FSOSM Hero small injection completed April Molina PA-C [address], [address], [facility] 06/13/2023 11:55:42 06/13/19 24 Advance Care Planning - Advance Care Plan/Surrogate Documented - 1123F completed April Molina PA-C [address], [place], [address], [facility] 06/13/2023 11:55:18 03/24/20 23 FSOSM Monahan [place] [address], [address], [facility] 03/24/2023 13:28:51 03/24/20 23 Advance Care Planning - Advance Care Plan/Surrogate Documented - 1123F [place] [address], [place], [address], [facility] - [facility] 03/24/2023 [...] Name and Address Organization Details Recorded Time 855088 Medicinal product containin g cephalosp nadira and acting as antibacte rial agent (product) medicatio n Not available Not available Not available 03/24/2023 09859 9009 SNOMED Not Available Not Available Not [...] Address Organization Details Last Updated DateTime 03/24/2023 04937.26 g 26.4 kg/m2 160.02 cm Yeyo Holden [place] [facility] 03/24/2023 12:39:12 Date Recorded Body height Body mass index (BMI) Body weight Provider Name and Address Organization Details Last Updated DateTime 06/13/2023 160.02 cm 26.4 kg/m2 83255.26 g April Molina PA-C [address], [place], [address], [place] [facility] 06/13/2023 11:49:44 Date Recorded Body height Body mass index (BMI) Body weight Provider Name and Address Organization Details Last Updated DateTime 08/11/2023 160.02 cm 26.6 kg/m2 69833.86 g Noni Pinzon [place] [facility] [...] SNOMED-CT Code Diagnosis ICD10 Code Diagnosis Note [id number] Andrea Monahan MD [facility]_[address] R [address] [place] [address] 03/24/2023 11:57:48 03/24/2023 13:23:16 Pain in right hand 6077506538 41913 M79.641 Arthritis of hand 964010 005 M13.849 M13.628 [id number] Andrea Monahan MD [facility]_NP R [address] [place] [address] 06/13/2023 11:30:40 06/13/2023 11:45:44 Arthritis of hand 570829511 M13.213 [id number] Jhony Guillory MD [facility]_PH [address] [address] 08/11/2023 08:23:26 08/11/2023 09:27:12 Obesity 628363715 E66.3 Closed fra cture of base of fourth metacarpal bone of left hand 1222102205 6226501 S62.315A [id number] Jhony Guillory MD [facility]_PH [address] [address] 08/16/2023 12:54:45 08/16/2023 13:12:11 Closed fracture of base of fourth metacarpal bone of left hand 4595930978 6892652 S62.315A Health Concerns Section Related Observation LastModified by Organization Detai ls LastModified Time None Recorded Concern Status LastModified by Organization Details LastModified Time None Recorded Advance Directives Directive Y: Payers Encounter Date Sequence Insurance Name Policy Number Policy Monroy Covered Member ID Monroy Member ID Guarantor Name 03/24/2023 1 [place] Kin[place] A Pare [id number] Kinza Pare 03/24/2023 2 [place] [id number] Kinza A Pare [id number] Kinza Pare 06/13/2023 1 [place] Pare [id number] Kinza Pare 06/13/2023 2 [place] [id number] Kinza A Pare [id number] Kinza Pare 08/11/2023 1 [place] A Pare [id number] Kinza Pare 08/11/2023 2 [place] [id number] Kinza A Pare [id number] Kinza Blair 08/16/2023 2 [place] [id number] Kinza Blair [id number] Kinza [place] Notes Date Note Type [...] ?Heat ?Aggravating Factors ?Cold/Ice ?[facility]/24/2023 [place] [address], [place], [address], [facility] - [facility] 03/24/2023 [...] ?Heat ?Aggravating Factors ?Cold/Ice ?Weather Imported from [facility] on 03/24/2023 April Molina PA-C [address] [facility] [address], [place], [address], [place] [facility] 06/13/2023 11:58:37 [...] Tape, etc.) ?Aggravating Factors ?Nothing Imported from [facility] on 08/11/2023 [place] [address] [address], [place], [address], [place] [facility] 08/11/2023 09:20:01 [...] Tape, etc.) ?Aggravating Factors ?Nothing Imported from [facility] on 08/11/2023 LEANDER CANAS PA-C [address] [facility],[address], [place], [address], [facility] - [facility] 08/16/2023 13:19:44 OBGyn Episode No OBEpisode recorded.
--- OUTSIDE RECORDS SUMMARY | 2024-08-08 14:14 | XMS_ITS | Patient Health Record ---
Author Organization [facility] Address [address] [place] [address] Care Team Providers Care Medicaid Billing Specialist Name Role Phone Beck Hernandez Primary Care Provider Zach Ho Unavailable [phone] Allergies Allergen (clinical drug ingredient) Drug/Non Drug [...] Problem Status W/U Status Risk Notes Problem [id number] Encounter for screening for malignant neoplasm of colon (Z12.11) Active confirmed Problem 933729793 History of adenomatous polyp of colon (Z86.010) Active confirmed Problem 52861491 Change in bowel habits (R19.4) Active confirmed Problem 26883826 Hypertension (I10) Active confirmed Problem Diverticular disease of colon (407383386) Diverticulosis of large intestine without perforation or abscess without bleeding (K57.30) Active confirmed Problem 313283064 Blood in stool (K92.1) Active confirmed Problem 488212096 Gastroesophageal reflux disease without esophagitis (K21.9) Active confirmed Problem 25005977 Rectal urgency (R15.2) Active confirmed Problem 596517341 Long-term use of aspirin therapy (Z79.82) Active confirmed Problem 118266781 Loose bowel movements (R19.5) Active confirmed Plan Of Treatment Future Test Test Name Order Date COLONOSCOPY 09/06/2011 COLONOSCOPY 01/19/2017 COLONOSCOPY 01/17/2023 Insurance Providers Payer Name Payer Address Payer Phone Subscriber Number Group Number Insured Name Patient Relationship to Insured Coverage Start Date Coverage End Date MED[place]ARE OF [place] [address] [place] [address] [id number] CLAU ORTEZ Self - patient is the insured MEDEX ATTN CLAIMS [address] [phone] [id number] CLAU ORTEZ Self - patient is the insured [employer] [address] [place] [address] [id number] CLAU ORTEZ Self - patient is the insured Medical (General) History Medical History History ICD Code Tubular adenoma was removed in 2005 during colonoscopy--a colonoscopy in 2001 was negative Colonoscopy 09/22/2011--nega tive except for some diverticulosis and internal hemorrhoids GERD-upper endoscopy in 2001 was negative for any esophagitis or Pollock's esophagus Hypertension Depression Hyperlipidemia Denies IN,DM,CVA,Lung disease,renal dise ase Sleep apnea-uses a CPAP [...]
== END 2024-08-08 12:07 | disposition home or self-care (01) ==
LOC: HO.HOP 11:25
PROVIDERS: PCP Internal Medicine; Visit Provider Clinical Nurse Specialist Psychiatric/Mental Health
DX: F33.1 Major depressive disorder, recurrent, moderate (principal); R47.01 Aphasia
CPT/HCPCS: 99214

== ENCOUNTER → 2024-08-08 11:25 | Outpatient (BNVA) | payer MEDICARE, OTHER, SELFPAY | PROVIDERS: PCP Internal Medicine; Visit Provider Clinical Nurse Specialist Psychiatric/Mental Health | DX: Z13.89 Encounter for screening for other disorder (principal) | CPT/HCPCS: 99212 ==

== ENCOUNTER 2024-08-08 13:36 | Emergency (ER) | payer MEDICARE, OTHER, SELFPAY ==
--- NOTE | ~2024-08-08 | XR_ITS ---
CLINICAL HISTORY: pain s p fall Radiographs of the right hand, 3 views Comparison: None Findings: No fracture or dislocation. Subluxation of the 4th proximal interphalangeal joint with postsurgical change. Severe degenerative change. Bone mineralization is decreased. Soft tissue swelling. Impression: No fracture. This document has been electronically signed by: Amina Davis MD on 08/08/2024 17:35:56
--- NOTE | ~2024-08-08 | XR_ITS ---
CLINICAL HISTORY: L rib pain s p pain Radiographs of the chest and left ribs Comparison: CR/SR - XR CHEST 1V - 12/23/23 02:23 EDT Findings: No rib fracture or other acute osseous abnormality. Normal heart size. Normal mediastinal contours. No pneumothorax. No opacity. No pleural effusion. Normal upper abdomen. Impression: No rib fracture. This document has been electronically signed by: Amina Davis MD on 08/08/2024 17:33:21
--- NOTE | ~2024-08-08 | CT_ITS ---
EXAMINATION: CT CERVICAL SPINE WITHOUT CONTRAST CLINICAL INFORMATION: Fall. Neck pain COMPARISON: 3 mm thin axial and reformatted 2 mm thin sagittal and coronal images of cervical spine were obtained. TECHNIQUE: 3 mm thin axial and reformatted 2 mm thin sagittal and coronal images of cervical spine were obtained. This CT examination was performed using dose optimization techniques as appropriate, variously including the following: *Automated exposure control *Adjustment of mA and/or kV according to patient size (this includes techniques or standardized protocols for targeted exams where dose is matched to indication/reason for exam; i.e. extremities or head) *Use of iterative reconstruction technique DLP 985 mGy/cm. FINDINGS: There is mild straightening of cervical lordosis. The vertebral heights and alignment is normal. There is loss of C3-4, C4-5, C5-6, C6-7 and C7-T1 disc levels with mild ventral spondylosis C4-5, C5-6, C6-7 and C7-T1 disc levels. The craniovertebral junction and the C1-C2 alignment is normal. There is minimal ventral spurring of the C1-2 disc level. The C2-3 disc level is unremarkable. At C3-disc level there is moderate left neural from narrowing from uncovertebral hypertrophic changes. There is mild left facet joint arthropathy. There is no spinal canal stenosis. At C4-5 disc level there is posterior spondylosis/bulge complex flattening the ventral thecal sac with minimal AP canal stenosis. There is mild to moderate narrowing of left neural foramina. The right neural foramina is patent. At C5-6 disc level there is posterior spondylosis/bulge complex with mild flattening of ventral thecal sac and likely mild AP canal stenosis. The neural foramina are patent At C6-7 disc level there is no evidence of disc bulge, herniation or spinal canal stenosis. The neural foramina patent bilaterally. At C7-T1 disc level appears unremarkable. The foramina are widely patent. There is no visible acute fracture, dislocation, lytic or sclerotic process. The paravertebral soft tissues are normal. CT/CT cervical spine wo IV con IMPRESSION: Ultra level degenerative disc bulges with spondylosis as described above. There is no visible acute fracture, dislocation or lytic process. Fleischner guidelines were followed. Electronically signed by: Ace Theodore MD 08/08/2024 04:24 PM EDT
--- NOTE | ~2024-08-08 | CT_ITS ---
EXAMINATION: CT HEAD WITHOUT CONTRAST CLINICAL INFORMATION: Fall. COMPARISON: None available. TECHNIQUE: Contiguous axial imaging was performed from the skull base to vertex without intravenous administration of contrast. This CT examination was performed using dose optimization techniques as appropriate, variously including the following: *Automated exposure control *Adjustment of mA and/or kV according to patient size (this includes techniques or standardized protocols for targeted exams where dose is matched to indication/reason for exam; i.e. extremities or head) *Use of iterative reconstruction technique DLP: 985 mGy/cm. FINDINGS: There is no acute intra-axial, extra-axial bleed, masses or midline shift. There is no acute infarction in evolution. There is no edema. The campbell to white matter differentiation is maintained normal. Bone windows reveal no calvarial abnormality. There is no scalp soft tissue abnormality. Bilateral paranasal sinuses and mastoid air cells are well-aerated. No scalp soft tissue visualized.. CT/CT head/brain wo IV con IMPRESSION: No acute intracranial process seen. Electronically signed by: Ace Theodore MD 08/08/2024 04:17 PM EDT
[2024-08-08 13:47] VITALS: BP 150/71; PULSE 60; RESP 18; TEMP 36.7; O2SAT 97; BMI 26.2
--- NOTE | 2024-08-08 15:01 | ED_ITS ---
HPI - Fall General Chief Complaint: Fall Stated Complaint: FREQ FALLS,CHANGE IN MOBILITY X3D,-THINNER,-HS Time Seen by Provider: 08/08/24 13:51 Source: patient, EMS, RN notes reviewed and old records reviewed Mode of arrival: EMS History of Present Illness ED Provider: Merary Gautam PA-C HPI Narrative: 79-year-old female with a past medical history of depression, anxiety, HTN, expressive aphasia, GERD, HLD, anemia, hypothyroid, presenting to the ED via EMS from urgent care complaining of right hand and left-sided rib pain s/p mechanical fall in garden a few days ago. States was bent down and fell forward, does not clearly remember events however denies LOC. Unknown head strike. Does report some neck pain. Admits has had frequent falls at home with over the past few months. Denies fever, chills, abdominal pain, nausea / vomiting , lightheadedness/dizziness. Denies AC use. at baseline ambulates with cane and lives with of note patient follows with our outpatient psychiatry, saw Eli Nunes this morning. 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 She is supposed to have speech therapy starting in September. Related Data Home Medications ?Medication ?Instructions ?Recorded ?Confirmed mecobalamin (vitamin B12) 1,000 1,000 mcg PO DAILY 09/13/21 08/08/24 mcg chewable tablet cholecalciferol (vitamin D3) 50 50 mcg PO DAILY 06/14/24 08/08/24 mcg (2,000 unit) capsule Previous Rx's ?Medication ?Instructions ?Recorded denosumab 60 mg/mL subcutaneous 60 mg subcut [id number] 1 day #1 mL 08/29/23 syringe (Prolia) losartan 50 mg tablet 50 mg PO DAILY 90 days #90 tabs 11/02/23 chlorthalidone 25 mg tablet 12.5 mg (1/2 x 25 mg) PO QAM #45 12/15/23 tabs levothyroxine 150 mcg tablet 150 mcg PO DAILY 90 days #90 tabs 12/18/23 potassium chloride 10 mEq 10 meq PO DAILY 90 days #90 tabs 12/29/23 tablet,extended release (Klor-Con) commode #1 ea 01/11/24 diaper,brief,adult,disposable #120 ea 01/11/24 (Depend Easy Fit Undergarments [facility]) miscellaneous medical supply #180 ea 01/12/24 omeprazole 20 mg capsule,delayed 20 mg PO DAILY 90 days #90 caps 01/17/24 release celecoxib 200 mg capsule (Celebrex) 200 mg PO BID 30 days #60 caps 03/13/24 oxybutynin chloride 10 mg 10 mg PO DAILY 3 months #90 tabs 05/31/24 tablet,extended release 24 hr simvastatin 20 mg tablet 20 mg PO DAILY #90 tabs 06/25/24 metoprolol succinate 50 mg 50 mg PO DAILY #90 tabs 07/22/24 tablet,extended release 24 hr acetaminophen 500 mg tablet 500 mg PO Q6H PRN fever or pain 08/08/24 (Tylenol Extra Strength) #14 tabs cefuroxime axetil 250 mg tablet 250 mg PO BID #13 tabs 08/08/24 lidocaine 5 % topical patch 1 patch topical DAILY PRN pain #30 08/08/24 (Lidoderm) ea sertraline 100 mg tablet 100 mg PO BID #180 tabs 08/08/24 sulfamethoxazole 800 1 tab PO BID #10 tabs 08/09/24 mg-trimethoprim 160 mg tablet (Bactrim DS) Allergies Allergy/AdvReac Type Severity Reaction Status Date / Time cortisone Allergy Intermediate Rash Verified 08/08/24 13:50 Cephalosporins Allergy Mild JAUNDICE Verified 08/08/24 13:50 KETOLIDES Allergy Unknown ITCHING Uncoded 08/08/24 13:50 MACORLIDES Allergy Unknown ITCHING Uncoded 08/08/24 13:50 Review of Systems 2 Review of Systems: Yes all other systems are reviewed and are negative Constitutional: Constitutional: Reports as per HPI Neurologic: Reports Abnormal speech present [facility] Past Medical History Attestation statement: The following information was validated with the patient. Source: old records reviewed Medical History Depression with anxiety Closed hip fracture History of adenomatous polyp of colon Expressive aphasia Essential hypertension Dyslipidemia Acquired hypothyroidism Intertrochanteric fracture of right hip Dysphagia Essential hypertension Osteoporosis GERD (gastroesophageal reflux disease) Aphasia High cholesterol High blood pressure Anemia Dyspnea on exertion T11 vertebral fracture Hypothyroidism Surgical History History of bone marrow biopsy History of excision of mass History of cholecystectomy History of tonsillectomy History of vertebroplasty History of kyphoplasty Family History Family History Father Esophageal cancer Substance use disorder Mother Breast cancer Paternal Aunt Breast cancer Social History Social History Household Members: [facility] Are you a primary child care leader to a significant other at home: No Do you presently have visiting nurse or other home services: No Alcohol intake: current Alcohol intake frequency: holidays/special occasions only Patient Tobacco Use Status: Never used Tobacco e-Cigarette/Vaping Use: Never Used Second Hand Smoke Exposure: No service: No Current occupational status: 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 Cognitive needs: Yes Hearing needs: No Vision needs: Yes Physical Exam 2 Vital Signs: Vital Signs: Last Vital Signs Temp 98 F 08/08/24 19:45 Pulse 62 08/08/24 19:45 Resp 18 08/08/24 19:45 BP 168/90 H 08/08/24 19:45 Pulse Ox 97 08/08/24 19:45 O2 Del Method Room Air 08/08/24 19:45 BMI result Body Mass Index 26.2 Const: General: cooperative, healthy appearing and no acute distress O rientation/consciousness: patient oriented x3 Limitations: no limitations HEENT: Head: Yes normal to inspection and Yes atraumatic Ears: hearing grossly normal bilaterally General nose exam: Normal external nose present Face and sinus: Yes normal facial exam Eyes: General: appearance normal, both eyes and all related structures P upils: Equal, round and reactive pupils present EOM: EOMs intact bilaterally Neck: Other: C-collar in place Neck: Yes normal visual inspection, Yes no meningeal signs and No anterior neck swelling Chest: Other: no erythema/ ecchymosis or rash Chest palpation & inspection: normal inspection of the chest, no crepitus and no tenderness Resp: Effort & Inspection: normal respiratory effort and no respiratory distress Auscultation: clear to auscultation bilaterally, no crackles and no wheezes Cardio: Rate: regular rate Heart sounds: S1 normal heart sound present and S2 normal heart sound present GI: Inspection: Yes normal to inspection Palpation (GI): Soft to palpation, nontender, no guarding and not rigid Back/Spine/Pelvis: Other: No midline cervical/thoracic/lumbar spinous tenderness/step-off or deformity Skin: Rashes: no rashes Wounds: no wounds Neuro: General: patient oriented x3, gait normal, tone normal, moves all extremities, no meningeal signs, no focal motor deficits and CN's II-XI intact bilaterally Cranial nerves: Yes CN's II-XII intact bilaterally, Yes Equal, round and reactive pupils present and Yes Bilaterally intact EOM present C ognition (Neuro): normal cognition Speech: Abnormal speech present slurred (baseline) Gait exam (Neuro): Normal gait present Motor exam (neuro): 5/5 motor strength present throughout Extrem: Other: right hand without appreciable deformity, chronic arthritis. Mildly tender to palpation. Full range of motion intact. Neurovascularly intact. [id number] opposition intact General: Yes normal to inspection Course Course Course Narrative: -1634-- no leukocytosis. H&H at patient's baseline. Labs otherwise reassuring CT head/brain wo IV con IMPRESSION: No acute intracranial process seen. CT cervical spine wo IV con IMPRESSION: Ultra level degenerative disc bulges with spondylosis as described above. There is no visible acute fracture, dislocation or lytic process. Fleischner guidelines were followed. > C-collar cleared -1806--Rib and hand x-rays unremarkable - orthostatic vital signs negative > discussed with patient potential PT/case management for frequent falls at home. She is not interested at this time. States she lives with her and would like to go home. -1900-- ED care transferred to JESSICA Izquierdo pending UA and anticipated discharge Reevaluation(s) Reevaluation #1: Received patient in sign out pending UA. Notable for 1+ leukocytes, positive nitrites, 4+ bacteria, 0-2 epithelials. Will treat for UTI, patient comfortable with discharge home. Has documented allergy to cephalosporins, was treated with Ceftin in Dec 2023, denies any reaction to this. Time: 19:11 Reevaluation #2: Katarzyna Bose NP 08/09/2024 13:12 -- received a call from the pharmacy, patient reporting that she has allergic reaction to cefuroxime which was sent, endorsing tongue swelling, she additionally has allergy to macrolide. I have sent a prescription for Bactrim for treatment of UTI, has no prior CKD. Medical Decision Making Medical Decision Making [facility] Narrative: 79-year-old female with a past medical history of depression, anxiety, HTN, expressive aphasia, GERD, HLD, anemia, hypothyroid, presenting to the ED via EMS from urgent care complaining of right hand and left-sided rib pain s/p mechanical fall in garden a few days ago. on exam vital signs stable, NAD, nontoxic appearing, physical exam as noted above. No midline spinous tenderness throughout or red flag symptoms. No focal neuro deficits. Baseline slurred speech. Patient is poor historian. Concern for multiple falls vs rib fracture/ contusion vs hand fracture vs ?ICH > Although lower suspicion at this time. Rule out metabolic / infectious etiologies. Plan: EKG, labs, UA, head/ C-spine CT, x-rays, orthostatics, re-evaluate Please refer to course for remaining clinical decision making, interpretation of labs/imaging results, and discussions with consultants and/or family members. Differential Diagnosis Differential Diagnoses: The differential diagnosis associated with the presentation includes As above Admission/Observation Consideration of admission/observation: Escalation of care including admission/observation considered Lab Data [facility] Lab Attestation statement: I reviewed the patient's lab results. 08/08/24 15:41 08/08/24 15:41 Labs: Lab Results 08/08/24 08/08/24 Range/Units 15:41 18:19 WBC 5.3 (4.8-10.8) X10*3/uL RBC 3.07 L (4.20-5.50) X10*6/uL Hgb 10.9 L (12.0-16.0) g/dl Hct 32.2 L (37.0-47.0) % MCV 104.9 H (80.0-98.0) fL MCH 35.5 H (27.0-33.0) pg MCHC 33.9 (31.0-35.0) g/dl RDW 12.8 (11.0-16.0) % Plt Count 124 L (160-400) X10*3/uL MPV 10.7 (9.4-12.3) fL Immature Gran % (Auto) 0.2 (0.0-0.4) % Neut % (Auto) 66.0 (45-73) % Lymph % (Auto) 24.4 (20-40) % Dawson % (Auto) 6.6 (2-11) % Eos % (Auto) 2.4 (0-4) % Baso % (Auto) 0.4 (0-2) % Lymph # (Auto) 1.3 (1.2-4.9) X10*3/uL Dawson # (Auto) 0.4 (0.1-1.2) X10*3/uL Eos # (Auto) 0.1 (0.0-0.4) X10*3/uL Baso # (Auto) 0.0 (0.0-0.2) X10*3/uL Abs Immat Gran (auto) 0.01 (0.00-0.03) X10*3/uL Absolute Neuts (auto) 3.5 (2.0-8.3) x10*3/uL Absolute Nucleated RBC 0.000 (0.0-0.012) X10*3/uL Nucleated RBC % (auto) 0.0 (0.0-0.2) /100WBC Sodium 143 (135-145) mmol/L Potassium 3.8 (3.3-5.1) mmol/L Chloride 109 H (96-108) mmol/L Carbon Dioxide 28 (22-29) mmol/L Anion Gap 10 L (12-20) BUN 17 H (9-16) mg/dL Creatinine 0.77 (0.5-1.4) mg/dL Estim Creat Clear Calc 56.3 Estimated GFR > 60 Random Glucose 125 H (60-115) mg/dL Calcium 9.6 (8.4-10.2) mg/dL Magnesium 1.8 (1.6-2.6) mg/dL Total Bilirubin 0.6 (0.0-1.0) mg/dL Direct Bilirubin 0.2 (0.0-0.5) mg/dL AST 35 H (5-31) U/L ALT 22 (0-31) U/L Alkaline Phosphatase 72 (39-117) U/L Total Protein 7.4 (6.5-8.0) g/dL Albumin 3.9 (3.5-5.0) g/dL Urine Color Yellow Urine Appearance Cloudy Urine pH 6.5 (5.0-9.0) Ur Specific [place] 1.020 (1.005-1.025) Urine Protein Negative (Neg-Trace) mg/dL Urine Glucose (UA) Negative (Negative) mg/dL Urine Ketones Negative (Negative) mg/dL Urine Blood Negative (Negative) Urine Nitrite Positive H (Negative) Ur Leukocyte Esterase Small (1+) H (Negative) Urine RBC 0-2 (0-2) /HPF Urine WBC 0-5 (0-5) /HPF Ur Squamous Epith Cells 0-2 (0-2) /HPF Urine Bacteria 4+ (None Seen) Hyaline Casts 0-2 (0-2) /LPF Independent Interpretation I performed an independent interpretation of an: EKG, Plain X-Ray and CT Scan Radiology Impression Discussion of test interpretation with radiology: I have reviewed the radiologist's reading. Independent Historian Clinical information obtained from an independent historian. History obtained from or confirmed by: EMS External Record Review External record reviewed: Inpatient record, Office record, Outpatient record, Prior outpatient labs, Prior outpatient radiology, Primary care record and Outside ED record Tests considered The following testing was considered but not selected: As above Prescription Management I considered prescription management with: Other Chronic Conditions Patient?s care impacted by: Hypertension and Other Social Determinants Patient?s care significantly limited by Social Determinants of Health including: Problems related to primary support group and Other Social Determinant of Health Discharge Plan Discharge Clinical Impression: Pain in rib, Falls, UTI (urinary tract infection) Patient Disposition: Home, Self-Care Instructions: Fall Prevention (ED), Rib Contusion (ED) Additional Instructions: Your blood work and imaging are reassuring today Your urine shows signs of infection, and you are being treated with antibiotics, complete the full course as prescribed. Please have close follow-up with your primary care doctor Take Tylenol and use Lidoderm patches at home for pain If you have persistent falls, frequent falls, any head injury, chest pain, shortness of breath or unremitting/worsening pain return to the ED immediately Prescriptions: New lidocaine [Lidoderm] 5 % adhesive patch,medicated 1 patch topical DAILY MDD remove after 12 hours PRN (Reason: pain) Qty: 30 0RF Rx Instructions: leave on most painful area for up to 12 hrs acetaminophen [Tylenol Extra Strength] 500 mg tablet 500 mg PO Q6H PRN (Reason: fever or pain) Qty: 14 0RF cefuroxime axetil 250 mg tablet 250 mg PO BID Qty: 13 0RF sulfamethoxazole-trimethoprim [Bactrim DS] 800-160 mg tablet 1 tab PO BID Qty: 10 0RF No Action losartan 50 mg tablet 50 mg PO DAILY 90 Days Qty: 90 4RF chlorthalidone 25 mg tablet 12.5 mg PO QAM Qty: 45 2RF levothyroxine 150 mcg tablet 150 mcg PO DAILY 90 Days Qty: 90 4RF potassium chloride [Klor-Con 10] 10 mEq tablet extended release 10 meq PO DAILY 90 Days Qty: 90 3RF (DME) commode Kit See Rx Instructions .Route Qty: 1 0RF Rx Instructions: As directed, 999 days (DME) Depend Easy Fit Undergarments Misc See Rx Instructions .Route Qty: 120 3RF Rx Instructions: 4 times a day, As directed, 30 days (DME) miscellaneous medical supply Misc See Rx Instructions .ROUTE .MEDSUPPLY Qty: 180 2RF Rx Instructions: Panty Liners, Twice a day As directed, 90 days omeprazole 20 mg capsule,delayed release(DR/EC) 20 mg PO DAILY 90 Days Qty: 90 0RF celecoxib [Celebrex] 200 mg capsule 200 mg PO BID 30 Days Qty: 60 3RF oxybutynin chloride 10 mg tablet extended release 24hr 10 mg PO DAILY 90 Days Qty: 90 2RF metoprolol succinate 50 mg tablet extended release 24 hr 50 mg PO DAILY Qty: 90 0RF Prolia 60 mg/mL syringe 60 mg subcut [id number] 1 Days Qty: 1 0RF mecobalamin (vitamin B12) 1,000 mcg tablet,chewable 1,000 mcg PO DAILY simvastatin 20 mg tablet 20 mg PO DAILY Qty: 90 3RF cholecalciferol (vitamin D3) 50 mcg (2,000 unit) capsule 50 mcg PO DAILY sertraline 100 mg tablet 100 mg PO BID Qty: 180 1RF Rx Instructions: Take with food; take one with breakfast and one with dinner Referrals: Mary Henderson MD [Primary Care Provider] - 1 week Interventions: ED Discharge Assessment Last Done: 08/08/24 19:45 Discharge Date/Time: 08/08/24 19:47 Print Language: Belgian
--- NOTE | 2024-08-08 15:11 | ECG_ITS ---
Test Reason : FALLS Blood Pressure : */* mmHG Vent. 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
[2024-08-08 15:45] LABS: MANUAL DIFF FLAG NO
[2024-08-08 15:49] LABS: Basophils Percent Auto 0.4 % (0-2); Eosinophils Absolute Auto 0.1 X10*3/uL (0.0-0.4); Eosinophils Percent Auto 2.4 % (0-4); Hematocrit 32.2 % (37.0-47.0); Hemoglobin 10.9 g/dl (12.0-16.0); Imm Gran Abs Auto 0.01 X10*3/uL (0.00-0.03); Imm Gran Pct Auto 0.2 % (0.0-0.4); Lymphocytes Absolute Auto 1.3 X10*3/uL (1.2-4.9); Lymphocytes Percent Auto 24.4 % (20-40); Mean Corpuscular HGB Conc 33.9 g/dl (31.0-35.0); Mean Corpuscular Hemoglobin 35.5 pg (27.0-33.0); Mean Corpuscular Volume 104.9 fL (80.0-98.0); Mean Platelet Volume 10.7 fL (9.4-12.3); Monocytes Absolute Auto 0.4 X10*3/uL (0.1-1.2); Monocytes Percent Auto 6.6 % (2-11); Neutrophils Absolute Auto 3.5 x10*3/uL (2.0-8.3); Platelet Count 124 X10*3/uL (160-400); Red Blood Count 3.07 X10*6/uL (4.20-5.50); Red Cell Distribution Width 12.8 % (11.0-16.0); White Blood Count 5.3 X10*3/uL (4.8-10.8)
[2024-08-08 16:13] LABS: Alanine Aminotransferase 22 U/L (0-31); Albumin Level 3.9 g/dL (3.5-5.0); Alkaline Phosphatase 72 U/L (39-117); Anion Gap 10 (12-20); Aspartate Amino Transferase 35 U/L (5-31); Bilirubin Direct 0.2 mg/dL (0.0-0.5); Bilirubin Total 0.6 mg/dL (0.0-1.0); Blood Urea Nitrogen 17 mg/dL (9-16); Calcium 9.6 mg/dL (8.4-10.2); Carbon Dioxide 28 mmol/L (22-29); Chloride 109 mmol/L (96-108); Creatinine Clr Calc Pharmacy 56.3; Estimated Glomerular Filt Rate > 60; Glucose Random 125 mg/dL (60-115); Magnesium 1.8 mg/dL (1.6-2.6); Potassium 3.8 mmol/L (3.3-5.1); Sodium 143 mmol/L (135-145); Total Protein 7.4 g/dL (6.5-8.0)
[2024-08-08 17:30] VITALS: BP 132/78; PULSE 93
[2024-08-08 17:31] VITALS: BP 152/81; BP 162/91; PULSE 72; PULSE 96
[2024-08-08 17:40] VITALS: BP 138/62; PULSE 68; RESP 18; TEMP 36.6; O2SAT 99
[2024-08-08 18:30] LABS: Appearance Urine Cloudy; Color Urine Yellow; Glucose Urine UA Negative (Negative); Leukocyte Esterase Urine Small (1+) (Negative); Nitrite Urine Positive (Negative); PH 6.5 (5.0-9.0); UMIC TRIGGER UACC YES; Urine Blood Negative (Negative); Urine Ketones Negative (Negative); Urine Protein Negative (Neg-Trace)
[2024-08-08 19:08] LABS: Bacteria Urine 4+ (None Seen); Hyaline Casts Urine 0-2 /LPF (0-2); RBC Urine 0-2 /HPF (0-2); Squamous Epithelial Cell Urine 0-2 /HPF (0-2); UACC Culture Trigger YES; WBC Urine 0-5 /HPF (0-5)
[2024-08-08 19:36] VITALS: BP 168/90; PULSE 62; RESP 18; TEMP 36.6; O2SAT 97
[2024-08-08 19:45] VITALS: BP 168/90; PULSE 62; RESP 18; TEMP 36.6; O2SAT 97
== END 2024-08-08 19:47 | disposition home or self-care (01) ==
PROVIDERS: Physician Assistant; Emergency Provider Emergency Medicine; PCP Internal Medicine
DX: R07.81 Pleurodynia (principal); N39.0 Urinary tract infection, site not specified; Z91.81 History of falling; I10 Essential (primary) hypertension; E78.5 Hyperlipidemia, unspecified; Z79.02 Long term (current) use of antithrombotics/antiplatelets; Z79.899 Other long term (current) drug therapy
CPT/HCPCS: 36415; 70450; 71101; 72125; 73130; 80048; 80076; 81001; 83735; 85025; 87086; 87088; 87186; 93005; 99212; 99284; 99285

== ENCOUNTER → 2024-08-08 14:47 | Outpatient (BNV) | payer MEDICARE, OTHER, SELFPAY | PROVIDERS: Emergency Provider Emergency Medicine; PCP Internal Medicine; Visit Provider Radiology Diagnostic Radiology | DX: M47.812 Spondylosis without myelopathy or radiculopathy, cervical region (principal); S09.90XA Unspecified injury of head, initial encounter; R07.9 Chest pain, unspecified; S63.234A Subluxation of proximal interphalangeal joint of right ring finger, initial encounter | CPT/HCPCS: 70450; 72125 ==

== ENCOUNTER → 2024-08-08 15:11 | Outpatient (BNV) | payer MEDICARE, OTHER, SELFPAY | PROVIDERS: Emergency Provider Emergency Medicine; PCP Internal Medicine; Visit Provider Internal Medicine Cardiovascular Disease | DX: I49.9 Cardiac arrhythmia, unspecified (principal); I25.2 Old myocardial infarction; R00.1 Bradycardia, unspecified | CPT/HCPCS: 93010 ==

== ENCOUNTER 2024-08-13 10:51 | Emergency (ER) | payer MEDICARE, OTHER, SELFPAY ==
--- NOTE | ~2024-08-13 | CT_ITS ---
EXAMINATION: CT CERVICAL SPINE WITHOUT CONTRAST CLINICAL INFORMATION: Fall with head strike. COMPARISON: 08/08/2024, 12/23/2023. TECHNIQUE: Spiral CT imaging of the cervical spine performed in axial plane without contrast. Multiplanar reformatted images were constructed from the axial data set. This CT examination was performed using dose optimization techniques as appropriate, variously including the following: *Automated exposure control *Adjustment of mA and/or kV according to patient size (this includes techniques or standardized protocols for targeted exams where dose is matched to indication/reason for exam; i.e. extremities or head) *Use of iterative reconstruction technique FINDINGS: CORONAL ALIGNMENT: -Normal. SAGITTAL ALIGNMENT: -Straightening of the normal lordosis. No subluxations. C1-C2 AND CRANIOCERVICAL JUNCTION: -Intact and normally aligned. There are degenerative changes in the atlantoaxial joint. VERTEBRAL BODIES AND FACETS: -There are no fractures, compression deformities, or suspicious bone lesions. -Facets are normally aligned. There are left greater than right multilevel degenerative facet changes. DISCS: -Moderate to severe degenerative disc changes throughout the cervical spine with sparing of C2-3. Disc vacuum phenomenon present C4-5 and C5-6. Endplate sclerosis to a mild degree C3-4, C4-5, C5-6, C6-7, and C7-T1. CENTRAL CANAL: -No evidence of high-grade central canal narrowing or large disc herniation allowing for modality limitations. PREVERTEBRAL AND PARAVERTEBRAL SOFT TISSUES: -There is no prevertebral soft tissue edema or abnormal fluid collection. -Mild Global enlargement of the thyroid without discrete lesion seen. LUNG APICES: -Minimal apical scarring otherwise clear. CT/CT cervical spine wo IV con IMPRESSION: 1. No CT evidence of acute cervical spine fracture or injury. 2. Moderate degenerative spondylosis. 3. Mild to moderate global thyroid enlargement without discrete lesion evident. Electronically signed by: Gabriel Durán MD 08/13/2024 01:12 PM EDT
--- NOTE | ~2024-08-13 | CT_ITS ---
EXAMINATION: CT HEAD WITHOUT CONTRAST CLINICAL INFORMATION: Fall with head strike. COMPARISON: 08/08/2024, 12/23/2023. TECHNIQUE: Contiguous axial imaging was performed from the skull base to vertex without intravenous administration of contrast. This CT examination was performed using dose optimization techniques as appropriate, variously including the following: *Automated exposure control *Adjustment of mA and/or kV according to patient size (this includes techniques or standardized protocols for targeted exams where dose is matched to indication/reason for exam; i.e. extremities or head) *Use of iterative reconstruction technique FINDINGS: There is no evidence of intracranial hemorrhage or extra-axial fluid collection. There is no mass effect, or edema. No CT evidence of acute territorial infarct. Ventricles, sulci, and cisterns are normal in size and configuration for patient age. No hydrocephalus. No midline shift. Negative hyperdense MCA sign. Negative insular ribbon sign. Patchy periventricular and deep white matter hypoattenuation is consistent with mild to moderate small vessel ischemic changes. Normal pituitary. Mild atheromatous calcification of the bilateral carotid siphons and V4 segments vertebral arteries bilaterally. Globes and orbital contents image normally. Probable bilateral lens replacements. No extracranial soft tissue abnormalities. The paranasal sinuses, mastoid air cells, and tympanic cavities are normally aerated. No suspicious bony abnormalities. There are no acute fractures evident. CT/CT head/brain wo IV con IMPRESSION: No acute intracranial pathology. No fracture evident. Electronically signed by: Gabriel Durán MD 08/13/2024 01:07 PM EDT
[2024-08-13 11:07] VITALS: BP 142/51; BP 157/86; PULSE 76; PULSE 80; RESP 18; TEMP 36.6; O2SAT 96; O2SAT 97; BMI 23.2
--- NOTE | 2024-08-13 11:56 | ED.FALL ---
HPI - Fall General Chief Complaint: Fall Stated Complaint: WITNESSED FALL,HIT HEAD ON PAVEMENT PER EMS Time Seen by Provider: 08/13/24 11:55 Source: patient Mode of arrival: EMS Limitations: no limitations History of Present Illness ED Provider: MICHAEL ARRIAZA PA-C HPI Narrative: 79-year-old female with past medical history of MDD, close to pressure, hypertension, dyslipidemia, hypothyroidism, osteoporosis, T11 vertebral fracture presenting via EMS for a witnessed trip and fall around 11:00 a.m. today. Denies thinner use, loss of consciousness, preceding symptoms. Patient reports tripping on the curb and falling backwards onto buttocks and striking the posterior aspect of her head on the pavement while leaving a doctor's appointment across the street. she typically ambulates with cane at baseline. She had her cane with her today. She was ambulating to her vehicle with her who witnessed the fall. Patient reports left hip fracture on 11/2023 and balance issues since December of 2023. Patient denies any pain currently, blurry vision, neck or back pain, alcohol use. Patient also reports being diagnosed with UTI 1 week ago and is almost done with her antibiotics. Denies any current urinary symptoms. Related Data Home Medications ?Medication ?Instructions ?Recorded ?Confirmed mecobalamin (vitamin B12) 1,000 1,000 mcg PO DAILY 09/13/21 08/08/24 mcg chewable tablet cholecalciferol (vitamin D3) 50 50 mcg PO DAILY 06/14/24 08/08/24 mcg (2,000 unit) capsule Previous Rx's ?Medication ?Instructions ?Recorded denosumab 60 mg/mL subcutaneous 60 mg subcut [id number] 1 day #1 mL 08/29/23 syringe (Prolia) losartan 50 mg tablet 50 mg PO DAILY 90 days #90 tabs 11/02/23 chlorthalidone 25 mg tablet 12.5 mg (1/2 x 25 mg) PO QAM #45 12/15/23 tabs levothyroxine 150 mcg tablet 150 mcg PO DAILY 90 days #90 tabs 12/18/23 potassium chloride 10 mEq 10 meq PO DAILY 90 days #90 tabs 12/29/23 tablet,extended release (Klor-Con) commode #1 ea 01/11/24 diaper,brief,adult,disposable #120 ea 09/19/24 (Depend Easy Fit Undergarments [facility]) miscellaneous medical supply #180 ea 01/12/24 omeprazole 20 mg capsule,delayed 20 mg PO DAILY 90 days #90 caps 01/17/24 release celecoxib 200 mg capsule (Celebrex) 200 mg PO BID 30 days #60 caps 03/13/24 oxybutynin chloride 10 mg 10 mg PO DAILY 3 months #90 tabs 05/31/24 tablet,extended release 24 hr simvastatin 20 mg tablet 20 mg PO DAILY #90 tabs 06/25/24 metoprolol succinate 50 mg 50 mg PO DAILY #90 tabs 07/22/24 tablet,extended release 24 hr acetaminophen 500 mg tablet 500 mg PO Q6H PRN fever or pain 08/08/24 (Tylenol Extra Strength) #14 tabs cefuroxime axetil 250 mg tablet 250 mg PO BID #13 tabs 08/08/24 lidocaine 5 % topical patch 1 patch topical DAILY PRN pain #30 08/08/24 (Lidoderm) ea sertraline 100 mg tablet 100 mg PO BID #180 tabs 08/08/24 sulfamethoxazole 800 1 tab PO BID #10 tabs 08/09/24 mg-trimethoprim 160 mg tablet (Bactrim DS) Allergies Allergy/AdvReac Type Severity Reaction Status Date / Time cortisone Allergy Intermediate Rash Verified 08/13/24 11:08 Cephalosporins Allergy Mild JAUNDICE Verified 08/13/24 11:08 KETOLIDES Allergy Unknown ITCHING Uncoded 08/08/24 13:50 MACORLIDES Allergy Unknown ITCHING Uncoded 08/08/24 13:50 Review of Systems Review of Systems: Yes all other systems are reviewed and are negative [facility] Past Medical History Attestation statement: The following information was validated with the patient. Source: old records reviewed and nursing notes reviewed Medical History Depression with anxiety Closed hip fracture History of adenomatous polyp of colon Expressive aphasia Essential hypertension Dyslipidemia Acquired hypothyroidism Intertrochanteric fracture of right hip Dysphagia Essential hypertension Osteoporosis GERD (gastroesophageal reflux disease) Aphasia High cholesterol High blood pressure Anemia Dyspnea on exertion T11 vertebral fracture Hypothyroidism Surgical History History of bone marrow biopsy History of excision of mass History of cholecystectomy History of tonsillectomy History of vertebroplasty History of kyphoplasty Family History Family History Father Esophageal cancer Substance use disorder Mother Breast cancer Paternal Aunt Breast cancer Social History Social History Household Members: Spouse Housing: [facility] Are you a primary primary care provider to a significant other at home: No Do you presently have visiting nurse or other home services: No Alcohol intake: current Alcohol intake frequency: holidays/special occasions only Patient Tobacco Use Status: Never used Tobacco e-Cigarette/Vaping Use: Never Used Second Hand Smoke Exposure: No Advance Directives Date on File: 10/17/22 service: No Current occupational status: 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 Skin: Warm, dry, intact. No rashes or lesions. Head: small circular midline abrasion on the posterior aspect overlying the occiput. No active bleeding. No open laceration. Small palpable hematoma. No palpable skull fracture. No wisdom sign. No raccoon eyes. EENT: Hearing is intact b/l. Conjunctiva clear. PERRLA. EOM intact.? Neck: Supple without LAD. FROM. No midline cervical tenderness Cardiac: Chest wall symmetric. RRR. Lungs: Normal respiratory effort without accessory muscle use. CTA bilaterally. Abdomen: Soft, non-tender, non-distended. No rebound tenderness or guarding. Positive BS x4. Back: No midline spinous or paraspinal tenderness. No step off deformity. Ext: Bilateral osteoarthitis in hands. Upper and lower extremities atraumatic, without tenderness, swelling or erythema. Neuro: AOx3. Normal speech. NIH 0. Strength 5/5 intact throughout. Sensation intact to light touch. Ambulating with steady gait. Course Course Course Narrative: CT cervical spine showing moderate degenerative spondylosis, no acute fracture or injury. CT head/brain without intracranial bleed or skull fracture. > patient was well-appearing. Exam is nonfocal, NIH is 0. She is not endorsing any pain or concerns at this time. She is ambulating with steady gait. Patient has remained stable throughout ED visit today. Discussed worrisome signs and symptoms and when to return to the ED. All questions answered at this time. Patient is agreeable with disposition and stable for discharge. Medical Decision Making Medical Decision Making MDM Narrative: 79-year-old female with past medical history of MDD, close to pressure, hypertension, dyslipidemia, hypothyroidism, osteoporosis, T11 vertebral fracture presenting via EMS for a witnessed trip and fall around 11:00 a.m. today. Vital signs stable. She is nontoxic appearing in no acute distress. Exam is nonfocal. NIH 0. Ambulating with steady gait. Small abrasion noted to occiput. No active bleeding. There is palpable underlying scalp hematoma. No palpable skull fracture. PERRLA. Exam otherwise unremarkable. Differential diagnosis includes concussion, contusion, scalp abrasion, scalp hematoma, intracranial bleed, skull fracture Plan for CT head/C-spine and re-evaluation. Differential Diagnosis Differential Diagnoses: The differential diagnosis associated with the presentation includes As above Admission/Observation Not indicated Independent Interpretation I performed an independent interpretation of an: CT Scan Interpretation: CT head/brain without bleed or fracture CT cervical spine without fracture Radiology Impression Discussion of test interpretation with radiology: I have reviewed the radiologist's reading. Radiologist Impression: Procedure(s): CT head/brain wo IV con Accession Number(s): [id number] cc: Mary Henderson MD; Michael Arriaza~ Report Number: [id number]: Total DLP = 618.39 mGy-cm EXAMINATION: CT HEAD WITHOUT CONTRAST CLINICAL INFORMATION: Fall with head strike. COMPARISON: 08/08/2024, 12/23/2023. TECHNIQUE: Contiguous axial imaging was performed from the skull base to vertex without intravenous administration of contrast. This CT examination was performed using dose optimization techniques as appropriate, variously including the following: *Automated exposure control *Adjustment of mA and/or kV according to patient size (this includes techniques or standardized protocols for targeted exams where dose is matched to indication/reason for exam; i.e. extremities or head) *Use of iterative reconstruction technique FINDINGS: There is no evidence of intracranial hemorrhage or extra-axial fluid collection. There is no mass effect, or edema. No CT evidence of acute territorial infarct. Ventricles, sulci, and cisterns are normal in size and configuration for patient age. No hydrocephalus. No midline shift. Negative hyperdense MCA sign. Negative insular ribbon sign. Patchy periventricular and deep white matter hypoattenuation is consistent with mild to moderate small vessel ischemic changes. Normal pituitary. Mild atheromatous calcification of the bilateral carotid siphons and V4 segments vertebral arteries bilaterally. Globes and orbital contents image normally. Probable bilateral lens replacements. No extracranial soft tissue abnormalities. The paranasal sinuses, mastoid air cells, and tympanic cavities are normally aerated. No suspicious bony abnormalities. There are no acute fractures evident. CT/CT head/brain wo IV con IMPRESSION: No acute intracranial pathology. No fracture evident. Procedure(s): CT cervical spine wo IV con Accession Number(s): [id number] cc: Mary Henderson MD; Michael Arriaza~ Report Number: [id number]: Total DLP = 207.25 mGy-cm EXAMINATION: CT CERVICAL SPINE WITHOUT CONTRAST CLINICAL INFORMATION: Fall with head strike. COMPARISON: 08/08/2024, 12/23/2023. TECHNIQUE: Spiral CT imaging of the cervical spine performed in axial plane without contrast. Multiplanar reformatted images were constructed from the axial data set. This CT examination was performed using dose optimization techniques as appropriate, variously including the following: *Automated exposure control *Adjustment of mA and/or kV according to patient size (this includes techniques or standardized protocols for targeted exams where dose is matched to indication/reason for exam; i.e. extremities or head) *Use of iterative reconstruction technique FINDINGS: CORONAL ALIGNMENT: -Normal. SAGITTAL ALIGNMENT: -Straightening of the normal lordosis. No subluxations. C1-C2 AND CRANIOCERVICAL JUNCTION: -Intact and normally aligned. There are degenerative changes in the atlantoaxial joint. VERTEBRAL BODIES AND FACETS: -There are no fractures, compression deformities, or suspicious bone lesions. -Facets are normally aligned. There are left greater than right multilevel degenerative facet changes. DISCS: -Moderate to severe degenerative disc changes throughout the cervical spine with sparing of C2-3. Disc vacuum phenomenon present C4-5 and C5-6. Endplate sclerosis to a mild degree C3-4, C4-5, C5-6, C6-7, and C7-T1. CENTRAL CANAL: -No evidence of high-grade central canal narrowing or large disc herniation allowing for modality limitations. PREVERTEBRAL AND PARAVERTEBRAL SOFT TISSUES: -There is no prevertebral soft tissue edema or abnormal fluid collection. -Mild Global enlargement of the thyroid without discrete lesion seen. LUNG APICES: -Minimal apical scarring otherwise clear. CT/CT cervical spine wo IV con IMPRESSION: 1. No CT evidence of acute cervical spine fracture or injury. 2. Moderate degenerative spondylosis. 3. Mild to moderate global thyroid enlargement without discrete lesion evident. Independent Historian Clinical information obtained from an independent historian. History obtained from or confirmed by: Spouse Social Determinants Patient?s care significantly limited by Social Determinants of Health including: Other Social Determinant of Health Critical Care Time Critical Care Time Critical Care Time: No Discharge Plan Discharge Clinical Impression: Fall Patient Disposition: Home, Self-Care Instructions: Concussion (ED), Fall Prevention for Older Adults (ED) Additional Instructions: You were evaluated in the ED today following a fall with head strike. The CT scan of your head does not demonstrate intracranial bleed or skull fracture. The CT scan of your neck does not demonstrate acute fracture. You have a small abrasion to the back of your head with some swelling. You may apply ice as needed. You may have a concussion. See home care instructions regarding concussion protocol. Treatment for this is brain rest. Please limit screen time (i.e phone, tv, etc.) Make sure you are staying hydrated. Lay down to relax in a dark quiet room. Avoid sports until cleared by your primary doctor. I recommend you take 600mg ibuprofen every 6 hours or tylenol 650mg every 6 hours as needed for pain. If needed, you can alternate these medications so that you take one medication every 3 hours. For example, at noon take ibuprofen, then at 3pm take tylenol, then at 6pm take ibuprofen Follow up with your primary doctor as needed. As discussed, return to the ED with any new or worsening symptoms such as intractable headache, vomiting, lethargy, worsening confusion, etc. In the case of an emergency call 911. Prescriptions: No Action losartan 50 mg tablet 50 mg PO DAILY 90 Days Qty: 90 4RF chlorthalidone 25 mg tablet 12.5 mg PO QAM Qty: 45 2RF levothyroxine 150 mcg tablet 150 mcg PO DAILY 90 Days Qty: 90 4RF potassium chloride [Klor-Con 10] 10 mEq tablet extended release 10 meq PO DAILY 90 Days Qty: 90 3RF (DME) commode Kit See Rx Instructions .Route Qty: 1 0RF Rx Instructions: As directed, 999 days (DME) Depend Easy Fit Undergarments Misc See Rx Instructions .Route Qty: 120 3RF Rx Instructions: 4 times a day, As directed, 30 days (DME) miscellaneous medical supply Misc See Rx Instructions .ROUTE .MEDSUPPLY Qty: 180 2RF Rx Instructions: Panty Liners, Twice a day As directed, 90 days omeprazole 20 mg capsule,delayed release(DR/EC) 20 mg PO DAILY 90 Days Qty: 90 0RF celecoxib [Celebrex] 200 mg capsule 200 mg PO BID 30 Days Qty: 60 3RF oxybutynin chloride 10 mg tablet extended release 24hr 10 mg PO DAILY 90 Days Qty: 90 2RF metoprolol succinate 50 mg tablet extended release 24 hr 50 mg PO DAILY Qty: 90 0RF lidocaine [Lidoderm] 5 % adhesive patch,medicated 1 patch topical DAILY MDD remove after 12 hours PRN (Reason: pain) Qty: 30 0RF Rx Instructions: leave on most painful area for up to 12 hrs acetaminophen [Tylenol Extra Strength] 500 mg tablet 500 mg PO Q6H PRN (Reason: fever or pain) Qty: 14 0RF cefuroxime axetil 250 mg tablet 250 mg PO BID Qty: 13 0RF sulfamethoxazole-trimethoprim [Bactrim DS] 800-160 mg tablet 1 tab PO BID Qty: 10 0RF Prolia 60 mg/mL syringe 60 mg subcut [id number] 1 Days Qty: 1 0RF mecobalamin (vitamin B12) 1,000 mcg tablet,chewable 1,000 mcg PO DAILY simvastatin 20 mg tablet 20 mg PO DAILY Qty: 90 3RF cholecalciferol (vitamin D3) 50 mcg (2,000 unit) capsule 50 mcg PO DAILY sertraline 100 mg tablet 100 mg PO BID Qty: 180 1RF Rx Instructions: Take with food; take one with breakfast and one with dinner Referrals: Mary Henderson MD [Primary Care Provider] - Interventions: ED Discharge Assessment Last Done: 08/13/24 14:30 Discharge Date/Time: 08/13/24 14:30 Print Language: Danish
[2024-08-13 13:50] VITALS: BP 121/61; PULSE 67; RESP 16; TEMP 36.6; O2SAT 93
--- OUTSIDE RECORDS SUMMARY | 2024-08-13 14:09 | XMS_ITS | Data Portability ---
Author Organization [place] [email or web address], [facility]_ Address [address] [facility] [address] [place] [address] Assessment Encounter Date Assessment Date Assessment LastModified [...] or more view 023 03/24/20 23 [email or web address] [facility], [address], [place], [address], 13:47:20 Medication Orders None record ed. Patient TargetsNo targets recorded. Patient Instructions Encounter Date Encounter Id Patient Instructions Last Modified By Organization Details Last Modified Time 03/24/2023 [id number] hand arthritis: exercises Not available 03/24/2023 13:32:06 [...] Silastic arthroplasty. Not available 03/24/2023 13:27:10 06/13/2023 [id number] hand arthritis: exercises [email or web address] Not available 06/13/2023 11:58:35 Right hand moderate [...] We will see her back as needed. [email or web address] Not available 06/13/2023 11:57:58 08/11/2023 [id number] learning about healthy weight Not available 08/11/2023 [...] today. She will be returning home up [place] and plans on scheduling her follow up appointments there. I advised her to receive repeat x-rays in 2 weeks, she understands. Not available 08/11/2023 09:19:40 08/16/2023 [id number] Patient placed EXOs brace in the microwave causing a defect in the brace. A new EXOs was reapplied. Discussed further EXOs and hand hygiene care. Follow-up PRN [email or web address] Not available 08/16/2023 13:19:23 Reason for Referral [...] Documented - 1123F [place] [id number],[place], [address], [facility] 08/11/2023 07:03:59 08/11/19 24 FOI DME [id number] EXOS FRACTURE BRACE [place] [address], [place], [address], [facility] 08/11/2023 09:17:27 06/13/19 24 [email or web address] Monahan small injection completed April Molina PA-C [address],[place], [address], [facility] 06/13/2023 11:55:42 06/13/19 24 Advance Care Planning - Advance Care Plan/Surrogate Documented - 1123F completed April Molina PA-C [address],[place], [address], [facility] 06/13/2023 11:55:18 03/24/20 23 FSOSM Monahan [place] [address], [place], [address], [facility] 03/24/2023 13:28:51 12/01/20 23 Advance Care Planning - Advance Care Plan/Surrogate Documented - 1123F [place] [id number], [place], [address], [facility] - [facility] 03/24/2023 [...] Name and Address Organization Details Recorded Time 636807 Medicinal product containin g cephalosp nadira and acting as antibacte rial agent (product) medicatio n Not available Not available Not available 03/24/2023 [id number] SNOMED Not Available Not Available Not [...] Address Organization Details Last Updated DateTime 03/24/2023 08933.26 g 26.4 kg/m2 160.02 cm Yeyo Holden [place] [facility] 03/24/2023 12:39:12 Date Recorded Body height Body mass index (BMI) Body weight Provider Name and Address Organization Details Last Updated DateTime 06/13/2023 160.02 cm 26.4 kg/m2 52351.26 g April Molina PA-C [address], [place], [address], [place] [facility] 06/13/2023 11:49:44 Date Recorded Body height Body mass index (BMI) Body weight Provider Name and Address Organization Details Last Updated DateTime 08/11/2023 160.02 cm 26.6 kg/m2 22146.86 g Noni Pinzon [place] [facility] 08/11/2023 08:39:02 Social [...] SNOMED-CT Code Diagnosis ICD10 Code Diagnosis Note [id number] Andrea Monahan MD [facility]_NP R [address] [place] [address] 03/24/2023 11:57:48 03/24/2023 13:23:16 Pain in right hand 2889035578 39971 M79.641 Arthritis of hand 835875 005 M13.849 M13.831 [id number] Andrea Monahan MD [facility]_NP R [address] [place] [address] 06/13/2023 11:30:40 06/13/2023 11:45:44 Arthritis of hand 782569702 M13.016 [id number] Jhony Guillory MD [facility]_PH [address] [address] 08/11/2023 08:23:26 08/11/2023 09:27:12 Obesity 238681190 E66.3 Closed fra cture of base of fourth metacarpal bone of left hand 4071674982 3162823 S62.315A [id number] Jhony Guillory MD [facility]_PH [address] [address] 08/16/2023 12:54:45 08/16/2023 13:12:11 Closed fracture of base of fourth metacarpal bone of left hand [id number] 1028930 S62.315A Health Concerns Section Related Observation LastModified by Organization Detai ls LastModified Time None Recorded Concern Status LastModified by Organization Details LastModified Time None Recorded Advance Directives Directive Y: Payers Encounter Date Sequence Insurance Name Policy Number Policy Monroy Covered Member ID Monroy Member ID Guarantor Name 03/24/2023 1 [place] A Pare [id number] Kinza Pare 03/24/2023 2 [place] [id number] Kinza A Pare [id number] Kinza Pare 06/13/2023 1 [place] Pare [id number] Kinza Pare 06/13/2023 2 [place] [id number] Kinza A Pare [id number] Kinza Pare 08/11/2023 1 [place] Pare [id number] Kinza Pare 08/11/2023 2 [place] [id number] Kinza A Pare [id number] Kinza Blair 08/16/2023 2 [place] [id number] Kinza Blair [id number] Kinza Blair Notes Date Note Type [...] from [employer] on 03/24/2023 [place] [address] [facility], [place], [address], [facility] - [facility] 03/24/2023 [...] ?Heat ?Aggravating Factors ?Cold/Ice ?Weather Imported from [facility] on 03/24/2023 April Molina PA-C [address], [place], [address], [place] [facility] 06/13/2023 11:58:37 [...] Tape, etc.) ?Aggravating Factors ?Nothing Imported from [facility] on 08/11/2023 [place] [address], [place], [address], [facility] - [facility] 08/11/2023 [...] Tape, etc.) ?Aggravating Factors ?Nothing Imported from [facility] on 08/11/2023 LEANDER CANAS PA-C [address] [facility],[address], [place], [address], [facility] - [facility] 08/16/2023 13:19:44 OBGyn Episode No OBEpisode recorded.
--- OUTSIDE RECORDS SUMMARY | 2024-08-13 14:09 | XMS_ITS | Patient Health Record ---
Author Organization [facility] Address [address] [place] [address] Care Team Providers Care Educational Assistant Name Role Phone Beck Hernandez Primary Care Provider Zach Ho Unavailable [phone] Allergies Allergen (clinical drug ingredient) Drug/Non Drug [...] Problem Status W/U Status Risk Notes Problem 151216116 Encounter for screening for malignant neoplasm of colon (Z12.11) Active confirmed Problem 246287965 History of adenomatous polyp of colon (Z86.010) Active confirmed Problem 76116725 Change in bowel habits (R19.4) Active confirmed Problem 63331686 Hypertension (I10) Active confirmed Problem Diverticular disease of colon (454186133) Diverticulosis of large intestine without perforation or abscess without bleeding (K57.30) Active confirmed Problem 654766802 Blood in stool (K92.1) Active confirmed Problem 713583808 Gastroesophageal reflux disease without esophagitis (K21.9) Active confirmed Problem 13611818 Rectal urgency (R15.2) Active confirmed Problem 592272542 Long-term use of aspirin therapy (Z79.82) Active confirmed Problem 709644797 Loose bowel movements (R19.5) Active confirmed Plan Of Treatment Future Test Test Name Order Date COLONOSCOPY 09/06/2011 COLONOSCOPY 01/19/2017 COLONOSCOPY 01/17/2023 Insurance Providers Payer Name Payer Address Payer Phone Subscriber Number Group Number Insured Name Patient Relationship to Insured Coverage Start Date Coverage End Date MED[place]ARE OF [place] [address] [place] [address] [id number] CLAU ORTEZ Self - patient is the insured [employer] CLAIMS [address] [place] [address] [id number] CLAU ORTEZ Self - patient is the insured [employer] [address] [place] [address] [id number] CLAU ORTEZ Self - patient is the insured Medical (General) History Medical History History ICD Code Tubular adenoma was removed in 2005 during colonoscopy--a colonoscopy in 2001 was negative Colonoscopy 09/22/2011--nega tive except for some diverticulosis and internal hemorrhoids GERD-upper endoscopy in 2001 was negative for any esophagitis or Pollock's esophagus Hypertension Depression Hyperlipidemia Denies PR,DM,CVA,Lung disease,renal dise ase Sleep apnea-uses a CPAP [...]
[2024-08-13 14:30] VITALS: BP 121/61; PULSE 67; RESP 16; TEMP 36.6; O2SAT 93
--- NOTE | 2024-08-13 14:31 | PC.NURSE ---
Discharge instruction reviewed and patient verbalized understanding. To f/u with her PCP. Transitioned out of the department via W/C
== END 2024-08-13 14:30 | disposition home or self-care (01) ==
PROVIDERS: Emergency Provider Emergency Medicine; PCP Internal Medicine
DX: S09.90XA Unspecified injury of head, initial encounter (principal); R51.9 Headache, unspecified; M54.2 Cervicalgia; W01.10XA Fall on same level from slipping, tripping and stumbling with subsequent striking against unspecified object, initial encounter; Y93.9 Activity, unspecified; Y92.480 Sidewalk as the place of occurrence of the external cause; Y99.8 Other external cause status
CPT/HCPCS: 70450; 72125; 99284

== ENCOUNTER → 2024-08-13 12:11 | Outpatient (BNV) | payer MEDICARE, OTHER, SELFPAY | PROVIDERS: Emergency Provider Emergency Medicine; PCP Internal Medicine; Visit Provider Radiology Diagnostic Radiology | DX: M47.812 Spondylosis without myelopathy or radiculopathy, cervical region (principal); E04.9 Nontoxic goiter, unspecified; S09.90XA Unspecified injury of head, initial encounter; W19.XXXA Unspecified fall, initial encounter | CPT/HCPCS: 70450; 72125 ==

== ENCOUNTER 2024-08-20 12:25 | Outpatient (REF) | payer MEDICARE, OTHER, SELFPAY ==
[2024-08-20 16:15] LABS: Albumin Level 4.2 g/dL (3.5-5.0); Anion Gap 11 (12-20); Blood Urea Nitrogen 15 mg/dL (9-16); Calcium 9.6 mg/dL (8.4-10.2); Carbon Dioxide 27 mmol/L (22-29); Chloride 108 mmol/L (96-108); Estimated Glomerular Filt Rate > 60; Glucose Random 84 mg/dL (60-115); Potassium 3.6 mmol/L (3.3-5.1); Sodium 142 mmol/L (135-145)
== END 2024-08-20 12:26 | disposition home or self-care (01) ==
LOC: HO.HMGCLDS 12:25
PROVIDERS: PCP Internal Medicine; Visit Provider Internal Medicine Endocrinology, Diabetes & Metabolism
DX: F33.1 Major depressive disorder, recurrent, moderate (principal); R47.01 Aphasia; I10 Essential (primary) hypertension; R26.81 Unsteadiness on feet; M81.0 Age-related osteoporosis without current pathological fracture
CPT/HCPCS: 36415; 80048; 82040; 99212

== ENCOUNTER 2024-08-20 12:25 | Outpatient (AMB) | payer MEDICARE, OTHER, SELFPAY ==
[2024-08-20 12:35] VITALS: BP 142/68; PULSE 71; RESP 17; TEMP 36.6; O2SAT 96; BMI 24.6
--- NOTE | 2024-08-20 12:35 | A.OFFPC_ITS ---
Vital Signs 08/20/24 12:35 Height 5 ft 3 in Weight 139 lb BMI 24.6 BP 142/68 H Blood Pressure Location Lt brachial Position Sitting Respiration 17 Pulse 71 Pulse Source Pulse Oximeter Temp 97.9 F Temp Source Oral Pulse Oximetry (%) 96 Oxygen Delivery Method Room Air Intake Visit Reasons: HDF from a fall Intake Note: Pt is here today for her HDF C fall: (Also patient needs a letter stating ok to continue physical therapy) PT dept is requesting the letter Allergies cortisone Allergy (Intermediate, Verified 08/26/24 04:53) Rash Cephalosporins Allergy (Mild, Verified 08/26/24 04:53) JAUNDICE KETOLIDES Allergy (Unknown, Uncoded 08/26/24 04:53) ITCHING MACORLIDES Allergy (Unknown, Uncoded 08/26/24 04:53) ITCHING Medication List - Last Reconciled 08/26/24 by Mary Henderson MD acetaminophen (Tylenol Extra Strength) 500 mg PO Q6H PRN celecoxib (Celebrex) 200 mg PO BID 30 days chlorthalidone 12.5 mg (1/2 x 25 mg) PO QAM cholecalciferol (vitamin D3) 50 mcg PO DAILY commode As directed, 999 days denosumab (Prolia) 60 mg subcut [id number] 1 day diaper,brief,adult,disposable (Depend Easy Fit Undergarments [facility]) 4 times a day, As directed, 30 days levothyroxine 150 mcg PO DAILY 90 days lidocaine 5% (Lidoderm) 1 patch topical DAILY PRN MDD remove after 12 hours losartan 50 mg PO DAILY 90 days mecobalamin (vitamin B12) 1,000 mcg PO DAILY metoprolol succinate ER 50 mg PO DAILY miscellaneous medical supply Panty Liners, Twice a day As directed, 90 days omeprazole 20 mg PO DAILY 90 days oxybutynin chloride ER 10 mg PO DAILY 3 months potassium chloride ER (Klor-Con) 10 mEq PO DAILY 90 days sertraline 100 mg PO BID simvastatin 20 mg PO DAILY Tobacco use date assessed: 08/20/24 Fall risk assessment: 2 + Falls in past year Last assessed Fall Risk: 08/20/24 Dental Screening Dental Screen Date: 08/20/24 Did you have a dental visit in the last 12 months?: Yes Did you have a dental problem in the last 6 months where you did not have access to dental care?: No Was dental information given to patient?: Patient has dentist HPI HDF from a fall HPI Details 79-year-old female with past medical his tory of depression, expressive aphasia, hypertension, dyslipidemia, hypothyroidism, osteoporosis, T11 vertebral fracture here today for follow-up after she went to the ER a week ago, presenting via EMS for a witnessed trip and fall on the sidewalk. Denies use of blood thinner, loss of consciousness, preceding symptoms. Patient reports tripping on the curb and falling backwards onto buttocks and striking the posterior aspect of her head on the pavement while leaving a doctor's appointment across the street. she typically ambulates with cane , but forgot to bring it that day. . Patient reports left hip fracture on 11/2023 and still having balance issues since then. Patient denies any pain currently, blurry vision, neck or back pain, alcohol use. She was supposed to go to physical therapy at [facility] but needs clearance now to participate in physical therapy after her fall. [facility] Medical History Depression with anxiety Closed hip fracture History of adenomatous polyp of colon Expressive aphasia Essential hypertension Dyslipidemia Acquired hypothyroidism Intertrochanteric fracture of right hip Dysphagia Essential hypertension Osteoporosis GERD (gastroesophageal reflux disease) Aphasia High cholesterol High blood pressure Anemia Dyspnea on exertion T11 vertebral fracture Hypothyroidism Surgical History History of bone marrow biopsy History of excision of mass History of cholecystectomy History of tonsillectomy History of vertebroplasty History of kyphoplasty Family History Father Esophageal cancer Substance use disorder Mother Breast cancer Paternal Aunt Breast cancer Social History Household Members: Spouse Housing: Condominium Are you a primary career development manager to a significant other at home: No Do you presently have visiting nurse or other home services: No Alcohol intake: current Alcohol intake frequency: holidays/special occasions only Patient Tobacco Use Status: Never used Tobacco e-Cigarette/Vaping Use: Never Used Second Hand Smoke Exposure: No Advance Directives Date on File: 10/17/22 service: No Current occupational status: 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 Zach Mccarthy, Chayito Barnhart, Bal Díaz and colleagues, with an educational anne from [employer]. Review of Systems Const All systems reviewed & are unremarkable except as noted in HPI and below Physical exam (Primary Care) Vital Signs: Last Vital Signs Temp 97.9 F 08/20/24 12:35 Pulse 71 08/20/24 12:35 Resp 17 08/20/24 12:35 BP 142/68 H 08/20/24 12:35 Pulse Ox 96 08/20/24 12:35 Oxygen Delivery Method Room Air 08/20/24 12:35 BMI result Body Mass Index 24.6 Tobacco/Smoking Status: Tobacco use Status Tobacco use date assessed 08/20/24 08/20/24 12:41 Patient Tobacco Use Status Never used Tobacco 08/20/24 12:41 e-Cigarette/Vaping Use Never Used 08/20/24 12:41 Thrive Assessment: Date of Thrive Assessment Date Thrive assessed 06/14/24 08/20/24 12:41 Const General: cooperative, no acute distress, alert and Physically active Nutritional Appearance: average body habitus Orientation/consciousness: patient oriented x3 Limitations: ambulation with cane HENMT Head: Yes normocephalic Ears: external ears normal, TM's normal bilaterally and EAC's normal Face and sinus: Yes face symmetric Mouth: Normal oral and palatal mucosa present, tongue normal, oropharynx normal and moist mucous membranes Eyes General: appearance normal, both eyes and all related structures Pupils: Equal, round and reactive pupils present Neck Neck: Yes full ROM, Yes no lymphadenopathy and Yes supple Resp Effort & Inspection: normal respiratory effort Auscultation: clear to auscultation bilaterally Cardio Rate: regular rate Rhythm: regular rhythm Heart sounds: S1 normal heart sound present GI Palpation (GI): Soft to palpation, nontender, no guarding and no masses General: Yes no CVA tenderness Back/Spine/Pelvis Back: no CVA tenderness and No back tenderness Skin General skin exam: no rashes or lesions noted Neuro Other: Has difficulty forming words, but comprehension and memory intact, unsteady gait, uses cane General: patient oriented x3 Cranial nerves: Yes Equal, round and reactive pupils present Cognition (Neuro): normal cognition Motor exam (neuro): 5/5 motor strength present throughout Romberg Test: Negative Extrem General: Yes full ROM, Yes no joint enlargement and Yes no clubbing, cyanosis or edema Psych Appearance: grossly normal and well kempt Mental Status: mental status grossly normal Speech and movement: Slurred speech present Affect: normal affect Attitude: cooperative Thought content: Normal thought content present Coding Level of Care Code Est Pt Level 4 (44476) Complex EM visit Add On G2211 Diagnoses Major depressive disorder, recurrent episode, moderate with anxious distress F33.1 Expressive aphasia R47.01 Essential hypertension I10 Unsteady gait R26.81 Assessment & Plan Assessment & Plan (1) Major depressive disorder, recurrent episode, moderate with anxious distress: Code(s): F33.1 - Major depressive disorder, recurrent, moderate Category: Medical Plan: Currently on sertraline 100 mg 1 tablet twice a day, followed by Psychiatry (2) Expressive aphasia: Code(s): R47.01 - Aphasia Category: Medical Plan: Has appointment to see a specialist in [place] (3) Essential hypertension: Code(s): I10 - Essential (primary) hypertension Category: Medical Plan: Blood pressure mildly elevated today, continued on started on 50 mg daily and metoprolol succinate ER 50 mg daily. Reinforced importance of following a low- salt diet (4) Unsteady gait: Code(s): R26.81 - Unsteadiness on feet Category: Medical Plan: Letter written clearing patient to start physical therapy at [facility] on 09/03/2024. Advised to use the walker instead of her quad cane for better support
--- OUTSIDE RECORDS SUMMARY | 2024-08-20 14:21 | XMS_ITS | Data Portability ---
Author Organization [place] [facility], [facility]_ Address [address] [facility] [place] [address] [place] [address] Assessment Encounter Date Assessment Date Assessment LastModified [...] view 023 03/24/20 23 [email or web address] [facility], [address], [place], [address], 13:47:20 Medication Orders None record ed. Patient TargetsNo targets recorded. Patient Instructions Encounter Date Encounter Id Patient Instructions Last Modified By Organization Details Last Modified Time 03/24/2023 [id number] hand arthritis: exercises Not available 03/24/2023 13:32:06 [...] Silastic arthroplasty. Not available 03/24/2023 13:27:10 06/13/2023 [id number] hand arthritis: exercises Not available 06/13/2023 11:58:35 [...] We will see her back as needed. [email or web address] Not available 06/13/2023 11:57:58 08/11/2023 [id number] learning about healthy weight Not available 08/11/2023 [...] today. She will be returning home up [place] and plans on scheduling her follow up appointments there. I advised her to receive repeat x-rays in 2 weeks, she understands. Not available 08/11/2023 09:19:40 08/16/2023 [id number] Patient placed EXOs brace in the microwave [...] Documented - 1123F [place] [address],[place], [address], [facility] 08/11/2023 07:03:59 08/11/19 24 FOI DME L3984 EXOS FRA[place]URE [place] [address], [place], [address], [facility] 08/11/2023 09:17:27 06/13/19 24 FSARAM Monahan small injection completed April Molina PA-C [address],[place], [address], [facility] 06/13/2023 11:55:42 06/13/19 24 Advance Care Planning - Advance Care Plan/Surrogate Documented - 1123F completed April Molina PA-C [address],[place], [address], [facility] 06/13/2023 11:55:18 03/24/20 23 FSOSM Monahan [place] [address], [place], [address], [facility] 03/24/2023 13:28:51 12/01/20 23 Advance Care Planning - Advance Care Plan/Surrogate Documented - 1123F [place] [address], [place], [address], [facility] - [facility] 03/24/2023 07:50:25 [...] Name and Address Organization Details Recorded Time 920762 Medicinal product containin g cephalosp nadira and acting as antibacte rial agent (product) medicatio n Not available Not available Not available 03/24/2023 94612 9009 SNOMED Not Available Not Available Not [...] Address Organization Details Last Updated DateTime 03/24/2023 58808.26 g 26.4 kg/m2 160.02 cm Yeyo Holden [place] [facility] 03/24/2023 12:39:12 Date Recorded Body height Body mass index (BMI) Body weight Provider Name and Address Organization Details Last Updated DateTime 06/13/2023 160.02 cm 26.4 kg/m2 12655.26 g April Molina PA-C [address], [place], [address], [place] [facility] 06/13/2023 11:49:44 Date Recorded Body height Body mass index (BMI) Body weight Provider Name and Address Organization Details Last Updated DateTime 08/11/2023 160.02 cm 26.6 kg/m2 40293.86 g Noni Pinzon [place] [facility] 08/11/2023 08:39:02 Social [...] 12:39:28 Medical History Condition Response Anxiety/Depression Y Thyroid Disease Y High Blood Pressure Y Head Trauma/Injury Y Hypothyroidism Y Arthritis [...] SNOMED-CT Code Diagnosis ICD10 Code Diagnosis Note [id number] Andrea Monahan MD [facility] [place] [address] 03/24/2023 11:57:48 03/24/2023 13:23:16 Pain in right hand 7384686673 11926 M79.641 Arthritis of hand 960241 005 M13.849 M13.227 [id number] Andrea Monahan MD [facility] [place] [address] 06/13/2023 11:30:40 06/13/2023 11:45:44 Arthritis of hand 906318249 M13.460 [id number] Jhony Guillory MD [facility]_PH [address] [address] 08/11/2023 08:23:26 08/11/2023 09:27:12 Obesity 785959981 E66.3 Closed fra cture of base of fourth metacarpal bone of left hand 9425322440 6069814 S62.315A [id number] Jhony Guillory MD [facility]PH [address] [address] 08/16/2023 12:54:45 08/16/2023 13:12:11 Closed fracture of base of fourth metacarpal bone of left hand 3575454907 6531619 S62.315A Health Concerns Section Related Observation LastModified by Organization Detai ls LastModified Time None Recorded Concern Status LastModified by Organization Details LastModified Time None Recorded Advance Directives Directive Y: Payers Encounter Date Sequence Insurance Name Policy Number Policy Monroy Covered Member ID Monroy Member ID Guarantor Name 03/24/2023 1 [place] Kin[place] A Pare [id number] Kinza Pare 03/24/2023 2 [place] [id number] Kinza A Pare [id number] Kinza Pare 06/13/2023 1 [place] Pare [id number] Kinza Pare 06/13/2023 2 [place] [id number] Kinza A Pare [id number] Kinza Pare 08/11/2023 1 [place] Pare [id number] Kinza Pare 08/11/2023 2 [place] [id number] Kinza A Pare [id number] Kinza Blair 08/16/2023 2 [place] [id number] Kinza Blair [id number] Kinza Blair Notes Date Note Type [...] from [employer] on 03/24/2023 [place] [address] [facility], [place], [address], [facility] - [facility] 03/24/2023 13:32:10 06/13/2023 text/html History of Prese nt Illness ?Chief Complaint ?Finger ?Pain Location Side ?Right ?Symptom Description ?Aching ?Throbbing ?Associated Symptoms ?Pain ?Weakness ?Pain Scale - Today ?6 ?Symptom Frequency ?Constantly ?Symptom Duration ?A few months ?Date Symptoms Started ?09/28/2007 ?Symptom Context ?Other ?Injections ?3 ?Past Treatments ?Injections ?Alleviating Factors ?Heat ?Aggravating Factors ?Cold/Ice ?Weather Imported from [facility] on 03/24/2023 April Molina PA-C [address], [place], [address], [place] - [facility] 06/13/2023 11:58:37 [...] Tape, etc.) ?Aggravating Factors ?Nothing Imported from [facility] on 08/11/2023 [place] [address], [place], [address], [facility] - [facility] [employer] [facility] 08/11/2023 09:20:01 [...] Tape, etc.) ?Aggravating Factors ?Nothing Imported from [facility] on 08/11/2023 LEANDER CANAS PA-C [address] [facility],[address]PT, [place], [address], [facility] - [facility] 08/16/2023 13:19:44 OBGyn Episode No OBEpisode recorded.
== END 2024-08-20 14:02 | disposition home or self-care (01) ==
LOC: HO.HMCC 12:25
PROVIDERS: PCP Internal Medicine; Visit Provider Internal Medicine
DX: F33.1 Major depressive disorder, recurrent, moderate (principal); R47.01 Aphasia; I10 Essential (primary) hypertension; R26.81 Unsteadiness on feet

== ENCOUNTER 2024-09-02 13:58 | Outpatient (AMB) | payer MEDICARE, OTHER, SELFPAY ==
--- NOTE | 2024-09-02 14:01 | A.OFFVIS_ITS ---
Vital Signs 09/02/24 14:02 Height 5 ft 3 in Weight 136 lb 10.986 oz BMI 24.2 BP 138/62 Blood Pressure Location Rt brachial Position Sitting Pulse 56 Pulse Source Pulse Oximeter Pulse Oximetry (%) 97 Oxygen Delivery Method Room Air Intake Visit Reasons: Osteoporosis/prolia injection Intake Note: Patient present today for Osteoporosis and Prolia injection. Patient fell to the floor hitting her head pt went to the ER last week. Veterinary Medicine Doctor Required: No Accompanied by: Self / Same As Patient Allergies cortisone Allergy (Intermediate, Verified 09/02/24 14:05) Rash Cephalosporins Allergy (Mild, Verified 09/02/24 14:05) JAUNDICE KETOLIDES Allergy (Unknown, Uncoded 09/02/24 14:05) ITCHING MACORLIDES Allergy (Unknown, Uncoded 09/02/24 14:05) ITCHING Medication List - Last Reconciled 09/02/24 by Zach Concepcion MD acetaminophen (Tylenol Extra Strength) 500 mg PO Q6H PRN celecoxib (Celebrex) 200 mg PO BID 30 days chlorthalidone 12.5 mg (1/2 x 25 mg) PO QAM cholecalciferol (vitamin D3) 50 mcg PO DAILY commode As directed, 999 days denosumab (Prolia) 60 mg subcut Q5FORQPD 1 day diaper,brief,adult,disposable (Depend Easy Fit [facility]) 4 times a day, As directed, 30 days levothyroxine 150 mcg PO DAILY 90 days lidocaine 5% (Lidoderm) 1 patch topical DAILY PRN MDD remove after 12 hours losartan 50 mg PO DAILY 90 days mecobalamin (vitamin B12) 1,000 mcg PO DAILY metoprolol succinate ER 50 mg PO DAILY miscellaneous medical supply Panty Liners, Twice a day As directed, 90 days omeprazole 20 mg PO DAILY 90 days oxybutynin chloride ER 10 mg PO DAILY 3 months potassium chloride ER (Klor-Con) 10 mEq PO DAILY 90 days sertraline 100 mg PO BID simvastatin 20 mg PO DAILY HPI Comments Details: 79 YO Female with PMHx myelodysplastic syndrome is seen in consultation at the request of PCP for Osteoporosis. According to primary care note, patient was seen in [place] for osteoporosis and was treated with Prolia but did not show up consistently for injections. Pt is poor historian First diagnosed in couple of yrs . Saw endo in [place] Received treatment in the past with Prolia , ? from to . last dose in 05/2023 ? Tolerated treatment well without complication. history of pathologic fracture in hip 12/23/2023 fell from standing and fx T-11 vertebra ? 3 yrs ago but no ONJ. Has several servings of dietary calcium per day in the form of broccoli, symilk . Not Takes Calcium supplement . Takes 01895 IU of Vitamin D daily. Uses PPI, - anticoagulant,- antiepileptic or -glucocorticoid medication. 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 UTD on dental cleanings and sees dentist every 6 months. No planned upcoming dental work or extractions. DXA dated :05/26/2020 TScore of -2.3 L femoral neck Labs: Looks like from previous rheumatology notes, that the Prolia was started in 2020 The patient is a 79-year-old female presenting with a history of osteoporosis management on Prolia ongoing for four years following a fracture in 2020. She reports good tolerance to Prolia and due for another injection. Continued administration of Prolia is planned to lower fracture risk, especially given her history. Recently, she had a fall leading to mild head trauma, with diagnostic imaging confirming the absence of fractures in the cervical spine but without lumbar assessment. Ongoing discomfort related to her fall emphasizes continuing care for her osteoporosis. [facility] Medical History Depression with anxiety Closed hip fracture History of adenomatous polyp of colon Expressive aphasia Essential hypertension Dyslipidemia Acquired hypothyroidism Intertrochanteric fracture of right hip Dysphagia Essential hypertension Osteoporosis GERD (gastroesophageal reflux disease) Aphasia High cholesterol High blood pressure Anemia Dyspnea on exertion T11 vertebral fracture Hypothyroidism Surgical History History of bone marrow biopsy History of excision of mass History of cholecystectomy History of tonsillectomy History of vertebroplasty History of kyphoplasty Family History Father Esophageal cancer Substance use disorder Mother Breast cancer Paternal Aunt Breast cancer Social History Household Members: Spouse [facility]: [facility] Are you a primary wound care center consultant to a significant other at home: No Do you presently have visiting nurse or other home services: No Alcohol intake: current Alcohol intake frequency: holidays/special occasions only Patient Tobacco Use Status: Never used Tobacco e-Cigarette/Vaping Use: Never Used Second Hand Smoke Exposure: No Advance Directives Date on File: 10/17/22 service: No Current occupational status: 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 Had previous negative secondary workup. Was on Prolia but unclear duration of Prolia treatment as well as consistency of getting the treatment. Looks like Prolia was initiated in 2020 in [place] Plan is to continue Prolia today. Will continue the Prolia every 6 months for a total of 5 years. Repeat DEXA is due in 03/2026 at that point might consider transitioning to a bisphosphonate afterwards 1. Osteoporosis with fracture history The patient is advised to continue Prolia treatment due to her fracture risk. The duration of the treatment might extend beyond the initially recommended period based on her case specifics. Future evaluations, including bone density tests, are planned to assess the medication's ongoing effectiveness and to aid in deciding the potential transition to other treatments if Prolia is paused. 2. Follow-up for fall-related head impact Cervical spine imaging revealed no fractures post-fall. Further imaging of the lumbar region may be considered if tailbone soreness persists. Symptom tracking and consultation with the primary care physician are advisable for any recurrent discomfort related to her recent fall. I discussed with the patient the necessity of continuing Prolia for her osteoporosis management due to her high fracture risk. I explained the potential risks of stopping Prolia abruptly, including increased fracture risk and why it is crucial to maintain adherence. We talked through the plan for periodic bone density evaluations to determine the ongoing necessity of Prolia. Following the patient's recent fall, we reviewed the results of the cervical imaging, confirming no fractures, and I recommended monitoring any symptoms such as ongoing lumbar discomfort, advising consultation with her primary doctor for further imaging if needed. We also discussed the potential continuation of Prolia treatment for up to ten years to mitigate fracture risk, considering her history. - Continue receiving Prolia injections as scheduled to help protect against fractures. - Monitor symptoms from fall, and report significant persistent soreness or new pain, especially in your spine or head, to your doctor promptly. - Attend all follow-up appointments, including bone density tests, to evaluate overall bone health. - Seek care if you experience new falls or injury symptoms. - Discuss any concerns about ongoing Prolia treatment with your doctor. The patient had an opportunity to ask questions regarding treatment plan. The patient expressed understanding and agreement with the above treatment plan. Patient was informed and verbally consented to the use of an ambient scribe for clinic note documentation during this visit. Coding Level of Care Code Est Pt Level 3 (79066) Diagnoses Osteoporosis M81.0
[2024-09-02 14:02] VITALS: BP 138/62; PULSE 56; O2SAT 97; BMI 24.2
== END 2024-09-02 14:23 | disposition home or self-care (01) ==
LOC: HO.ENCR 13:59
PROVIDERS: PCP Internal Medicine; Visit Provider Internal Medicine Endocrinology, Diabetes & Metabolism
DX: M81.0 Age-related osteoporosis without current pathological fracture (principal)
CPT/HCPCS: 99213

== ENCOUNTER → 2024-09-02 13:58 | Outpatient (BNVA) | payer MEDICARE, OTHER, SELFPAY | PROVIDERS: PCP Internal Medicine; Visit Provider Internal Medicine Endocrinology, Diabetes & Metabolism | DX: M81.0 Age-related osteoporosis without current pathological fracture (principal) | CPT/HCPCS: 96372; 99212; J0897 ==

== ENCOUNTER 2024-09-06 10:57 | Outpatient (REF) | payer MEDICARE, OTHER, SELFPAY ==
--- OUTSIDE RECORDS SUMMARY | 2024-09-06 11:29 | XMS_ITS | Patient Health Record ---
Author Organization [facility] Address [address] [place] [address] Care Team Providers Care Hospital Pharmacist Name Role Phone Beck Hernandez Primary Care Provider Zach Ho Unavailable [phone] Allergies Allergen (clinical drug ingredient) Drug/Non Drug [...] Problem Status W/U Status Risk Notes Problem 638210305 Encounter for screening for malignant neoplasm of colon (Z12.11) Active confirmed Problem 324401768 History of adenomatous polyp of colon (Z86.010) Active confirmed Problem 49244361 Change in bowel habits (R19.4) Active confirmed Problem 74548758 Hypertension (I10) Active confirmed Problem Diverticular disease of colon (929947649) Diverticulosis of large intestine without perforation or abscess without bleeding (K57.30) Active confirmed Problem 200757079 Blood in stool (K92.1) Active confirmed Problem 594771159 Gastroesophageal reflux disease without esophagitis (K21.9) Active confirmed Problem 83321510 Rectal urgency (R15.2) Active confirmed Problem 529749290 Long-term use of aspirin therapy (Z79.82) Active confirmed Problem 518584357 Loose bowel movements (R19.5) Active confirmed Plan Of Treatment Future Test Test Name Order Date COLONOSCOPY 09/06/2011 COLONOSCOPY 01/19/2017 COLONOSCOPY 01/17/2023 Insurance Providers Payer Name Payer Address Payer Phone Subscriber Number Group Number Insured Name Patient Relationship to Insured Coverage Start Date Coverage End Date MEDICARE OF [place] [address] [place] [address] [id number] CLAU ORTEZ Self - patient is the insured [employer] CLAIM[employer] [address] [place] [address] [phone] [id number] CLAU ORTEZ Self - patient is the insured [employer] [address] [place] [address] [id number] CLAU ORTEZ Self - patient is the insured Medical (General) History Medical History History ICD Code Tubular adenoma was removed in 2005 during colonoscopy--a colonoscopy in 2001 was negative Colonoscopy 09/22/2011--nega tive except for some diverticulosis and internal hemorrhoids GERD-upper endoscopy in 2001 was negative for any esophagitis or Pollock's esophagus Hypertension Depression Hyperlipidemia Denies ND,DM,CVA,Lung disease,renal dise ase Sleep apnea-uses a CPAP [...]
--- OUTSIDE RECORDS SUMMARY | 2024-09-06 11:29 | XMS_ITS | Data Portability ---
Author Organization [place] - [facility], [facility]_ Address [address] [facility] [address] [place] [address] Assessment Encounter Date Assessment Date Assessment LastModified [...] or more view 023 03/24/20 23 [email or web address] [facility], [address], [place], [address], 13:47:20 Medication Orders None record ed. Patient TargetsNo targets recorded. Patient Instructions Encounter Date Encounter Id Patient Instructions Last Modified By Organization Details Last Modified Time 03/24/2023 [id number] hand arthritis: exercises Not available 03/24/2023 13:32:06 Moderate to delai re arthritis of the right hand with [...] Silastic arthroplasty. Not available 03/24/2023 13:27:10 06/13/2023 [id number] hand arthritis: exercises [email or web address] Not available 06/13/2023 11:58:35 Right hand moderate [...] We will see her back as needed. [email or web address] Not available 06/13/2023 11:57:58 08/11/2023 [id number] learning about healthy weight Not available 08/11/2023 [...] today. She will be returning home up [place] and plans on scheduling her follow up appointments there. I advised her to receive repeat x-rays in 2 weeks, she understands. Not available 08/11/2023 09:19:40 08/16/2023 [id number] Patient placed EXOs brace in the microwave [...] Documented - 1123F [place] [address],[place], [address], [facility] 08/11/2023 07:03:59 08/11/19 24 FOI DME L3984 EXOS FRACTURE [place] [address], [place], [address], [facility] 08/11/2023 09:17:27 06/13/19 24 FSARAM Monahan small injection completed April Molina PA-C [address], [address], [facility] 06/13/2023 11:55:42 06/13/19 24 Advance Care Planning - Advance Care Plan/Surrogate Documented - 1123F completed April Molina PA-C [address], [address], [facility] 06/13/2023 11:55:18 03/24/20 23 FSOSM Monahan [place] [address], [place], [address], [facility] 03/24/2023 13:28:51 12/01/20 23 Advance Care Planning - Advance Care Plan/Surrogate Documented - 1123F [place] [address], [place], [address], [facility] - [facility] [...] Name and Address Organization Details Recorded Time 227456 Medicinal product containin g cephalosp nadira and acting as antibacte rial agent (product) medicatio n Not available Not available Not available 03/24/2023 63194 9009 SNOMED Yeyo [place], [place] - [facility] 12:39:49 Medications Name Sig Start Date Stop Date [...] Address Organization Details Last Updated DateTime 03/24/2023 66450.26 g 26.4 kg/m2 160.02 cm Yeyo Hold[place] - [facility] 03/24/2023 12:39:12 Date Recorded Body height Body mass index (BMI) Body weight Provider Name and Address Organization Details Last Updated DateTime 06/13/2023 160.02 cm 26.4 kg/m2 66420.26 g April Molina PA-C [address], [place], [address], [place] - [facility] 06/13/2023 11:49:44 Date Recorded Body height Body mass index (BMI) Body weight Provider Name and Address Organization Details Last Updated DateTime 08/11/2023 160.02 cm 26.6 kg/m2 84784.86 g Noni Pinzon [place] - [facility] [...] Relationship Status? [email or web address] Information not available 03/24/2023 Sex: Unknown Functional Status Question Answer Note LastModified by Organization D etails LastModified Time Do you or have you ever used any other forms of tobacco or nicotine? No [email or web address] Information not available 03/24/2023 Mental Status None recorded. Family History Relationship [...] SNOMED-CT Code Diagnosis ICD10 Code Diagnosis Note [id number] Andrea Monahan MD [facility] [place] [address] 03/24/2023 11:57:48 03/24/2023 13:23:16 Pain in right hand 4810121660 77638 M79.641 Arthritis of hand 243949 005 M13.849 M13.524 [id number] Andrea Monahan MD [facility]_[address] [place] [address] 06/13/2023 11:30:40 06/13/2023 11:45:44 Arthritis of hand 715792614 M13.150 [id number] Jhony Guillory MD [facility]_PH [address] [address] 08/11/2023 08:23:26 08/11/2023 09:27:12 Obesity 342425434 E66.3 Closed fra cture of base of fourth metacarpal bone of left hand 0434780513 8519123 S62.315A [id number] Jhony Guillory MD [facility]_PH [address] [address] 08/16/2023 12:54:45 08/16/2023 13:12:11 Closed fracture of base of fourth metacarpal bone of left hand 4993252828 2559281 S62.315A Health Concerns Section Related Observation LastModified by Organization Detai ls LastModified Time None Recorded Concern Status LastModified by Organization Details LastModified Time None Recorded Advance Directives Directive Y: Payers Insurance Date Sequence Insurance Name Policy Number Policy Monroy Covered Member ID Monroy Member ID Guarantor Name 09/20/2023 1 [place] [facility]- ON LICENSE OF [facility] NONE Kinza A Pare [id number] Kinza Pare 09/22/2023 [employer] (MEDICARE DME REGION D) NONE Kinza A Pare [id number] Kinza Pare 08/14/2023 1 [place] Kin[place] A Pare [id number] Kinza Pare 09/25/2023 2 [place] [id number] Kinza A Pare [id number] Kinza Pare 08/14/2023 3 () Kinza Pare [id number] Kinza Pare 09/25/2023 [employer] - SPECIAL[employer] CLAIMS (MEDICARE DME REGION A) Kinza A Pare [id number] Kinza Pare 09/20/2023 CGS (MEDICARE DME REGION C) Kinza A Pare [id number] Kinza Pare 08/14/2023 2 WPS - FOR LIFE (MEDICARE SUPPLEMENT) Kinza Pare [id number] Kinza Pare Notes Date Note Type Note [...] from [employer] on 03/24/2023 [place] [address] [address], [place], [address], [place] - [facility] 03/24/2023 13:32:10 06/13/2023 text/html History of Prese nt Illness ?Chief Complaint ?Finger ?Pain Location Side ?Right ?Symptom Description ?Aching ?Throbbing ?Associated Symptoms ?Pain ?Weakness ?Pain Scale - Today ?6 ?Symptom Frequency ?Constantly ?Symptom Duration ?A few months ?Date Symptoms Started ?09/28/2007 ?Symptom Context ?Other ?Injections ?3 ?Past Treatments ?Injections ?Alleviating Factors ?Heat ?Aggravating Factors ?Cold/Ice ?Weather Imported from [facility] on 03/24/2023 April Molina PA-C [address] [facility] [address], [place], [address], [facility] - [facility] 06/13/2023 11:58:37 08/11/2023 [...] Tape, etc.) ?Aggravating Factors ?Nothing Imported from [facility] on 08/11/2023 [place] [address] [facility], [place], [address], [facility] - [facility] 08/11/2023 [...] Tape, etc.) ?Aggravating Factors ?Nothing Imported from [facility] on 08/11/2023 LEANDER CANAS PA-C [address] [facility], [place], [address], [facility] - [facility] 08/16/2023 13:19:44 OBGyn Episode No OBEpisode recorded.
[2024-09-06 12:13] LABS: Alanine Aminotransferase 26 U/L (0-31); Anion Gap 11 (12-20); Aspartate Amino Transferase 45 U/L (5-31); Blood Urea Nitrogen 18 mg/dL (9-16); Calcium 9.4 mg/dL (8.4-10.2); Carbon Dioxide 26 mmol/L (22-29); Chloride 108 mmol/L (96-108); Cholesterol 165 mg/dL (<200); Estimated Glomerular Filt Rate > 60; Glucose Fasting 110 mg/dL (60-99); HDL Cholesterol 44 mg/dL (>40); LDL Cholesterol Calculated 93 mg/dL (<100); Potassium 3.6 mmol/L (3.3-5.1); Sodium 141 mmol/L (135-145); Triglycerides 140 mg/dL (<150)
[2024-09-06 12:31] LABS: Thyroid Stimulating Hormone 8.52 uIU/mL (0.32-4.0)
== END 2024-09-06 10:58 | disposition home or self-care (01) ==
LOC: HO.LAB 10:57
PROVIDERS: PCP Internal Medicine; Visit Provider Internal Medicine
DX: E78.5 Hyperlipidemia, unspecified (principal); E03.9 Hypothyroidism, unspecified; I10 Essential (primary) hypertension; M17.11 Unilateral primary osteoarthritis, right knee; N39.3 Stress incontinence (female) (male)
CPT/HCPCS: 36415; 80048; 80061; 84439; 84443; 84450; 84460

== ENCOUNTER 2024-10-03 11:38 | Outpatient (AMB) | payer MEDICARE, OTHER, SELFPAY ==
--- NOTE | 2024-10-03 11:53 | A.OFFPSYCH_ITS ---
Intake Intake Visit Reasons: follow up Front Office Associate Required: No Allergies cortisone Allergy (Intermediate, Verified 09/02/24 14:05) Rash Cephalosporins Allergy (Mild, Verified 09/02/24 14:05) JAUNDICE KETOLIDES Allergy (Unknown, Uncoded 09/02/24 14:05) ITCHING MACORLIDES Allergy (Unknown, Uncoded 09/02/24 14:05) ITCHING Medication List - Last Reconciled 10/03/24 by Eli Nunes APRN acetaminophen (Tylenol Extra Strength) 500 mg PO Q6H PRN celecoxib (Celebrex) 200 mg PO BID 30 days chlorthalidone 12.5 mg (1/2 x 25 mg) PO QAM cholecalciferol (vitamin D3) 50 mcg PO DAILY commode As directed, 999 days denosumab (Prolia) 60 mg subcut [id number] 1 day diaper,brief,adult,disposable (Depend Easy Fit Undergarments misc) 4 times a day, As directed, 30 days levothyroxine 150 mcg PO DAILY 90 days lidocaine 5% (Lidoderm) 1 patch topical DAILY PRN MDD remove after 12 hours losartan 50 mg PO DAILY 90 days mecobalamin (vitamin B12) 1,000 mcg PO DAILY metoprolol succinate ER 50 mg PO DAILY miscellaneous medical supply Panty Liners, Twice a day As directed, 90 days omeprazole 20 mg PO DAILY 90 days oxybutynin chloride ER 10 mg PO DAILY 3 months potassium chloride 10 mEq (7.5 mL) PO DAILY 30 days sertraline 100 mg PO BID simvastatin 20 mg PO DAILY HPI- Psychiatric Chief Complaint: follow up HPI Narrative: Pt here for follow up for depression and clarification of dementia diagnosis vs slow progressing motor neuron disease. Pt reports taking zoloft most days . she does admit to missing a few doses of her zoloft and her thyroid medication since here is in the hospital and typically helps her organize her meds; she has a friend with her who is helping her with transportation and things around her home while in hospital for pneumonia. Pt waiting for appointment at [facility]. She circled one on PHQ( question about thinking about dying or hurting self. when asked about these s thoughts she says they were several months ago but none now. Past Psychiatric History: outpt rx zoloft Subjective Subjective Subjective Medication Compliance: Yes Side effects from medications: No Review of Systems Medical Review of Systems: unchanged Mental Status Exam Mental Status Exam Patient Appearance: Well Grooomed and Appropriate Patient Orientation: Person, Place, Time and Situation Level of Consciousness: Awake, Appropriate and Alert Patient Behavior: Appropriate and Cooperative Mood Description: Sad Affect Description: Sad Patient Cognition Impaired: No Ability to Follow Directions: Good Speech Pattern: Delayed and Poor Articulation Memory Description: Intact Hallucinations: None Delusions: Not Present Thought Process: Intact Thought Content: positive for Intact Judgement: Fair Assessment and Plan Assessment & Plan (1) Major depressive disorder, recurrent episode, moderate with anxious distress: Status: Acute Code(s): F33.1 - Major depressive disorder, recurrent, moderate (2) Expressive aphasia: Status: Acute Code(s): R47.01 - Aphasia Plan rule out Temporal Lobe dementia refer to [facility] Pt will continue with zoloft and follow up with PCP Counseling and coordination of Care Medication management counseling: Effectiveness, Side effects, Dosing range, Duration, Drug interaction and Adherence Diagnosis and Prognosis Counseling: Accuracy of diagnosis, Prognosis over time, Impact of diagnosis on life functions, Problematic behaviors secondary to diagnosis and Adequacy of current interventions Details: I spent 40 minutes reviewing the record, seeing the patient and documenting in the medical record. Counseling provided to the patient/caregiver as outlined below. Addressed patient/caregiver concerns regarding current medication regime including effective adherence. Addressed patient/caregiver concerns regarding diagnosis and prognosis including accuracy of diagnosis, prognosis over time, impact of diagnosis. Addressed patient/caregiver concerns regarding impact of recent stressors. PFSH Medical History Depression with anxiety Closed hip fracture History of adenomatous polyp of colon Expressive aphasia Essential hypertension Dyslipidemia Acquired hypothyroidism Intertrochanteric fracture of right hip Dysphagia Essential hypertension Osteoporosis GERD (gastroesophageal reflux disease) Aphasia High cholesterol High blood pressure Anemia Dyspnea on exertion T11 vertebral fracture Hypothyroidism Surgical History History of bone marrow biopsy History of excision of mass History of cholecystectomy History of tonsillectomy History of vertebroplasty History of kyphoplasty Family History Father Esophageal cancer Substance use disorder Mother Breast cancer Paternal Aunt Breast cancer Social History Household Members: Spouse Housing: Condominium Are you a primary health care consultant to a significant other at home: No Do you presently have visiting nurse or other home services: No Alcohol intake: current Alcohol intake frequency: holidays/special occasions only Patient Tobacco Use Status: Never used Tobacco e-Cigarette/Vaping Use: Never Used Second Hand Smoke Exposure: No Advance Directives Date on File: 10/17/22 service: No Current occupational status: 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 she and were spending 6 months in [place] and six months here in [place] for years but this year after her leg fracture it feels like too much to do that anymore and the medical care she was getting felt fragmented to her. Substance History: one Trauma History: yes Coding Level of Care Code Est Pt Level 4 (19957) Diagnoses Major depressive disorder, recurrent episode, moderate with anxious distress F33.1 Expressive aphasia R47.01
--- OUTSIDE RECORDS SUMMARY | 2024-10-03 13:46 | XMS_ITS | Data Portability ---
Author Organization [place] [facility], [facility]_ Address [address] [facility] [address] [place] [address] Assessment Encounter Date Assessment Date Assessment LastModified [...] or more view 023 03/24/20 23 [email or web address] [facility] [place] [place] [facility], [address], [place], [address], 13:47:20 Medication Orders None record ed. Patient TargetsNo targets recorded. Patient Instructions Encounter Date Encounter Id Patient Instructions Last Modified By Organization Details Last Modified Time 03/24/2023 [id number] hand arthritis: exercises Not available 03/24/2023 13:32:06 [...] Silastic arthroplasty. Not available 03/24/2023 13:27:10 06/13/2023 [id number] hand arthritis: exercises [email or web address] Not available 06/13/2023 11:58:35 Right hand moderate [...] We will see her back as needed. [email or web address] Not available 06/13/2023 11:57:58 08/11/2023 [id number] learning about healthy weight Not available 08/11/2023 [...] today. She will be returning home up [place] and plans on scheduling her follow up appointments there. I advised her to receive repeat x-rays in 2 weeks, she understands. Not available 08/11/2023 09:19:40 08/16/2023 [id number] Patient placed EXOs brace in the microwave [...] Documented - 1123F completed Jhony Guillory MD [address], [address] [employer] [address], [place], [address], [facility] 08/11/2023 07:03:59 08/11/19 24 FOI DME L3984 EXOS FRACTURE BRACE completed Jhony Guillory MD [address], [address] [facility], [place], [address], [facility] [employer] [facility] 08/11/2023 09:17:27 06/13/19 24 FSOSM Hero small injection completed April Molina PA-C [address], [address],[place], [address], [facility] [employer] [facility] 06/13/2023 11:55:42 06/13/19 24 Advance Care Planning - Advance Care Plan/Surrogate Documented - 1123F completed April Molina PA-C [address], [address] [employer] [address], [place], [address], [facility] [employer] [facility] 06/13/2023 11:55:18 03/24/20 23 FSOSM Monahan small injection completed Andrea Monahan MD [address], [address], [place], [address], [facility] [employer] [facility] 03/24/2023 13:28:51 03/24/20 Advance Care Planning - Advance Care Plan/Surrogate Documented - 1123F completed Andrea Monahan MD [address], [address], [place], [address], [facility] 03/24/2023 07:50:25 Cataract [...] Name and Address Organization Details Recorded Time 859802 Medicinal product containin g cephalosp nadira and acting as antibacte rial agent (product) medicatio n Not available Not available Not available 03/24/2023 [id number] [id number] SNOMED [place]o [place], [place] - [facility] 12:39:49 Medications [...] No t Available Vitals Date Recorded Body height Body mass index (BMI) Body weight Provider Name and Address Organization Details Last Updated DateTime 06/13/2023 160.02 cm 26.4 kg/m2 12257.26 g April Molina PA-C [address], [address], [place], [address], [place] [facility] 06/13/2023 11:49:44 Date Recorded Body height Body mass index (BMI) Body weight Provider Name and Address Organization Details Last Updated DateTime 08/11/2023 160.02 cm 26.6 kg/m2 33934.86 g Noni Pinzon [place] [facility] 08/11/2023 08:39:02 Date Recorded Body weight Body mass index (BMI) Body height Provider Name and Address Organization Details Last Updated DateTime 03/24/2023 72418.26 g 26.4 kg/m2 160.02 cm Yeyo Holden [place] [facility] 03/24/2023 12:39:12 Social History Question Answer Notes LastModified by [...] SNOMED-CT Code Diagnosis ICD10 Code Diagnosis Note [id number] Andrea Monahan MD [facility]_[address] [place] [address] 03/24/2023 11:57:48 03/24/2023 13:23:16 Pain in right hand 0131472355 12078 M79.641 Arthritis of hand 026010 005 M13.849 M13.590 [id number] Andrea Monahan MD [facility]_[address] [place] [address] 06/13/2023 11:30:40 06/13/2023 11:45:44 Arthritis of hand 936278401 M13.878 [id number] Jhony Guillory MD [facility]_PH [address] [address] 08/11/2023 08:23:26 08/11/2023 09:27:12 Obesity 792014713 E66.3 Closed fra cture of base of fourth metacarpal bone of left hand 7835123603 8113325 S62.315A [id number] Jhony Guillory MD [facility]_PH [address] [address] 08/16/2023 12:54:45 08/16/2023 13:12:11 Closed fracture of base of fourth metacarpal bone of left hand 8431317330 8737053 S62.315A Health Concerns Section Related Observation LastModified by Organization Detai ls LastModified Time None Recorded Concern Status LastModified by Organization Details LastModified Time None Recorded Advance Directives Directive Y: Payers Insurance Date Sequence Insurance Name Policy Number Policy Monroy Covered Member ID Monroy Member ID Guarantor Name 09/20/2023 1 [place] [facility] NONE Kinza A Pare [id number] Kinza Pare 09/22/2023 [facility]ONE Kinza A Pare [id number] Kinza Pare 08/14/2023 1 [place] Kin[place] A Pare [id number] Kinza Pare 09/25/2023 2 [place] [id number] Kinza A Pare [id number] Kinza Pare 08/14/2023 3 () Kinza Pare [id number] Kinza Pare 09/25/2023 [employer] [employer] (MEDICARE DME REGION A) Kinza A Pare [id number] Kinza Pare 09/20/2023 [employer] (MEDICARE DME REGION C) Kinza A Pare [id number] Kinza Pare 08/14/2023 2 FOR LIFE ( - MEDICARE SUPPLEMENT) Kinza Pare [id number] Kinza Pare Notes Date Note Type Note Provider Name and Address Organization Details Recorded Time 03/24/2023 text/html History of Prese nt Illness Chief Complaint Finger Pain Location Side Right Symptom Description Aching Throbbing Associated Symptoms Pain Weakness Pain Scale - Today 6 Symptom Frequency Constantly Symptom Duration A few months Date Symptoms Started 09/28/2007 Symptom Context Other Injections 3 Past Treatments Injections Alleviating Factors Heat Aggravating Factors Cold/Ice Weather Imported from [employer] on 03/24/2023 Andrea Monahan MD [address], [address], [address], [facility] [employer] [facility] 03/24/2023 13:32:10 06/13/2023 text/html History of Prese nt Illness Chief Complaint Finger Pain Location Side Right Symptom Description Aching Throbbing Associated Symptoms Pain Weakness Pain Scale - Today 6 Symptom Frequency Constantly Symptom Duration A few months Date Symptoms Started 09/28/2007 Symptom Context Other Injections 3 Past Treatments Injections Alleviating Factors Heat Aggravating Factors Cold/Ice Weather Imported from [facility] on 03/24/2023 April Molina PA-C [address], [address],[place] [facility] [place] [place], [address], [facility] [facility] 06/13/2023 11:58:37 08/11/2023 text/html History of Prese nt Illness Chief Complaint Finger/hand Pain Location Side Left Symptom Description Throbbing Other / Not Listed Associated Symptoms Stiffness Pain Scale - Today 6 Symptom Frequency Frequently Symptom Duration A few days Date Symptoms Started 08/06/2023 Symptom Context Fall Past Treatments None Alleviating Factors Cold/Ice Compression (Brace, Jameson Bandage, Tape, etc.) Aggravating Factors Nothing Imported from [facility] on 08/11/2023 Jhony Guillory MD [address], [address], [place], [address], [facility] [employer] [facility] 08/11/2023 09:20:01 08/16/2023 text/html History of Prese nt Illness Chief Complaint Finger/hand Pain Location Side Left Symptom Description Throbbing Other / Not Listed Associated Symptoms Stiffness Pain Scale - Today 6 Symptom Frequency Frequently Symptom Duration A few days Date Symptoms Started 08/06/2023 Symptom Context Fall Past Treatments None Alleviating Factors Cold/Ice Compression (Brace, Jameson Bandage, Tape, etc.) Aggravating Factors Nothing Imported from [facility] on 08/11/2023 LEANDER CANAS PA-C [address], [address], [place], [address], [facility] [employer] [facility] 08/16/2023 13:19:44 OBGyn Episode No OBEpisode recorded.
== END 2024-10-03 12:10 | disposition home or self-care (01) ==
LOC: HO.HOP 11:38
PROVIDERS: PCP Internal Medicine; Visit Provider Clinical Nurse Specialist Psychiatric/Mental Health
DX: F33.1 Major depressive disorder, recurrent, moderate (principal); R47.01 Aphasia
CPT/HCPCS: 99214

== ENCOUNTER → 2024-10-03 11:38 | Outpatient (BNVA) | payer MEDICARE, OTHER, SELFPAY | PROVIDERS: PCP Internal Medicine; Visit Provider Clinical Nurse Specialist Psychiatric/Mental Health | DX: F33.1 Major depressive disorder, recurrent, moderate (principal); R47.01 Aphasia | CPT/HCPCS: 99212 ==

== ENCOUNTER 2024-12-17 10:17 | Outpatient (REF) | payer MEDICARE, OTHER, SELFPAY ==
--- OUTSIDE RECORDS SUMMARY | 2024-12-12 13:00 | XMS_ITS | Encounter Summary ---
Author Organization [facility] Address [address] [place] [address] Phone Care Team Providers Care Commercial Credit Head Name Role Phone Mary Henderson MD Primary Care Provider Reason for Visit * Speech Therapy (Routine) - Authorized Specialty Diagnoses / Procedures Referred By Contac t Referred To Contact Speech Pathology Diagnoses Encounter for rehabilitation Mary Henderson MD Phone: tel: fax: [facility] [address] [place] [address] Phone: tel: Referral ID Status Reason Start Date Expiration Date V isits Requested Visits Authorized [id number] Authorized 09/20/2024 09/20/2025 99 99 Encounter Details Date Type Department Care Team (Late st Contact Info) Description 12/12/2024 1:00 PM EDT Office Visit [facility] [address] [place] [address] Mary Henderson MD [facility] [place] [address] Karyn Brown, CCC-HUMAN RESOURCES LEADER [address] [place] [address] Dysarthria (Primary Dx) Social History Tobacco Use Types Packs/Day Years Used Date Smoking Tobacco: Never Assessed Education Answer Date Recorded Are you interested in more education? Not on rebeca e 08/19/2022 Are you concerned about learning? Not on file 08/19/2022 No 08/19/2022 No 08/19/2022 Digital Access Answer Date Recorded No 09/17/2022 No 09/17/2022 No 09/17/2022 Reliable internet access at home? Not on file 09/17/2022 Device with a working camera? Not on file Comments Unknown Sex and Gender Information Value Date Recorded Sex Assigned at Female 11/22/2021 12:59 PM EDT Legal Sex Female 10:06 PM EDT Gender Identity Female 11/22/2021 12:59 PM EDT Sexual Orientation Straight 11/22/2021 12 :59 PM EDT documented as of this encounter Progress Notes * Karyn Brown, CCC-HUMAN RESOURCES LEADER - 12/12/2024 1:00 PM EDT Speech-Language Pathology Treatment Note Subject Line: Treatment Note Patient Name: Kinza Blair Date of : 1945 Referring MD: Mary Henderson MD [address] [place] [address] Patient was seen for a Speech Pathology visit on 12/12/2024. Subjective Comments: Pt had a visit from her daughter from [place] and was very happy about that. Practiced using the pacing board with her with reported success. Treatment Plan: GOAL (Short Term): 1.Pt will demonstrate improved breath support at the sentence level with use of phrasing strategieswith min assist/Supervision 2. Pt will demonstrate improved intelligibility at the sentence level with use of overarticulation strategies with Min Assist/ Supervision 3. Pt will demonstrate self-monitoring and correction of speech on structured sentence length exercise with Supervision. 4. Pt will improve intelligibility on multisyllable words with use of strategies and Minimal need for repetition. 5. Pt will demonstrate improved intelligibility in short discourse with use of strategies at Min Assist/ Supervision level. OUTCOME (Jail): 1. Pt will demonstrate improved intelligibility at the connected speech level with use of strategies to a Min Assist/Supervision level within 12 weeks Patient Stated Goal: Speak more clearly PLAN Frequency and Duration: Patient will be seen 1 times per week for 12 weeks. Education and training of speech strategies , speech mechanics; home practice materials; graded speech complexity approach Verbal /visual cues and prompts. Objective Information: 1.Pt will demonstrate improved breath support at the sentence level with use of phrasing strategieswith min assist/Supervision : Use of breath support to provide narrative explanation: 90% -100%of utterances were adequately supported by breath during narrative discourse. 2. Pt will demonstrate improved intelligibility at the sentence level with use of overarticulation strategies with Min Assist/ Supervision: Pt read selected sentences without pacing board but with focus on overarticulation with 75% accuracy for using technique to slow speech and increase intelligibility. 3. Pt will demonstrate self-monitoring and correction of speech on structured sentence length exercise with Supervision:Pt required min cues to repeat sentences or words over when they were not totally intelligible. 4. Pt will improve intelligibility on multisyllable words with use of strategies and Minimal need for repetition.: multisyllable words as they occurred in sentences used for pacing were generally slow enough that each syllable was pronounced. Occasional cues needed. 5. Pt will demonstrate improved intelligibility in short discourse with use of strategies at Min Assist/ Supervision level.: Pt engaged in short discourse and narratives and used the pacing board forslowing speech with 75% success. Assessment: Pt is making progress with use of pacing board for slowing speech and increasing intelligibility. Daughter who does not see patient readily, visited over the weekend and noted significant improvementof speech with use of pacing board. Plan:Continue with goals as per treatment plan. Karyn Brown CCC-HUMAN RESOURCES LEADER documented in this encounter Plan of Treatment Upcoming Encounters Date Type Department Care Team (Late st Contact Info) Description 01/06/2025 10:30 AM EDT Office Visit [facility] [address] [place] [address] [place] [address] Mary Henderson MD [facility] [place] [address] Karyn Brown CCC-HUMAN RESOURCES LEADER [address] [place] [phone] [email or web address] 01/07/2025 11:30 AM EDT Office Visit [facility] [place] [address] [facility]th [address], [address] [place] [address] Eloina Brantley MD [address] [place] [address] [place] [address] [email or web address] 01/13/2025 2:00 PM EDT Office Visit [facility] [address] [place] [address] [place] [address] Mary Henderson MD [address] [place] [address] Karyn Brown, [facility]-HUMAN RESOURCES LEADER [address] [place] [phone] [email or web address] documented as of this encounter Visit Diagnoses Diagnosis Dysarthria- Primary documented in this encounter Care Teams Commercial Credit Head Relationship Specialty Start Date End Date Mary Henderson MD [address] [place] [address] PCP - General Internal Medicine 02/20/24 documented as of this encounter Additional Source Comments The information contained in this document represents components of the legal health record. It is not the complete legal health record.[facility]
--- OUTSIDE RECORDS SUMMARY | 2024-12-16 10:30 | XMS_ITS | Encounter Summary ---
Author Organization [facility] Address [address] [facility] [place] [address] Phone Care Team Providers Care Bin Packer Name Role Phone Mary Henderson MD Primary Care Provider Reason for Visit * Speech Therapy (Routine) - Authorized Specialty Diagnoses / Procedures Referred By Contac t Referred To Contact Speech Pathology Diagnoses Encounter for rehabilitation Mary Henderson MD Phone: tel: fax: [facility] [address] [place] [address] Phone: tel: Referral ID Status Reason Start Date Expiration Date V isits Requested Visits Authorized [id number] Authorized 09/20/2024 09/20/2025 99 99 Encounter Details Date Type Department Care Team (Late st Contact Info) Description 12/16/2024 10:30 AM EDT Office Visit [facility] [address] [place] [address] Mary Henderson MD [facility] [place] [address] Karyn Brown, CCC-COIN MACHINE OPERATOR [address] [place] [address] Dysarthria (Primary Dx) Social History Tobacco Use [...] this encounter Progress Notes * Karyn Brown, CCC-COIN MACHINE OPERATOR - 12/16/2024 10:30 AM EDT Speech-Language Pathology Treatment Note Subject Line: Treatment Note Patient Name: Kinza Blair Date of : 1945 Referring MD: Mary Henderson MD [address] [facility] [place] [address] Patient was seen for a Speech Pathology visit on 12/16/2024. Subjective Comments: Pt reported she did not practice. Treatment Plan: GOAL (Short Term): 1.Pt will [...] strategies at Min Assist/ Supervision level. OUTCOME (Plant Protection Officer): 1. Pt will demonstrate improved intelligibility at [...] use of phrasing strategieswith min assist/Supervision : Pt took adequate breaths during structured exercises and basic level short discourse. 2. Pt will demonstrate improved intelligibility at the sentence level with use of overarticulation strategies with Min Assist/ Supervision: At the sentence level, with self-generated sentences using the multisyllable words, Intelligibility declined to 70%. 3. Pt will demonstrate self-monitoring and correction of speech on structured sentence length exercise with Supervision:Pt demonstrated self-correction spontaneously during sentence level [id number]% of the time when needed. In conversation, COIN MACHINE OPERATOR cues were necessary much of the time. 4. Pt will improve intelligibility on multisyllable words with use of strategies and Minimal need for repetition.: overarticulation of multisyllable words was 90+% intelligible with overarticulation. 5. Pt will demonstrate improved intelligibility in short discourse with use of strategies at Min Assist/ Supervision level.: Pt engaged in short discourse and narratives and used the pacing board forslowing speech with approximately 75% success. Assessment: Pt has not been practicing but continues to demonstrate improved intelligibility with use of pacingboard, which sometimes needs to be cued, and use of overarticulation strategies. In conversation, use is largely cued. Plan:Continue with goals as per treatment plan. Karyn Brown CCC-COIN MACHINE OPERATOR documented in this encounter Plan of Treatment Upcoming Encounters Date Type Department Care Team (Late st Contact Info) Description 01/06/2025 10:30 AM EDT Office Visit [facility] [address] [place] [address] [place] [address] Mary Henderson MD [facility] [facility] [place] [address] Karyn Brown CCC-COIN MACHINE OPERATOR [address] [place] [phone] [email or web address] 01/07/2025 11:30 AM EDT Office Visit [facility] Department of Neurology [address], 8th Floor, [address] [place] [address] Eloina Brantley MD [address] [place] [address] [address] [email or web address] 01/13/2025 2:00 PM EDT Office Visit [facility] [address] [place] [address] Mary Henderson MD [facility] [place] [address] Karyn Brown, [facility]-COIN MACHINE OPERATOR [address] [place] [address] [email or web address] documented as of this encounter Visit Diagnoses Diagnosis Dysarthria- Primary documented in this encounter Care Teams Bin Packer Relationship Specialty Start Date End Date Mary Henderson MD [address] [place] [address] [place] [address] PCP - General Internal Medicine 02/20/24 documented as of this encounter Additional Source Comments The information contained in this document represents components of the legal health record. It is not the complete legal health record.[facility]
--- OUTSIDE RECORDS SUMMARY | 2024-12-17 10:58 | XMS_ITS | Clinical Summary ---
Author Organization [facility] Address [address] [place] [address] Phone Care Team Providers Care Muffle Worker Name Role Phone Mary Henderson MD Primary Care Provider Allergies Active Allergy Reactions Criticality Noted Date Comments Cephalosporins 12/02/2019 Macrolide Antibiotics 12/27/2023 Medications aspirin 81 MG EC tablet Take 81 mg by mouth. Active omeprazole (PRILOSEC) 20 MG capsule 11/16/2021 Active losartan (COZAAR) 50 MG tablet 10/09/2021 Active levothyroxine (SYNTHROID, LEVOTHROID) 150 MCG tablet 10/09/2021 Active ergocalciferol, vitamin D2, (VITAMIN D2 ORAL) Take by mouth. Active chlorthalidone (HYGROTON) 25 MG tabletIndicatio ns:takes 1/2 tablet once daily Indications: takes 1/2 tablet once daily 01/11/2022 Active ergocalciferol (DRISDOL) 50,000 unit capsule Take 1 capsule by mouth. 04/27/2021 Active sertraline (ZOLOFT) 100 MG tablet 01/11/2022 Active simvastatin (ZOCOR) 20 MG tablet 01/11/2022 Active denosumab (PROLIA SUBQ)Indication s:twice a year Inject under the skin. Indications: twice a year Active cyanocobalamin, vitamin B-12, (VITAMIN B12 ORAL) Take by mouth. Active metoprolol succinate (TOPROL-XL) 50 MG 24 hr tablet Take 1 tablet by mouth every morning. 02/09/2024 Active Encounters Date Type Department Care Team Description 12/16/2024 10:30 AM EDT Office Visit [facility] [address] [place] [address] Mary Henderson, Karyn Salas, CCC-SKEWER UP Dysarthria (Primary Dx) 12/12/2024 1:00 PM EDT Office Visit [facility] [address] [place] [address] Mary Henderson MD Korza, Laurie J, CCC-SKEWER UP Dysarthria (Primary Dx) 12/05/2024 11:30 AM EDT Office Visit [facility] [address] [place] [address] Mary Henderson MD Korza, Laurie J, CCC-SKEWER UP Dysarthria (Primary Dx) 11/28/2024 11:30 AM EDT Office Visit [facility] [address] [place] [address] Mary Henderson MD Korza, Laurie J, CCC-SKEWER UP Dysarthria (Primary Dx) 11/21/2024 10:30 AM EDT Office Visit [facility] [address] [place] [address] Mary Henderson MD Korza, Laurie J, CCC-SKEWER UP Dysarthria (Primary Dx) 11/12/2024 1:00 PM EDT Office Visit [facility] [address] [place] [address] Mary Henderson MD Korza, Laurie J CCC-SKEWER UP Dysarthria (Primary Dx) 10/31/2024 11:30 AM EDT Office Visit [facility] [address] [place] [address] Mary Henderson MD Korza, Laurie J, CCC-SKEWER UP Dysarthria (Primary Dx) 10/24/2024 10:30 AM EDT Office Visit [facility] [address] [place] [address] Mary Henderson, Karyn Salas, CCC-SKEWER UP Dysarthria (Primary Dx) 10/14/2024 10:30 AM EDT Office Visit [address] [place] [address] Mary Henderson, Karyn Salas, CCC-SKEWER UP Dysarthria (Primary Dx) 10/09/2024 1:00 PM EDT Office Visit [address] [place] [address] Mary Henderson, Karyn Salas, CCC-SKEWER UP Dysarthria (Primary Dx) 09/30/2024 2:00 PM EDT Office Visit [address] [place] [address] Mary Henderson, Karyn Salas, CCC-SKEWER UP Dysarthria (Primary Dx) 09/30/2024 Plan of Care Documentation [address] [place] [address] 09/26/2024 3:00 PM EDT Office Visit [address] [place] [address] Mary Henderson, Karyn Salas, CCC-SKEWER UP Dysarthria (Primary Dx) 09/20/2024 Transcribe Orders [address] [place] [address] Mary Henderson MD Encounter for rehabilitation (Primary Dx) 09/19/2024 11:15 AM EDT Office Visit [address] [place] [address] Mary Henderson, Valentine Sandhu, PT Unsteadiness on feet (Primary Dx) from Last 3 Months Immunizations Immunization Administration Dates Next Due INFLUENZA, SPLIT VIRUS, TRIV ALENT W/ PRESERVATIVE IM 04/06/2010 Influenza High-Dose Trivalen t Preservative Free IM 02/01/2019,01/11/2018,04/11/2017,03/16,03/09/2015 Influenza Quadrivalent Adjuv anted Preservative Free IM 02/24/2021 Influenza Quadrivalent Prese rvative Free IM 02/25/2020 Pneumococcal conjugate PCV13 03/16/2015 Pneumococcal polysaccharide PPSV23 01/11/2018 Td (adult) 5 Lf Tetanus Toxo id, PF, Adsorbed 02/01/2019 Social History Tobacco Use Types Packs/Day Years [...] Orientation Straight 11/22/2021 12 :59 PM EDT Last Filed Vital Signs Vital Sign Reading Time Taken Comments Blood Pressure 153/70 08/08/2024 1:04 PM EDT Pulse 57 08/08/2024 1:04 PM EDT Temperature 36.3 C (97.4 F) 08/08/2024 1:04 PM EDT Respiratory Rate 18 08/08/2024 1:04 PM EDT Oxygen Saturation 99% 08/08/2024 1:04 PM EDT Inhaled Oxygen Concentration - - Weight 68 kg (150 lb) 03/29/2024 3:13 PM EST Height 160 cm (5' 3 ) 11/08/2023 1:00 PM EDT Body Mass Index 26.57 11/08/2023 1:00 PM EDT Plan of Treatment Upcoming Encounters Date Type Department Care Team (Late st Contact Info) Description 01/06/2025 10:30 AM EDT Office Visit [facility] [address] [place] [address] Mary Henderson MD [address] [facility] [place] [address] Karyn Brown CCC-SKEWER UP [address] [place] [address] [email or web address] 01/07/2025 11:30 AM EDT Office [place] [facility] Department of [place]rology [address] [facility], 8th Floor, [address] [place] [address] Eloina Brantley MD [address] [place] [address] [email or web address] 01/13/2025 2:00 PM EDT Office Visit [facility] [address] [place] [address] Mary Henderson MD [address] [facility] [place] [address] Karyn Brown CCC-SKEWER UP [address] [place] [address] [email or web address] Health Maintenance Due Date Last Done Comments LIPID PANEL 1945 TSH LEVEL 1945 DEPRESSION SCREENING 1959 SMOKING Hx and SMOKELESS TOBACCO SCREENING 1960 HEPATITIS C SCREENING 1965 ZOSTER VACCINES (1 of 2) 1997 OSTEOPOROSIS SCREENING INITIAL (ONE-TIME) 2012 RSV VACCINE (1 - 1-dose 75+ series) 2022 COVID-19 VACCINE ( season) 2023 02/07/2022, 11/14/2021, 02/24/2021 INFLUENZA VACCINE (#1) 2024 , 02/24/2021, 02/25/2020, Additional history exists CREATININE LEVEL 12/31/2024 01/01/2024, 12/28/2023 POTASSIUM LEVEL 12/31/2024 01/01/2024, 12/28/2023 Adult Td,Tdap Booster 02/01/2029 02/01/2019 PNEUMOCOCCAL VACCINES (50+ years) Completed 01/11/2018, 03/16/2015 HEPATITIS A VACCINES Aged Out No long er eligible based on patient's age to complete this topic HIB VACCINES Aged Out No longer eligi ble based on patient's age to complete this topic MENINGOCOCCAL VACCINES (ACWY) Aged Out No longer eligible based on patient's age to complete this topic MENINGOCOCCAL VACCINES (B) Aged Out N o longer eligible based on patient's age to complete this topic Medical Devices Not on file Procedures Procedure Name Priority Date/Time Associated Diagnosis Comments COMPREHENSIVE METABOLIC PANEL Routine 01/01/2024 6:06 AM EDT Closed displaced fracture of base of neck of right femur with routine healing Myelodysplastic syndrome Essential hypertension, benign from Last 3 Months or Most Recently Relevant to Health Maintenance Results * (ABNORMAL) Comprehensive metabolic panel (01/01/2024 6:06 AM EDT) SODIUM 138 133 - 146 mmol/L [facility] POTASSIUM 4.0 3.3 - 5.1 mmol/L [facility] CHLORIDE 102 96 - 108 mmol/L [facility] CO2 26 21 - 35 mmol/L [facility] BUN 15 6 - 19 mg/dL [facility] CREATININE 0.80 0.5 - 1.5 mg/dL [facility] GLUCOSE 100(H) 70 - 99 mg/dL [facility] ALBUMIN 3.6(L) 3.9 - 4.8 g/dL [facility] TOTAL PROTEIN 6.9 6.5 - 8.0 g/dL [facility] CALCIUM 9.0 8.4 - 10.3 mg/dL [facility] ALKALINE PHOSPHATASE 128(H) 39 - 117 U/L [facility] TOTAL BILIRUBIN 0.6 0.0 - 1.2 mg/dL [facility] AST 31 0 - 37 U/L [facility] ALT 19 0 - 40 U/L [facility] GLOBULIN 3.3 1 - 4.8 g/dL [facility] EGFR 76 >59 mL/min/1.7 3m2 [facility] Comment:Estimated glomerular filtration rate calculated using the CKD-EPI refit equation. ANION GAP 14 10 - 20 mmol/L [facility] Blood 01/01/2024 6:06 AM EDT 01/01/2024 9:31 AM EDT us Kia Kevin MD LAB BLOOD ORDERABLES Final Res ult [facility] [address] [place] [address] from Last 3 Months or Most Recently Relevant to Health Maintenance Insurance MEDICARE PART A & B [place] [employer] SU[employer]MENT [facility] [place] [address] MEDICARE PART A & B [facility] MEDEX SUPPLEMENT [facility] [place] [address] MEDICARE PART A & B [employer] MEDEX SUPPLEMENT [facility] [place] [address] MEDICARE PART A & B [employer] SUPP[employer]MENT [facility] [place] [address] MEDICARE PART A & B [place] [address] MEDIC[place] PART A & [place] [id number] [facility] [place] [address] MEDICARE PART A & B Ink[employer] MEDEX SUPPLEMENT [facility] [place] [address] MEDICARE PART A & B [employer] SUPPLEMENT [facility] [place] [address] MEDICARE PART A & B [employer] [place] [address] Care Teams Muffle Worker Relationship Specialty Start Date End Date Mary Henderson MD [address] [facility] [place] [address] PCP - General Internal Medicine 02/20/24 Additional Source Comments The information contained in this document represents components of the legal health record. It is not the complete legal health record.[facility]
--- OUTSIDE RECORDS SUMMARY | 2024-12-17 10:58 | XMS_ITS | Encounter Summary ---
Author Organization [facility] Address [address] [place] [address] Phone Care Team Providers Care Furnace Charger Name Role Phone Beck Hernandez MD Primary Care Provider Mary Henderson MD Primary Care Provider Encounter Details Date Type Department Care Team (Late st Contact Info) Description 02/14/2024 Procedure Pass MRI, [facility] - [address], [address] [place] [address] Social History Tobacco Use Types Packs/Day Years [...] PM EDT documented as of this encounter Plan of Treatment Upcoming Encounters Date Type Department Care Team (Late st Contact Info) Description 01/06/2025 10:30 AM EDT Office Visit [address] [place] [address] Mary Henderson MD [facility] [place] [address] Karyn Brown CCC-VP DIRECTOR OF CREATIVE STRATEGY [address] [place] [address] [email or web address] 01/07/2025 11:30 AM EDT Office Visit [facility] Department of Neurology [address] [place] [address], 8th Floor, [address] [place] [address] Eloina Brantley MD [address] [place] [address] [email or web address] 01/13/2025 2:00 PM EDT Office Visit [address] [place] [address] Mray Henderson MD [address] [place] [address] [place] [address] Karyn Brown CCC-VP DIRECTOR OF CREATIVE STRATEGY [address] [place] [address] [email or web address] documented as of this encounter Visit Diagnoses Not on filedocumented in this encounter Care Teams Furnace Charger Relationship Specialty Start Date End Date Beck Hernandez MD [address] [place] [address] PCP - General 10/15/19 02/19/24 Mary Henderson MD [address] [place] [address] [place] [address] PCP - General Internal Medicine 02/20/24 documented as of this encounter Additional Source Comments The information contained in this document represents components of the legal health record. It is not the complete legal health record.[facility]
--- OUTSIDE RECORDS SUMMARY | 2024-12-17 10:58 | XMS_ITS | Encounter Summary ---
Author Organization [facility] Address [address] [place] [address] Phone Care Team Providers Care Clothes Separator Name Role Phone Beck Hernandez MD Primary Care Provider Mary Henderson MD Primary Care Provider Encounter Details Date Type Department Care Team (Late st Contact Info) Description 02/14/2024 Procedure Pass MRI, [facility] - [address], [address] [place] [address] Social History Tobacco Use Types [...] Description 01/06/2025 10:30 AM EDT Office Visit [address] [place] [address] Mary Henderson MD [facility] [place] [address] Karyn Brown CCC-FOREST FIRE PREVENTION MANAGER [address] [place] [phone] [email or web address] 01/07/2025 11:30 AM EDT Office Visit [facility] Department of Neurology [address] [place] [address], 8th Floor, [address] [place] [address] Eloina Brantley MD [address] [place] [address] [email or web address] 01/13/2025 2:00 PM EDT Office Visit [address] [place] [address] Mary Henderson MD [address] [place] [address] [place] [address] Karyn Brown CCC-FOREST FIRE PREVENTION MANAGER [address] [place] [address] [email or web address] documented as of this encounter Visit Diagnoses Not on filedocumented in this encounter Care Teams Clothes Separator Relationship Specialty Start Date End Date Beck Hernandez MD [address] [place] [address] PCP - General 10/15/19 02/19/24 Mary Henderson MD [address] [place] [address] [place] [address] PCP - General Internal Medicine 02/20/24 documented as of this encounter Additional Source Comments The information contained in this document represents components of the legal health record. It is not the complete legal health record.[facility]
--- OUTSIDE RECORDS SUMMARY | 2024-12-17 10:58 | XMS_ITS | Encounter Summary ---
Author Organization [facility] Address [address] [place] [address] Phone Care Team Providers Care Loader Machine Name Role Phone Beck Hernandez MD Primary Care Provider Mary Henderson MD Primary Care Provider Reason for Referral * Physical Therapy (Routine) - Closed Specialty Diagnoses / Procedures Referred By Contazul crowe Referred To Contact Physical Therapy Diagnoses Encounter for rehabilitation Mandy Brownlee DPM [address] [place] [address] Phone: tel: fax: [facility] [address] [place] [address] Phone: tel: Referral ID Status Reason Start Date Expiration Date Visits Re quested Visits Authorized [id number] Closed 10/11/2019 04/23/2020 99 99 Encounter Details Date Type Department Care Team (Late st Contact Info) Description 10/11/2019 Transcribe Orders [facility] [address] [place] [address] Mandy Brownlee DPM [address] [place] [address] Encounter for rehabilitation (Primary Dx) Social History Tobacco Use Types Packs/Day Years Used Date Smoking Tobacco: Never Assessed Comments Unknown Sex and Gender Information Value [...] Description 01/06/2025 10:30 AM EDT Office Visit [facility] [address] [place] [address] Mary Henderson MD [address] [facility] [place] [address] Karyn Brown CCC-TERADATA DEVELOPER [address] [place] [phone] [email or web address] 01/07/2025 11:30 AM EDT Office Visit [facility] Department of Neurology [address] [place] [address], 8th Floor, [address] [place] [address] Eloina Brantley MD [address] [place] [address] [email or web address] 01/13/2025 2:00 PM EDT Office Visit [facility] [address] [place] [address] Mary Henderson MD [address] [facility] [place] [address] Karyn Brown CCC-TERADATA DEVELOPER [address] [place] [phone] [email or web address] documented as of this encounter Procedures Procedure Name Priority Date/Time Associated Diagnosis Comments AMB REFERRAL TO [facility] PHYSICAL THERAPY Routine 10/22/2019 6:42 AM EDT Encounter for rehabilitation documented in this encounter Results * Ambulatory referral to [facility] Physical Therapy (10/22/2019 6:42 AM EDT) Mandy Brownlee DPM [facility]B [facility] REFERRALS Final Re sult documented in this encounter Visit Diagnoses Diagnosis Encounter for rehabilitation- Primary documented in this encounter Care Teams Loader Machine Relationship Specialty Start Date End Date Beck Hernandez MD [address] [place] [address] PCP - General 10/15/19 02/19/24 Mary Henderson MD [address] [place] [address] [place] [address] PCP - General Internal Medicine 02/20/24 documented as of this encounter Additional Source Comments The information contained in this document represents components of the legal health record. It is not the complete legal health record.[facility]
[2024-12-17 14:08] LABS: Alanine Aminotransferase 24 U/L (0-31); Anion Gap 11 (12-20); Aspartate Amino Transferase 39 U/L (5-31); Blood Urea Nitrogen 15 mg/dL (9-16); Calcium 9.5 mg/dL (8.4-10.2); Carbon Dioxide 27 mmol/L (22-29); Chloride 105 mmol/L (96-108); Cholesterol 188 mg/dL (<200); Estimated Glomerular Filt Rate > 60; HDL Cholesterol 50 mg/dL (>40); Potassium 3.9 mmol/L (3.3-5.1); Sodium 139 mmol/L (135-145); Triglycerides 131 mg/dL (<150)
[2024-12-17 14:15] LABS: Free T4 (Free Thyroxine) 0.96 ng/dL (0.71-1.85); Thyroid Stimulating Hormone 12.14 uIU/mL (0.32-4.0)
== END 2024-12-17 10:18 | disposition home or self-care (01) ==
LOC: HO.HMGCLDS 10:17
PROVIDERS: PCP Internal Medicine; Visit Provider Internal Medicine
DX: Z01.84 Encounter for antibody response examination (principal); F41.8 Other specified anxiety disorders; E03.9 Hypothyroidism, unspecified; I10 Essential (primary) hypertension; E78.5 Hyperlipidemia, unspecified; R73.01 Impaired fasting glucose; Z13.21 Encounter for screening for nutritional disorder
CPT/HCPCS: 36415; 80048; 80061; 82306; 84439; 84443; 84450; 84460; 86376

== ENCOUNTER 2024-12-25 11:47 | Outpatient (AMB) | payer MEDICARE, OTHER, SELFPAY ==
[2024-12-25 11:58] VITALS: BP 144/72; PULSE 68; RESP 16; TEMP 36.6; O2SAT 96; BMI 24.3
--- NOTE | 2024-12-25 11:58 | MHC.PC.OV ---
Vital Signs 12/25/24 11:58 12/25/24 12:42 Height 5 ft 3 in Weight 137 lb BMI 24.3 BP 144/72 H 120/70 Blood Pressure Location Rt brachial Rt brachial Position Sitting Sitting Respiration 16 Pulse 68 Pulse Source Pulse Oximeter Temp 97.9 F Temp Source Oral Pulse Oximetry (%) 96 Oxygen Delivery Method Room Air Intake Visit Reasons: 5 months follow up HTN Intake Note: Pt is here today for her 5mo. f/u HTN: (Pt says she's on Procrit but not sure what dosage) Allergies cortisone Allergy (Intermediate, Verified 12/25/24 12:19) Rash Cephalosporins Allergy (Mild, Verified 12/25/24 12:19) JAUNDICE KETOLIDES Allergy (Unknown, Uncoded 12/25/24 12:19) ITCHING MACORLIDES Allergy (Unknown, Uncoded 12/25/24 12:19) ITCHING Medication List - Last Reconciled 12/25/24 by Mary Henderson MD acetaminophen (Tylenol Extra Strength) 500 mg PO Q6H PRN celecoxib (Celebrex) 200 mg PO BID 30 days chlorthalidone 12.5 mg (1/2 x 25 mg) PO QAM cholecalciferol (vitamin D3) 50 mcg PO DAILY commode As directed, 999 days denosumab (Prolia) 60 mg subcut [id number] 1 day diaper,brief,adult,disposable (Depend Easy Fit Undergarments misc) 4 times a day, As directed, 30 days levothyroxine 150 mcg PO DAILY 90 days losartan 50 mg PO DAILY mecobalamin (vitamin B12) 1,000 mcg PO DAILY metoprolol succinate ER 50 mg PO DAILY miscellaneous medical supply Panty Liners, Twice a day As directed, 90 days omeprazole 20 mg PO DAILY 90 days oxybutynin chloride ER 10 mg PO DAILY 3 months potassium chloride 10 mEq (7.5 mL) PO DAILY 30 days sertraline 100 mg PO BID simvastatin 20 mg PO DAILY Tobacco use date assessed: 12/25/24 Fall risk assessment: 2 + Falls in past year Last assessed Fall Risk: 12/25/24 Dental Screening Dental Screen Date: 12/25/24 Did you have a dental visit in the last 12 months?: Yes Did you have a dental problem in the last 6 months where you did not have access to dental care?: No Was dental information given to patient?: Patient has dentist HPI 5 months follow up HTN HPI Details - 79-year-old female presenting for follow-up on her hypertension, which is controlled on losartan and metoprolol. Denies any chest pain or headache or lightheadedness - Arthritis: The patient has a history of arthritis affecting her balance and driving ability. She experiences pain in her right knee and hand, which impacts her mobility and daily activities. - Osteoporosis: The patient is on Prolia for osteoporosis and has not had recent follow-up with her endocrine specialist. - Speech difficulties: The patient has been evaluated by a speech therapist and a neurologist, with no definitive cause identified for her speech issues but she does note improvement in her speech with physical therapy. - Thyroid dysfunction: The patient is on levothyroxine, with recent lab results indicating a need for dosage adjustment due to suppressed thyroid levels. [facility] Medical History Depression with anxiety Closed hip fracture History of adenomatous polyp of colon Expressive aphasia Essential hypertension Dyslipidemia Acquired hypothyroidism Intertrochanteric fracture of right hip Dysphagia Essential hypertension Osteoporosis GERD (gastroesophageal reflux disease) Aphasia High cholesterol High blood pressure Anemia Dyspnea on exertion T11 vertebral fracture Hypothyroidism Surgical History History of bone marrow biopsy History of excision of mass History of cholecystectomy History of tonsillectomy History of vertebroplasty History of kyphoplasty Family History Father Esophageal cancer Substance use disorder Mother Breast cancer Paternal Aunt Breast cancer Social History Household Members: Spouse [facility] Are you a primary in home caregiver to a significant other at home: No Do you presently have visiting nurse or other home services: No Alcohol intake: current Alcohol intake frequency: holidays/special occasions only Patient Tobacco Use Status: Never used Tobacco e-Cigarette/Vaping Use: Never Used Second Hand Smoke Exposure: No Advance Directives Date on File: 10/17/22 service: No Current occupational status: 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 Zach Mccarthy, Chayito Barnhart, Bal Díaz and colleagues, with an educational anne from [employer]. Review of Systems Const All systems reviewed & are unremarkable except as noted in HPI and below Physical exam (Primary Care) Vital Signs: Last Vital Signs Temp 97.9 F 12/25/24 11:58 Pulse 68 12/25/24 11:58 Resp 16 12/25/24 11:58 BP 120/70 12/25/24 12:42 Pulse Ox 96 12/25/24 11:58 Oxygen Delivery Method Room Air 12/25/24 11:58 BMI result Body Mass Index 24.3 Tobacco/Smoking Status: Tobacco use Status Tobacco use date assessed 12/25/24 12/25/24 12:09 Patient Tobacco Use Status Never used Tobacco 12/25/24 12:09 e-Cigarette/Vaping Use Never Used 12/25/24 12:09 Thrive Assessment: Date of Thrive Assessment Date Thrive assessed 04/11/24 12/25/24 12:09 Const General: alert Nutritional Appearance: average body habitus Orientation/consciousness: patient oriented x3 Limitations: ambulation with cane HENMT Ears: external ears normal, TM's normal bilaterally and EAC's normal Face and sinus: Yes face symmetric Mouth: tongue normal, oropharynx normal and moist mucous membranes Neck Neck: Yes full ROM, Yes no lymphadenopathy and Yes supple Resp Effort & Inspection: normal respiratory effort Auscultation: clear to auscultation bilaterally Cardio Rate: regular rate Rhythm: regular rhythm Heart sounds: S1 normal heart sound present GI Palpation (GI): Soft to palpation, nontender, no guarding and no masses Back/Spine/Pelvis Back: No back tenderness Skin General skin exam: no rashes or lesions noted Neuro Other: Has difficulty forming words, but comprehension and memory intact, unsteady gait, uses cane General: patient oriented x3 Cognition (Neuro): normal cognition Motor exam (neuro): 5/5 motor strength present throughout Romberg Test: Negative Extrem General: Yes full ROM, Yes no joint enlargement and Yes no clubbing, cyanosis or edema Psych Appearance: grossly normal and well kempt Mental Status: mental status grossly normal Speech and movement: Slurred speech present Affect: normal affect Attitude: cooperative Thought content: Normal thought content present Results Reviewed Results Reviewed: Name: Kinza Blair Age/Sex: 79/F : 1945 Unit#: [id number] Attend Dr: Mary Henderson MD Re12/17/24 Status: DEP REF Location: [facility] Disch: SPEC : [id number] FANY: 12/17/24 STATUS: COMP REQ : [id number] RECD: 12/17/[address]: Mary Henderson MD COMP: 12/17/24 ENTERED: 12/17/[address]: ORDERED: Met Prof Fast, AST, ALT, Lipid Panel, Vitamin D 25-OH, Free T4, TSH Test Result Flag Reference Sodium 139 135-145 mmol/L Potassium 3.9 3.3-5.1 mmol/L CL 105 96-108 mmol/L CO2 27 22-29 mmol/L Gap 11 L 12-20 BUN 15 9-16 mg/dL Creat 0.76 0.5-1.4 mg/dL eGFR > 60 Chronic Kidney Disease: Estimated GFR < 60 mL/min/1.73m2 Severe Kidney Disease: Estimated GFR < 15 mL/min/1.73m2 FBS 110 H 60-99 mg/dL A fasting glucose from 100-125 mg/dl is considered impaired (pre-diabetes). CA 9.5 8.4-10.2 mg/dL AST (GOT) 39 H 5-31 U/L ALT (GPT) 24 0-31 U/L Triglyceride 131 <150 mg/dL Desirable Triglyceride: less than 150 mg/dL Borderline High Triglyceride 150-199 mg/dL High Triglyceride: 200-499 mg/dL Very High Triglyceride: greater than or equal to 5OO mg/dL Cholesterol 188 <200 mg/dL Desirable Cholesterol: less than 200 mg/dL Borderline High Cholesterol: 200-239 mg/dL High Cholesterol: greater than 239 mg/dL LDL Calculated 112 H <100 mg/dL Desirable LDL: less than 100 mg/dL Near Optimal/Above Optimal LDL: 110-129 mg/dL Borderline High LDL: 130-159 mg/dL High LDL: 160-189 mg/dL Very High LDL: greater than or equal to 190 mg/dL HDL 50 >40 mg/dL Desirable HDL: greater than 40 mg/dL Note: This HDL assay may give artificially low results in patients with liver disease. Vitamin D 25-OH 65.1 >30 ng/mL Health Based Reference Values* < 20 ng/mL Deficient 20-30 ng/mL Insufficient > 30 ng/mL Sufficient *Janie GARDUNO. N Engl J Med. 2007;357:266-280 There is no well-established upper level of normal vitamin D levels. Some laboratories use 50 ng/mL as an upper limit of normal. However, toxicity is patient-dependent and may occur at any level. Careful correlation with the patient's presentation is necessary and, if there is concern for vitamin D toxicity, treatment should be considered irrespective of the serum level. Care must be taken in interpreting Vitamin D results from different laboratories and methodologies. Published data demonstrated that results from patients undergoing hemodialysis may show a negative bias when tested with various automated 25-OH vitamin D assays when compared to LC-MS/MS. When testing samples from patients whose predominant form of Vitamin D is Vitamin D2, such as patients receiving Vitamin D2 supplementation, results that are subtherapeutic should be confirmed with another method such as LC-MS/MS. Free T4 0.96 0.71-1.85 ng/dL TSH 3rd Gen. 12.14 H 0.32-4.0 uIU/mL Note: A sustained TSH level above 2.5 uIU/mL may warrant further investigation. TSH 3rd Generation ([facility]) Coding Level of Care Code Est Pt Level 4 (76565) Complex EM visit Add On G2211 Diagnoses Hyperlipidemia E78.5 Acquired hypothyroidism E03.9 Dyslipidemia E78.5 Essential hypertension I10 Assessment & Plan Assessment & Plan (1) Hyperlipidemia: Code(s): E78.5 - Hyperlipidemia, unspecified Category: Medical (2) Acquired hypothyroidism: Code(s): E03.9 - Hypothyroidism, unspecified Category: Medical Plan: Discussed with patient recent lab results which showed elevated TSH and low normal free T4. Will increase dose of her levothyroxine to 175 mcg daily, to be taken in the morning 1st thing before eating or drinking anything other than water will repeat levels again in 3 months (3) Dyslipidemia: Code(s): E78.5 - Hyperlipidemia, unspecified Category: Medical Plan: Fasting lipids are within normal limits. Continued on simvastatin 20 mg daily bedtime (4) Essential hypertension: Code(s): I10 - Essential (primary) hypertension Category: Medical Plan: Blood pressure at goal of less than 130/80. Continue with current medication. Reinforced importance of following a low sodium diet, getting regular exercise, and lowering stress levels. Plan Handicap placard application completed today and given back to patient Orders: Orders Triiodothyronine T3 Free 03/24/25 E03.9 - Hypothyroidism, unspecified, E78.5 - Hyperlipidemia, unspecified, I10 - Essential (primary) hypertension Free T4 (Free Thyroxine) 03/24/25 E03.9 - Hypothyroidism, unspecified, E78.5 - Hyperlipidemia, unspecified, I10 - Essential (primary) hypertension Aspartate Amino Transferase 03/24/25 E03.9 - Hypothyroidism, unspecified, E78.5 - Hyperlipidemia, unspecified, I10 - Essential (primary) hypertension Vitamin D 25-OH Total 03/24/25 E03.9 - Hypothyroidism, unspecified, E78.5 - Hyperlipidemia, unspecified, I10 - Essential (primary) hypertension Vitamin B12 and Folate 03/24/25 E03.9 - Hypothyroidism, unspecified, E78.5 - Hyperlipidemia, unspecified, I10 - Essential (primary) hypertension Thyroid Stimulating Hormone 03/24/25 E03.9 - Hypothyroidism, unspecified, E78.5 - Hyperlipidemia, unspecified, I10 - Essential (primary) hypertension Lipid Panel 03/24/25 E03.9 - Hypothyroidism, unspecified, E78.5 - Hyperlipidemia, unspecified, I10 - Essential (primary) hypertension Alanine Aminotransferase 03/24/25 E03.9 - Hypothyroidism, unspecified, E78.5 - Hyperlipidemia, unspecified, I10 - Essential (primary) hypertension Basic Metabolic Panel Fasting 03/24/25 E03.9 - Hypothyroidism, unspecified, E78.5 - Hyperlipidemia, unspecified, I10 - Essential (primary) hypertension Medications: New levothyroxine (Levoxyl) 175 mcg PO DAILY 90 tabs 2RF Discontinued levothyroxine Discontinued Reason: Doctor's Order 150 mcg PO DAILY 90 days 90 tabs 2RF
[2024-12-25 12:42] VITALS: BP 120/70
--- OUTSIDE RECORDS SUMMARY | 2024-12-25 14:11 | XMS_ITS | Encounter Summary ---
Author Organization [facility] Address [address] [place] [id number] Phone Care Team Providers Care Hospitality Director Name Role Phone Beck Hernandez MD Primary Care Provider Mary Henderson MD Primary Care Provider Reason for Referral * Physical Therapy (Routine) - Closed Specialty Diagnoses / Procedures Referred By Contazul crowe Referred To Contact Physical Therapy Diagnoses Encounter for rehabilitation Mandy Brownlee DPM [address] [place] [address] Phone: tel: fax: [facility] [address] [place] [address] Phone: tel: Referral ID Status Reason Start Date Expiration Date Visits Re quested Visits Authorized [id number] Closed 10/11/2019 04/23/2020 99 99 Encounter Details Date Type Department Care Team (Late st Contact Info) Description 10/11/2019 Transcribe Orders Rehabilitation Services [address] [place] [address] Mandy Brownlee DPM [address] [place] [address] Encounter for rehabilitation (Primary Dx) Social History [...] Description 01/06/2025 10:30 AM EDT Office Visit [facility] [address] [place] [address] Mary Henderson MD [address] [place] [address] Karyn Brown CCC-THEATRICAL AGENT [address] [place] [phone] [email or web address] 01/07/2025 11:30 AM EDT Office Visit [facility] Department of Neurology [address] [place] [address], 8th Floor, [address] [place] [address] Eloina Brantley MD [address] [place] [phone] [email or web address] 01/13/2025 2:00 PM EDT Office Visit [facility] [address] [place] [address] Mary Henderson MD [address] [place] [address] Karyn Brown CCC-THEATRICAL AGENT [address] [place] [phone] [email or web address] documented as of this encounter Procedures Procedure Name Priority Date/Time Associated Diagnosis Comments AMB REFERRAL TO [facility] PHYSICAL THERAPY Routine 10/22/2019 6:42 AM EDT Encounter for rehabilitation documented in this encounter Results * Ambulatory referral to [facility] Physical Therapy (10/22/2019 6:42 AM EDT) Mandy Brownlee DPM AMB [facility] REFERRALS Final Re sult documented in this encounter Visit Diagnoses Diagnosis Encounter for rehabilitation- Primary documented in this encounter Care Teams Hospitality Director Relationship Specialty Start Date End Date Beck Hernandez MD [address] [place] [address] PCP - General 10/15/19 02/19/24 Mary Henderson MD [address] [place] [address] [place] [address] PCP - General Internal Medicine 02/20/24 documented as of this encounter Additional Source Comments The information contained in this document represents components of the legal health record. It is not the complete legal health record.[facility]
--- OUTSIDE RECORDS SUMMARY | 2024-12-25 14:11 | XMS_ITS | Encounter Summary ---
Author Organization [facility] Address [address] [place] [address] Phone Care Team Providers Care Wash Oil Pump Operator Helper Name Role Phone Beck Hernandez MD Primary Care Provider Mary Henderson MD Primary Care Provider Encounter Details Date Type Department Care Team (Late st Contact Info) Description 02/14/2024 Procedure Pass MRI, [facility] - [address], [address] [place] [address] Social History Tobacco Use Types [...] Description 01/06/2025 10:30 AM EDT Office Visit [address] [place] [address] Mary Henderson MD [facility] [place] [address] Karyn Brown CCC-HEAD PORTER BAGGAGE [address] [place] [phone] [email or web address] 01/07/2025 11:30 AM EDT Office Visit [facility] Department of Neurology [address] [place] [address], 8th Floor, [address] [place] [address] Eloina Brantley MD [address] [place] [phone] [email or web address] 01/13/2025 2:00 PM EDT Office Visit [address] [place] [address] Mary Henderson MD [address] [place] [address] [place] [address] Karyn Brown CCC-HEAD PORTER BAGGAGE [address] [place] [phone] [email or web address] documented as of this encounter Visit Diagnoses Not on filedocumented in this encounter Care Teams Wash Oil Pump Operator Helper Relationship Specialty Start Date End Date Beck Hernandez MD [address] [place] [phone] PCP - General 10/15/19 02/19/24 Mary Henderson MD [address] [place] [address] [place] [address] PCP - General Internal Medicine 02/20/24 documented as of this encounter Additional Source Comments The information contained in this document represents components of the legal health record. It is not the complete legal health record.[facility]
--- OUTSIDE RECORDS SUMMARY | 2024-12-25 14:11 | XMS_ITS | Encounter Summary ---
Author Organization [facility] Address [address] [place] [address] Phone Care Team Providers Care Pbx Wire Chief Name Role Phone Beck Hernandez MD Primary Care Provider Mary Henderson MD Primary Care Provider Encounter Details Date Type Department Care Team (Late st Contact Info) Description 02/14/2024 Procedure Pass MRI, [facility] Imaging - [address], [address] [place] [address] Social History Tobacco Use Types [...] Description 01/06/2025 10:30 AM EDT Office Visit [address] [place] [address] Mary Henderson MD [facility] [place] [address] Karyn Brown CCC-BASE FILLER OPERATOR [address] [place] [phone] [email or web address] 01/07/2025 11:30 AM EDT Office Visit [facility] Department of Neurology [address] [place] [address], 8th Floor, [address] [place] [address] Eloina Branltey MD [address] [place] [phone] [email or web address] 01/13/2025 2:00 PM EDT Office Visit [address] [place] [address] Mary Henderson MD [address] [place] [address] [place] [address] Karyn Brown CCC-BASE FILLER OPERATOR [address] [place] [phone] [email or web address] documented as of this encounter Visit Diagnoses Not on filedocumented in this encounter Care Teams Pbx Wire Chief Relationship Specialty Start Date End Date Beck Hernandez MD [address] [place] [phone] PCP - General 10/15/19 02/19/24 Mary Henderson MD [address] [place] [address] [place] [address] PCP - General Internal Medicine 02/20/24 documented as of this encounter Additional Source Comments The information contained in this document represents components of the legal health record. It is not the complete legal health record.[facility]
--- OUTSIDE RECORDS SUMMARY | 2024-12-25 14:14 | XMS_ITS | Clinical Summary ---
Author Organization [facility] Address [address] [place] [phone] Phone Care Team Providers Care Portfolio Mgr Name Role Phone Mary Henderson MD Primary [...] Description 12/16/2024 10:30 AM EDT Office Visit [facility] [address] [place] [address] Mary Henderson, Karyn Salas, CCC-HELPER COORDINATOR Dysarthria (Primary Dx) 12/12/2024 1:00 PM EDT Office Visit [facility] [address] [place] [address] Mary Henderson MD Korza, Laurie J, CCC-HELPER COORDINATOR Dysarthria (Primary Dx) 12/05/2024 11:30 AM EDT Office Visit [facility] [address] [place] [address] Mary Henderson MD Korza, Laurie J, CCC-HELPER COORDINATOR Dysarthria (Primary Dx) 11/28/2024 11:30 AM EDT Office Visit [facility] [address] [place] [address] Mary Henderson MD Korza, Laurie J, CCC-HELPER COORDINATOR Dysarthria (Primary Dx) 11/21/2024 10:30 AM EDT Office Visit [facility] [address] [place] [address] Mary Henderson MD Korza, Laurie J, CCC-HELPER COORDINATOR Dysarthria (Primary Dx) 11/12/2024 1:00 PM EDT Office Visit [facility] [address] [place] [address] Mary Henderson MD Korza, Laurie J CCC-HELPER COORDINATOR Dysarthria (Primary Dx) 10/31/2024 11:30 AM EDT Office Visit [facility] [address] [place] [address] Mary Henderson MD Korza, Laurie J, CCC-HELPER COORDINATOR Dysarthria (Primary Dx) 10/24/2024 10:30 AM EDT Office Visit [facility] [address] [place] [address] Mary Henderson, Karyn Salas CCC-HELPER COORDINATOR Dysarthria (Primary Dx) 10/14/2024 10:30 AM EDT Office Visit [address] [place] [address] Mary Henderson, Karyn Salas CCC-HELPER COORDINATOR Dysarthria (Primary Dx) 10/09/2024 1:00 PM EDT Office Visit [address] [place] [address] Mary Henderson, Karyn Salas CCC-HELPER COORDINATOR Dysarthria (Primary Dx) 09/30/2024 2:00 PM EDT Office Visit [address] [place] [address] Mary Henderson, Karyn Salas, CCC-HELPER COORDINATOR Dysarthria (Primary Dx) 09/30/2024 Plan of Care Documentation [address] [place] [address] 09/26/2024 3:00 PM EDT Office Visit [address] [place] [address] Mary Henderson, Karyn Salas, CCC-HELPER COORDINATOR Dysarthria (Primary Dx) from Last 3 Months Immunizations [...] Description 01/06/2025 10:30 AM EDT Office Visit [facility] [address] [place] [id number] Mary Henderson MD [address] [facility] [place] [place] [address] Karyn Brown, CCC-HELPER COORDINATOR [address] [place] [address] [email or web address] 01/07/2025 11:30 AM EDT Office Visit [facility] Department of Neurology [address] [facility], 8th Floor, [address] [place] [address] Eloina Brantley MD [address] [place] [address] [address] [place] [address] [email or web address] 01/13/2025 2:00 PM EDT Office Visit [facility] [address] [place] [address] [place] [address] Mary Henderson MD [address] [facility] [place] [address] Karyn Brown, [facility]-HELPER COORDINATOR [address] [place] [address] [email or web address] Health Maintenance Due Date Last Done Comments LIPID PANEL 1947 TSH LEVEL 1947 DEPRESSION SCREENING 1959 SMOKING Hx and SMOKELESS TOBACCO SCREENING 1960 HEPATITIS C SCREENING 1965 ZOSTER VACCINES (1 of 2) 1997 OSTEOPOROSIS SCREENING INITIAL (ONE-TIME) 2012 RSV VACCINE (1 - 1-dose 75+ series) 2022 INFLUENZA VACCINE (#1) 2024 4, 02/24/2021, 02/25/2020, Additional history exists COVID-19 VACCINE (2024- season) 2024 02/07/2022, 11/14/2021, 02/24/2021 CREATININE LEVEL 12/31/2024 01/01/2024, 12/28/2023 POTASSIUM LEVEL [...] EDT) SODIUM 138 133 - 146 mmol/L [facility] POTASSIUM 4.0 3.3 - 5.1 mmol/L [facility] CHLORIDE 102 96 - 108 mmol/L [facility] CO2 26 21 - 35 mmol/L [facility] BUN 15 6 - 19 mg/dL [facility] CREATININE 0.80 0.5 - 1.5 mg/dL [facility] GLUCOSE 100(H) 70 - 99 mg/dL [facility] ALBUMIN 3.6(L) 3.9 - 4.8 g/dL [facility] TOTAL PROTEIN 6.9 6.5 - 8.0 g/dL [facility] CALCIUM 9.0 8.4 - 10.3 mg/dL [facility] ALKALINE PHOSPHATASE 128(H) 39 - 117 U/L [facility] TOTAL BILIRUBIN 0.6 0.0 - 1.2 mg/dL [facility] AST 31 0 - 37 U/L [facility] ALT 19 0 - 40 U/L [facility] GLOBULIN 3.3 1 - 4.8 g/dL [facility] EGFR 76 >59 mL/min/1.7 3m2 [facility] Comment:Estimated glomerular filtration rate calculated using the CKD-EPI refit equation. ANION GAP 14 10 - 20 mmol/L [facility] Blood 01/01/2024 6:06 AM EDT 01/01/2024 9:31 AM EDT us Kia Kevin MD LAB BLOOD ORDERABLES Final Res ult [facility] [address] [place], [place] [id number] from Last 3 Months or Most Recently Relevant to Health Maintenance Insurance MEDICARE PART A & B [employer] MEDEX SUPPLEMENT [facility] [place] [address] MEDICARE PART A & B Caregivers CROSS MEDEX [facility]LE[facility] Address: [facility] OFFICE OF COMMUNITY CARE ATTN:[facility] CLAIMS [address] [address] [place] [address] MEDICARE PART A & B [employer] MEDEX SUPPLEMENT [address] [place], [place] [address] [place] [address] MEDICARE PART A & B [employer] [place] [address] MEDICARE PART A & B Member Subscriber Plan / Payer (Ef fective 2010-Present) Name:Kinza Blair Member ID:[id number] Relation to Subscriber:Self Name:Kinza Blair Subscriber ID:[id number] Payer ID:[id number] Group ID:Not on file Type:Medicare Address: [facility] [employer] [facility] [employer] [facility] [address] [place] [address] [place] [address] Caregivers [employer]OSS MEDEX SUPPLEMENT [facility] [place] [address] MEDICARE PART A & B [employer] MEDEX SUPPLEMENT [facility] [place] [address] MEDICARE PART A & B Caregivers CROSS MEDEX SUPPLEMENT [facility] [place] [address] MEDICARE PART A & B [employer] MEDEX SUPPLEMENT [facility] [place] [address] MEDICARE PART A & B [employer] MEDEX SUPPLEMENT [facility] [place] [address] Care Teams Portfolio Mgr Relationship Specialty Start Date End Date Mary Henderson MD [facility] [place] [place] [address] PCP - General Internal Medicine 02/20/24 Additional Source Comments The information contained in this document represents components of the legal health record. It is not the complete legal health record.[facility]
== END 2024-12-25 13:06 | disposition home or self-care (01) ==
LOC: HO.HMCC 11:47
PROVIDERS: PCP Internal Medicine; Visit Provider Internal Medicine
DX: E78.5 Hyperlipidemia, unspecified (principal); E03.9 Hypothyroidism, unspecified; I10 Essential (primary) hypertension

== ENCOUNTER → 2024-12-25 11:47 | Outpatient (BNVA) | payer MEDICARE, OTHER, SELFPAY | PROVIDERS: PCP Internal Medicine; Visit Provider Internal Medicine | DX: I10 Essential (primary) hypertension (principal); M25.561 Pain in right knee; M79.641 Pain in right hand; M81.0 Age-related osteoporosis without current pathological fracture; E78.5 Hyperlipidemia, unspecified; E30.9 Disorder of puberty, unspecified; Z79.899 Other long term (current) drug therapy | CPT/HCPCS: 99212 ==

== ENCOUNTER 2025-03-03 13:36 | Outpatient (AMB) | payer MEDICARE, OTHER, SELFPAY ==
--- NOTE | 2025-03-03 13:42 | MHC.OFFVIS ---
Vital Signs 03/03/25 13:43 Height 5 ft 3 in Weight 134 lb 7.712 oz BMI 23.8 BP 132/82 Blood Pressure Location Rt brachial Position Sitting Pulse 72 Pulse Source Pulse Oximeter Pulse Oximetry (%) 96 Oxygen Delivery Method Room Air Intake Visit Reasons: Osteoporosis/prolia injection Intake Note: Patient present today for Osteoporosis and Prolia injection. Student Liaison Officer Required: No Accompanied by: Self / Same As Patient Allergies cortisone Allergy (Intermediate, Verified 03/03/25 13:42) Rash Cephalosporins Allergy (Mild, Verified 03/03/25 13:42) JAUNDICE KETOLIDES Allergy (Unknown, Uncoded 03/03/25 13:42) ITCHING MACORLIDES Allergy (Unknown, Uncoded 03/03/25 13:42) ITCHING Medication List - Last Reconciled 03/03/25 by Zach Concepcion MD acetaminophen (Tylenol Extra Strength) 500 mg PO Q6H PRN celecoxib (Celebrex) 200 mg PO BID 30 days chlorthalidone 12.5 mg (1/2 x 25 mg) PO QAM cholecalciferol (vitamin D3) 50 mcg PO DAILY commode As directed, 999 days denosumab (Prolia) 60 mg subcut [id number] 1 day diaper,brief,adult,disposable (Depend Easy Fit Undergarments misc) 4 times a day, As directed, 30 days levothyroxine (Levoxyl) 175 mcg PO DAILY losartan 50 mg PO DAILY mecobalamin (vitamin B12) 1,000 mcg PO DAILY metoprolol succinate ER 50 mg PO DAILY miscellaneous medical supply Panty Liners, Twice a day As directed, 90 days omeprazole 20 mg PO DAILY 90 days oxybutynin chloride ER 10 mg PO DAILY 3 months potassium chloride 10 mEq (7.5 mL) PO DAILY 30 days sertraline 100 mg PO BID simvastatin 20 mg PO DAILY HPI Comments Details: 79 YO Female with PMHx myelodysplastic syndrome is seen in consultation at the request of PCP for Osteoporosis. According to primary care note, patient was seen in [place] for osteoporosis and was treated with Prolia but did not show up consistently for injections. Pt is poor historian First diagnosed in couple of yrs . Saw endo in [place] Received treatment in the past with Prolia , ? from to . last dose in 05/2023 ? Tolerated treatment well without complication. history of pathologic fracture in hip 12/23/2023 fell from standing and fx T-11 vertebra ? 3 yrs ago but no ONJ. Has several servings of dietary calcium per day in the form of broccoli, symilk . Not Takes Calcium supplement . Takes 02266 IU of Vitamin D daily. Uses PPI, - anticoagulant,- antiepileptic or -glucocorticoid medication. 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 UTD on dental cleanings and sees dentist every 6 months. No planned upcoming dental work or extractions. DXA dated :05/26/2020 TScore of -2.3 L femoral neck Labs: Looks like from previous rheumatology notes, that the Prolia was started in 2020 No fx since last visit [facility] Medical History (Updated 02/19/25 @ 10:19 by Edu Vila MD) Depression with anxiety Closed hip fracture History of adenomatous polyp of colon Expressive aphasia Essential hypertension Dyslipidemia Acquired hypothyroidism Intertrochanteric fracture of right hip Dysphagia Essential hypertension Osteoporosis GERD (gastroesophageal reflux disease) Aphasia High cholesterol High blood pressure Anemia Dyspnea on exertion T11 vertebral fracture Hypothyroidism Surgical History History of right hip replacement History of bone marrow biopsy History of excision of mass History of cholecystectomy History of tonsillectomy History of vertebroplasty History of kyphoplasty Family History Father Esophageal cancer Substance use disorder Mother Breast cancer Paternal Aunt Breast cancer Social History Household Members: Spouse Housing: Condominium Are you a primary medicare sales representative to a significant other at home: No Do you presently have visiting nurse or other home services: No Alcohol intake: current Alcohol intake frequency: holidays/special occasions only Patient Tobacco Use Status: Never used Tobacco e-Cigarette/Vaping Use: Never Used Second Hand Smoke Exposure: No Advance Directives Date on File: 10/17/22 service: No Current occupational status: 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 Had previous negative secondary workup. Was on Prolia but unclear duration of Prolia treatment as well as consistency of getting the treatment. Looks like Prolia was initiated in 2020 in [place] Plan is to continue Prolia today. Will continue the Prolia every 6 months for a total of 5 years. Repeat DEXA is due in 03/2026 at that point might consider transitioning to a bisphosphonate afterwards Coding Level of Care Code Est Pt Level 3 (83000) Diagnoses Osteoporosis M81.0
[2025-03-03 13:43] VITALS: BP 132/82; PULSE 72; O2SAT 96; BMI 23.8
--- OUTSIDE RECORDS SUMMARY | 2025-03-03 15:46 | XMS_ITS | Encounter Summary ---
Author Organization [facility] Address [address] [place] [address] Phone Care Team Providers Care Respiratory Support Technician Name Role Phone Beck Hernandez MD Primary Care Provider Mary Henderson MD Primary Care Provider Encounter Details Date Type Department Care Team (Late st Contact Info) Description 02/14/2024 Procedure Pass MRI, [facility] - [address], [address] [place] [address] Social History Tobacco Use Types [...] Care Team (Late st Contact Info) Description 06/02/2025 8:30 AM EST Office Visit [facility] Neurology [address], [address] [place] [address] Eloina Brantley MD [address] [place] [phone] [email or web address] documented as of this encounter Visit Diagnoses Not on filedocumented in this encounter Care Teams Respiratory Support Technician Relationship Specialty Start Date End Date Beck Hernandez MD PCP - General 10/15/19 02/19/24 Mary Henderson MD [address] [facility] [place] [place] [address] PCP - General Internal Medicine 02/20/24 documented as of this encounter Additional Source Comments The information contained in this document represents components of the legal health record. It is not the complete legal health record.[facility]
--- OUTSIDE RECORDS SUMMARY | 2025-03-03 15:47 | XMS_ITS | Encounter Summary ---
Author Organization [facility] Address [address] [place] [address] Phone Care Team Providers Care Patient Transporter Name Role Phone Beck Hernandez MD Primary Care Provider aMry Henderson MD Primary Care Provider Encounter Details Date Type Department Care Team (Late st Contact Info) Description 02/14/2024 Procedure Pass MRI, [facility] - [address], [address] [place] [address] Social History Tobacco Use Types [...] Description 06/02/2025 8:30 AM EST Office Visit [facility] Neurology [address], [address] [place] [address] Eloina Brantley MD [address] [place] [address] [email or web address] documented as of this encounter Visit Diagnoses Not on filedocumented in this encounter Care Teams Patient Transporter Relationship Specialty Start Date End Date Beck Hernandez MD PCP - General 10/15/19 02/19/24 Mary Henderson MD [address] [place] [address] PCP - General Internal Medicine 02/20/24 documented as of this encounter Additional Source Comments The information contained in this document represents components of the legal health record. It is not the complete legal health record.[facility]
--- OUTSIDE RECORDS SUMMARY | 2025-03-03 15:47 | XMS_ITS | Clinical Summary ---
Author Organization [facility] Address [address] [place] [phone] Phone Care Team Providers Care Nurse Quality Name Role Phone Mary Henderson MD Primary [...] Encounters Date Type Department Care Team Description 01/13/2025 2:00 PM EDT Office Visit [address] [place] [address] Mary Henderson, Karyn Salas, [facility] Dysarthria (Primary Dx) 01/06/2025 10:30 AM EDT Office Visit [address] [place] [address] Mary Henderson, Karyn Salas [facility] Dysarthria (Primary Dx) 01/06/2025 Plan of Care Documentation [address] [place] [address] 12/16/2024 10:30 AM EDT Office Visit [address] [place] [address] Mary Henderson, Karyn Salas [facility] Dysarthria (Primary Dx) 12/12/2024 1:00 PM EDT Office Visit [address] [place] [address] Mary Henderson, Karyn Salas [facility] Dysarthria (Primary Dx) 12/05/2024 11:30 AM EDT Office Visit [address] [place] [address] Mary Henderson, Karyn Salas [facility] Dysarthria (Primary Dx) from Last 3 Months [...] Description 06/02/2025 8:30 AM EST Office Visit [facility] Neurology [address], [address] [place] [address] Eloina Brantley MD [address] [place] [phone] [email or web address] Health Maintenance Due Date Last Done Comments LIPID PANEL 1947 TSH LEVEL 1947 DEPRESSION SCREENING 1959 SMOKING Hx and SMOKELESS TOBACCO SCREENING 1960 HEPATITIS C SCREENING 1965 ZOSTER VACCINES (1 of 2) 1997 OSTEOPOROSIS SCREENING INITIAL (ONE-TIME) 2012 RSV VACCINE (1 - 1-dose 75+ series) 2022 INFLUENZA VACCINE (#1) 2024 , 02/24/2021, 02/25/2020, Additional history exists COVID-19 VACCINE ( season) 2024 02/07/2022, 11/14/2021, 02/24/2021 CREATININE LEVEL [...] Date/Time Associated Diagnosis Comments COMPREHENSIVE METABOLIC PANEL (CMP) Routine 01/01/2024 6:06 AM EDT Closed displaced fracture of base of neck of right femur with routine healing Myelodysplastic syndrome Essential hypertension, benign from Last 3 Months or Most Recently Relevant to Health Maintenance Results * (ABNORMAL) Comprehensive metabolic panel (01/01/2024 6:06 AM EDT) SODIUM 138 133 - 146 mmol/L [facility] POTASSIUM 4.0 3.3 - 5.1 mmol/L [facility] CHLORIDE 102 96 - 108 mmol/L [facility] CO2 26 21 - 35 mmol/L [facility] BUN 15 6 - 19 mg/dL [facility] CREATININE 0.80 0.5 - 1.5 mg/dL [facility] GLUCOSE 100(H) 70 - 99 mg/dL [facility] ALBUMIN 3.6(L) 3.9 - 4.8 g/dL [facility] TOTAL PROTEIN 6.9 6.5 - 8.0 g/dL [facility] CALCIUM 9.0 8.4 - 10.3 mg/dL [facility] ALKALINE PHOSPHATASE 128(H) 39 - 117 U/L [facility] TOTAL BILIRUBIN 0.6 0.0 - 1.2 mg/dL [facility] AST 31 0 - 37 U/L [facility] ALT 19 0 - 40 U/L [facility] GLOBULIN 3.3 1 - 4.8 g/dL [facility] EGFR 76 >59 mL/min/1.7 3m2 [facility] Comment:Estimated glomerular filtration rate calculated using the CKD-EPI refit equation. ANION GAP 14 10 - 20 mmol/L [facility] Blood 01/01/2024 6:06 AM EDT 01/01/2024 9:31 AM EDT Kia Kevin MD LAB BLOOD BKR ORDERABLES Final Result [facility] [address] [place] [address] from Last 3 Months or Most Recently Relevant to Health Maintenance Insurance MEDICARE PART A & B [employer] MED[employer] SUPPLE[place] [address] [place] [address] MEDICARE PART A & B [employer] [place] [address] MEDICARE PART A [place] [address] [facility] [place] [address] MEDICARE PART A & B [employer] [place] [address] MEDICARE PART A & B [employer] MEDEX SUPPLEMENT [facility] [place] [address] MEDICARE PART A & B [employer] SUPPLEMENT [facility] [place] [address] MEDICARE PART A & B [employer] SUPPLEMENT [facility] [place] [address] MEDICARE PART A & B Member Subscriber Plan / Payer (Ef fective 2010-Present) Name:Kinza Blair Member ID:[id number] Relation to Subscriber:Self Name:Kinza Blair Subscriber ID:[id number] Payer ID:[id number] Group ID:Not on file Type:Medicare Address: [facility] [employer] [facility] [address] [place] [address] [employer] [place] MEDEX SUPPLEMENT [facility] [place] [address] MEDICARE PART A & B [employer] SUPPLEMENT [facility] [place] [address] Care Teams Nurse Quality Relationship Specialty Start Date End Date Mary Henderson MD [address] [facility] [place] [address] PCP - General Internal Medicine 02/20/24 Additional Source Comments The information contained in this document represents components of the legal health record. It is not the complete legal health record.[facility]
--- OUTSIDE RECORDS SUMMARY | 2025-03-03 15:47 | XMS_ITS ---
Author Organization [facility] on Care Team Providers Care Dinkey Locomotive Engineer Name Role Phone Kia Kevin Unavailable Unavailable Chase Ahumada Unavailable Unavailable Beba Salgado Unavailable Unavailable Allergies and adverse reactions Code CodeSystem Substance Reaction Severity StartDate Concern Status 914980166 SNOMED CT Cephalosporins Unknown 12/27/2023 ac tive ketolidis Unknown 12/27/2023 active Macorlides Unknown 12/27/2023 active Care Team Name Role Address Phone Organization Dates Kia Kevin PCP [address] [place] [address], [phone], [facility] (Office): : [facility] [place] 12/27/2023 - 01/05/2024 Chase Ahumada [address] [place], [address], [facility] (Office): [facility] [place] 12/27/2023 - 01/05/2024 Beba Salgado [address] [place] [address], [phone], [facility] (Office): : [facility] [place] 12/27/2023 - 01/05/2024 Immunizations Immunization Status Vaccine Details Vaccine Code CodeSystem Date Notes Pneumococcal Conjugate Vaccine (PCV13) completed pneumococcal conjugate vaccine, 13 valent 133 CVX created date: 4 administe red date: 5 verified in MIIS. Pneumococcal Polysaccharide Vaccine (PPSV23) completed pneumococcal polysaccharide vaccine, 23 valent 33 CVX created date: 4 administe red date: 8 verified by [facility]IS. SARS-COV-2 (COVID-19) completed SARS-COV-2 (COVID-19) vaccine, mRNA, spike protein, LNP, preservative free, 100 mcg/0.5mL dose or 50 mcg/0.25mL dose Step 2 of Multi-step with next step required 207 CVX created date: 4 administe red date: 2 verified by [facility]IS. SARS-COV-2 (COVID-19) completed SARS-COV-2 (COVID-19) vaccine, mRNA, spike protein, LNP, preservative free, 100 mcg/0.5mL dose or 50 mcg/0.25mL dose Step 1 of Multi-step with next step required 207 CVX created date: 4 administe red date: 1 verified by MIIS. Prevnar 20 Pneumococcal conjugate (PCV20) new Pneumococcal conjugate vaccine 20-valent (PCV20), polysaccharide [id number] conjugate, adjuvant, preservative free 216 CVX created date: 4 consent date: 4 SARS-COV-2 (COVID-19 BOOSTER) completed SARS-COV-2 (COVID-19) vaccine, mRNA, spike protein, LNP, bivalent, preservative free, 50 mcg/0.5 mL or 25 mcg/0.25 mL dose Mfg: Moderena bivalent booster 229 CVX created date: 4 administe red date: 2 verified by [facility]IS. RSV, bivalent, protein subunit RSVpreF, diluent rec cancelled Respiratory syncytial virus (RSV), vaccine, bivalent, protein subunit RSV prefusion F, diluent reconstituted, 0.5 mL, preservative free 305 CVX created date: 4 consent date: 4 previously received SARS-COV-2 (COVID-19) vaccine, UNSPECIFIED new SARS-COV-2 (COVID-19) vaccine, UNSPECIFIED 213 CVX created date: 4 consent date: 4 Influenza, high dose seasonal cancelled Influenza, high-dose, split virus, trivalent, injectable, preservative free 135 CVX created date: 4 consent date: 4 previously received. Td (adult) completed tetanus and diphtheria toxoids, not adsorbed, for adult use 138 CVX created date: 4 administe red date: 9 verified by [facility]IS. Mental Status Section Date Assessment Total Score Description 01/05/2024 BIMS 15 cognitively int act CAM 0 No delirium ind icated PHQ-9 00 01/02/2024 BIMS 15 cognitively int act CAM 0 No delirium ind icated PHQ-9 00 Insurance Providers Problems Problem # Description Date of onset Resolved Date Code CodeSystem Concern Status 1 ACUTE PULMONARY EDEMA 12/27/[address] active 2 APHASIA 12/27/[address] active 3 DISPLACED FRACTURE OF BASE OF NECK OF RIGHT FEMUR, SUBSEQUENT ENCOUNTER FOR CLOSED FRACTURE WITH ROUTINE HEALING 12/27/[address] active 4 ESSENTIAL (PRIMARY) HYPERTENSION 12/27/[address] active 5 HYPERLIPIDEMIA, UNSPECIFIED 12/27/[address] active 6 HYPOTHYROIDISM, UNSPECIFIED 12/27/[address] active 7 MOOD DISORDER DUE TO KNOWN PHYSIOLOGICAL CONDITION WITH DEPRESSIVE FEATURES 12/27/[address] active 8 MYELODYSPLASTIC SYNDROME, UNSPECIFIED 12/27/[address] active 9 URINARY TRACT INFECTION, SITE NOT SPECIFIED 12/27/[address] active Reason for Referral No Reasons for Referral Entered Social History Social History Observation Description Start Date End Date Code Code System Current Smoking Status Tobacco smoking consumption unknown [id number] SNOMED CT Sex Assigned At Female 1945 25102-6 [facility] Gender Identity Sexual Orientation Vital Signs Code Code System Vitals Name Values and Units Timing Information 8462-4 [facility] Blood Pressure-Diastolic Value=67 Un its=mmHg 01/05/2024 8480-6 [facility] Blood Pressure-Systolic Xqeec=900 Un its=mmHg 01/05/2024 8310-5 [facility] Body Temperature Value=97.2 Units= F 01/05/2024 8867-4 [facility] Heart rate Value=81.0 Units=/min 37558-8 [facility] O2 % BldC Oximetry Value=95.0 Units= % 01/05/2024 66740-7 [facility] Pain Level Value=0.0 01/05/2024 9279-1 [facility] Respiratory Rate Value=18.0 Units=/m in 01/04/2024 62655-2 [facility] Weight Qapxx=888.0 Units=Lbs 02/2024 8302-2 [facility] Height Value=64.0 Units=Inches 12/28/2023
--- OUTSIDE RECORDS SUMMARY | 2025-03-03 15:47 | XMS_ITS | Encounter Summary ---
Author Organization [facility] Address [address] [place] [address] Phone Care Team Providers Care Sawmill Moulder Operator Name Role Phone Beck Hernandez MD Primary Care Provider Mary Henderson MD Primary Care Provider Reason for Referral * Physical Therapy (Routine) - Closed Specialty Diagnoses / Procedures Referred By Contazul crowe Referred To Contact Physical Therapy Diagnoses Encounter for rehabilitation Mandy Brownlee DPM [address] [place] [address] Phone: tel: fax: [facility] [address] [place] [address] Phone: tel: Referral ID Status Reason Start Date Expiration Date Visits Re quested Visits Authorized [id number] Closed 10/11/2019 04/23/2020 99 99 Encounter Details Date Type Department Care Team (Late st Contact Info) Description 10/11/2019 Transcribe Orders [facility] Rehabilitation Services [address] [place] [address] Mandy Brownlee DPM [address] [place] [address] Encounter for rehabilitation (Primary Dx) Social History [...] Description 06/02/2025 8:30 AM EST Office Visit [facility] Neurology [address], [address] [place] [address] Eloina Brantley MD [address] [place] [address] [email or web address] documented as of this encounter Procedures Procedure Name Priority Date/Time Associated Diagnosis Comments AMB REFERRAL TO [facility] PHYSICAL THERAPY Routine 10/22/2019 6:42 AM EDT Encounter for rehabilitation documented in this encounter Results * Ambulatory referral to [facility] Physical Therapy (10/22/2019 6:42 AM EDT) Mandy DURHAMM AMB [facility] REFERRALS Final Re sult documented in this encounter Visit Diagnoses Diagnosis Encounter for rehabilitation- Primary documented in this encounter Care Teams Sawmill Moulder Operator Relationship Specialty Start Date End Date Beck Hernandez MD PCP - General 10/15/19 02/19/24 Mary Henderson MD [address] [facility] [place] [address] PCP - General Internal Medicine 02/20/24 documented as of this encounter Additional Source Comments The information contained in this document represents components of the legal health record. It is not the complete legal health record.[facility]
== END 2025-03-03 13:59 | disposition home or self-care (01) ==
LOC: HO.ENCR 13:37
PROVIDERS: PCP Internal Medicine; Visit Provider Internal Medicine Endocrinology, Diabetes & Metabolism
DX: M81.0 Age-related osteoporosis without current pathological fracture (principal)
CPT/HCPCS: 99213

== ENCOUNTER → 2025-03-03 13:36 | Outpatient (BNVA) | payer MEDICARE, OTHER, SELFPAY | PROVIDERS: PCP Internal Medicine; Visit Provider Internal Medicine Endocrinology, Diabetes & Metabolism | DX: M81.0 Age-related osteoporosis without current pathological fracture (principal); D46.9 Myelodysplastic syndrome, unspecified | CPT/HCPCS: 96372; 99212; J0897 ==

== ENCOUNTER 2025-03-19 11:04 | Outpatient (AMB) | payer MEDICARE, OTHER, SELFPAY ==
[2025-03-19 11:20] VITALS: BP 120/66; PULSE 73; TEMP 36.5; O2SAT 97; BMI 23.9
--- NOTE | 2025-03-19 11:20 | MHC.OFFWIV ---
Intake Vital Signs 03/19/25 11:20 Height 5 ft 3 in Weight 135 lb BMI 23.9 BP 120/66 Blood Pressure Location Rt brachial Position Sitting Pulse 73 Pulse Source Pulse Oximeter Temp 97.7 F Temp Source Oral Pulse Oximetry (%) 97 Oxygen Delivery Method Room Air Intake Visit Reasons: EP Bilat knee weakness Intake Note: pt presents with fabrizio knee weakness and pain, reports h/o RT hip fx 2 yrs ago Patient Tobacco Use Status: Never used Tobacco Allergies cortisone Allergy (Intermediate, Verified 03/19/25 11:22) Rash Cephalosporins Allergy (Mild, Verified 03/19/25 11:22) JAUNDICE KETOLIDES Allergy (Unknown, Uncoded 03/03/25 13:42) ITCHING MACORLIDES Allergy (Unknown, Uncoded 03/03/25 13:42) ITCHING Do you need a note to return to daycare/school/sports/work: No HPI HPI Comments History of Present Illness Details Patient is a 79yo F with hx of expressive aphasia, R hip fx, who presents to office with severe arthritis in bilateral knees She said she has fallen in the past due to her arthritis but no recent falls Pt presents today because she had an appointment with Dr. Henderson today but was late coming in and decided to be seen in instead She was seeing Beatriz for her bilateral knee pain and R hand arthritis as well No orthopedic for arthritis Most recent R hand xray was July and showed severe osteoartheitis She takes Tylenol 650mg prn for her pain. Has tried Volteran gel for R hand with initial good effect but not as much anymore Pain level sitting is 0/10 but with ambulation is 7/10 Always uses cane to ambulate Both knees and R hand effected No hip complaint No CP or SOB Knees sometimes give out on her but no new weakness from baseline [facility] Medical History (Updated 03/19/25 @ 11:44 by Evon Smith PA-C) Depression with anxiety Closed hip fracture History of adenomatous polyp of colon Expressive aphasia Essential hypertension Dyslipidemia Acquired hypothyroidism Intertrochanteric fracture of right hip Dysphagia Essential hypertension Osteoporosis GERD (gastroesophageal reflux disease) Aphasia High cholesterol High blood pressure Anemia Dyspnea on exertion T11 vertebral fracture Hypothyroidism Surgical History History of right hip replacement History of bone marrow biopsy History of excision of mass History of cholecystectomy History of tonsillectomy History of vertebroplasty History of kyphoplasty Family History Father Esophageal cancer Substance use disorder Mother Breast cancer Paternal Aunt Breast cancer Social History Household Members: [facility] Are you a primary intensive care ambulance paramedic to a significant other at home: No Do you presently have visiting nurse or other home services: No Alcohol intake: current Alcohol intake frequency: holidays/special occasions only Patient Tobacco Use Status: Never used Tobacco e-Cigarette/Vaping Use: Never Used Second Hand Smoke Exposure: No Advance Directives Date on File: 10/17/22 service: No Current occupational status: 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 Speaking full sentences. Skin: Warm dry throughout. + large knobs notes to PIP joints R hand. No erythema or warmth to digits. Legs equal in size and shape bilaterally. No knee joint edema/effusion noted. Eye: EOMI Respiratory: CTA bilaterally. No wheezes, rales or rhonchi Cardiac: RRR. No murmur. No calf tenderness bilaterally. MSK: Decreased order takers supervisor ROM of R hand due to edema when compared to L. + full ROM flexion/extension bilateral knees. 5/5 strength flextion/extension at knees and dorsal/plantar flexion great toe. Gait stable with cane. Neurology: Alert. No aphasia or facial droop. Psych: Good mood and affect Vital Signs: Last Vital Signs Temp 97.7 F 03/19/25 11:20 Pulse 73 03/19/25 11:20 BP 120/66 03/19/25 11:20 Pulse Ox 97 03/19/25 11:20 Oxygen Delivery Method Room Air 03/19/25 11:20 BMI result Body Mass Index 23.9 Const General: No confusion Orientation/consciousness: No confusion Neuro General: No confusion Assessment & Plan Assessment & Plan (1) Osteoarthritis: Code(s): M19.90 - Unspecified osteoarthritis, unspecified site Qualifiers: Osteoarthritis location: hand Osteoarthritis type: primary Laterality: right Qualified Code(s): M19.041 - Primary osteoarthritis, right hand Plan: Patient seen and evaluated. Ortho referral given She is no longer on celebrex; this was only after her hip fx She denies bleeding or use of blood thinners I viewed renal labs and they demonstrated no acute abnormality Short course naproxen ordered Recommend following up with PCP and ortho and calling us if she has questions Patient gave verbal understanding and had no additional questions or concerns at time of discharge All questions answered (2) Knee pain, bilateral: Code(s): M25.561 - Pain in right knee; M25.562 - Pain in left knee Qualifiers: Chronicity: chronic Qualified Code(s): M25.561 - Pain in right knee; M25.562 - Pain in left knee; G89.29 - Other chronic pain Plan: No new trauma or injury to lower extreities. 5/5 strength with lower extremity testing and no specific joint ttp of knees bilaterally; no imaging warranted at this time See above Orders: Referrals Orthopedics Referral M19.041 - Primary osteoarthritis, right hand Medications: New naproxen 250 mg PO BID PRN 12 tabs 0RF pain Coding Level of Care Code Est Pt Level 3 (54026) Diagnoses Primary osteoarthritis of right hand M19.041 Osteoarthritis location: hand Osteoarthritis type: primary Laterality: right Chronic pain of both knees M25.561; M25.562; G89.29 Chronicity: chronic
--- OUTSIDE RECORDS SUMMARY | 2025-03-19 13:43 | XMS_ITS | Encounter Summary ---
Author Organization [facility] Address [address] [place] [address] Phone Care Team Providers Care Shactor Helper Name Role Phone Beck Hernandez MD Primary Care Provider Mary Henderson MD Primary Care Provider Reason for Referral * Physical Therapy (Routine) - Closed Specialty Diagnoses / Procedures Referred By Contazul crowe Referred To Contact Physical Therapy Diagnoses Encounter for rehabilitation Mandy Brownlee DPM [address] [place] [address] Phone: tel: fax: [facility] [address] [place] [address] Phone: tel: Referral ID Status Reason Start Date Expiration Date Visits Re quested Visits Authorized [id number] Closed 10/11/2019 04/23/2020 99 99 Encounter Details Date Type Department Care Team (Late st Contact Info) Description 10/11/2019 Transcribe Orders [facility] Rehabilitation Services [address] [place] [address] Mandy Brownlee DPM [address] [place] [address] Encounter for rehabilitation (Primary Dx) Social History [...] Description 06/02/2025 8:30 AM EST Office Visit [facility] Neurology [address], [address] [place] [address] Eloina Brantley MD [address] [place] [address] [email or web address] documented as of this encounter Procedures Procedure Name Priority Date/Time Associated Diagnosis Comments AMB REFERRAL TO [facility] PHYSICAL THERAPY Routine 10/22/2019 6:42 AM EDT Encounter for rehabilitation documented in this encounter Results * Ambulatory referral to [facility] Physical Therapy (10/22/2019 6:42 AM EDT) Mandy DURHAMM AMB [facility] REFERRALS Final Re sult documented in this encounter Visit Diagnoses Diagnosis Encounter for rehabilitation- Primary documented in this encounter Care Teams Shactor Helper Relationship Specialty Start Date End Date Beck Hernandez MD PCP - General 10/15/19 02/19/24 Mary Henderson MD [address] [facility] [place] [address] PCP - General Internal Medicine 02/20/24 documented as of this encounter Additional Source Comments The information contained in this document represents components of the legal health record. It is not the complete legal health record.[facility]
--- OUTSIDE RECORDS SUMMARY | 2025-03-19 13:43 | XMS_ITS | Encounter Summary ---
Author Organization [facility] Address [address] [place] [address] Phone Care Team Providers Care Seed Corn Manager Production Name Role Phone Beck Hernandez MD Primary Care Provider Mary Henderson MD Primary Care Provider Encounter Details Date Type Department Care Team (Late st Contact Info) Description 02/14/2024 Procedure Pass MRI, [facility] Imaging - [address], [address] [place] [address] Social History Tobacco Use Types [...] Description 06/02/2025 8:30 AM EST Office Visit [facility] Neurology [address], [address] [place] [address] Eloina Brantley MD [address] [place] [address] [email or web address] documented as of this encounter Visit Diagnoses Not on filedocumented in this encounter Care Teams Seed Corn Manager Production Relationship Specialty Start Date End Date Beck Hernandez MD PCP - General 10/15/19 02/19/24 Mary Henderson MD [address] [facility] [address] PCP - General Internal Medicine 02/20/24 documented as of this encounter Additional Source Comments The information contained in this document represents components of the legal health record. It is not the complete legal health record.[facility]
--- OUTSIDE RECORDS SUMMARY | 2025-03-19 13:43 | XMS_ITS | Encounter Summary ---
Author Organization [facility] Address [address] [place] [address] Phone Care Team Providers Care Cruise Consultant Name Role Phone Beck Hernandez MD Primary Care Provider Mary Henderson MD Primary Care Provider Encounter Details Date Type Department Care Team (Late st Contact Info) Description 02/14/2024 Procedure Pass MRI, [facility] Imaging - [address], [address] [place] [address] Social History Tobacco Use Types [...] 06/02/2025 8:30 AM EST Office Visit [facility] Neurology [address], [address] [place] [address] Eloina Brantley MD [address] [place] [address] [email or web address] documented as of this encounter Visit Diagnoses Not on filedocumented in this encounter Care Teams Cruise Consultant Relationship Specialty Start Date End Date Beck Hernandez MD PCP - General 10/15/19 02/19/24 Mary Henderson MD [address] [place] [address] PCP - General Internal Medicine 02/20/24 documented as of this encounter Additional Source Comments The information contained in this document represents components of the legal health record. It is not the complete legal health record.[facility]
== END 2025-03-19 12:12 | disposition home or self-care (01) ==
PROVIDERS: PCP Internal Medicine; Visit Provider Physician Assistant
DX: M19.041 Primary osteoarthritis, right hand (principal); M25.561 Pain in right knee; M25.562 Pain in left knee; G89.29 Other chronic pain

== ENCOUNTER → 2025-03-19 11:04 | Outpatient (BNVA) | payer MEDICARE, OTHER, SELFPAY | PROVIDERS: PCP Internal Medicine; Visit Provider Physician Assistant | DX: M19.041 Primary osteoarthritis, right hand (principal); M25.561 Pain in right knee; M25.562 Pain in left knee; G89.29 Other chronic pain | CPT/HCPCS: 99212 ==

== ENCOUNTER 2025-04-03 13:13 | Outpatient (REF) | payer MEDICARE, OTHER, SELFPAY ==
--- NOTE | 2025-04-03 13:21 | EMG_ITS ---
Chief complaint: Dropping things from right hand. Right hand shows MCP joint enlargement and ulnar deviation. Reason for referral: Evaluate for Carpal Tunnel Syndrome Referred by: Robbi MG Procedure done: Right upper extremity NCS/EMG Precautions and/or limitations: None The limb temperature was monitored continuously and remained between 32-36 degrees C during the performance of the NCS. Nerve Conduction Studies Anti Sensory Summary Table ?Stim Site NR Onset (ms) Norm Onset (ms) Peak (ms) Norm Peak (ms) O-P Amp (?V) Norm O-P Amp Site1 Site2 Delta-0 (ms) Dist (cm) Camilo (m/s) Norm Camilo (m/s) Right Median Anti Sensory (2nd Digit) Wrist ? 2.5 3.5 <3.6 18.0 >10 Wrist 2nd Digit 2.5 14.0 56 Right Radial Anti Sensory (Thumb) Forearm ? 1.8 2.2 <3.1 9.2 Forearm Thumb 1.8 0.0 Right Ulnar Anti Sensory (5th Digit) Wrist ? 2.1 3.3 <3.7 15.4 >15.0 Wrist 5th Digit 2.1 14.0 67 Motor Summary Table ?Stim Site NR Onset (ms) Norm Onset (ms) O-P Amp (mV) Norm O-P Amp iAmp (mV) Amp (1st) (%) Site1 Site2 Delta-0 (ms) Dist (cm) Camilo (m/s) Norm Camilo (m/s) Right Median Motor (Abd Poll Brev) Wrist ? 3.7 <3.9 7.5 >4.5 8.8 100.0 Elbow Wrist 3.5 19.0 54 >45 Elbow ? 7.2 7.3 8.6 97.3 Right Ulnar Motor (Abd Dig Minimi) Wrist ? 3.0 <3.0 7.0 >5 9.0 100.0 B Elbow Wrist 3.2 16.0 50 >45 B Elbow ? 6.2 4.0 5.4 57.1 A Elbow B Elbow 1.8 10.0 56 >45 A Elbow ? 8.0 3.9 5.3 55.7 EMG ?Side Muscle Nerve Root Ins Act Fibs Psw Amp Dur Poly Recrt Int Pat Comment Right 1stDorInt Ulnar C8-T1 Nml Nml Nml Nml Nml 0 Nml Complete Right FlexCarRad Median C6-7 Nml Nml Nml Nml Nml 0 Nml Complete Right Biceps Musculocut C5-6 Nml Nml Nml Nml Nml 0 Nml Complete Right Triceps Radial C6-7-8 Nml Nml Nml Nml Nml 0 Nml Complete Right Deltoid Axillary C5-6 Nml Nml Nml Nml Nml 0 Nml Complete FINDINGS: All motor and sensory nerves tested showed normal latencies, amplitudes and conduction velocities. Concentric needle EMG was performed in selected muscles of the right upper extremity. Study did not reveal signs of electric abnormalities as shown in the table above. IMPRESSION: 1. This is a normal study. 2. There is no electrodiagnostic evidence for median neuropathy, ulnar neuropathy, brachial plexopathy, or cervical radiculopathy. Thank you for your kind referral. Seema Miguel MD, AZUL Board Certified, [place] Board of Physical Medicine and Rehabilitation (ABPMR) Board Certified, [place] Board of Electrodiagnostic Medicine (ABEM) CODIN 51385 x 1 extremity MTDD
--- OUTSIDE RECORDS SUMMARY | 2025-04-03 20:30 | XMS_ITS | Encounter Summary ---
Author Organization [facility] Address [address] [place] [address] Phone Care Team Providers Care Contract Forester Name Role Phone Beck Hernandez MD Primary Care Provider Mary Henderson MD Primary Care Provider Reason for Referral * Physical Therapy (Routine) - Closed Specialty Diagnoses / Procedures Referred By Contazul crowe Referred To Contact Physical Therapy Diagnoses Encounter for rehabilitation Mandy Brownlee DPM [address] [place] [address] Phone: tel: fax: [facility] [address] [place] [address] Phone: tel: Referral ID Status Reason Start Date Expiration Date Visits Re quested Visits Authorized [id number] Closed 10/11/2019 04/23/2020 99 99 Encounter Details Date Type Department Care Team (Late st Contact Info) Description 10/11/2019 Transcribe Orders [facility] Rehabilitation Services [address] [place] [address] Mandy Brownlee DPM [address] [place] [address] Encounter for rehabilitation (Primary Dx) Social History [...] 06/02/2025 8:30 AM EST Office Visit [facility] Neurology [address], [address] [place] [address] Eloina Brantley MD [address] [place] [phone] [email or web address] documented as of this encounter Procedures Procedure Name Priority Date/Time Associated Diagnosis Comments AMB REFERRAL TO [facility] PHYSICAL THERAPY Routine 10/22/2019 6:42 AM EDT Encounter for rehabilitation documented in this encounter Results * Ambulatory referral to [facility] Physical Therapy (10/22/2019 6:42 AM EDT) Mandy DURHAMM AMB [facility] REFERRALS Final Re sult documented in this encounter Visit Diagnoses Diagnosis Encounter for rehabilitation- Primary documented in this encounter Care Teams Contract Forester Relationship Specialty Start Date End Date Beck Hernandez MD PCP - General 10/15/19 02/19/24 Mary Henderson MD [address] [place] [address] PCP - General Internal Medicine 02/20/24 documented as of this encounter Additional Source Comments The information contained in this document represents components of the legal health record. It is not the complete legal health record.[facility]
--- OUTSIDE RECORDS SUMMARY | 2025-04-03 20:30 | XMS_ITS | Encounter Summary ---
Author Organization [facility] Address [address] [place] [address] Phone Care Team Providers Care Senior Mechanical Development Engineer Name Role Phone Beck Hernandez MD Primary Care Provider Mary Henderson MD Primary Care Provider Encounter Details Date Type Department Care Team (Late st Contact Info) Description 02/14/2024 Procedure Pass MRI, [facility] - [address], [address] [place] [address] Social History Tobacco Use Types [...] Description 06/02/2025 8:30 AM EST Office Visit [facility] Neurology [address], [address] [place] [address] Eloina Brantley MD [address] [place] [address] [email or web address] documented as of this encounter Visit Diagnoses Not on filedocumented in this encounter Care Teams Senior Mechanical Development Engineer Relationship Specialty Start Date End Date Beck Hernandez MD PCP - General 10/15/19 02/19/24 Mary Henderson MD [address] [facility] [place] [address] PCP - General Internal Medicine 02/20/24 documented as of this encounter Additional Source Comments The information contained in this document represents components of the legal health record. It is not the complete legal health record.[facility]
--- OUTSIDE RECORDS SUMMARY | 2025-04-03 20:30 | XMS_ITS | Encounter Summary ---
Author Organization [facility] Address [address] [place] [address] Phone Care Team Providers Care Pain Management Nurse Practitioner Name Role Phone Beck Hernandez MD Primary Care Provider Mary Henderson MD Primary Care Provider Encounter Details Date Type Department Care Team (Late st Contact Info) Description 02/14/2024 Procedure Pass MRI, [facility] - [address], [address] [place] [address] Social History Tobacco Use Types [...] Description 06/02/2025 8:30 AM EST Office Visit [facility] Neurology [address], [address] [place] [address] Eloina Brantley MD [address] [place] [address] [email or web address] documented as of this encounter Visit Diagnoses Not on filedocumented in this encounter Care Teams Pain Management Nurse Practitioner Relationship Specialty Start Date End Date Beck Hernandez MD PCP - General 10/15/19 02/19/24 Mary Henderson MD [address] [facility] [place] [address] PCP - General Internal Medicine 02/20/24 documented as of this encounter Additional Source Comments The information contained in this document represents components of the legal health record. It is not the complete legal health record.[facility]
--- OUTSIDE RECORDS SUMMARY | 2025-04-03 20:30 | XMS_ITS | Patient Health Record ---
Author Organization [facility] Address [address] [facility] [address] [place] [address] Care Team Providers Care Chemical Production Machine Operator Name Role Phone Caesar Oliver M.D. Primary Care Provider Saumya Aldana DO RAPHAELTOI, Sushil Unavailable [phone] Allergies Allergen (clinical drug ingredient) Drug/Non Drug Allergy documented on EMR Reaction Allergy Type Onset Date Status Medicinal cephalosporin and acting as antibacterial agent (FN) Cephalosporins Unknown Drug Allergy Active Reason For Referral No Information Medications Medication SIG (Take, Route, Frequency, Duration) Notes Start Date End Date Status Omeprazole 20 MG 1 capsule 30 minutes before morning meal Orally Once a day; Duration: 30 day(s) Active Losartan Potassium 50 MG 1 tablet Orally Once a day; Duration: 30 day(s) Active Atenolol 50 MG 1 tablet Orally Once a day; Duration: 30 day(s) Active Levothyroxine Sodium 150 MCG 1 tablet in the morning on an empty stomach Orally Once a day; Duration: 30 day(s) Active Aspirin 81 MG 1 tablet Orally Once a day; Duration: 30 day(s) Active Chlorthalidone 25 MG 1/2 tablet in the m orning with food Orally Once a day Active Sertraline HCl 100 MG 1 tablet Orally On ce a day; Duration: 30 day(s) Active Simvastatin 20 MG 1 tablet in the even ing Orally Once a day; Duration: 30 day(s) Active Prolia 60 MG/ML one Subcutaneous fabiana ry 6 months; Duration: 180 days Active Social History Tobacco Use: Social History Observation Description Date Details (start date - stop date) Never Smoker NA - NA Sex Assigned At : Social History Observation Description Sex Assigned At Female Tobacco Use/Smoking Question Answer Notes Are you a nonsmoker Alcohol Screen (Audit-C) Question Answer Notes Did you have a drink contain ing alcohol in the past year? Yes How often did you have a dri nk containing alcohol in the past year? 2 to 4 times a month (2 points) How many drinks did you have on a typical day when you were drinking in the past year? 1 or 2 drinks (0 point) How often did you have 6 or more drinks on one occasion in the past year? Never (0 point) Points 2 Interpretation Negative Problems Problem Type SNOMED Code ICD Code Onset Dates Problem Status W/U Status Risk Notes Problem Vitamin D deficiency (05836235) Vitamin D deficiency, unspecified (E55.9) Active confirmed Problem Age-related osteoporosis (246472186) Age-related osteoporosis without current pathological fracture (M81.0) Active confirmed Problem Primary generalised osteoarthritis (651402331) Primary generalized (osteo)arthritis (M15.0) Active confirmed Plan Of Treatment Future Test Test Name Order Date VITAMIN D,25-OH,TOTAL,IA 06/07/2021 COMPREHENSIVE METABOLIC PANEL 07/26/2021 VITAMIN D,25-OH,TOTAL,IA 07/26/2021 CMP 02/15/2022 Vitamin D25 [place] Level 02/15/2022 Insurance Providers Payer Name Payer Address Payer Phone Subscriber Number Group Number Insured Name Patient Relationship to Insured Coverage Start Date Coverage End Date MEDICARE PART B [facility] [address] [place] [address] [id number] Kinza Blair Self - patient is the insured [facility] and [facility] [address] [place] [address] [id number] Kinza Blair Self - patient is the insured Medical (General) History Medical History History ICD Code HTN Hyperthyroidism Depression Surgical History Surgery Date(Month/Year) Tubal ligation 1974 Cholecystectomy 1974 Laryngoscopy 2004 L cataract 2007 R cataract 2017 R ring finger knuckle replacement 2014 Vaginal sling 2018
--- OUTSIDE RECORDS SUMMARY | 2025-04-03 20:31 | XMS_ITS | Clinical Summary ---
Author Organization [facility] Address [address] [place] [address] Phone Care Team Providers Care Emergency Medical Tech Name Role Phone Mary Henderson MD Primary [...] Description 01/13/2025 2:00 PM EDT Office Visit [facility] [address] [place] [address] Mary Henderson, Karyn Salas, [facility]-DIRECTOR OF ADVERTISING SALES Dysarthria (Primary Dx) 01/06/2025 10:30 AM EDT Office Visit [facility] [address] [place] [address] Mary Henderson, Karyn Salas, [facility]-DIRECTOR OF ADVERTISING SALES Dysarthria (Primary Dx) from Last 3 Months [...] Description 06/02/2025 8:30 AM EST Office Visit [facility] Neurology [address], [address] [place] [address] Eloina Brantley MD [address] [place] [address] [email or web address] Health Maintenance Due Date Last Done Comments LIPID PANEL 1947 TSH LEVEL 1947 DEPRESSION SCREENING 1959 SMOKING Hx and SMOKELESS TOBACCO SCREENING 1960 HEPATITIS C SCREENING 1965 ZOSTER VACCINES (1 of 2) 1997 OSTEOPOROSIS SCREENING INITIAL (ONE-TIME) 2012 RSV VACCINE (1 - 1-dose 75+ series) 2022 INFLUENZA VACCINE (#1) 2024 4, 02/24/2021, 02/25/2020, Additional history exists COVID-19 VACCINE ( - 2024- season) 2024 02/07/2022, 11/14/2021, 02/24/2021 CREATININE LEVEL [...] EDT) SODIUM 138 133 - 146 mmol/L [facility] POTASSIUM 4.0 3.3 - 5.1 mmol/L [facility] CHLORIDE 102 96 - 108 mmol/L [facility] CO2 26 21 - 35 mmol/L [facility] BUN 15 6 - 19 mg/dL [facility] CREATININE 0.80 0.5 - 1.5 mg/dL [facility] GLUCOSE 100(H) 70 - 99 mg/dL [facility] ALBUMIN 3.6(L) 3.9 - 4.8 g/dL [facility] TOTAL PROTEIN 6.9 6.5 - 8.0 g/dL [facility] CALCIUM 9.0 8.4 - 10.3 mg/dL [facility] ALKALINE PHOSPHATASE 128(H) 39 - 117 U/L [facility] TOTAL BILIRUBIN 0.6 0.0 - 1.2 mg/dL [facility] AST 31 0 - 37 U/L [facility] ALT 19 0 - 40 U/L [facility] GLOBULIN 3.3 1 - 4.8 g/dL [facility] EGFR 76 >59 mL/min/1.7 3m2 [facility] Comment:Estimated glomerular filtration rate calculated using the CKD-EPI refit equation. ANION GAP 14 10 - 20 mmol/L [facility] Blood 01/01/2024 6:06 AM EDT 01/01/2024 9:31 AM EDT Kia Kevin MD LAB BLOOD BKR ORDERABLES Final Result [facility] [address] [place] [address] from Last 3 Months or Most Recently Relevant to Health Maintenance Insurance MEDICARE PART A & B [employer] [place] [address] MEDICARE PART A & B [employer] SU[employer]MENT [place] [address] MEDICARE PART A & B [employer] SU[employer]MENT [place] [address] MEDICARE PART A & B [employer] SU[employer]MENT [place] [address] MEDIC[place] PART A & [place] [id number] [employer] SUPPLEMENT [place] [address] MEDICARE PART A & B [facility] MEDEX SUPPLEMENT MEDICARE PART A & B [employer] [place] [employer] SUPPLEMENT [place] [address] MEDICARE PART A & B [employer] SUPPLEMENT [place] [address] [place] [address] MEDICARE PART A & B [employer] SUPPLEMENT [address] [place], [place] [address] [address] Care Teams Emergency Medical Tech Relationship Specialty Start Date End Date Mary Henderson MD [facility] [place] [address] PCP - General Internal Medicine 02/20/24 Additional Source Comments The information contained in this document represents components of the legal health record. It is not the complete legal health record.[facility]
--- OUTSIDE RECORDS SUMMARY | 2025-04-03 20:31 | XMS_ITS | Patient Health Record ---
Author Organization [facility] Address [address] [place] [address] Care Team Providers Care Family Services Coordinator Name Role Phone Beck Hernandez Primary Care Provider Zach Ho Unavailable [phone] Allergies Allergen (clinical drug ingredient) Drug/Non Drug Allergy documented on EMR Reaction Allergy Type Onset Date Status Medicinal cephalosporin and acting as antibacterial agent (FN) cephalosporins (uncoded) Unknown Allergy Active Reason For Referral No Information Medications Medication SIG (Take, Route, Frequency, Duration) Notes Start Date End Date Status oxyBUTYnin Chloride ER 10 MG Tablet Extended Release 24 Hour 1 tablet Orally Once a day Active Chlorthalidone 25 MG Tablet 1 tablet in the morning Orally Once a day Active Aspir-81 81 MG Tablet Delayed Release 1 tablet Orally Once a day Active Simvastatin 20 MG Tablet 1 tablet in the evening Orally Once a day Active Sertraline HCl 100 MG Tablet 1 tablet Orally Once a day Active Omeprazole 20 MG Tablet Delayed Release 1 tablet Orally Once a day Active Losartan Potassium-HCTZ 50-12.5 MG Tablet 1 tablet Orally Once a day; Duration: 30 day(s) Active Levothyroxine Sodium 150 MCG Tablet 1 tablet in the morning on an empty stomach Orally Once a day Active Atenolol 50 MG Tablet 1 tablet Orally On ce a day Active Lisinopril 10 MG Tablet 1 tablet Orally Once a day Active Prolia 60 MG/ML Solution Prefilled Syringe as directed Subcutaneous Active Vitamin D-3 25 MCG (1000 UT) Capsule 1 capsule Orally Once a day; Duration: 30 day(s) Active Vitamin B 12 100 MCG Lozenge as directed Orally Active Immunizations Vaccine Route Administration Date Status Comme nts Flu vaccine no Preserv 3 and > Unknown 02/03/2015 Admin istered Influenza Unknown 01/11/2022 Administered Social History Social History Additional Details Category Social Info Options Details Miscellaneous: Marital status: 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 Section Notes: Nonsmoker; rare alcohol use Nonsmoker; rare alcohol use Nonsmoker; rare alcohol use Nonsmoker; rare alcohol use Problems Problem Type SNOMED Code ICD Code Onset Dates Problem Status W/U Status Risk Notes Problem Screening for malignant neoplasm of colon (548435161) Encounter for screening for malignant neoplasm of colon (Z12.11) Active confirmed Problem History of adenomatous polyp of colon (490110692) History of adenomatous polyp of colon (Z86.010) Active confirmed Problem Change in bowel habit (62041440) Change in bowel habits (R19.4) Active confirmed Problem Hypertension (73398639) Hypertension (I10) Active confirmed Problem Diverticular disease of colon (643152211) Diverticulosis of large intestine without perforation or abscess without bleeding (K57.30) Active confirmed Problem Blood in stool (707478378) Blood in stool (K92.1) Active confirmed Problem Gastroesophageal reflux disease without esophagitis (571063934) Gastroesophageal reflux disease without esophagitis (K21.9) Active confirmed Problem Fecal urgency (73946786) Rectal urgency (R15.2) Active confirmed Problem Long-term current use of antiplatelet drug (171434453006548) Long-term use of aspirin therapy (Z79.82) Active confirmed Problem Abnormal feces (826287617) Loose bowel movements (R19.5) Active confirmed Plan Of Treatment Future Test Test Name Order Date COLONOSCOPY 09/06/2011 COLONOSCOPY 01/19/2017 COLONOSCOPY 01/17/2023 Insurance Providers Payer Name Payer Address Payer Phone Subscriber Number Group Number Insured Name Patient Relationship to Insured Coverage Start Date Coverage End Date MEDICARE OF [place] [address] [facility] [place] [address] [id number] CLAU ORTEZ Self - patient is the insured [employer] CLAIM[employer] [address] [place] [address] [id number] CLAU ORTEZ Self - patient is the insured [employer] [address] [place] [id number] CLAU ORTEZ Self - patient is the insured Medical (General) History Medical History History ICD Code Tubular adenoma was removed in 2005 during colonoscopy--a colonoscopy in 2001 was negative Colonoscopy 09/22/2011--nega tive except for some diverticulosis and internal hemorrhoids GERD-upper endoscopy in 2001 was negative for any esophagitis or Pollock's esophagus Hypertension Depression Hyperlipidemia Denies NV,DM,CVA,Lung disease,renal dise ase Sleep apnea-uses a CPAP [...]
--- OUTSIDE RECORDS SUMMARY | 2025-04-03 20:31 | XMS_ITS | Patient Health Record ---
Author Organization [facility] Address [address] [facility] [place] [address] Care Team Providers Care Manager Ct Name Role Phone Beck Hernandez MD Primary Care Provider Mandy Ingram Unavailable [phone] Allergies Allergen (clinical drug ingredient) Drug/Non Drug Allergy documented on EMR Reaction Allergy Type Onset Date Status Medicinal cephalosporin and acting as antibacterial agent (FN) Cephalosporins (uncoded) jaundice Allergy Active Reason For Referral No Information Medications Medication SIG (Take, Route, Frequency, Duration) Notes Start Date End Date Status Losartan Potassium 50 MG Oral; Duration: 90 Active Aspirin 81 MG 1 tablet Orally Once a day; Duration: 30 day(s) Active Omeprazole 20 MG Oral; Duration: 90 Active Simvastatin 20 MG Oral; Duration: 90 Active Sertraline HCl 100 MG Oral; Duration: 90 Active Atenolol 50 MG Oral; Duration: 90 Active Chlorthalidone 25 MG Oral; Duration: 90 Active Levothyroxine Sodium 112 MCG Oral; Duration: 90 Active Physical Therapy . . . 2-3x/week; Duration: 3-4 weeks 10/08/2019 Active oxyBUTYnin Chloride ER 10 MG Oral; Duration: 90 Not-Takin g Social History Tobacco Use: Social History Observation Description Date Details (start date - stop date) Never Smoker NA - NA Tobacco Use/Smoking Question Answer Notes Are you a: nonsmoker Additional Findings: Tobacco Non-User Current no n-smoker Alcohol Screen Question Answer Notes Did you have a drink containing alcohol in the p ast year? Yes Points 0 Interpretation Negative Tobacco use other than smoking: Question Answer Notes Are you an other tobacco user? No Problems Problem Type SNOMED Code ICD Code Onset Dates Problem Status W/U Status Risk Notes Problem Gait abnormality (55731422) Gait abnormality (R26.9) Active confirmed Plan Of Treatment Pending Test Test Name Order Date X ray : Foot, left 3V 09/14/2018 X ray : Foot, right 3V 10/19/2018 X ray : Foot, right 3V 10/08/2019 X ray : Foot, right 3V 09/14/2018 Insurance Providers Payer Name Payer Address Payer Phone Subscriber Number Group Number Insured Name Patient Relationship to Insured Coverage Start Date Coverage End Date Medicare National Govt Sv[employer] [address] [place] [address] [id number] Dmitriyrajiv Kinza Self - patient is the insured [employer] [address] [place] [address] [phone] [id number] Kinza Blair Self - patient is the insured Medical (General) History Medical History History ICD Code Arthritis Back,Hip,and Knee pain Cataracts Depression Gall bladder problems Headaches/Migraines High blood pressure Reflux ( GERD) thyroid Joint implants/screws Surgical History Surgery Date(Month/Year) finger surgery knuckle replacement Hernia Repair 2007 gall bladder 1976 cataract surgery Ihsan 2017 Laryngoscopy 2003 Esophage 2002 Hysteroscopy 1996 Hospitalization History Reason Date(Month/Year) [facility]- heard hip pop an d had some pain in back - rubshired disk in spine- numbness in right big toe 07/08/2019
== END 2025-04-03 13:14 | disposition home or self-care (01) ==
LOC: HO.NEURO 13:13
PROVIDERS: PCP Internal Medicine
DX: R20.2 Paresthesia of skin (principal); R20.0 Anesthesia of skin
CPT/HCPCS: 95886; 95909

== ENCOUNTER → 2025-04-03 13:21 | Outpatient (BNV) | payer MEDICARE, OTHER, SELFPAY | PROVIDERS: PCP Internal Medicine; Visit Provider Physical Medicine & Rehabilitation | DX: R20.0 Anesthesia of skin (principal) | CPT/HCPCS: 95886; 95909 ==

== ENCOUNTER 2025-04-09 13:07 | Outpatient (AMB) | payer MEDICARE, OTHER, SELFPAY ==
[2025-04-09 13:13] VITALS: BP 148/60; PULSE 76; RESP 16; TEMP 36.4; O2SAT 95; BMI 24.4
--- NOTE | 2025-04-09 13:13 | A.OFFPC_ITS ---
Vital Signs 04/09/25 13:13 Height 5 ft 3 in Weight 138 lb BMI 24.4 BP 148/60 H Blood Pressure Location Rt brachial Position Sitting Respiration 16 Pulse 76 Pulse Source Pulse Oximeter Temp 97.6 F Temp Source Oral Pulse Oximetry (%) 95 Oxygen Delivery Method Room Air Intake Visit Reasons: 3 months f/up Intake Note: Pt is here today for her 3mo. f/u Card Processing Clerk Required: No Allergies cortisone Allergy (Intermediate, Verified 04/09/25 13:25) Rash Cephalosporins Allergy (Mild, Verified 04/09/25 13:25) JAUNDICE KETOLIDES Allergy (Unknown, Uncoded 04/09/25 13:25) ITCHING MACORLIDES Allergy (Unknown, Uncoded 04/09/25 13:25) ITCHING Medication List - Last Reconciled 04/09/25 by Mary Henderson MD acetaminophen (Tylenol Extra Strength) 500 mg PO Q6H PRN chlorthalidone 12.5 mg (1/2 x 25 mg) PO QAM cholecalciferol (vitamin D3) 50 mcg PO DAILY commode As directed, 999 days denosumab (Prolia) 60 mg subcut [id number] 1 day diaper,brief,adult,disposable (Depend Easy Fit Undergarments misc) 4 times a day, As directed, 30 days levothyroxine (Levoxyl) 175 mcg PO DAILY losartan 50 mg PO DAILY mecobalamin (vitamin B12) 1,000 mcg PO DAILY metoprolol succinate ER 50 mg PO DAILY miscellaneous medical supply Panty Liners, Twice a day As directed, 90 days naproxen 250 mg PO BID PRN omeprazole 20 mg PO DAILY 90 days oxybutynin chloride ER 10 mg PO DAILY 3 months sertraline 100 mg PO BID simvastatin 20 mg PO DAILY Tobacco use date assessed: 04/09/25 Fall risk assessment: 2 + Falls in past year Last assessed Fall Risk: 04/09/25 Dental Screening Dental Screen Date: 12/25/24 Did you have a dental visit in the last 12 months?: Yes Did you have a dental problem in the last 6 months where you did not have access to dental care?: No Was dental information given to patient?: Patient has dentist HPI 3 months f/up HPI Details The patient is a 79 year old female presenting today for follow-up The patient complains of bilateral knee pain, with the right knee being more bothersome, and pain in her finger joints due to arthritis. She has been taking Tylenol, which she finds effective, and naproxen, which was less helpful for her fingers. A previous topical medication, possibly diclofenac, was not effective. A knee x-ray performed one year ago revealed severe arthritis with joint space narrowing. A recent nerve conduction study was normal and ruled out carpal tunnel syndrome. The patient has a history of hypertension and is currently taking metoprolol, chlorthalidone, and losartan, which she takes in the morning. She admits to occasionally forgetting to take her blood pressure medications. Her speech has improved following completion of speech therapy. She continues to experience poor balance. She is followed by psychiatry and takes sertraline. She receives Prolia infusions from Dr. Concepcion for her osteoporosis and is followed by Dr. Vila for Macrocytic anemia, with an appointment scheduled for the of this month. [facility] Medical History Depression with anxiety Closed hip fracture History of adenomatous polyp of colon Expressive aphasia Essential hypertension Dyslipidemia Acquired hypothyroidism Intertrochanteric fracture of right hip Dysphagia Essential hypertension Osteoporosis GERD (gastroesophageal reflux disease) Aphasia High cholesterol High blood pressure Anemia Dyspnea on exertion T11 vertebral fracture Hypothyroidism Surgical History History of right hip replacement History of bone marrow biopsy History of excision of mass History of cholecystectomy History of tonsillectomy History of vertebroplasty History of kyphoplasty Family History Father Esophageal cancer Substance use disorder Mother Breast cancer Paternal Aunt Breast cancer Social History Household Members: Spouse Housing: Condominium Are you a primary vision care associate to a significant other at home: No Do you presently have visiting nurse or other home services: No Alcohol intake: current Alcohol intake frequency: holidays/special occasions only Patient Tobacco Use Status: Never used Tobacco e-Cigarette/Vaping Use: Never Used Second Hand Smoke Exposure: No Use of substances other than those prescribed or required for medical reasons: No Have you been hit, kicked, punched, or otherwise hurt by someone within the past year? 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 1. Little interest or pleasure in doing things: several days 2. Feeling down, depressed, or hopeless: several days 3. Trouble falling or staying asleep, or sleeping too much: not at all 4. Feeling tired or having little energy: more than half the days 5. Poor appetite or overeating: not at all 6. Feeling bad about yourself - or that you are a failure or have let yourself or your family down: several days 7. Trouble concentrating on things, such as reading the newspaper or watching television: not at all 8. Moving or speaking so slowly that other people could have noticed. Or the opposite - being so fidgety or restless that you have been moving around a lot more than usual: more than half the days 9. Thoughts that you would be better off or of hurting yourself in some way: not at all Total score: 7 Depression Screening Interpretation: Positive (Referred to Eli Casas RN for further evaluation and management) Depression Screening Follow-up: Existing condition, In treatment, Community Mental Health Worker F/U and Follow-up Visit Requested Depression Screening Done: Yes Source: Developed by Drs. Zach Mccarthy, Chayito Barnhart, Bal Díaz and colleagues, with an educational anne from [employer]. Thrive Questionnaire Date Thrive assessed: 04/09/25 SUSAN-7 AMB Questionnaire SUSAN-7 Date SUSAN - 7 assessed: 06/14/24 Source: Developed by Drs. Zach Mccarthy, Bal Prakash and colleagues, with an educational anne from [employer]. Review of Systems Const Denies fever(s), Denies frequent falls and Denies headache(s) Eyes Reports no additional complaints ENT Denies dysphagia, Denies dizziness, Denies headache(s) and Reports disequilibrium Card Denies chest pain, Denies rapid heart rate, Denies edema, Denies irregular heart rhythm and Denies dyspnea Resp Denies cough, Denies dyspnea and Denies wheezing GI Reports no additional complaints and Denies dysphagia Reports no additional complaints Musc Reports as per HPI, Reports abnormal gait, Denies numbness and Denies tingling Skin/Breast Denies breast swelling and Denies breast pain Neuro Reports abnormal gait, Denies dizziness, Denies frequent falls, Denies headache(s), Denies numbness, Denies seizure-like activity, Denies tingling, Denies tremor(s) and Reports disequilibrium Psych Reports no additional complaints Endo Reports no additional complaints Duane/Lymph Denies easy bleeding and Denies easy bruising Aller/Immun Denies wheezing Physical exam (Primary Care) Vital Signs: Last Vital Signs Temp 97.6 F 04/09/25 13:13 Pulse 76 04/09/25 13:13 Resp 16 04/09/25 13:13 BP 148/60 H 04/09/25 13:13 Pulse Ox 95 04/09/25 13:13 Oxygen Delivery Method Room Air 04/09/25 13:13 BMI result Body Mass Index 24.4 Tobacco/Smoking Status: Tobacco use Status Tobacco use date assessed 04/09/25 04/09/25 13:20 Patient Tobacco Use Status Never used Tobacco 04/09/25 13:14 e-Cigarette/Vaping Use Never Used 04/09/25 13:14 Depression Screening Interpretation: Positive (Referred to Eli Casas RN for further evaluation and management) Depression Screening Follow-up: Existing condition, In treatment, Community Mental Health Worker F/U and Follow-up Visit Requested Thrive Assessment: Date of Thrive Assessment Date Thrive assessed 04/09/25 04/09/25 13:14 Const General: alert Nutritional Appearance: average body habitus Orientation/consciousness: patient oriented x3 Limitations: ambulation with cane HENMT Ears: external ears normal, TM's normal bilaterally and EAC's normal Face and sinus: Yes face symmetric Mouth: tongue normal, oropharynx normal and moist mucous membranes Neck Neck: Yes full ROM, Yes no lymphadenopathy and Yes supple Resp Effort & Inspection: normal respiratory effort Auscultation: clear to auscultation bilaterally Cardio Rate: regular rate Rhythm: regular rhythm Heart sounds: S1 normal heart sound present GI Palpation (GI): Soft to palpation, nontender, no guarding and no masses Back/Spine/Pelvis Back: No back tenderness Skin General skin exam: no rashes or lesions noted Neuro Other: Some slurring of speech noted, improved from last visit General: patient oriented x3 Cognition (Neuro): normal cognition Motor exam (neuro): 5/5 motor strength present throughout Romberg Test: Negative Extrem General: Yes full ROM, Yes no joint enlargement and Yes no clubbing, cyanosis or edema Psych Appearance: grossly normal and well kempt Mental Status: mental status grossly normal Speech and movement: Slurred speech present Affect: normal affect Results Reviewed Results Reviewed: Name: Kinza Blair Age/Sex: 79/F : 1945 Unit#: [id number] Attend Dr: Edu Vila MD Re03/19/25 Status: REG R Location: .ONC Disch: SPEC : [id number] FANY: 03/19/25 STATUS: COMP REQ : [id number] RECD: 03/19/[address]: Edu Vila MD COMP: 03/19/25 ENTERED: 03/19/[address] [facility] [address]: Mary Henderson MD ORDERED: CBC Auto Diff Test Result Flag Reference WBC 6.7 4.8-10.8 X10*3/uL RBC 3.17 L 4.20-5.50 X10*6/uL HGB 11.0 L 12.0-16.0 g/dl HCT 33.4 L 37.0-47.0 % MCV 105.4 H 80.0-98.0 fL MCH 34.7 H 27.0-33.0 pg MCHC 32.9 31.0-35.0 g/dl RDW 13.0 11.0-16.0 % PLT 148 L 160-400 X10*3/uL MPV 10.2 9.4-12.3 fL Neut Pct Auto 55.7 45-73 % ImGran Pct Auto 0.1 0.0-0.4 % Lymp Pct Auto 31.5 20-40 % Pickaway Pct Auto 10.0 2-11 % Eos Pct Auto 2.1 0-4 % Baso Pct Auto 0.6 0-2 % NRBC Pct Auto 0.0 0.0-0.2 /100WBC ANC Neut Abs # 3.7 2.0-8.3 x10*3/uL ImGran Abs Auto 0.01 0.00-0.03 X10*3/uL Lymph Abs Auto 2.1 1.2-4.9 X10*3/uL [place] Abs Auto 0.7 0.1-1.2 X10*3/uL Eos Abs Auto 0.1 0.0-0.4 X10*3/uL Baso Abs Auto 0.0 0.0-0.2 X10*3/uL NRBC Abs Auto 0.000 0.0-0.012 X10*3/uL Name: Kinza Blair Age/Sex: 79/F : 1945 Unit#: [id number] Attend Dr: Edu Vila MD Re03/19/25 Status: REG RCR [facility] Disch: SPEC : [id number] FANY: 02/19/25 STATUS: COMP REQ : [id number] RECD: 02/19/[address]: Edu Vila MD COMP: 02/19/25 ENTERED: 02/19/[address]: Mary Henderson MD ORDERED: CMP, Ferritin/R Test Result Flag Reference Sodium 144 135-145 mmol/L Potassium 3.6 3.3-5.1 mmol/L CL 111 H 96-108 mmol/L CO2 27 22-29 mmol/L Gap 10 L 12-20 BUN 16 9-16 mg/dL Creat 0.80 0.5-1.4 mg/dL Estimated CrCl 48.7 Provided height and weight: 160.02 cm, 62 kg. eGFR (calculated from the MDRD study equation) and eCrCl (calculated from the Cockcroft-Gault equation) are based on different parameters and may not yield comparable results. If eCrCl result is absurd, please check patient's height/weight. eGFR > 60 Chronic Kidney Disease: Estimated GFR < 60 mL/min/1.73m2 Severe Kidney Disease: Estimated GFR < 15 mL/min/1.73m2 Glucose, Random 101 60-115 mg/dL CA 9.8 8.4-10.2 mg/dL Ferritin 99 10-250 ng/mL Total Bili 0.8 0.0-1.0 mg/dL AST (GOT) 40 H 5-31 U/L ALT (GPT) 25 0-31 U/L Protein, Total 7.6 6.5-8.0 g/dL Alb 4.1 3.5-5.0 g/dL Alk Phos 74 39-117 U/L Coding Level of Care Code Est Pt Level 4 (09271) Diagnoses Osteoarthritis of knees, bilateral M17.0 Depression with anxiety F41.8 Essential hypertension I10 Hyperlipidemia E78.5 Expressive aphasia R47.01 Acquired hypothyroidism E03.9 Assessment & Plan Assessment & Plan (1) Osteoarthritis of knees, bilateral: Code(s): M17.0 - Bilateral primary osteoarthritis of knee Category: Medical Plan: May continue taking Tylenol arthritis 650 mg 1 tablet every 8 hours as needed for relief of joint pain, and may take an occasional naproxen/Aleve as needed for severe pain. Take with food. Ordered x-ray of bilateral, referred to orthopedics for further evaluation management (2) Depression with anxiety: Code(s): F41.8 - Other specified anxiety disorders Category: Medical Plan: Currently followed by psychiatry, taking sertraline 100 mg 1 tablet twice a day (3) Essential hypertension: Code(s): I10 - Essential (primary) hypertension Category: Medical Plan: Continue chlorthalidone 12.5 mg daily in the morning and metoprolol succinate ER 50 . Reinforced importance of following a low sodium diet, getting regular exercise, and lowering stress levels. (4) Hyperlipidemia: Code(s): E78.5 - Hyperlipidemia, unspecified Category: Medical Plan: Reminded to get her fasting labs done. Currently taking simvastatin 20 mg at bedtime , in addition to adherence to low-cholesterol diet and regular exercise, at least 30 minutes 3 to 4 times a week. Advised patient to make healthy food choices, eat more fruits, vegetables, whole grains, wild caught fish and low-fat dairy. Limit amount of meat and fried or fatty food products, as well as processed foods and fast foods. (5) Expressive aphasia: Code(s): R47.01 - Aphasia Category: Medical Plan: Improving speech after physical therapy (6) Acquired hypothyroidism: Code(s): E03.9 - Hypothyroidism, unspecified Category: Medical Plan: Her last TSH was elevated, repeat labs ordered to check TSH and free T4 levels. Reminded patient to get these labs done. Currently on levothyroxine 175 mcg daily. Orders: Orders XR Knee Ihsan 4V 04/09/25 M25.561 - Pain in right knee, M25.562 - Pain in left knee, G89.29 - Other chronic pain Referrals Orthopedics Referral M17.0 - Bilateral primary osteoarthritis of knee
--- OUTSIDE RECORDS SUMMARY | 2025-04-09 17:18 | XMS_ITS | Encounter Summary ---
Author Organization [facility] Address [address] [place] [address] Phone Care Team Providers Care Zipper Setter Chainstitch Name Role Phone Beck Hernandez MD Primary Care Provider Mary Henderson MD Primary Care Provider Encounter Details Date Type Department Care Team (Late st Contact Info) Description 02/14/2024 Procedure Pass MRI, [facility] - [address], [address] [place] [address] Social History Tobacco Use Types [...] Description 06/02/2025 8:30 AM EST Office Visit [facility] [address], [address] [place] [address] Eloina Brantley MD [address] [place] [phone] [email or web address] documented as of this encounter Visit Diagnoses Not on filedocumented in this encounter Care Teams Zipper Setter Chainstitch Relationship Specialty Start Date End Date Beck Hernandez MD PCP - General 10/15/19 02/19/24 Mary Henderson MD [address] [place] [address] PCP - General Internal Medicine 02/20/24 documented as of this encounter Additional Source Comments The information contained in this document represents components of the legal health record. It is not the complete legal health record.[facility]
--- OUTSIDE RECORDS SUMMARY | 2025-04-09 17:18 | XMS_ITS | Clinical Summary ---
Author Organization [facility] Address [address] [place] [phone] Phone Care Team Providers Care Av Specialist Name Role Phone Mary Henderson MD Primary [...] Description 01/13/2025 2:00 PM EDT Office Visit [facility] [address] [place] [address] Mary Henderson MD Korza, Laurie J, CCC-WOOL SHEARING SUPERVISOR Dysarthria (Primary Dx) from Last 3 Months [...] Description 06/02/2025 8:30 AM EST Office Visit [facility] [address], [address] [place] [address] Eloina Brantley MD [address] [place] [id number] [email or web address] Due Date Last Done Comments [...] EDT) SODIUM 138 133 - 146 mmol/L [facility] POTASSIUM 4.0 3.3 - 5.1 mmol/L [facility] CHLORIDE 102 96 - 108 mmol/L [facility] CO2 26 21 - 35 mmol/L [facility] BUN 15 6 - 19 mg/dL [facility] CREATININE 0.80 0.5 - 1.5 mg/dL [facility] GLUCOSE 100(H) 70 - 99 mg/dL [facility] ALBUMIN 3.6(L) 3.9 - 4.8 g/dL [facility] TOTAL PROTEIN 6.9 6.5 - 8.0 g/dL [facility] CALCIUM 9.0 8.4 - 10.3 mg/dL [facility] ALKALINE PHOSPHATASE 128(H) 39 - 117 U/L [facility] TOTAL BILIRUBIN 0.6 0.0 - 1.2 mg/dL [facility] AST 31 0 - 37 U/L [facility] ALT 19 0 - 40 U/L [facility] GLOBULIN 3.3 1 - 4.8 g/dL [facility] EGFR 76 >59 mL/min/1.7 3m2 [facility] Comment:Estimated glomerular filtration rate calculated using the CKD-EPI refit equation. ANION GAP 14 10 - 20 mmol/L [facility] Blood 01/01/2024 6:06 AM EDT 01/01/2024 9:31 AM EDT us Kia Kevin MD LAB BLOOD BKR ORDERABLES Final Result [facility] [address] [place] [address] from Last 3 Months or Most Recently Relevant to Health Maintenance Insurance MEDICARE PART A & B [employer] SUPPLEMENT [facility] [place] [address] MEDICARE PART A & B [employer]MENT [facility] [place] [address] MEDICARE PART A & B [employer] SUPP[address] [place], [place] [address] [place] [address] MEDICARE PART A & B [employer] SUPPLEMENT [facility] [place] [address] MEDICARE PART A & B [facility] MEDEX SUPPLEMENT [facility] [place] [address] MEDICARE PART A & B [employer] SUPPLEMENT [facility] [place] [address] MEDICARE PART A & B [employer] SUPPLEMENT [facility] [place] [address] MEDICARE PART A & B [employer] SUPPLEMENT [facility] [place] [address] MEDICARE PART A & B [employer] SUPPLEMENT [facility] [place] [address] Care Teams Av Specialist Relationship Specialty Start Date End Date Mary Henderson MD [address] [place] [address] PCP - General Internal Medicine 02/20/24 Additional Source Comments The information contained in this document represents components of the legal health record. It is not the complete legal health record.[facility]
--- OUTSIDE RECORDS SUMMARY | 2025-04-09 17:18 | XMS_ITS | Patient Health Record ---
Author Organization [facility] Address [address] [place] [address] Care Team Providers Care Tufter Hand Name Role Phone Caesar Oliver M.D. Primary Care Provider Saumya Aldana DO RAPHAELTOI, Sushil Unavailable Allergies Allergen (clinical drug ingredient) Drug/Non Drug [...] Status Risk Notes Problem Vitamin D deficiency (95094218) Vitamin D deficiency, unspecified (E55.9) Active confirmed Problem Age-related osteoporosis (207320695) Age-related osteoporosis without current pathological fracture (M81.0) Active confirmed Problem Primary generalised osteoarthritis (174782079) Primary generalized (osteo)arthritis (M15.0) Active confirmed Plan Of Treatment Future Test Test Name Order Date VITAMIN D,25-OH,TOTAL,IA 06/07/2021 COMPREHENSIVE METABOLIC PANEL 07/26/2021 VITAMIN D,25-OH,TOTAL,IA 07/26/2021 CMP 02/15/2022 Vitamin D25 [place] Level 02/15/2022 Insurance Providers Payer Name Payer Address Payer Phone Subscriber Number Group Number Insured Name Patient Relationship to Insured Coverage Start Date Coverage End Date MEDICARE PART B [facility] Service Options [address] [place]ink [id number] Kinza Blair Self - patient is the insured [facility] and [facility] [address] [place] [address] [phone] [id number] Kinza Blair Self - patient is the insured Medical (General) History Medical History History ICD Code HTN Hyperthyroidism Depression Surgical History Surgery Date(Month/Year) Tubal ligation 1974 Cholecystectomy 1974 Laryngoscopy 2004 L cataract 2007 R cataract 2017 R ring finger knuckle replacement 2014 Vaginal sling 2018
--- OUTSIDE RECORDS SUMMARY | 2025-04-09 17:18 | XMS_ITS | Encounter Summary ---
Author Organization [facility] Address [address] [place] [address] Phone Care Team Providers Care Aerial Advertiser Name Role Phone Beck Hernandez MD Primary Care Provider Mary Henderson MD Primary Care Provider Encounter Details Date Type Department Care Team (Late st Contact Info) Description 02/14/2024 Procedure Pass MRI, [facility] - [address], [address] [place] [address] Social History Tobacco Use Types [...] Description 06/02/2025 8:30 AM EST Office Visit [facility] [address], [address] [place] [address] Eloina Brantley MD [address] [place] [address] [email or web address] documented as of this encounter Visit Diagnoses Not on filedocumented in this encounter Care Teams Aerial Advertiser Relationship Specialty Start Date End Date Beck Hernandez MD PCP - General 10/15/19 02/19/24 Mary Henderson MD [address] [place] [address] PCP - General Internal Medicine 02/20/24 documented as of this encounter Additional Source Comments The information contained in this document represents components of the legal health record. It is not the complete legal health record.[facility]
--- OUTSIDE RECORDS SUMMARY | 2025-04-09 17:18 | XMS_ITS | Encounter Summary ---
Author Organization [facility] Address [address] [place] [id number] Phone Care Team Providers Care Wafer Polishing Worker Name Role Phone Beck Hernandez MD Primary Care Provider Mary Henderson MD Primary Care Provider Reason for Referral * Physical Therapy (Routine) - Closed Specialty Diagnoses / Procedures Referred By Contazul crowe Referred To Contact Physical Therapy Diagnoses Encounter for rehabilitation Mandy Brownlee DPM [address] [place] [address] Phone: tel: fax: [facility] [address] [place] [address] Phone: tel: Referral ID Status Reason Start Date Expiration Date Visits Re quested Visits Authorized [id number] Closed 10/11/2019 04/23/2020 99 99 Encounter Details Date Type Department Care Team (Late st Contact Info) Description 10/11/2019 Transcribe Orders [facility] [address] [place] [address] Mandy Brownlee DPM [address] [place] [address] Encounter for rehabilitation (Primary Dx) Social History [...] Description 06/02/2025 8:30 AM EST Office Visit [facility] [address] [facility], [address] [place] [phone] Eloina Brantley MD [address] [place] [phone] [email or web address] documented as of this encounter Procedures Procedure Name Priority Date/Time Associated Diagnosis Comments AMB REFERRAL TO [facility] Routine 10/22/2019 6:42 AM EDT Encounter for rehabilitation documented in this encounter Results * Ambulatory referral to [facility] Physical Therapy (10/22/2019 6:42 AM EDT) Mandy DURHAMM AMB [facility] REFERRALS Final Re sult documented in this encounter Visit Diagnoses Diagnosis Encounter for rehabilitation- Primary documented in this encounter Care Teams Wafer Polishing Worker Relationship Specialty Start Date End Date Beck Hernandez MD PCP - General 10/15/19 02/19/24 Mary Henderson MD [address] [place] [address] PCP - General Internal Medicine 02/20/24 documented as of this encounter Additional Source Comments The information contained in this document represents components of the legal health record. It is not the complete legal health record.[facility]
--- OUTSIDE RECORDS SUMMARY | 2025-04-09 17:18 | XMS_ITS | Patient Health Record ---
Author Organization [facility] Address [address] [place] [id number] Care Team Providers Care Client Delivery Manager Name Role Phone Beck Hernandez Primary Care Provider Zach Ho Unavailable [phone] Allergies Allergen (clinical drug ingredient) Drug/Non Drug [...] Details Miscellaneous: Marital status: Occupation: Retired from [employer] office Section Notes: Nonsmoker; rare alcohol use Nonsmoker; rare alcohol use Nonsmoker; rare alcohol use Nonsmoker; rare alcohol use Problems Problem Type SNOMED Code ICD Code Onset Dates Problem Status W/U Status Risk Notes Problem Screening for malignant neoplasm of colon (582337717) Encounter for screening for malignant neoplasm of colon (Z12.11) Active confirmed Problem History of adenomatous polyp of colon (537548052) History of adenomatous polyp of colon (Z86.010) Active confirmed Problem Change in bowel habit (78988325) Change in bowel habits (R19.4) Active confirmed Problem Hypertension (11250980) Hypertension (I10) Active confirmed Problem Diverticular disease of colon (844060017) Diverticulosis of large intestine without perforation or abscess without bleeding (K57.30) Active confirmed Problem Blood in stool (355297396) Blood in stool (K92.1) Active confirmed Problem Gastroesophageal reflux disease without esophagitis (712263423) Gastroesophageal reflux disease without esophagitis (K21.9) Active confirmed Problem Fecal urgency (32933359) Rectal urgency (R15.2) Active confirmed Problem Long-term current use of antiplatelet drug (092956958305893) Long-term use of aspirin therapy (Z79.82) Active confirmed Problem Abnormal feces (402474219) Loose bowel movements (R19.5) Active confirmed Plan Of Treatment Future Test Test Name Order Date COLONOSCOPY 09/06/2011 COLONOSCOPY 01/19/2017 COLONOSCOPY 01/17/2023 Insurance Providers Payer Name Payer Address Payer Phone Subscriber Number Group Number Insured Name Patient Relationship to Insured Coverage Start Date Coverage End Date MEDICARE OF [place] [address] [facility] [place] [address] [id number] CLAU ORTEZ Self - patient is the insured [employer] CLAIM[employer] [address] [place] [phone] [id number] CLAU ORTEZ Self - patient is the insured [employer] [address] [place] [address] [phone] [id number] CLAU ORTEZ Self - patient is the insured Medical (General) History Medical History History ICD Code Tubular adenoma was removed in 2005 during colonoscopy--a colonoscopy in 2001 was negative Colonoscopy 09/22/2011--nega tive except for some diverticulosis and internal hemorrhoids GERD-upper endoscopy in 2001 was negative for any esophagitis or Pollock's esophagus Hypertension Depression Hyperlipidemia Denies LA,DM,CVA,Lung disease,renal dise ase Sleep apnea-uses a CPAP [...]
--- OUTSIDE RECORDS SUMMARY | 2025-04-09 17:18 | XMS_ITS | Patient Health Record ---
Author Organization [facility] Address [address] [facility] [place] [address] Care Team Providers Care Property Accountant Name Role Phone Beck Hernandez MD Primary Care Provider Mandy Ingram Unavailable [phone] Allergies Allergen (clinical drug ingredient) Drug/Non Drug [...] W/U Status Risk Notes Problem Gait abnormality (20242504) Gait abnormality (R26.9) Active confirmed Plan Of [...] Inc [address] [place] [address] [id number] Dmitriyrajiv Kinza Self - patient is the insured [employer] [address] [place] [address] [id number] Kinza Blair Self - patient is the insured Medical (General) History Medical History History ICD Code Arthritis Back,Hip,and Knee pain Cataracts Depression Gall bladder problems Headaches/Migraines High blood pressure Reflux ( GERD) thyroid Joint implants/screws Surgical History Surgery Date(Month/Year) finger surgery knuckle replacement Hernia Repair 2007 gall bladder 1976 cataract surgery Ihsan 2017 Laryngoscopy 2003 Esophage 2002 Hysteroscopy 1996 Hospitalization History Reason Date(Month/Year) [facility]- heard hip pop an d had some pain in back - rubshired disk in spine- numbness in right big toe 07/08/2019
== END 2025-04-09 13:45 | disposition home or self-care (01) ==
LOC: HO.HMCC 13:08
PROVIDERS: PCP Internal Medicine; Visit Provider Internal Medicine
DX: M17.0 Bilateral primary osteoarthritis of knee (principal); F41.8 Other specified anxiety disorders; I10 Essential (primary) hypertension; E78.5 Hyperlipidemia, unspecified; R47.01 Aphasia; E03.9 Hypothyroidism, unspecified

== ENCOUNTER 2025-04-09 13:07 | Outpatient (REF) | payer MEDICARE, OTHER, SELFPAY ==
--- NOTE | ~2025-04-09 | XR_ITS ---
EXAMINATION: XR KNEE 4 VIEWS BILATERAL HISTORY: Bilateral knee pain COMPARISON: Comparison is made with the prior examinations dated 12/23/2023 and 08/31/2023. FINDINGS: Standing AP views of both knees and additional lateral and oblique views of both knees are submitted. Osseous mineralization is normal. There is no fracture or dislocation. There is moderate to severe osteoarthritis of the medial compartments of both knees with joint space narrowing. There are associated osteophytes noted on the left. There is mild osteoarthritis of the patellofemoral compartments of both knees with osteophyte formation. There is a moderate right joint effusion. XR/XR Knee Ihsan 4V IMPRESSION: Osteoarthritis of the bilateral knees as described. Electronically signed by: Zach Roberts MD 04/09/2025 02:57 PM [facility]
== END 2025-04-09 13:08 | disposition home or self-care (01) ==
LOC: HO.HMGCX 13:07
PROVIDERS: PCP Internal Medicine; Visit Provider Internal Medicine
DX: M17.0 Bilateral primary osteoarthritis of knee (principal); G89.29 Other chronic pain; F41.8 Other specified anxiety disorders; I10 Essential (primary) hypertension; E78.5 Hyperlipidemia, unspecified; R47.01 Aphasia; E03.9 Hypothyroidism, unspecified
CPT/HCPCS: 73564; 96127; 99212

== ENCOUNTER → 2025-04-09 13:54 | Outpatient (BNV) | payer MEDICARE, OTHER, SELFPAY | PROVIDERS: PCP Internal Medicine; Visit Provider Radiology Diagnostic Radiology | DX: M17.0 Bilateral primary osteoarthritis of knee (principal) | CPT/HCPCS: 73564 ==

== ENCOUNTER 2025-04-23 12:29 | Outpatient (REF) | payer MEDICARE, OTHER, SELFPAY ==
[2025-04-23 14:18] LABS: Alanine Aminotransferase 28 U/L (0-31); Anion Gap 10 (12-20); Aspartate Amino Transferase 42 U/L (5-31); Blood Urea Nitrogen 17 mg/dL (9-16); Calcium 9.7 mg/dL (8.4-10.2); Carbon Dioxide 28 mmol/L (22-29); Chloride 111 mmol/L (96-108); Cholesterol 173 mg/dL (<200); Estimated Glomerular Filt Rate > 60; HDL Cholesterol 50 mg/dL (>40); Potassium 3.8 mmol/L (3.3-5.1); Sodium 145 mmol/L (135-145); Triglycerides 92 mg/dL (<150)
[2025-04-23 14:40] LABS: Free T4 (Free Thyroxine) 0.93 ng/dL (0.71-1.85); Thyroid Stimulating Hormone 8.30 uIU/mL (0.32-4.0)
[2025-04-23 14:45] LABS: Folate 9.6 ng/mL (> or = 4.0); Vitamin B12 1389 pg/mL (200-900)
== END 2025-04-23 12:30 | disposition home or self-care (01) ==
LOC: HO.LAB 12:29
PROVIDERS: PCP Internal Medicine; Visit Provider Internal Medicine
DX: I10 Essential (primary) hypertension (principal); E78.5 Hyperlipidemia, unspecified; E03.9 Hypothyroidism, unspecified; Z13.21 Encounter for screening for nutritional disorder
CPT/HCPCS: 36415; 80048; 80061; 82306; 82607; 82746; 84439; 84443; 84450; 84460; 84481